=== PATIENT | female | born 1970 | race Caucasian/White ===

== ENCOUNTER 2024-01-13 12:27 | Emergency (ER) | payer OTHER ==
--- OUTSIDE RECORDS SUMMARY | 2024-01-13 12:33 | XMS REPORT | Continuity of Care Document ---
Author Name Unknown Address [address] [facility] [address] [place] [address] [facility] thconnect Address [address] [facility] [place] [address] Care Team Providers Care Splicer Operator Name Role Phone Milad MORALES, [facility] Primary Care Physician + MARIO GUZMAN Attending Clinician Unavailable GIANLUCA COOK Attending Clinician Unavailable Olive Powell Attending Clinician [phone] Armando Toth Attending Clinician [phone] JAX HEIN Attending Clinician Unavailable OLIVE CHOWDHURY Attending Clinician Unavailable Mario Ambriz Attending Clinician KALEN MATTHEWS Attending Clinician Unavail able [place] PIETROMKalen Attending Clinician [phone] Lab, Ang - Db Attending Clinician Unavailable Pavan Lott MD Attending Clinician [phone] PAVAN LOTT Attending Clinician Unavailable Doctor Unassigned, [place] Attending Clinician U ARMANDO Garcia Attending Clinician Unavailable Anthony Shaffer Attending Clinician Unavailab Maureen Cedillo Attending Clinician [phone] [facility], Infectious Attending Clinician [phone] Doctor Unassigned, [place] Attending Clinician U jennysilvio Boyer LMSW, [place] Attending Clinician + [phone] JOSELINE MCRAE Attending Clinician Unavailable Joseline Mcrae MD Attending Clinician [phone] ZACHARIAH GOMEZ Attending Clinician Unavailable Meenu Loyd Attending Clinician [phone] Zachariah Gomez MD Attending Clinician [phone] MAUREEN MCDONALD Attending Clinician Unavailable Tianna Adair MA Attending Clinician Unavaila Ede Singh Attending Clinician Unavailab Willian Sanchez MD Attending Clinician [phone] WILLIAN PATRICIO Attending Clinician Unavailable ELIAN HERRERA Attending Clinician Unavailable ELIAN HERRERA Attending Clinician Unavailable Cyrus Sim MD Attending Clinician [phone] Julia Méndez LCSW Attending Clinician [phone] Pcp, Patient Does Not Have A Attending Clinician UNKNOWN, ATTENDING Attending Clinician Unavailab Constance Cano Attending Clinician Unavailable RADHA EDDY Attending Clinician Unavailable Mark Soto RN Attending Clinician Unavail John Allison MD Attending Clinician [phone] Judie Cardoso MD Attending Clinician [phone] Aurelio Shaw MD Attending Clinician [phone] Giacomo Spaulding MD Attending Clinician [phone] GIACOMO SPAULDING Attending Clinician Unavailable UNDEFINED Admitting Clinician Unavailable JOSELINE MCRAE Admitting Clinician Unavailable MEENU SHIPMAN Admitting Clinician Unavailable Judie Cardoso MD Admitting Clinician [phone] HORNE Admitting Clinician Unavailable Payers Payer Name Policy Type Policy Number Effective Date Expirati on Date Source [employer] HMO SNP [id number] 2023 00:00:00 [employer] D[employer] DSNP Medicare [id number] 2023 00:00:00 Problems Condition Name Condition Details Condition Category Status Onset Date Resolution Date Last Treatment Date Treating Clinician Comments Source Benign hypertensi on Benign hypertensi on Disease Active 2023-02 00:00: 00 [facility] Anxiety and depression Anxiety and depression Disease Active 10-03 00:00: 00 [facility] Bipolar affective disorder, current episode manic, current episode severity unspecifie d Bipolar affective disorder, current episode manic, current episode severity unspecifie d Disease Active 10-03 00:00: 00 [facility] Elevated blood pressure reading in office without diagnosis of hypertensi on Elevated blood pressure reading in office without diagnosis of hypertensi on Disease Active 10-03 00:00: 00 [facility] Encounter to establish care Encounter to establish care Disease Active 10-03 00:00: 00 [facility] acute hospital Encounter to establish care Encounter to establish care Disease Active 10-03 00:00: 00 [facility] HIV disease HIV disease Disease Active 2021-02 00:00: 00 [facility] Bipolar disorder, current episode mixed, moderate Bipolar disorder, current episode mixed, moderate Disease Active 2021-02 00:00: 00 [facility] Lack of family support Lack of family support Disease Active 2021-02 00:00: 00 [facility] Lack of motivation Lack of motivation Disease Active 2021-02 00:00: 00 [facility] Hyperactiv e Hyperactiv e Disease Active 2021-02 00:00: 00 [facility] Methamphet amine abuse Methamphet amine abuse Disease Active 2021-02 00:00: 00 [facility] High risk social situation High risk social situation Disease Active 2021-02 00:00: 00 [facility] Exposure to potential infection Exposure to potential infection Disease Active 2021-02 00:00: 00 [facility] Immunocomp romised patient Immunocomp romised patient Disease Active 2021-02 00:00: 00 [facility] Non-compli ance Non-compli ance Disease Active 2021-02 00:00: 00 [facility] Exposure to potential infection Exposure to potential infection Disease Active 2021-02 00:00: 00 [facility] Acute hepatitis Acute hepatitis Disease Active 2021-02 00:00: 00 [facility] Non-compli ance with treatment Non-compli ance with treatment Disease Active 06-26 00:00: 00 [facility] acute [facility] Intractabl e nausea and vomiting Intractabl e nausea and vomiting Disease Active 06-26 00:00: 00 [facility] 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 Formattin g of this note might be different from the original. 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 Formattin g of this note might be different from the original. IMO Update [facility] acute hospital QT prolongati on QT prolongati on Disease Active 03-01 00:00: 00 [facility] Encephalop athy acute Encephalop athy acute Disease Active 06-21 00:00: 00 [facility] Pneumonia Pneumonia Disease Active 06-21 00:00: 00 [facility] Vitamin D deficiency Vitamin D deficiency Disease Active 2013-02 00:00: 00 [facility] Delirium Delirium Disease Active 2013-02 00:00: 00 [facility] Gait abnormalit y Gait abnormalit y Disease Active 2013-02 00:00: 00 [facility] Alcohol abuse Alcohol abuse Disease Active 2011-02 00:00: 00 [facility] Anxiety state Anxiety state Disease Active 2011-02 00:00: 00 [facility] Bipolar 1 disorder Bipolar 1 disorder Disease Active 2011-02 00:00: 00 [facility] Pyelonephr itis Pyelonephr itis Disease Active 10-13 00:00: 00 [facility] Abdominal pain Abdominal pain Disease Active 10-13 00:00: 00 [facility] LFTs abnormal LFTs abnormal Disease Active 10-13 00:00: 00 [facility] acute hospital Allergies, Adverse Reactions, Alerts Allergy Name Allergy Type Status Severity Reaction(s) Onset Date Inactive Date Treating Clinician Comments Source Sulfa (Sulfona mide Antibiot ics) DA Active ID 10-01 00:00: 00 [facility] Sulfa (Sulfona mide Antibiot ics) DA Active ID HIVES 10-01 00:00: 00 [facility] Sulfur Propensi ty to adverse reaction s Active Swelling 07-12 00:00: 00 [facility] acute hospital SULFUR DRUG INGREDI Active High ITCHING 07-12 00:00: 00 [facility] acute hospital Sulfa (Sulfona mide Antibiot ics) Drug Allergy Active Hives 4-13 00:00: 00 [facility] acute hospital SULFA (SULFONA MIDE ANTIBIOT ICS) Drug Class Active Hives 4-13 00:00: 00 [facility] acute [facility] NO KNOWN ALLERGIE S Drug Class Active [facility] Social History Social Habit Start Date Stop Date Quantity Comments Source History of tobacco use Passive smoker [facility] History SDOH Social Connections Get Together [facility] History SDOH 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 Gender identity Ivan len Carrasquillo [facility] Alcoholic beverage intake 2023-12-13 00:00:00 2023-12-13 00:00:00 Ex-drinker (finding) [facility] History of Social function 2023-03-19 00:00:00 2023-03-19 00:00:00 [facility] Exposure to SARS-CoV-2 (event) 2022-04-07 00:00:00 2022-04-17 21:11:00 Not sure [facility] Tobacco use and exposure 2022-01-28 00:00:00 2022-01-28 00:00:00 Smokeless tobacco non-user [facility] History SDOH Alcohol Frequency 2022-01-28 00:00:00 2022-01-28 00:00:00 1 [facility] History SDOH Alcohol Std Drinks 2022-01-28 00:00:00 2022-01-28 00:00:00 0 [facility] History SDOH Alcohol Binge 2022-01-28 00:00:00 2022-01-28 00:00:00 1 [facility] History SDOH Social Connections Phone 2022-01-28 00:00:00 2022-01-28 00:00:00 5 [facility] History SDOH Social Connections Living 2022-01-28 00:00:00 2022-01-28 00:00:00 5 [facility] History SDOH Physical Activity DPW 2022-01-28 00:00:00 2022-01-28 00:00:00 0 [facility] History SDOH Physical Activity MPS 2022-01-28 00:00:00 2022-01-28 00:00:00 0 [facility] History SDOH Financial 2022-01-28 00:00:00 2022-01-28 00:00:00 5 [facility] History SDOH Food Worry 2022-01-28 00:00:00 2022-01-28 00:00:00 1 [facility] History SDOH Food Scarcity 2022-01-28 00:00:00 2022-01-28 00:00:00 1 [facility] History SDOH Transport Med 2022-01-28 00:00:00 2022-01-28 00:00:00 2 [facility] History SDOH Transport Non-Med 2022-01-28 00:00:00 2022-01-28 00:00:00 2 [facility] Sex assigned at 1970 00:00:00 1970 00:00:00 [facility] Smoking Status Start Date Stop Date Source Tobacco smoking consumption unknown [facility] Never smoked tobacco [facility] Medications Ordered Medication Name Filled Medication Name Start Date Stop Date Current Medication? Ordering Clinician Indication Dosage Frequency Signature (SIG) Comments Components Source QUEtiapine (SEROQUEL) 25 mg tablet 2023-02 00:00: 00 Yes [id number] 25mg Take 1 tablet by mouth at bedtime as needed for Insomnia. [facility] acute [facility] SERTraline (ZOLOFT) 100 mg tablet 2023-02 00:00: 00 Yes [id number] 150mg Take 1.5 tablets by mouth at bedtime. [facility] propranoloL 20 mg tablet 2023-02 00:00: 00 Yes [id number] 20mg Take 1 tablet by mouth in the morning and 1 tablet in the evening. [facility] SERTraline (ZOLOFT) 50 mg tablet 2023-02 0 09:52: 11 12-12 00:00 :00 No 50mg Take 1 tablet by mouth in the morning and 1 tablet in the evening. [facility] risperiDONE 0.5 mg tablet 2023-02 09:51: 58 Yes .5mg Take 1 tablet by mouth in the morning and 1 tablet in the evening. [facility] hydrOXYzine 50 mg tablet 2023-02 09:51: 41 Yes 50mg Take 1 tablet by mouth in the morning and 1 tablet at noon and 1 tablet in the evening. [facility] BIKTARVY 50-200-25 mg tablet 2023-02 00:00: 00 Yes [id number] 1{tbl} Take 1 tablet by mouth in the morning. [facility] methocarbam oL (ROBAXIN) tablet 750 mg 03-29 19:45: 00 03-29 18:46 :00 No 750mg 750 mg, Oral, ONCE NOW, 1 dose, On Wed03/29/23 at 1345, Routine [facility] ciprofloxac in HCl (CIPRO) tablet 500 mg 03-29 19:30: 00 03-29 18:46 :00 No 500mg 500 mg, Oral, ONCE, 1 dose, On Wed03/29/23 at 1330, AZAM
Re ason for Anti-Infec tive: Documented Infection< br>Documen bhupinder Infection Site: Abdominal< br>Duratio n of Therapy: 7 days [facility] iopamidol (ISOVUE 370-500 mL) injection 80 mL 03-29 19:15: 00 03-29 18:14 :00 No [id number] 80mL 80 mL, Intravenou s, ONCE, 1 dose, On Wed03/29/23 at 1315, Routine [facility] NaCl 0.9% (NS) bolus infusion 1,000 mL 03-29 18:15: 00 03-29 18:40 :00 No 1000mL at 999 mL/hr, 1,000 mL, IV Infusion, ONCE, 1 dose, On Wed03/29/23 at 1215, STAT [facility] hospital ketorolac (TORADOL) injection 15 mg 03-29 17:15: 00 03-29 17:27 :00 No 15mg 15 mg, Slow IV Push, ONCE, 1 dose, On Wed03/29/23 at 1115, Routine [facility] ciprofloxac in HCl 500 mg tablet 03-29 00:00: 00 Yes [id number] 500mg Take 1 tablet by mouth in the morning and 1 tablet in the evening. [facility] traMADoL (ULTRAM) 50 mg tablet 03-29 00:00: 00 Yes [id number] 50mg Take 1 tablet by mouth every 6 (six) hours as needed for Pain (scale 7-10) or Pain (scale 4-6). Indication s: acute pain [facility] ketorolac (TORADOL) injection 15 mg 03-26 02:30: 00 03-26 01:51 :00 No 15mg 15 mg, Slow IV Push, ONCE, 1 dose, On Wed03/25/23 at 2030, Routine [facility] FENTanyl PF (SUBLIMAZE (PF)) injection 50 mcg 03-26 02:15: 00 03-26 01:51 :00 No 50ug 50 mcg, Slow IV Push, ONCE, 1 dose, On Wed03/25/23 at 2015, Routine [facility] iopamidol (ISOVUE 370-500 mL) injection 100 mL 03-26 02:00: 00 03-26 02:00 :00 No [id number] 100mL 100 mL, Intravenou s, ONCE, 1 dose, On Wed03/25/23 at 2000, Routine [facility] acute [facility] proMETHazin e (PHENERGAN) 12.5 mg in NaCl 0.9% (NS) 50 mL IV piggyback 03-26 01:45: 00 03-26 02:22 :00 No 12.5mg 12.5 mg, IV Piggyback, at 200 mL/hr Administer over 15 Minutes, ONCE, 1 dose, On [place] 03/25/23 at 1945, AZAM [facility] acute [facility] cefTRIAXone (ROCEPHIN) 1,000 mg in NaCl 0.9% (NS) 100 mL MINI-BAG 03-26 01:00: 00 03-26 00:59 :00 No 1000mg 1,000 mg, IV Piggyback, ONCE, 1 dose, On [place] 03/25/23 at 1900, Administer over 30 Minutes, 100 mL
Reas on for Anti-Infec tive: Documented Infection< br>Documen bhupinder Infection Site: Urine
D uration of Therapy: 7 days [facility] NaCl 0.9% (NS) IV infusion 1,000 mL 03-26 00:00: 00 03-26 02:22 :00 No 1000mL at 999 mL/hr, Intravenou s, ONCE, 1 dose, On [place] 03/25/23 at 1800, Routine [facility] NaCl 0.9% (NS) IV infusion 1,000 mL 03-25 23:45: 00 03-26 01:55 :00 No 1000mL at 999 mL/hr, Intravenou s, ONCE, 1 dose, On [place] 03/25/23 at 1745, Routine [facility] FENTanyl PF (SUBLIMAZE (PF)) injection 25 mcg 03-25 22:45: 00 03-26 00:27 :00 No 25ug 25 mcg, Slow IV Push, ONCE, 1 dose, On [place] 03/25/23 at 1645, STAT [facility] ondansetron (ZOFRAN (PF)) injection 4 mg 03-25 22:45: 00 03-26 00:27 :00 No 4mg 4 mg, Slow IV Push, ONCE, 1 dose, On [place]os[place] 03/25/23 at 1645, AZAM [facility] dicyclomine 20 mg tablet 03-25 00:00: 00 Yes [id number] 20mg Take 1 tablet by mouth 4 (four) times daily as needed for Abdominal pain. [facility] ondansetron 4 mg tablet 03-25 00:00: 00 Yes [id number] 4mg Take 1 tablet by mouth every 8 (eight) hours as needed for Nausea and Vomiting (N/V). [facility] cefdinir 300 mg capsule 03-25 00:00: 00 04-02 05:59 :00 No [id number] 300mg Take 1 capsule by mouth in the morning and 1 capsule in the evening. Do all this for 7 days. [facility] cephALEXin (KEFLEX) capsule 500 mg 03-20 03:15: 00 03-20 03:11 :00 No 500mg 500 mg, Oral, ONCE, 1 dose, On Wed03/19/23 at 2115, AZAM
Re ason for Anti-Infec tive: Documented Infection< br>Documen bhupinder Infection Site: Urine
D uration of Therapy: Other (see Comments) [facility] ketorolac (TORADOL) injection 15 mg 03-20 03:00: 00 03-20 02:08 :00 No 15mg 15 mg, Slow IV Push, ONCE, 1 dose, On Wed03/19/23 at 2100, Routine [facility] iopamidol (ISOVUE 370-500 mL) injection 100 mL 03-19 22:45: 00 03-19 22:45 :00 No [id number] 100mL 100 mL, Intravenou s, ONCE, 1 dose, On Wed03/19/23 at 1645, Routine [facility] pantoprazol e (PROTONIX) injection 40 mg 03-19 22:30: 00 03-20 00:10 :00 No 40mg 40 mg, Slow IV Push, ONCE, 1 dose, On Wed03/19/23 at 1630 [facility] HYDROcodone -acetaminop hen (NORCO 5) 5-325 mg tablet 1 tablet 03-19 21:15: 00 03-19 21:35 :00 No 1{tbl} 1 tablet, Oral, ONCE NOW, 1 dose, On Wed03/19/23 at 1515, AZAM [facility] hospital NaCl 0.9% (NS) bolus infusion 500 mL 03-19 21:15: 03-19 23:00 :00 No 500mL at 999 mL/hr, 500 mL, IV Infusion, ONCE, 1 dose, On Wed03/19/23 at 1515, STAT [facility] cholecalcif kortney, vitamin D3, 25 mcg (1,000 unit) tablet 03-19 13:20: 35 Yes [id number] Take 2 tablets by mouth. [facility] acute hospital Vitamin B-12 500 mcg tablet 03-19 13:20: 35 Yes 1000ug Take 2 tablets by mouth. [facility] ibuprofen 800 mg tablet 03-19 00:00: 00 Yes [id number] 800mg Take 1 tablet by mouth every 6 (six) hours as needed for Pain (scale 1-3) for up to 30 doses. [facility] cephALEXin (KEFLEX) 500 mg capsule 03-19 00:00: 00 03-19 00:00 :00 No [id number] 500mg Take 1 capsule by mouth in the morning and 1 capsule in the evening. Do all this for 5 days. [facility] acute [facility] amLODIPine 5 mg tablet 09-29 00:00: 00 Yes 5mg Take 1 tablet by mouth. [facility] LORazepam (ATIVAN) injection 1 mg 04-18 15:30: 00 04-18 15:46 :00 No 1mg 1 mg, Slow IV Push, ONCE, 1 dose, On 04/18/22 at 0930, STAT [facility] NaCl 0.9% (NS) bolus infusion 1,000 mL 04-18 15:00: 00 04-18 19:23 :00 No 1000mL at 999 mL/hr, 1,000 mL, IV Infusion, ONCE, 1 dose, On 04/18/22 at 0900, AZAM [facility] metroNIDAZO LE (FLAGYL) tablet 2,000 mg 04-18 07:45: 00 04-18 11:41 :00 No 2000mg 2,000 mg, Oral, ONCE, 1 dose, On 04/18/22 at 0145, AZAM
Re ason for Anti-Infec tive: Empiric Therapy for Suspected Infection< br>Empiric Therapy Site: Pelvic
Duration of therapy: 72 hours [facility] cefTRIAXone (ROCEPHIN) 1,000 mg in NaCl 0.9% (NS) 100 mL MINI-BAG 04-18 07:45: 00 04-18 12:10 :00 No 1000mg 1,000 mg, IV Piggyback, ONCE, 1 dose, On 04/18/22 at 0145, Administer over 30 Minutes, 100 mL
Reas on for Anti-Infec tive: Documented Infection< br>Documen bhupinder Infection Site: Urine
D uration of Therapy: Other (see Comments) [facility] doxycycline hyclate 100 mg capsule 04-18 00:00: 00 04-26 04:59 :00 No [id number] 100mg Take 1 capsule by mouth in the morning and 1 capsule in the evening. Do all this for 7 days. [facility] metroNIDAZO LE 500 mg tablet 04-18 00:00: 00 04-26 04:59 :00 No [id number] 500mg Take 1 tablet by mouth in the morning and 1 tablet in the evening. Do all this for 7 days. [facility] cefdinir 300 mg capsule 04-18 00:00: 00 04-26 04:59 :00 No [id number] 300mg Take 1 capsule by mouth every 12 (twelve) hours for 7 days. [facility] SERTraline 100 mg tablet 03-06 14:33: 51 03-06 00:00 :00 No 100mg Take 100 mg by mouth. [facility] risperiDONE 2 mg tablet 03-06 14:33: 48 03-06 00:00 :00 No 2mg Take 2 mg by mouth. [facility] propranoloL 20 mg tablet 03-06 14:33: 45 03-06 00:00 :00 No 20mg Take 20 mg by mouth. [facility] gabapentin 300 mg capsule 03-06 14:33: 36 03-06 00:00 :00 No Take by mouth. [facility] albuterol 90 mcg/actuati on inhaler 03-06 14:33: 29 03-06 00:00 :00 No Inhale. [facility] ARIPiprazol e 20 mg tablet 03-06 14:33: 26 03-06 00:00 :00 No Take by mouth. [facility] busPIRone 10 mg tablet 03-06 14:33: 17 03-06 00:00 :00 No 10mg Take 10 mg by mouth. [facility] carBAMazepi ne 200 mg 12 hr tablet 03-06 14:33: 10 03-06 00:00 :00 No 200mg Take 200 mg by mouth. [facility] ziprasidone 40 mg capsule 03-06 14:29: 46 03-06 00:00 :00 No 1 capsule with food [facility] ondansetron 4 mg tablet 03-06 00:00: 00 Yes [id number] 4mg Take 1 tablet by mouth every 8 (eight) hours as needed for Nausea and Vomiting (N/V). [facility] Nitrofurant oin&Nit. Macrocryst 100 mg capsule 02-21 00:00: 00 Yes TAKE 100 MG BY MOUTH TWICE DAILY UNTIL FINISHED. TAKE WITH FOOD. [facility] LORazepam 1 mg tablet 02-21 00:00: 00 Yes TAKE 1 TABLET BY MOUTH EVERY 8 HOURS NEEDED FOR ANXIETY [facility] proMETHazin e 25 mg tablet 02-21 00:00: 00 03-06 00:00 :00 No TAKE 25 MG BY MOUTH EVERY 6 HOURS NEEDED FOR NAUSEA/VOM ITING [facility] ondansetron 4 mg disintegrat ing tablet 02-21 00:00: 00 03-06 00:00 :00 No DISSOLVE 1 TABLET BY MOUTH EVERY 6 HOURS NEEDED FOR NAUSEA/VOM ITING [facility] ARIPiprazol e 20 mg tablet 2021-02 12:11: 50 Yes Take by mouth. [facility] busPIRone 10 mg tablet 2021-02 12:11: 50 Yes 10mg Take 10 mg by mouth. [facility] carBAMazepi ne 200 mg 12 hr tablet 2021-02 12:11: 50 Yes 200mg Take 200 mg by mouth. [facility] gabapentin 300 mg capsule 2021-02 12:11: 50 Yes Take by mouth. [facility] propranoloL 20 mg tablet 2021-02 12:11: 50 Yes 20mg Take 20 mg by mouth. [facility] risperiDONE 2 mg tablet 2021-02 12:11: 50 Yes 2mg Take 2 mg by mouth. [facility] SERTraline 100 mg tablet 2021-02 12:11: 50 Yes 100mg Take 100 mg by mouth. [facility] ziprasidone 40 mg capsule 2021-02 12:11: 50 Yes 1 capsule with food [facility] albuterol 90 mcg/actuati on inhaler 2021-02 12:11: 49 Yes Inhale. [facility] foLIC acid 1 mg tablet 2021-02 00:00: 00 03-05 05:59 :00 No [id number] 1mg Take 1 tablet by mouth in the morning for 30 days. [facility] thiamine 100 mg tablet 2021-02 00:00: 00 03-05 05:59 :00 No [id number] 100mg Take 1 tablet by mouth in the morning for 30 days. [facility] morpHINE (2 mg/mL) injection 2 mg 2021-02 15:04: 26 Yes 2mg 2 mg, Slow IV Push, Q4HPRN, Starting on Wed01/30/22 at 0904, Until Discontinu ed, Routine, Pain (scale 7-10) [facility] foLIC acid (FOLATE) tablet 1 mg 2021-02 15:00: 00 Yes 1mg 1 mg, Oral, DAILY, First dose on Wed01/29/22 at 0900, Until Discontinu ed, Routine [facility] thiamine (VITAMIN B1) tablet 100 mg 2021-02 15:00: 00 Yes 100mg 100 mg, Oral, DAILY, First dose on Wed01/29/22 at 0900, Until Discontinu ed, Routine [facility] enoxaparin (LOVENOX) injection 40 mg 2021-02 15:00: 00 Yes 40mg 40 mg, Subcutaneo us, DAILY, First dose on Wed01/29/22 at 0900, Until Discontinu ed, Routine [facility] oxazepam (SERAX) capsule 15 mg 2021-02 23:43: 13 Yes 15mg 15 mg, Oral, Q4HPRN, Starting on Wed01/28/22 at 1743, Until Discontinu ed, Routine, Only while awake for DBP equal to or greater than 100, HR equal to or greater than 100. [facility] hydrALAZINE (APRESOLINE ) tablet 10 mg 2021-02 23:42: 05 Yes 10mg 10 mg, Oral, Q6HPRN, Starting on Wed01/28/22 at 1742, Until Discontinu ed, Routine, SBP > 155 [facility] acute hospital sennosides- docusate sodium (SENOKOT-S) 8.6-50 mg per tablet 1 tablet 2021-02 23:42: 01 Yes 1{tbl} 1 tablet, Oral, QDAILYPRN, Starting on Wed01/28/22 at 1742, Until Discontinu ed, Routine, Constipati on [facility] acute hospital melatonin (MELATIN) tablet 3 mg 2021-02 23:41: 59 Yes 3mg 3 mg, Oral, QHSPRN, Starting on Wed01/28/22 at 1741, Until Discontinu ed, Routine, Insomnia [facility] acute hospital ondansetron (ZOFRAN (PF)) injection 4 mg 2021-02 23:41: 54 Yes 4mg 4 mg, Slow IV Push, Q6HPRN, Starting on Wed01/28/22 at 1741, Until Discontinu ed, Routine, Nausea and Vomiting (N/V) [facility] traMADoL (ULTRAM) tablet 50 mg 2021-02 23:41: 48 01-30 23:40 :48 No 50mg 50 mg, Oral, Q6HPRN, Starting on Wed01/28/22 at 1741, Until 01/30/22 at 1740, Routine, Pain (scale 4-6) [facility] morpHINE (2 mg/mL) injection 2 mg 2021-02 23:41: 43 01-29 23:40 :43 No 2mg 2 mg, Slow IV Push, Q6HPRN, Starting on Wed01/28/22 at 1741, Until [place] 01/29/22 at 1740, Routine, Pain (scale 7-10) [facility] ketorolac (TORADOL) injection 30 mg 2021-02 17:30: 00 01-28 16:29 :00 No 30mg 30 mg, Slow IV Push, ONCE, 1 dose, On Wed01/28/22 at 1130, Routine [facility] ondansetron (ZOFRAN (PF)) injection 4 mg 2021-02 15:30: 00 01-28 15:30 :00 No 4mg 4 mg, Slow IV Push, ONCE, 1 dose, On Wed01/28/22 at 0930, [facility] Immunizations Ordered Immunization Name Filled Immunization Name Date Status Comments Source TDAP 2020 00:00:00 Completed TDAP 2020 00:00:00 Completed [facility] TDAP 2020 00:00:00 Completed [facility] TDAP 2020 00:00:00 Completed [facility] TDAP 2020 00:00:00 Completed [facility] TDAP 2020 00:00:00 Completed [facility] TDAP 2020 00:00:00 Completed [facility] TDAP 2020 00:00:00 Completed [facility] TDAP 2020 00:00:00 Completed [facility] TDAP 2020 00:00:00 Completed [facility] TDAP 2020 00:00:00 Completed [facility] TDAP 2020 00:00:00 Completed [facility] TDAP 2020 00:00:00 Completed [facility] TDAP 2020 00:00:00 Completed [facility] TDAP 2020 00:00:00 Completed [facility] TDAP 2020 00:00:00 Completed [facility] TDAP 2020 00:00:00 Completed [facility] TDAP 2020 00:00:00 Completed [facility] TD Pres-Free 2011-07-08 00:00:00 Completed TD Pres-Free 2011-07-08 00:00:00 Completed [facility] TD Pres-Free 2011-07-08 00:00:00 Completed [facility] TD Pres-Free 2011-07-08 00:00:00 Completed [facility] TD Pres-Free 2011-07-08 00:00:00 Completed [facility] TD Pres-Free 2011-07-08 00:00:00 Completed [facility] TD Pres-Free 2011-07-08 00:00:00 Completed [facility] TD Pres-Free 2011-07-08 00:00:00 Completed [facility] TD Pres-Free 2011-07-08 00:00:00 Completed [facility] TD Pres-Free 2011-07-08 00:00:00 Completed [facility] TD Pres-Free 2011-07-08 00:00:00 Completed [facility] TD Pres-Free 2011-07-08 00:00:00 Completed [facility] TD Pres-Free 2011-07-08 00:00:00 Completed [facility] TD Pres-Free 2011-07-08 00:00:00 Completed [facility] TD Pres-Free 2011-07-08 00:00:00 Completed [facility] TD Pres-Free 2011-07-08 00:00:00 Completed [facility] TD Pres-Free 2011-07-08 00:00:00 Completed [facility] TD Pres-Free 2011-07-08 00:00:00 Completed [facility] TDAP Unknown Completed [facility] TD Pres-Free Unknown Completed [facility] TDAP Unknown Completed [facility] TD Pres-Free Unknown Completed [facility] TDAP Unknown Completed [facility] TD Pres-Free Unknown Completed [facility] TDAP Unknown Completed [facility] TD Pres-Free Unknown Completed [facility] TDAP Unknown Completed [facility] TD Pres-Free Unknown Completed [facility] TDAP Unknown Completed [facility] TD Pres-Free Unknown Completed [facility] TDAP Unknown Completed [facility] TD Pres-Free Unknown Completed [facility] TDAP Unknown Completed [facility] TD Pres-Free Unknown Completed [facility] TDAP Unknown Completed [facility] TD Pres-Free Unknown Completed [facility] TDAP Unknown Completed [facility] TD Pres-Free Unknown [facility] TD Pres-Free Unknown Com[facility]pleted [facility] TD Pres[facility]Free Unknown Completed [facility] Unknown [facility]pleted [facility] TD Pres-Free Unknown Completed [facility] TD[facility] Unknown [facility]pleted [facility] TD Pres-Free Unknown Completed [facility] TDAP Unknown Completed [facility] TD Pres-Free Unknown Completed [facility] TDAP Unknown Completed [facility] TD Pres-Free Unknown Completed [facility] TDAP Unknown Completed [facility] TD Pres-Free Unknown Completed [facility] TDAP Unknown Completed [facility] TD Pres-Free Unknown Completed [facility] TDAP Unknown Completed [facility] TD Pres-Free Unknown Completed [facility] TDAP Unknown Completed [facility] TD Pres-Free Unknown Completed [facility] TDAP Unknown Completed [facility] TD Pres-Free Unknown Completed [facility] TDAP Unknown Completed [facility] TD Pres-Free Unknown Completed [facility] TDAP Unknown Completed [facility] TD Pres-Free Unknown Completed [facility] TDAP Unknown Completed [facility] TD Pres-Free Unknown Completed [facility] TDAP Unknown Completed [facility] TD Pres-Free Unknown Completed [facility] TDAP Unknown Completed [facility] TD Pres-Free Unknown Completed [facility] TDAP Unknown Completed [facility] TD Pres-Free Unknown Completed [facility] TDAP Unknown Completed [facility] TD Pres-Free Unknown Com[facility] TD Pres-Free Unknown Completed [facility] TD[facility] Unknown Completed [facility] TD Pres[facility]Free Unknown Completed [facility] Unknown Completed [facility] TD Pres[facility]Free Unknown Completed [facility] TD[facility] Unknown [facility]pleted [facility] TD Pres-Free Unknown Completed [facility] TDAP Unknown Completed [facility] TD Pres-Free Unknown Completed [facility] Unknown [facility]pleted [facility] TD Pres[facility]Free Unknown Completed [facility] TDAP Unknown [facility]pleted [facility] TD Pres[facility]Free Unknown Completed [facility] TDAP Unknown Completed [facility] TD Pres[facility]Free Unknown Completed [facility] TDAP Unknown Completed [facility] TD Pres-Free Unknown Completed [facility] TD[facility] Unknown Completed [facility] TD Pres-Free Unknown Completed [facility] Vital Signs Vital Name Observation Time Observation Value Comments S ource Systolic blood pressure 2023-12-13 19:38:00 145 mm[Hg] [facility] Diastolic blood pressure 2023-12-13 19:38:00 88 mm[Hg] [facility] Heart rate 2023-12-13 19:38:00 99 /min [facility] temperature 2023-12-13 19:38:00 36.83 Rabia [facility] Body height 2023-12-13 19:38:00 165.1 cm [facility] Body weight 2023-12-13 19:38:00 74.163 kg [facility] BMI 2023-12-13 19:38:00 27.21 kg/m2 [facility] Oxygen saturation in Arterial blood by Pulse oximetry 2023-12-13 19:38:00 100 /min [facility] Systolic blood pressure 2023-10-04 18:14:00 150 mm[Hg] [facility] Diastolic blood pressure 2023-10-04 18:14:00 83 mm[Hg] [facility] Heart rate 2023-10-04 18:13:00 112 /min Un[facility] Body temperature 2023-10-04 18:13:00 37.06 Rabia [facility] Respiratory rate 2023-10-04 18:13:00 18 /min [facility] Body height 2023-10-04 18:13:00 165.1 cm [facility] Body weight 2023-10-04 18:13:00 70.081 kg [facility] BMI 2023-10-04 18:13:00 25.71 kg/m2 [facility] Oxygen saturation in Arterial blood by Pulse oximetry 2023-10-04 18:13:00 97 /min [facility] Systolic blood pressure 2023-03-29 18:45:00 135 mm[Hg] [facility] Diastolic blood pressure 2023-03-29 18:45:00 115 mm[Hg] [facility] Heart rate 2023-03-29 18:00:00 91 /min [facility] Respiratory rate 2023-03-29 18:00:00 19 /min [facility] Oxygen saturation in Arterial blood by Pulse oximetry 2023-03-29 18:00:00 97 /min [facility] Body temperature 2023-03-29 17:01:00 36.83 Rabia [facility] Body height 2023-03-29 17:01:00 165.1 cm [facility] Sy[facility] 2023-03-26 02:00:00 149 mm[Hg] [facility] Diastolic blood pressure 2023-03-26 02:00:00 89 mm[Hg] [facility] Heart rate 2023-03-26 02:00:00 112 /min [facility] Body temperature 2023-03-26 01:55:36 37 Rabia [facility] Respiratory rate 2023-03-26 01:55:36 18 /min [facility] Oxygen saturation in Arterial blood by Pulse oximetry 2023-03-26 01:55:36 98 /min [facility] Body weight 2023-03-25 22:32:00 77.111 kg [facility] BMI 2023-03-25 22:32:00 28.29 kg/m2 [facility] Systolic blood pressure 2023-03-20 02:41:00 154 mm[Hg] [facility] Diastolic blood pressure 2023-03-20 02:41:00 102 mm[Hg] [facility] Heart rate 2023-03-20 02:41:00 87 /min [facility] Respiratory rate 2023-03-20 02:41:00 17 /min [facility] Oxygen saturation in Arterial blood by Pulse oximetry 2023-03-20 02:41:00 98 /min [facility] Body temperature 2023-03-20 01:16:00 36.83 Rabia [facility] Body height 2023-03-19 20:48:00 165.1 cm [facility] Body weight 2023-03-19 20:48:00 77.111 kg [facility] BMI 2023-03-19 20:48:00 28.29 kg/m2 [facility] Systolic blood pressure 2023-03-19 20:16:00 148 mm[Hg] [facility] Diastolic blood pressure 2023-03-19 20:16:00 98 mm[Hg] [facility] Heart rate 2023-03-19 20:16:00 112 /min [facility] Body temperature 2023-03-19 19:09:00 36.39 Rabia [facility] Respiratory rate 2023-03-19 19:09:00 18 /min [facility] Body height 2023-03-19 19:09:00 165.1 cm [facility] Body weight 2023-03-19 19:09:00 77.157 kg [facility] BMI 2023-03-19 19:09:00 28.31 kg/m2 [facility] Oxygen saturation in Arterial blood by Pulse oximetry 2023-03-19 19:09:00 100 /min [facility] Systolic blood pressure 2022-04-18 21:19:00 131 mm[Hg] [facility] Diastolic blood pressure 2022-04-18 21:19:00 75 mm[Hg] [facility] Heart rate 2022-04-18 21:19:00 85 /min [facility] Body temperature 2022-04-18 21:19:00 37 Rabia [facility] Respiratory rate 2022-04-18 21:19:00 16 /min [facility] Oxygen saturation in Arterial blood by Pulse oximetry 2022-04-18 21:19:00 98 /min [facility] Body weight 2022-04-18 03:12:00 72.576 kg [facility] BMI 2022-04-18 03:12:00 26.63 kg/m2 [facility] Systolic blood pressure 2022-03-06 20:08:00 138 mm[Hg] [facility] Diastolic blood pressure 2022-03-06 20:08:00 89 mm[Hg] [facility] Heart rate 2022-03-06 20:04:00 134 /min Un[facility] Body temperature 2022-03-06 20:04:00 37.61 Rabia [facility] Respiratory rate 2022-03-06 20:04:00 19 /min [facility] Body height 2022-03-06 20:04:00 165.1 cm [facility] Body weight 2022-03-06 20:04:00 73.347 kg [facility] BMI 2022-03-06 20:04:00 26.91 kg/m2 [facility] Oxygen saturation in Arterial blood by Pulse oximetry 2022-03-06 20:04:00 97 /min [facility] Systolic blood pressure 2022-02-01 13:14:00 130 mm[Hg] [facility] Diastolic blood pressure 2022-02-01 13:14:00 74 mm[Hg] [facility] Heart rate 2022-02-01 13:14:00 82 /min [facility] Body temperature 2022-02-01 13:14:00 36.72 Rabia [facility] Respiratory rate 2022-02-01 13:14:00 16 /min [facility] Oxygen saturation in Arterial blood by Pulse oximetry 2022-02-01 10:03:00 98 /min [facility] Body height 2022-01-28 21:32:00 165.1 cm [facility] Body weight 2022-01-28 21:32:00 71.986 kg [facility] BMI 2022-01-28 21:32:00 26.41 kg/m2 [facility] Procedures Procedure Date / Time Performed Performing Clinician Source CT ABDOMEN PELVIS W CONTRAST 2023-03-29 18:19:02 Joseline Mcrae [facility] COMP. METABOLIC PANEL ([id number]) 2023-03-29 17:27:00 Joseline Mcrae [facility] CBC WITH DIFF 2023-03-29 17:27:00 [facility] URINALYSIS 2023-03-29 17:27[facility] 2023-03-29 17:27:00 Eliot Mcrae [facility] URINE DRUG (IMMUNOASSAY) - COMPREHENSIVE DRUG SCREEN W/O REFLEX 2023-03-29 17:27:00 Joseline Mcrae [facility] CONSENT/REFUSAL FOR DIAGNOSIS AND TREATMENT 2023-03-29 16:57:33 Doctor Unassigned, [place] [facility] EKG-12 LEAD 2023-03-26 02:09:49 Meenu Shipman [facility] CT ABDOMEN PELVIS W CONTRAST 2023-03-26 01:05:15 Meenu Shipman [facility] URINALYSIS 2023-03-25 23:20:00 Meenu Shipman [facility] RAPID INFLUENZA A/B 2023-03-25 23:20:00 Claudia Shipman [facility] URINE DRUG (IMMUNOASSAY) - COMPREHENSIVE DRUG SCREEN W/O REFLEX 2023-03-25 23:20:00 Meenu Shipman [facility] LIPASE 2023-03-25 23:08:00 Meenu Shipman [facility] COMP. METABOLIC PANEL ([id number]) 2023-03-25 23:08:00 Meenu Shipman [facility] CBC WITH DIFF 2023-03-25 23:08:00 Meenu Shipman [facility] COVID-19 (ID NOW RAPID TESTING) 2023-03-25 23:08:00 Meenu Shipman [facility] CONSENT/REFUSAL FOR DIAGNOSIS AND TREATMENT 2023-03-25 22:25:02 Doctor Unassigned, [place] [facility] URINALYSIS 2023-03-20 02:08:00 Joseline Mcrae [facility] URINE DRUG (IMMUNOASSAY) - COMPREHENSIVE DRUG SCREEN W/O REFLEX 2023-03-20 02:08:00 Joseline Mcrae [facility] ASSIGNMENT OF BENEFITS 2023-03-19 23:43:36 Docto r Unassigned, [place] [facility] CT ANGIOGRAM ABDOMEN/PELVIS 2023-03-19 21:49:00 Joseline Mcrae [facility] HB ABO GROUPING 2023-03-19 21:44:00 Joseline Mcrae [facility] PROTHROMBIN TIME / INR 2023-03-19 21:16:00 Lincoln Mcrae [facility] LIPASE 2023-03-19 21:14:00 Joseline Mcrae [facility] TROPONIN I 2023-03-19 21:14:00 Joseline Mcrae [facility] COMP. METABOLIC PANEL ([id number]) 2023-03-19 21:14:00 Joseline Mcrae [facility] ETHANOL 2023-03-19 21:14:00 Joseline Mcare [facility] CBC WITH DIFF 2023-03-19 21:14:00 Joseline Mcrae [facility] CONSENT/REFUSAL FOR DIAGNOSIS AND TREATMENT 2023-03-19 20:38:50 Doctor Unassigned, [place] [facility] AUTHORIZATION FOR RELEASE OF PHI 2022-05-22 05:01:00 Doctor Unassigned, [place] [facility] TEST, SERUM 2022-04-18 05:29:00 Don Sim [facility] TOTAL BETA HCG ASSAY 2022-04-18 05:29:00 Cyrus Sim [facility] ETHANOL 2022-04-18 05:29:00 Cyrus Sim [facility] URINALYSIS 2022-04-18 05:19:00 Cyrus Sim [facility] COVID-19 (ID NOW RAPID TESTING) 2022-04-18 05:19:00 Cyrus Sim [facility] URINE DRUG (IMMUNOASSAY) - COMPREHENSIVE DRUG SCREEN W/O REFLEX 2022-04-18 05:19:00 Cyrus Sim [facility] CONSENT/REFUSAL FOR DIAGNOSIS AND TREATMENT 2022-04-18 03:05:26 Doctor Unassigned, [place] [facility] PATIENT QUESTIONNAIRE 2022-03-06 06:01:00 Doctor Unassigned, [place] [facility] FREE T4 2022-01-31 20:14:00 Chelly [facility] FREE T3 2022-01-31 20:14:00 [facility] HEPATIC FUNCTION PANEL ([id number]) (ALB,T.PRO,BILI T,BU/BC,ALT,AST,ALK PHOS) 2022-01-31 14:41:00 [facility] US ARTERIAL IN OR VENOUS OUT ABDOMEN LIMITED DOPPLER 2022-01-30 21:15:00 John Wilson [facility] RAPID INFLUENZA A/B 2022-01-30 19:54:00 [facility] HEPATITIS B VIRUS (HBV) BY QUANTITATIVE NAAT 2022-01-30 19:54:00 [facility] HUMAN IMMUNODEFICIENCY VIRUS 1 (HIV-1) BY QUANTITATIVE NAAT 2022-01-30 19:54:00 Harjeet Rios [facility] RAPID RSV 2022-01-30 19:54:00 Harjeet Rios [facility] COVID-19 (ID NOW RAPID TESTING) 2022-01-30 19:54:00 Harjeet Rios [facility] COMP. METABOLIC PANEL ([id number]) 2022-01-30 09:44:00 Aurelio Shaw [facility] CBC WITH DIFF 2022-01-30 09:44:00 Aurelio Shaw [facility] PROTHROMBIN TIME / INR 2022-01-30 09:44:00 Julian Shaw tanvi [facility] SMOOTH MUSCLE AB, IGG TITER 2022-01-30 09:44:00 Morgan Gabriel [facility] SMOOTH MUSCLE AB,IGG W/REFLEX 2022-01-30 09:44:00 [facility] 2022-01-30 09:44:00 Morgan Gabreil [facility] ALPHA 1 ANTITRYPSIN 2022-01-30 09:44:00 Josh Gabriel [facility] IMMUNOGLOBULIN G 2022-01-30 09:44:00 Morgan Gabriel [facility] FERRITIN SERUM 2022-01-29 16:32:00 Morgan Gabreil [facility] THYROID STIMULATING HORMONE 2022-01-29 16:32:00 Morgan Gabriel [facility] IRON PANEL 2022-01-29 16:32:00 Morgan Gabriel [facility] EBV VIRAL CAPSID IGM ANTIBODY 2022-01-29 16:32:00 [facility] EBV NUCLEAR ANTIGEN IGG TEST 2022-01-29 16:32:00 [facility] CYTOMEGALOVIRUS ANTIBODY IGM 2022-01-29 16:32:00 [facility] CYTOMEGALOVIRUS ANTIBODY IGG 2022-01-29 16:32:00 [facility] ANTI-NUCLEAR ANTIBODY SCREEN 2022-01-29 16:32:00 Morgan Gabriel [facility] HEPATITIS B SURFACE ANTIBODY 2022-01-29 16:32:00 Harjeet Rios [facility] HEPATITIS B SURFACE ANTIGEN 2022-01-29 16:32:00 [facility] HCV ANTIBODY 2022-01-29 16:32:00 Harjeet Rios [facility] HBC ANTIBODY (IGM & IGG) 2022-01-29 16:32[facility] VIRUS ANTIBODY IGM 2022-01-29 16:32:00 [facility] RPR (QUANTITATIVE) 2022-01-29 16:32:00 [facility] EBV AB TO EARLY(D)AG,IGG 2022-01-29 16:32:00 Opal Rios [facility] HAV ANTIBODY (IGG AND IGM) 2022-01-29 16:32:00 [facility] HEPATITIS C VIRUS (HCV) BY QUANTITATIVE NAAT 2022-01-29 16:32:00 [facility] CMV BY PCR 2022-01-29 16:32:00 Harjeet Rios [facility] HSV 1 AND 2 GLYCOPROTEIN G IGG 2022-01-29 16:32:00 [facility] HIV 1/2 AG-AB WITH REFLEX 2022-01-29 16:32:00 [facility] HIV 1/2 AB SUPPLEMENTAL TESTING 2022-01-29 16:32:00 [facility] GALV ONLY - SYPHILIS IGG/IGM 2022-01-29 16:32:00 [facility] HEPATITIS BE AG 2022-01-29 16:32:00 Harjeet Rios [facility] HEPATITIS BE AB 2022-01-29 16:32:00 Harjeet Rios [facility] COMP. METABOLIC PANEL ([id number]) 2022-01-29 14:08:00 Aurelio Shaw [facility] PROTHROMBIN TIME / INR 2022-01-29 14:08:00 Julian Shaw [facility] BLOOD CULTURE SCREEN 2022-01-29 00:41:00 John Wilson [facility] BLOOD CULTURE SCREEN 2022-01-29 00:40:00 John Wilson [facility] PROTHROMBIN TIME / INR 2022-01-28 21:55:00 Elizabeth Wilson [facility] URINALYSIS 2022-01-28 17:55:00 Umberto Meenu [facility] URINE CULTURE 2022-01-28 17:55:00 Umberto Meenu [facility] URINE DRUG (IMMUNOASSAY) - COMPREHENSIVE DRUG SCREEN W/O REFLEX 2022-01-28 17:55:00 Meenu Shipman [facility] US ABDOMEN LIMITED 2022-01-28 17:18:25 Meenu Shipman [facility] CT ABDOMEN PELVIS WO CONTRAST 2022-01-28 15:59:50 Meenu Shipman [facility] MAGNESIUM 2022-01-28 15:41:00 John Wilson [facility] COMP. METABOLIC PANEL ([id number]) 2022-01-28 15:41:00 Meenu Shipman [facility] ACETAMINOPHEN 2022-01-28 15:41:00 John Wilson [facility] CBC WITH DIFF 2022-01-28 15:41:00 Meenu Shipman [facility] PHOSPHORUS 2022-01-28 15:41:00 John Wilson [facility] CONSENT/REFUSAL FOR DIAGNOSIS AND TREATMENT 2022-01-28 15:06:45 Doctor Unassigned, [place] [facility] Encounters Start Date/Time End Date/Time Encounter Type Admission Type Attending Clinicians Care Facility Care Department Encounter ID Source 2024-01-18 10:00:00 2024-01-18 10:00:00 Outpatient GIANLUCA COY [facility] [id number] General acute hospital 2024-01-11 00:00:00 2024-01-12 08:26:32 [facility] [id number] General acute hospital 2023-11-30 00:00:00 2024-01-01 18:24:51 Patient Secure Msg CookiejessicaArmando [facility] [id number] General acute hospital 2023-12-28 00:00:00 2023-12-28 14:09:41 Letter (Out) [facility] [id number]..[id number] General acute hospital 2023-12-28 09:30:00 2023-12-28 09:30:00 Outpatient R GIANLUCA COOK [facility] [id number] General acute hospital 2023-12-23 09:00:00 2023-12-23 09:00:00 Outpatient R MARIO GUZMAN [facility] [id number] General acute hospital 2023-12-13 13:30:00 2023-12-13 14:39:46 Outpatient R OLIVE CHOWDHURY [facility] [id number] General acute hospital 2023-12-13 13:30:00 2023-12-13 14:39:46 [facility] [id number] General acute hospital 2023-12-06 00:00:00 2023-12-08 10:40:25 Telephone Mario Guzman [facility] [id number] General acute hospital 2023-12-06 00:00:00 2023-12-06 11:46:51 Telephone Armando Preston [facility] MEDICAL OFFICE BUILDING 1.2.840.114 350.1.13.10 4.2.7.2.686 [id number] 044 [id number] General acute hospital 2023-12-06 09:55:00 2023-12-06 10:57:31 Outpatient Elective KALEN MATTHEWSOUT [facility] [id number] MHEOUT 2023-12-06 10:10:00 2023-12-06 10:30:00 Consult Kalen Matthews [facility] 1.2.840.114 350.1.13.70 8.2.7.2.686 [id number] Grace Carrasquillo [facility] 2023-12-02 00:00:00 2023-12-03 10:56:40 Telephone Armando Preston [facility] S[facility] MED[facility] 1.2.840.114 350.1.13.10 4.2.7.2.686 [id number] 044 [id number] General acute hospital 2023-11-30 00:00:00 2023-12-01 08:07:26 Telephone Armando Preston [facility] MED[facility] OFF[facility] BUILDING 1.2.840.114 350.1.13.10 4.2.7.2.686 [id number] [id number] General acute hospital 2023-11-23 09:30:00 2023-11-23 09:45:00 Station Installer And Repairer Visit Lab, Pavan Doran Lab, Freddy Macdonald [facility] BU[facility] 1.2.840.114 350.1.13.10 4.2.7.2.686 [id number] General acute hospital 2023-11-23 09:30:00 2023-11-23 09:30:00 Outpatient PAVAN FONSECA [facility] [id number] General acute hospital 2023-11-22 10:53:03 2023-11-22 11:57:25 Outpatient Elective SELBSTKALEN MHEOUT MHEOUT [id number] EOUT 2023-10-14 00:00:00 2023-11-20 18:25:39 Patient Secure Msg Doctor Unassigned, [place] Doctor Unassigned, [place] [facility] 1.840.114 350.1.13.10 4.2.7.2.686 [id number] 019 [id number] General acute hospital 2023-11-18 09:30:00 2023-11-18 09:30:00 Outpatient R MARIO GUZMAN [facility] [id number] General acute hospital 2023-11-16 11:00:00 2023-11-16 11:00:00 Outpatient R ARMANDO PRESTON [facility] [id number] General acute hospital 2023-11-10 11:59:16 2023-11-10 13:09:05 Outpatient Elective SELBOSTONTKALEN SegunOUT EOUT [id number] EOUT 2023-10-08 00:00:00 2023-10-12 10:33:17 Patient Secure Msg Doctor Unassigned, [place] Doctor Unassigned, [place] [facility] MEDICAL OFFICE BUILDING 1.840.114 350.1.13.10 4.2.7.2.686 [id number] 044 [id number] General acute hospital 2023-10-08 00:00:00 2023-10-08 10:37:01 Telephone Armando Preston [facility] 1..840.114 350.1.13.10 4.2.7.2.686 [id number] [id number] General acute hospital 2023-10-06 00:00:00 2023-10-08 10:35:44 Patient Secure Msg Armando Preston [facility] MEDICAL OFFICE BUILDING 1..840.114 350.1.13.10 4.2.7.2.686 [id number] 044 [id number] General acute hospital 2023-10-06 00:00:00 2023-10-06 10:51:36 Patient Secure Armando Golden [facility] S[facility]YA?[facility] MEDICAL OFFICE BUILDING 1.2840.114 350.1.13.10 4.2.7.2.686 [id number] [id number] General acute hospital 2023-10-05 00:00:00 2023-10-05 14:00:07 Letter (Out) [facility] 1.2840.114 350.1.13.10 4.2.7.2.686 [id number] General acute hospital 2023-10-05 00:00:00 2023-10-05 08:57:59 Telephone Armando Preston [facility] S[facility] MEDICAL OFFICE BUILDING 1.2840.114 350.1.13.10 4.2.7.2.686 [id number] [id number] General acute hospital 2023-10-04 00:00:00 2023-10-05 07:22:40 Patient Secure Armando Golden [facility] MEDICAL OFFICE BUILDING 1.2840.114 350.1.13.10 4.2.7.2.686 [id number] 044 [id number] General acute hospital 2023-10-04 13:00:00 2023-10-04 13:34:03 Outpatient R ARMANDO PRESTON [facility] [id number] General acute hospital 2023-10-04 13:00:00 2023-10-04 13:34:03 Office Visit Armando Preston [facility] S[facility] MEDICAL OFFICE BUILDING 1.2840.114 350.1.13.10 4.2.7.2.686 [id number] [id number] General acute hospital 2023-05-15 21:37:00 2023-05-16 02:11:00 Emergency EM Anthony Shaffer [facility] [id number] [facility] 2023-05-07 00:00:00 2023-05-07 00:00:00 Telephone Maureen Mcdonald [facility] 1.840.114 350.1.13.10 4.2.7.2.686 [id number] General acute hospital 2023-04-29 00:00:00 2023-04-29 00:00:00 Letter (Out) Diseases-Vt mb, Infectious [facility] 1.2.840.114 350.1.13.10 4.2.7.2.686 [id number] General acute hospital 2023-04-26 00:00:00 2023-04-26 00:00:00 Patient Secure Msg Doctor Unassigned, [place] [facility] 1.2.840.114 350.1.13.10 4.2.7.2.686 [id number] [id number] General acute hospital 2023-04-21 00:00:00 2023-04-21 00:00:00 Patient Secure Msg Maureen Mcdonald [facility] 1.840.114 350.1.13.10 4.2.7.2.686 [id number] General acute hospital 2023-04-15 00:00:00 2023-04-15 00:00:00 Patient Secure Msg Maureen Mcdonald [facility] 1.840.114 350.1.13.10 4.2.7.2.686 [id number] General acute hospital 2023-04-13 00:00:00 2023-04-13 00:00:00 Patient Secure Msg Maureen Mcdonald [facility] 1.2.840.114 350.1.13.10 4.2.7.2.686 [id number] General acute hospital 2023-04-13 00:00:00 2023-04-13 00:00:00 Case Management Broderick Maureen Timbo [facility] 1.2.840.114 350.1.13.10 4.2.7.2.686 [id number] General acute hospital 2023-04-13 00:00:00 2023-04-13 00:00:00 Patient Secure Msg Maureen Mcdonald [facility] 1.2.840.114 350.1.13.10 4.2.7.2.686 [id number] General acute hospital 2023-04-12 00:00:00 2023-04-12 00:00:00 Patient Secure Msg Broderick Maureen D [facility] 1.2.840.114 350.1.13.10 4.2.7.2.686 [id number] General acute hospital 2023-04-12 00:00:00 2023-04-12 00:00:00 Telephone Maureen Mcdonald [facility] 1.2.840.114 350.1.13.10 4.2.7.2.686 [id number] General acute hospital 2023-04-09 00:00:00 2023-04-09 00:00:00 Patient Secure Msg Maureen Mcdonald [facility] 1.2.840.114 350.1.13.10 4.2.7.2.686 [id number] General acute hospital 2023-04-09 00:00:00 2023-04-09 00:00:00 Patient Secure Msg Maureen Mcdonald [facility] 1.2.840.114 350.1.13.10 4.2.7.2.686 [id number] General acute hospital 2023-04-09 00:00:00 2023-04-09 00:00:00 Patient Outreach La Boyer Timbo [facility] 1.2.840.114 350.1.13.10 4.2.7.2.686 [id number] General acute hospital 2023-04-08 00:00:00 2023-04-08 00:00:00 Patient Secure Msg Maureen Mcdonald [facility] 1.2.840.114 350.1.13.10 4.2.7.2.686 [id number] General acute hospital 2023-04-08 00:00:00 2023-04-08 00:00:00 Patient Secure Msg Maureen Mcdonald [facility] 1.2.840.114 350.1.13.10 4.2.7.2.686 [id number] General acute hospital 2023-04-08 00:00:00 2023-04-08 00:00:00 Telephone Maureen Mcdonald [facility] 1.2.840.114 350.1.13.10 4.2.7.2.686 [id number] General acute hospital 2023-04-07 00:00:00 2023-04-07 00:00:00 Patient Secure Msg Maureen Mcdonald [facility] 1.2.840.114 350.1.13.10 4.2.7.2.686 [id number] General acute hospital 2023-04-07 00:00:00 2023-04-07 00:00:00 Patient Secure Msg Maureen Mcdonald [facility] 1.2.840.114 350.1.13.10 4.2.7.2.686 [id number] General acute hospital 2023-04-07 00:00:00 2023-04-07 00:00:00 Patient Secure Msg Maureen Mcdonald [facility] 1.2.840.114 350.1.13.10 4.2.7.2.686 [id number] General acute hospital 2023-04-06 00:00:00 2023-04-06 00:00:00 Patient Secure Msg Maureen Mcdonald [facility] 1.2.840.114 350.1.13.10 4.2.7.2.686 [id number] General acute hospital 2023-04-05 00:00:00 2023-04-05 00:00:00 Telephone Maureen Mcdonald [facility] 1.2.840.114 350.1.13.10 4.2.7.2.686 [id number] General acute hospital 2023-04-05 00:00:00 2023-04-05 00:00:00 Patient Secure Msg Maureen Mcdonald [facility] 1.2.840.114 350.1.13.10 4.2.7.2.686 [id number] General acute hospital 2023-03-29 11:01:00 2023-03-29 12:53:00 Emergency X JOSELINE MCRAE [facility] ERT [id number] General acute hospital 2023-03-29 11:01:00 2023-03-29 12:53:00 Emergency Joseline Mcrae [facility] 1.2.840.114 350.1.13.10 4.2.7.2.686 [id number] 014 [id number] General acute hospital 2023-03-29 00:00:00 2023-03-29 00:00:00 Telephone Maureen Mcdonald [facility] 1.20.114 350.1.13.10 4.2.7.2.686 [id number] General acute hospital 2023-03-28 00:00:00 2023-03-28 00:00:00 Patient Secure Msg Maureen Mcdonald [facility] 1.0.114 350.1.13.10 4.2.7.2.686 [id number] General acute hospital 2023-03-26 00:00:00 2023-03-26 00:00:00 Telephone Maureen Mcdonald [facility] 1..114 350.1.13.10 4.2.7.2.686 [id number] General acute hospital 2023-03-25 16:37:00 2023-03-25 20:56:00 Emergency ZACHARIAH LUCIANO [facility] ERT [id number] General acute hospital 2023-03-25 16:37:00 2023-03-25 20:56:00 Emergency Meenu Shipman William B [facility] 1..114 350.1.13.10 4.2.7.2.686 [id number] 014 [id number] General acute hospital 2023-03-19 14:51:00 2023-03-19 21:23:00 ZACHARIAH Pham [facility] ERT [id number] General acute hospital 2023-03-19 14:51:00 2023-03-19 21:23:00 Emergency Joseline Mcrae William B [facility] 1.0.114 350.1.13.10 4.2.7.2.686 [id number] General acute hospital 2023-03-19 13:00:00 2023-03-19 14:36:30 Office Visit Maureen Mcdonald [facility] 1.0.114 350.1.13.10 4.2.7.2.686 [id number] General acute hospital 2023-03-19 13:00:00 2023-03-19 13:00:00 Outpatient R MAUREEN MCDONALD [facility] [id number] General acute hospital 2022-10-14 00:00:00 2022-10-14 00:00:00 Telephone AdairTianna 1.0.114 350.1.13.10 4.2.7.2.686 [id number] General acute hospital 2022-07-23 20:37:00 2022-07-23 21:51:00 Emergency EM Ede Wong [facility] ER [id number] [facility] 2022-06-18 00:00:00 2022-06-18 00:00:00 Telephone Alanna Patriciochuck [facility] 1.0.114 350.1.13.10 4.2.7.2.686 [id number] General acute hospital 2022-06-01 00:00:00 2022-06-01 00:00:00 Telephone [facility] 1.840.114 350.1.13.10 4.2.7.2.686 [id number] General acute hospital 2022-05-22 00:00:00 2022-05-22 00:00:00 Orders Only Doctor Unassigned, [place] [facility] 1.840.114 350.1.13.10 4.2.7.2.686 [id number] General acute hospital 2022-05-15 09:30:00 2022-05-15 09:30:00 Outpatient R SHENG [facility] [id number] General acute hospital 2022-05-09 00:00:00 2022-05-09 00:00:00 Refill Sheng [facility] 1.2.840.114 350.1.13.10 4.2.7.2.686 [id number] General acute hospital 2022-05-04 00:00:00 2022-05-04 00:00:00 [facility] 1.2.840.114 350.1.13.10 4.2.7.2.686 [id number] General acute hospital 2022-04-17 21:14:00 2022-04-18 16:30:00 Emergency X ELIAN HERRERA CHARLES [facility] ERT [id number] General acute hospital 2022-04-17 21:14:00 2022-04-18 16:30:00 Emergency Cyrus Sim [facility] 1.2.840.114 350.1.13.10 4.2.7.2.686 [id number] General acute hospital 2022-03-17 00:00:00 2022-03-17 00:00:00 Patient Outreach La Boyer [facility] 1.2.840.114 350.1.13.10 4.2.7.2.686 [id number] General acute hospital 2022-03-16 00:00:00 2022-03-16 00:00:00 Telephone [facility] 1.2.840.114 350.1.13.10 4.2.7.2.686 [id number] General acute hospital 2022-03-10 00:00:00 2022-03-10 00:00:00 Patient Outreach Julia Méndez [facility] 1.0.114 350.1.13.10 4.2.7.2.686 [id number] 044 [id number] General acute hospital 2022-03-06 13:50:00 2022-03-06 14:40:23 Outpatient R SHENG [facility] [id number] General acute hospital 2022-03-06 13:50:00 2022-03-06 14:40:23 Office Visit Yurytanvi [facility] 1.2840.114 350.1.13.10 4.2.7.2.686 [id number] General acute hospital 2022-03-06 00:00:00 2022-03-06 00:00:00 Orders Only Doctor Unassigned, [place] [facility] 1.2840.114 350.1.13.10 4.2.7.2.686 [id number] General acute hospital 2022-03-03 09:30:00 2022-03-03 09:30:00 Outpatient R SHENG [facility] [id number] General acute hospital 2022-03-03 00:00:00 2022-03-03 00:00:00 Patient Secure Msg Pcp, Patient Does Not Have A [facility] 1.2840.114 350.1.13.10 4.2.7.2.686 [id number] General acute hospital 2022-02-28 10:00:00 2022-02-28 10:00:00 Outpatient R UNKNOWN, ATTENDING [facility] [id number] General acute hospital 2022-02-26 00:00:00 2022-02-26 00:00:00 Patient Secure Msg Doctor Unassigned, [place] [facility] 1.2840.114 350.1.13.10 4.2.7.2.686 [id number] General acute hospital 2022-02-22 00:53:00 2022-02-22 00:53:00 Outpatient Constance Croft HCACL LABO [id number] [facility] 2022-02-21 06:08:00 2022-02-21 11:10:00 Emergency EM Constance Croft HCAMN ANGELITO [id number] [facility] 2022-02-20 14:00:00 2022-02-20 14:00:00 Outpatient R RADHA EDDY [facility] [id number] General acute hospital 2022-02-19 00:00:00 2022-02-19 00:00:00 Patient Secure Msg [facility] .840.114 350.1.13.10 4.2.7.2.686 [id number] General acute hospital 2022-02-17 12:30:00 2022-02-17 12:30:00 Outpatient R SHENG [facility] [id number] General acute hospital 2022-02-13 10:10:00 2022-02-13 10:10:00 Outpatient R SHENG [facility] [id number] General acute hospital 2022-02-03 00:00:00 2022-02-03 00:00:00 Transition of Care Mark Soto .84.114 350.1.13.10 4.2.7.2.686 [id number] General acute hospital 2022-02-02 00:00:00 2022-02-02 00:00:00 Patient Secure Msg Doctor Unassigned, [place] [facility] .840.114 350.1.13.10 4.2.7.2.686 [id number] General acute hospital 2022-02-02 00:00:00 2022-02-02 00:00:00 Telephone John Wilson [facility] 1..840.114 350.1.13.10 4.2.7.2.686 [id number] General acute hospital 2022-01-28 09:11:00 2022-02-01 11:57:00 Emergency Umberto, Meenu Cardoso, Judie Shaw, Giacomo Castrejon [facility] 1..840.114 350.1.13.10 4.2.7.2.686 [id number] General acute hospital 2022-01-28 09:11:00 2022-02-01 11:57:00 Outpatient X [facility] [id number] [facility] Results Test Description Test Time Test Comments Results Resul t Comments Source - CT ABD PELVIS W/CONT 2023-05-16 01:44:00 [place] [facility] : 1970 Sex: F FAX: Anthony Shaffer [place]: [address]: REG Name: HECK,LETITIA [facility] : 1970 Age/S: 52/F [address] [facility] BoxC Unit: [id number] Loc: EHUSSEIN2 [place], [place]: [place] [id number] Acct: [id number] Dis Date: Status: REG ER PHONE #: [phone] Exam Date: 05/16/202346 FAX #: [phone] Reason: BACK PAIN EXAMS: CPT CODE: [id number] CT ABD PELVIS W/CONT 61036 EXAM: - CT ABD PELVIS W/CONT HISTORY: Pain. TECHNIQUE: Axial tomograms through the abdomen and pelvis were obtained after intravenous contrast. Coronal and sagittal reformatted images are provided. This exam was performed according to our departmental dose-optimization program, which includes automated exposure control, adjustment of the mA and/or kV according to patient size and/or use of iterative reconstruction technique. COMPARISON: February 21, 2022. FINDINGS: The visualized lung bases are clear. Bilateral deflated breast implants. Status post cholecystectomy. Dilated common bile duct measuring 14 mm in diameter. The liver, spleen, pancreas, adrenal glands and kidneys demonstrate no significant abnormalities. No nephrolithiasis or hydronephrosis. The appendix is not identified. No evidence of acute inflammatory process. Minimal retained fecal material throughout the colon. There is no adenopathy or free fluid. No free air. The abdominal aorta is normal in size. There is no acute osseous abnormality. Degenerative disc disease lower lumbar spine. IMPRESSION: No significant abnormalities demonstrated. Other findings as above. PAGE 1 Signed Report (CONTINUED) FAX: Anthony Shaffer [place]: St: REG Name: LETITIA ZELAYA [facility] : 1970 Age/S: 52/F [address] [facility] BoxC Unit: [id number] [facility] [place], [place]: [place] [id number] Acct: [id number] Dis Date: Status: REG ER PHONE #: [phone] Exam Date: 05/16/2023 004 FAX #: [phone] Reason: BACK PAIN EXAMS: CPT CODE: [id number] CT ABD PELVIS W/CONT 23049 (Continued) at 0144 Reported and signed by: Arvind Daily M.D. CC: Anthony Shaffer DO Technologist: Carmela Gifford Trnscrd Dt/Tm: 05/16/2023 (143) [id number] Orig Print D/T: S: 05/16/2023 (146 PAGE 2 Signed Report WHAT DRUGS HAVE BEEN TAKEN? unkUA RFLX MICR CULT IF [id number] 23:44:00 * Test Item Value Reference Range Interpretation Comme nts UA COLOR (test code = COLU) DARK YELLOW UA APPEARANCE (test code = APPU) CLEAR UA GLUCOSE DIPSTICK (test code = DGLUU) NORMAL mg/dl NORMAL UA BILIRUBIN DIPSTICK (test code = BILU) NEGATIVE mg/dL NEGATIVE UA KETONE DIPSTICK (test code = KETU) NEGATIVE mg/dl NEGATIVE UA SPECIFIC GRAVITY (test code = SGU) 1.020 1.000-1.030 UA BLOOD DIPSTICK (test code = JHONATAN) NEGATIVE Sammy/micL NEGATIVE UA PH DIPSTICK (test code = SHARI) 6.0 5.0-9.0 UA PROTEIN DIPSTICK (test code = PROU) 15 mg/dl mg/dl NEGATIVE A UA UROBILINIOGEN DIPSTICK (test code = URO) 4.0 mg/dl mg/dl NORMAL A UA NITRITE DIPSTICK (test code = KALEY) NEGATIVE NEGATIVE UA LEUKOCYTE ESTERASE DIPSTICK (test code = LEUU) 25 Juan Francisco/micL Juan Francisco/micL NEGATIVE A UA WBC (test code = WBCU) 0-3 WBC/HPF NONE UA RBC (test code = RBCU) 0-2 RBC/HPF 0-3 UA EPITHELIAL CELLS (test code = EPIU) 0-3 EPI/HPF 0-3 UA BACTERIA (test code = BACU) FEW NONE UA AMORPHOUS SEDIMENT (test code = AMORU) FEW NONE Indication for culture: Suprapubic Pain Flank PainSpecimen Description: CLEAN CATCHUR HCG [id number] 23:44:00* Test Item Value Reference Range Interpretation Comme nts UR HCG QUAL (test code = HCGQLU) NEGATIVE NEGATIVE Indication for culture: Suprapubic Pain Flank PainSpecimen Description: CLEAN CATCHBASIC METABOLIC [id number] 22:41:00* Test Item Value Reference Range Interpretation Comme nts SODIUM (test code = NA) 139 mmol/l 134.0-147.0 N POTASSIUM (test code = K) 4.1 mmol/L 3.6-5.2 N CHLORIDE (test code = CL) 107 mmol/l 98.0-107.0 N CARBON DIOXIDE (test code = CO2) 24.5 mmol/l 21.0-33.0 N ANION GAP (test code = GAP) 11.6 0-20 N GLUCOSE (test code = GLU) 93 mg/dl 70.0-110.0 N BLOOD UREA NITROGEN (test code = BUN) 13 mg/dl 7.0-18.0 N GLOMERULAR FILTRATION RATE (test code = GFR) 89 mL/min The Glomerular Filtration Rate is a calculated parameterbased on serum Creatinine, patient age and sex. GFR valuesless than 60 mL/min/1.73 square meters are indicative ofChronic Kidney Disease. Values less than 15 mL/min/1.73square meters indicate Kidney failure. The calculation forGFR is based on the CKD-EPI (202) calculation. This formulais race indifferent and is the recommended formula for GFRby the National Kidney Foundation for Adults.The GFR will not calculate if the sex is unknown or if thepatient's age is <18 years. CREATININE (test code = CREAT) 0.79 mg/dL 0.60-1.30 N ESTIMATED CREAT CLEARANCE (test code = ECRCL) 74 mL/min >30 CALCIUM (test code = CA) 8.5 mg/dl 8.0-10.5 N HEPATIC FUNCTION PANEL [id number] 22:41:00* Test Item Value Reference Range Interpretation Comme nts TOTAL PROTEIN (test code = PROT) 7.1 GM/DL 6.0-8.1 N ALBUMIN (test code = ALB) 3.3 gm/dL 3.2-4.7 N BILIRUBIN TOTAL (test code = BILT) 0.7 mg/dl 0.0-1.0 N BILIRUBIN DIRECT (test code = BILD) 0.1 mg/dl 0.0-0.3 N SGOT/AST (test code = AST) 61 Units/L 15-37 H SGPT/ALT (test code = ALT) 49 Units/L 12.0-78.0 N ALKALINE PHOSPHATASE TOTAL ( test code = ALKP) 283 Units/L 50.0-136.0 H [id number] 22:41:00* Test Item Value Reference Range Interpretation Comme nts LIPASE (test code = LIP) 29 Units/L 16-77 N CBC W/AUTO [id number] 22:26:00* Test Item Value Reference Range Interpretation Comme nts WHITE BLOOD CELL (test code = WBC) 2.9 K/mm3 4.5-11.0 L RED BLOOD CELL (test code = RBC) 4.89 M/mm3 3.80-5.20 N HEMOGLOBIN (test code = HGB) 13.6 gm/dL 12.0-16.0 N HEMATOCRIT (test code = HCT) 41.5 % 36.0-48.0 N MEAN CELL VOLUME (test code = MCV) 84.9 UM3 82.0-99.0 N MEAN CELL HGB (test code = MCH) 27.8 UUG 25.5-32.5 N MEAN CELL HGB CONCETRATION (test code = MCHC) 32.8 gm/dL 29.0-35.5 N RED CELL DISTRIBUTION WIDTH (test code = RDW) 14.3 % 11.5-15.0 N RED CELL DISTRIBUTION WIDTH SD (test code = RDW-SD) 43.7 fL 34.8-50.2 N PLATELET COUNT (test code = PLT) 142 K/mm3 150-400 L MEAN PLATELET VOLUME (test c ode = MPV) 10.2 fl 7.4-10.4 N NEUTROPHIL % (test code = NT%) 46.9 % 49.0-76.0 L IMMATURE GRANULOCYTE % (test code = IG%) 0.0 % 0.0-0.4 N LYMPHOCYTE % (test code = LY%) 36.0 % 23.0-38.0 N MONOCYTE % (test code = MO%) 7.2 % 1.0-10.0 N EOSINOPHIL % (test code = EO%) 9.2 % 1.0-5.0 H BASOPHIL % (test code = BA%) 0.7 % 0.0-1.0 N NUCLEATED RBC % (test code = NRBC%) 0.0 % 0.0-0.1 N NEUTROPHIL # (test code = NT#) 1.4 K/mm3 2.4-6.3 L IMMATURE GRANULOCYTE # (test code = IG#) 0.00 x10 3/uL 0.00-0.07 N LYMPHOCYTE # (test code = LY#) 1.1 K/mm3 1.2-4.0 L MONOCYTE # (test code = MO#) 0.2 K/mm3 0.0-0.6 N EOSINOPHIL # (test code = EO#) 0.3 K/MM3 0.0-0.7 N BASOPHIL # (test code = BA#) 0.0 K/mm3 0.0-0.2 N NUCLEATED RBC # (test code = NRBC#) 0.00 X10 3uL 0.00-0.[address] ABDOMEN PELVIS W [id number] 18:29:19Exam: CT ABDOMEN PELVIS W CONTRAST Clinical History: Abdominal pain, acute, nonlocalized Comparison: March 25, 2023 Findings: The lung bases show linear atelectasis. There is no evidence of pleural orpericardial effusion. Bilateral breast implants are partially visualized. The liver shows focal fat infiltration along the fissure. No suspiciousfocal lesions or ductal dilatation. Prior cholecystectomy and prominentextra hepatic CBD. The spleen, kidneys, adrenals, and the pancreas areunchanged.No evidence of free fluid, air, or lymphadenopathy is seen in the abdomenand pelvis. No evidence ofdilated bowel loops, diverticulitis, orappendicitis. Uterus shows no definite focal lesions. No evidence ofadnexal masses. Urinary bladder is partially distended and shows muralthickening. Abdominal wall is within normal limits. Vasculature is unremarkable. Thebones show mild degenerative changes and no suspicious focal lesions.[facility]. Metabolic Panel ([id number])2023-03-29 17:49:51* Test Item Value Reference Range Interpretation Comme nts NA (test code = 5974314338) 139 mmol/L 135-145 K (test code = 0155043605) 3.5 mmol/L 3.5-5.0 CL (test code = 5664000036) 105 mmol/L 98-108 CO2 TOTAL (test code = 1037299072) 25 mmol/L 23-31 AGAP (test code = 6000001499) 9 2-16 BUN (test code = 4955899960) 21 mg/dL 7-23 GLUCOSE (test code = 4021787592) 147 mg/dL 70-110 H CREATININE (test code = 2160-0) 0.72 mg/dL 0.50-1.04 TOTAL BILI (test code = 3373244207) 1.5 mg/dL 0.1-1.1 H CALCIUM (test code = 5481941798) 9.5 mg/dL 8.6-10.6 T PROTEIN (test code = 6087647860) 8.2 g/dL 6.3-8.2 ALBUMIN (test code = 5330948403) 4.6 g/dL 3.5-5.0 ALK PHOS (test code = 2315731650) 161 U/L 34-122 H ALTv (test code = 1742-6) 40 U/L 5-35 H AST(SGOT) (test code = 9157332183) 55 U/L 13-40 H eGFR (test code = 49894-8) 100.1 mL/min/1.73m2 CKD-EPI eGFR (2020). Assuming creatinine has been stable day-to-day for at least three months, the eGFR indicates Category G1 (>= 90 mL/min/1.73 m2) Lab Interpretation (test code = 57983-2) Abnormal [facility] with [id number] 17:38:32* Test Item Value Reference Range Interpretation Comme nts WBC (test code = 6690-2) 3.56 4.30-11.10 L RBC (test code = 789-8) 5.69 3.93-5.25 H HGB (test code = 718-7) 15.4 g/dL 11.6-15.0 H HCT (test code = 4544-3) 45.9 % 35.7-45.2 H MCV (test code = 787-2) 80.7 fL 80.6-95.5 MCH (test code = 785-6) 27.1 pg 25.9-32.8 MCHC (test code = 786-4) 33.6 g/dL 31.6-35.1 RDW-SD (test code = 92396-1) 43.6 fL 39.0-49.9 RDW-CV (test code = 788-0) 14.8 % 12.0-15.5 PLT (test code = 777-3) 183 166-358 MPV (test code = 06731-5) 10.2 fL 9.5-12.9 NRBC/100 WBC (test code = 3285190388) 0.0 0.0-10.0 NRBC x10^3 (test code = 1414148344) See_Comment [Automated messa ge] The system which generated this result transmitted reference range: 10*3/?L. The reference range was not used to interpret this result as normal/abnormal. GRAN MAT (NEUT) % (test code = 770-8) 64.3 % IMM GRAN % (test code = 2440706319) 0.30 % LYMPH % (test code = 736-9) 23.0 % MONO % (test code = 5905-5) 5.6 % EOS % (test code = 713-8) 6.5 % BASO % (test code = 706-2) 0.3 % GRAN MAT x10^3(ANC) (test code = 0374910055) 2.29 10*3/uL 1.88-7.09 IMM GRAN x10^3 (test code = 6163093445) 0.00-0.06 LYMPH x10^3 (test code = 731-0) 0.82 10*3/uL 1.32-3.29 L MONO x10^3 (test code = 742-7) 0.20 10*3/uL 0.33-0.92 L EOS x10^3 (test code = 711-2) 0.23 10*3/uL 0.03-0.39 BASO x10^3 (test code = 704-7) 0.01-0.07 Lab Interpretation (test code = 04958-1) Abnormal [facility] Acid Whole [id number] 17:36:39* Test Item Value Reference Range Interpretation Comme nts LACTIC ACID (test code = 2648554429) 1.86 mmol/L 0.50-2.20 Lab Interpretation (test cod e = 42128-8) Normal [facility] [id number] 02:26:06EXAM: CT ABDOMEN/PELVIS WITH CONTRAST HISTORY: ?Abdominal pain, acute, nonlocalized ? COMPARISON: CT abdomen pelvis without contrast 01/28/2022 TECHNIQUE AND FINDINGS: Contiguous axial imaging from the level of the lungbases through the proximal thighs was performed after the administration of of in travenous ?contrast. Coronal and sagittal reconstructions wereobtained. ?Auto mA and/or iterative reconstruction were used to reduceradiation dose. FINDINGS: LOWER THORAX: The lungs bases are clear. No cardiomegaly. LIVER: No focal hepatic lesions. ?Normal contour. GALLBLADDER AND BILIARY TREE: No biliary ductal dilation. Priorcholecystectomy. CBD is dilated at 1 cm, which is unchanged and likelydueto reservoir phenomenon. SPLEEN: No splenomegaly. PANCREAS: No ductal dilation or masses. ADRENAL GLANDS: No adrenal nodules. KIDNEYS: Bilateral symmetrical enhancement. No hydronephrosis, stones,orsolid masses. Subcentimeter bilateral renal cysts, too small tocharacterize. GI TRACT: No dilation or wall thickening. Normal appendix. PELVIS/BLADDER: Urinary bladder is unremarkable. PERITONEUM AND RETROPERITONEUM: No free air or fluid. LYMPH NODES: No lymphadenopathy. VESSELS: Unremarkable. BONES AND SOFT TISSUES: No suspicious lytic or sclerotic bony lesions.Degenerative changes of the lumbar spine.[facility] HospitalLIPASE2024-02-15 23:49:52* Test Item Value Reference Range Interpretation Comme nts LIPASE (test code = 8726356214) 74 U/L 0-220 Lab Interpretation (test cod e = 12383-9) Normal [facility] HospitalCOMP. METABOLIC PANEL ([id number])2023-03-25 23:49:52* Test Item Value Reference Range Interpretation Comme nts NA (test code = 8652080523) 140 mmol/L 135-145 K (test code = 9587352443) 3.7 mmol/L 3.5-5.0 Slight hemolysis CL (test code = 7672911781) 106 mmol/L 98-108 CO2 TOTAL (test code = 3392444393) 21 mmol/L 23-31 L AGAP (test code = 1180048278) 13 2-16 BUN (test code = 4817807604) 14 mg/dL 7-23 Slight hemolysis GLUCOSE (test code = 1563187847) 111 mg/dL 70-110 H CREATININE (test code = 2160-0) 0.59 mg/dL 0.50-1.04 TOTAL BILI (test code = 4719384291) 1.8 mg/dL 0.1-1.1 H CALCIUM (test code = 3537611706) 9.6 mg/dL 8.6-10.6 T PROTEIN (test code = 8405973876) 8.8 g/dL 6.3-8.2 H ALBUMIN (test code = 0681358085) 4.8 g/dL 3.5-5.0 ALK PHOS (test code = 2118138959) 167 U/L 34-122 H Slight hemolysis ALTv (test code = 1742-6) 41 U/L 5-35 H AST(SGOT) (test code = 8283790589) 59 U/L 13-40 H Slight hemolysis eGFR (test code = 58137-3) 107.9 mL/min/1.73m2 CKD-EPI eGFR (2020). Assuming creatinine has been stable day-to-day for at least three months, the eGFR indicates Category G1 (>= 90 mL/min/1.73 m2) Lab Interpretation (test code = 37693-2) Abnormal [facility] WITH [id number] 23:24:49* Test Item Value Reference Range Interpretation Comme nts WBC (test code = 6690-2) 5.74 4.30-11.10 RBC (test code = 789-8) 5.32 3.93-5.25 H HGB (test code = 718-7) 14.4 g/dL 11.6-15.0 HCT (test code = 4544-3) 42.0 % 35.7-45.2 MCV (test code = 787-2) 78.9 fL 80.6-95.5 L MCH (test code = 785-6) 27.1 pg 25.9-32.8 MCHC (test code = 786-4) 34.3 g/dL 31.6-35.1 RDW-SD (test code = 71080-5) 43.4 fL 39.0-49.9 RDW-CV (test code = 788-0) 15.2 % 12.0-15.5 PLT (test code = 777-3) 165 166-358 L MPV (test code = 75032-5) 10.1 fL 9.5-12.9 NRBC/100 WBC (test code = 6787831658) 0.0 0.0-10.0 NRBC x10^3 (test code = 9018805846) See_Comment [Automated Gigturna ge] The system which generated this result transmitted reference range: 10*3/?L. The reference range was not used to interpret this result as normal/abnormal. GRAN MAT (NEUT) % (test code = 770-8) 83.2 % IMM GRAN % (test code = 7959398090) 0.30 % LYMPH % (test code = 736-9) 12.5 % MONO % (test code = 5905-5) 3.8 % EOS % (test code = 713-8) 0.0 % BASO % (test code = 706-2) 0.2 % GRAN MAT x10^3(ANC) (test code = 6303608306) 4.77 10*3/uL 1.88-7.09 IMM GRAN x10^3 (test code = 7898239577) 0.00-0.06 LYMPH x10^3 (test code = 731-0) 0.72 10*3/uL 1.32-3.29 L MONO x10^3 (test code = 742-7) 0.22 10*3/uL 0.33-0.92 L EOS x10^3 (test code = 711-2) 0.03-0.39 L BASO x10^3 (test code = 704-7) 0.01-0.07 Lab Interpretation (test code = 80812-1) Abnormal [facility]/[id number] 22:45:01 ORDERING PHYSICIAN: JOSELINE MCRAE CLINICAL HISTORY: gi bleed protocol TECHNIQUE: CT angiogram abdomen and pelvis was performed before andfollowing administration of intravenous contrast. MIP images weregenerated. CT scan was done according to ALARA (As Low as ReasonablyAchievable). TECHNICAL QUALITY: Diagnostic COMPARISON: 01/28/2022 FINDINGS: The lung bases are clear. The liver is normal in appearance. The gallbladder has been removed. The spleen is normal in appearance. The pancreas is normalin appearance. There is no peripancreaticinflammation. The adrenal glands are normal in appearance.The kidneys are symmetric in size. Bilateral renal calcificationscompatible with nonobstructive stones. The kidneys enhance symmetrically.The kidneys excrete symmetrically. There is no hydronephrosis. The abdominal aorta is atherosclerotic but normal in caliber andenhancement. There is no intra-abdo dipesh free air. The small bowel is normal in caliber. There is no intraluminal contrast inthe smallbowel or large bowel to indicate a source for GI bleed. There issome stool in the colon. The appendix is not identified but there is nosecondary CT evidence for acute appendicitis. The bladder is distended without focal bladder wall thickening and withoutbladder stone. The uterus is present. The ovaries are visualized and normal in size. Thereis no free fluid in the pelvis. There are no enlarged lymph nodes in the abdomen or pelvis. There is no compression fracture. There is disc space narrowing at L4-L5and L5-S1.[facility] HospitalEthanol2024-02-09 22:03:44ALCOHOL<10mg/dL03/19/2023 4:03 PM [facility] Greater than or equal to 80 mg/dL. NOTE: Whole blood values are approximately 10% to 15% lower than serum and plasma.[facility] HospitalTroponin [id number] 21:50:05* Test Item Value Reference Range Interpretation Comme nts TROPONIN I (test code = 7433688370) 0.016 ng/mL <=0.034 MULUGETA (test code = MULUGETA) Reference (Normal) Range (defined by the 99th percentile reference limit): <= 0.034 ng/mL Note: Cardiac troponin begins to rise 3-4 hours after the onset of ischemia. Repeat in 4-6 hours if the sample was drawn within 3-4 hours of the onset of the symptom and found normal. Diagnosis of myocardial injury is made with acute changes in cTn concentrations with at least one serial sample above the 99th percentile upper reference limit (URL), taken together with the patient's clinical presentation. Biotin has been reported to cause a negative bias, interpret results relative to patient's use of biotin. Lab Interpretation (test code = 72772-2) Normal [facility] HospitalType and Screen - ONCE [id number] 21:49:00 * Test Item Value Reference Range Interpretation Comme nts ABO & RH (test code = 20) O POSITIVE IAT (test code = 1185) Negative [facility] HospitalComp. Metabolic Panel ([id number])2023-03-19 21:39:03* Test Item Value Reference Range Interpretation Comme nts NA (test code = 4969101173) 139 mmol/L 135-145 K (test code = 8885305629) 4.4 mmol/L 3.5-5.0 Slight hemolysis CL (test code = 8454716228) 109 mmol/L 98-108 H CO2 TOTAL (test code = 6861409960) 18 mmol/L 23-31 L AGAP (test code = 5426034667) 12 2-16 BUN (test code = 4659754064) 14 mg/dL 7-23 Slight hemolysis GLUCOSE (test code = 3912437981) 105 mg/dL 70-110 CREATININE (test code = 3834916573) 0.72 mg/dL 0.50-1.04 TOTAL BILI (test code = 1529940184) 1.3 mg/dL 0.1-1.1 H CALCIUM (test code = 6233079487) 9.1 mg/dL 8.6-10.6 T PROTEIN (test code = 3751061117) 8.4 g/dL 6.3-8.2 H ALBUMIN (test code = 6427925811) 4.6 g/dL 3.5-5.0 ALK PHOS (test code = 5793711811) 163 U/L 34-122 H Slight hemolysis ALTv (test code = 1742-6) 51 U/L 5-35 H AST(SGOT) (test code = 6660096467) 66 U/L 13-40 H Slight hemolysis eGFR (test code = 96613-8) 100.1 mL/min/1.73m2 CKD-EPI eGFR (2020). Assuming creatinine has been stable day-to-day for at least three months, the eGFR indicates Category G1 (>= 90 mL/min/1.73 m2) Lab Interpretation (test code = 02646-4) Abnormal [facility] HospitalLipase2024-02-09 21:39:03* Test Item Value Reference Range Interpretation Comme nts LIPASE (test code = 1060163384) 120 U/L 0-220 Lab Interpretation (test cod e = 76335-8) Normal [facility] HospitalProthrombin Time / [id number] 21:31:44* Test Item Value Reference Range Interpretation Comme nts PROTIME PATIENT (test code = 5964-2) 10.5 10.1-12.6 INR (test code = 6301-6) 0.9 Normal INR <1.1; Warfarin Therapeutic range 2.0 to 3.0 or 2.5 to 3.5, depending upon the indications. Lab Interpretation (test code = 59719-1) Normal [facility] HospitalCbc with [id number] 21:30:21* Test Item Value Reference Range Interpretation Comme nts WBC (test code = 6690-2) 5.43 4.30-11.10 RBC (test code = 789-8) 5.49 3.93-5.25 H HGB (test code = 718-7) 15.0 g/dL 11.6-15.0 HCT (test code = 4544-3) 44.3 % 35.7-45.2 MCV (test code = 787-2) 80.7 fL 80.6-95.5 MCH (test code = 785-6) 27.3 pg 25.9-32.8 MCHC (test code = 786-4) 33.9 g/dL 31.6-35.1 RDW-SD (test code = 87466-9) 43.2 fL 39.0-49.9 RDW-CV (test code = 788-0) 14.9 % 12.0-15.5 PLT (test code = 777-3) 141 166-358 L MPV (test code = 51336-4) 10.5 fL 9.5-12.9 IPF % (test code = 4473745828) 3.7 % 1.3-7.7 Platelet count measured by fluorescence method. NRBC/100 WBC (test code = 4679385904) 0.0 0.0-10.0 NRBC x10^3 (test code = 4116990596) See_Comment [Automated Gigturna ge] The system which generated this result transmitted reference range: 10*3/?L. The reference range was not used to interpret this result as normal/abnormal. GRAN MAT (NEUT) % (test code = 770-8) 74.8 % IMM GRAN % (test code = 9801455912) 0.20 % LYMPH % (test code = 736-9) 17.9 % MONO % (test code = 5905-5) 4.3 % EOS % (test code = 713-8) 2.6 % BASO % (test code = 706-2) 0.2 % GRAN MAT x10^3(ANC) (test code = 6546063205) 3.81 10*3/uL 1.88-7.09 IMM GRAN x10^3 (test code = 0682511212) 0.00-0.06 LYMPH x10^3 (test code = 731-0) 0.91 10*3/uL 1.32-3.29 L MONO x10^3 (test code = 742-7) 0.22 10*3/uL 0.33-0.92 L EOS x10^3 (test code = 711-2) 0.13 10*3/uL 0.03-0.39 BASO x10^3 (test code = 704-7) 0.01-0.07 Lab Interpretation (test code = 90628-0) Abnormal [facility] [place] [facility] (QUANTITATIVE)2022-04-18 09:54:26* Test Item Value Reference Range Interpretation Comme nts BETA HCG (test code = 7967971209) 7.22 See_Comment [Automated Gigturna ge] The system which generated this result transmitted reference range: Non- female and male patients: <5 mIU/mL. The reference range was not used to interpret this result as normal/abnormal. MULUGETA (test code = MULUGETA) Gestational Age ?Range (mIU/mL) 1-10 ?Weeks ?44-59986025-85 Weeks ?65487-12932506-89 Weeks ?9852-31486185-66 Weeks ?0994-826293 Biotin has been reported to cause a negative bias, interpret results relative to patient's use of biotin. [facility] HospitalPREGNANCY TEST, [id number] 06:42:14* Test Item Value Reference Range Interpretation Comme nts PREG SERUM (test code = 9329646184) Positive MULUGETA (test code = MULUGETA) Positive greater t luke or equal to 10 IU/L hCG. [facility] HospitalETHANOL2023-03-11 06:24:09 ALCOHOL<10mg/dL04/18/2022 12:24 AM [facility] SERVICESToxic Greater than or equal to 80 mg/dL. NOTE: Whole blood values are approximately 10% to 15% lower than serum and plasma.[facility] HospitalTROP-I HIGH [id number] 10:30:00* Test Item Value Reference Range Interpretation Comme nts TROP-I HIGH SENSITIVITY (test code = TROPIHS) 8.1 pg/mL 0.0-51.4 N CAUTION: Units o f the current TROPI-HS test methodology(pg/mL) differ from the prior test methodology (ng/mL) by afactor of 1000. 99th Percentile: Females: 0.0-51.4 pg/mL Males: 0.0-76.2 pg/mLThese results were obtained using Booker TnIHreagent. Results from different methodologies should not becompared to one another as quantitative results may vary bymethod. [id number] 10:29:00* Test Item Value Reference Range Interpretation Comme nts ALCOHOL (test code = ALC) 0.00 gm/dL 0.00-0.00 N ETHYL ALCOHOL VA LUES - INTERPRETATION: 0.050 GM/DL - NOT INTOXICATED 0.100 GM/DL - INTOXICATED 0.350-0.450 GM/DL - SEVERELY INTOXICATED 0.550 GM/DL- FATAL INTOXICATION URINALYSIS [id number] 08:13:00* Test Item Value Reference Range Interpretation Comme nts UA COLOR (test code = COLU) DARK YELLOW UA APPEARANCE (test code = APPU) HAZY UA GLUCOSE DIPSTICK (test code = DGLUU) NORMAL mg/dl NORMAL UA BILIRUBIN DIPSTICK (test code = BILU) NEGATIVE mg/dL NEGATIVE UA KETONE DIPSTICK (test code = KETU) 50 mg/dl mg/dl NEGATIVE A UA SPECIFIC GRAVITY (test code = SGU) 1.020 1.000-1.030 UA BLOOD DIPSTICK (test code = JHONATAN) 10 Sammy/micL Sammy/micL NEGATIVE A UA PH DIPSTICK (test code = SHARI) 6.0 5.0-9.0 UA PROTEIN DIPSTICK (test code = PROU) 30 mg/dl NEGATIVE A UA UROBILINIOGEN DIPSTICK (test code = URO) 4.0 mg/dl mg/dl NORMAL A UA NITRITE DIPSTICK (test code = KALEY) POSITIVE NEGATIVE A UA LEUKOCYTE ESTERASE DIPSTICK (test code = LEUU) 25 Juan Francisco/micL Juan Francisco/micL NEGATIVE A UA WBC (test code = WBCU) 4-9 WBC/HPF NONE A UA RBC (test code = RBCU) 3-5 RBC/HPF 0-3 UA EPITHELIAL CELLS (test code = EPIU) 5-10 EPI/HPF 0-3 A UA BACTERIA (test code = BACU) MANY NONE A Specimen comments: Clean CatchDRUGS OF ABUSE SCREEN [id number] 08:09:00* Test Item Value Reference Range Interpretation Comments URN COCAINE (test code = COCAURN) NEGATIVE NEGATIVE Cocaine cut-off concentration: 300 ng/mL URN CANNABINOIDS (test code = CANNABURN) NEGATIVE NEGATIVE Cannabinoids cut -off concentration: 50 ng/mL URN AMPHETAMINE (test code = AMPHETURN) POSITIVE NEGATIVE A UNCONFIRMED INIT IAL SCREENING ONLY; SUGGEST ADDITIONALCONFIRMATORY TESTING.Amphetamine cut-off concentration: 1000 ng/mL URN BARBITURATE (test code = BARBITURN) NEGATIVE NEGATIVE Barbiturate cut- off concentration: 200 ng/mL URN BENZODIAZEPINE (test code = BENZOURN) NEGATIVE NEGATIVE Benzodiazepine c ut-off concentration: 200 ng/mL URN OPIATES (test code = OPIATURN) NEGATIVE NEGATIVE Opiates cut-off concentration: 2000 ng/mL URN PHENCYCLIDINE (PCP) (test code = PHENCURN) NEGATIVE NEGATIVE Phencyclidine(PC P) cut-off concentration: 25 ng/ml URN METHADONE (test code = METHAURN) NEGATIVE NEGATIVE Methadone cut-o ff concentration: 300 ng/mL - CT ABD PELVIS W/O [id number] 08:08:00 [facility] : 1970 Sex: F FAX: Constance Main MD [phone] [place]: St: REG Name: LETITIA ZELAYA [facility] : 1970 Age/S: 51/F [address] [facility] Unit: [id number] [place]: [place]: [place] [id number] Acct: [id number] Dis Date: Status: REG ER PHONE #: [phone] Exam Date: 02/21/2022736 FAX #: [phone] Reason: RIGHT FLANK PAIN EXAMS: CPT CODE: [id number] CT ABD PELVIS W/O CONT 59417 CLINICAL HISTORY: Right flank pain TECHNIQUE: Axial images of the abdomen and pelvis were obtained from diaphragm to the pubic symphysis without oral or intravenous contrast. CT dose lowering technique utilized,with adjustment of MA/kV according to patient size and automated exposure control. COMPARISON: CT abdomen and pelvis October 01, 2017 DISCUSSION: The lung bases are clear. The heart size is normal. The liver is normal in size and contour, without focal abnormality. The gallbladder is absent. No biliary ductal dilatation. The spleen, pancreas and adrenal glands are unremarkable. Both kidneys are normal in size. No hydronephrosis, nephrolithiasis or perinephric edema. Vascular structures are normal in caliber and appearance. The small and large bowel are unremarkable. The appendix is not visualized. No abdominal, pelvic or retroperitoneal adenopathy or free fluid. The uterus, adnexa and urinary bladder appear unremarkable. Spondylotic changes are noted throughout the lower lumbar spine. Nosuspicious bony lesions. IMPRESSION: Negative noncontrast CT abdomen and pelvis at 0808 Reported and signed by: Trevor Stinson M.D. PAGE 1 Signed Report (CONTINUED) FAX: Constance Croft MD [phone] [place]: St: REG Name: LETITIA ZELAYA [facility] : 1970 Age/S: 51/F [address] [facility] Unit: [id number] Loc: [place], [place]: [place] [address] Acct: [id number] Dis Date: Status: REG ER PHONE #: [phone] Exam Date:02/21/2022 0737 FAX #: [phone] Reason: RIGHT FLANK PAIN EXAMS: CPT CODE: [id number] CT ABD PELVIS W/O CONT 72924 (Continued) CC: Constance Croft MD Technologist: MIRANDA GAXIOLA [facility] Dt/Tm: 02/21/2022 (0853) [email or web address] Orig Print D/T: S: 02/21/2022 (0811 PAGE 2 Signed ReportBASIC METABOLIC [id number] 07:03:00* Test Item Value Reference Range Interpretation Comme nts SODIUM (test code = NA) 137 mmol/l 134.0-147.0 N POTASSIUM (test code = K) 3.7 mmol/L 3.6-5.2 N CHLORIDE (test code = CL) 100 mmol/l 98.0-107.0 N CARBON DIOXIDE (test code = CO2) 25.7 mmol/l 21.0-33.0 N ANION GAP (test code = GAP) 15.0 0-20 N GLUCOSE (test code = GLU) 113 mg/dl 70.0-110.0 H BLOOD UREA NITROGEN (test code = BUN) 26 mg/dl 7.0-18.0 H GLOMERULAR FILTRATION RATE (test code = GFR) 90 mL/min The Glomerular Filtration Rate is a calculated parameterbased on serum Creatinine, patient age and sex. GFR valuesless than 60 mL/min/1.73 square meters are indicative ofChronic Kidney Disease. Values less than 15 mL/min/1.73square meters indicate Kidney failure. The calculation forGFR is based on the CKD-EPI (2020) calculation. This formulais race indifferent and is the recommended formula for GFRby the National Kidney Foundation for Adults.The GFR will not calculate if the sex is unknown or if thepatient's age is <18 years. CREATININE (test code = CREAT) 0.79 mg/dL 0.60-1.30 N ESTIMATED CREAT CLEARANCE (test code = ECRCL) 81 mL/min >30 CALCIUM (test code = CA) 9.3 mg/dl 8.0-10.5 N HEPATIC FUNCTION PANEL [id number] 07:03:00* Test Item Value Reference Range Interpretation Comme nts TOTAL PROTEIN (test code = PROT) 7.9 gm/dL 6.4-8.2 N ALBUMIN (test code = ALB) 3.7 gm/dl 3.2-4.7 N BILIRUBIN TOTAL (test code = BILT) 1.7 mg/dl 0.0-1.0 H BILIRUBIN DIRECT (test code = BILD) 0.2 mg/dl 0.0-0.3 N SGOT/AST (test code = AST) 423 Units/L 15-37 HH SGPT/ALT (test code = ALT) 504 Units/L 12.0-78.0 H ALKALINE PHOSPHATASE TOTAL ( test code = ALKP) 207 Units/L 50.0-136.0 H [id number] 07:03:00* Test Item Value Reference Range Interpretation Comme nts LIPASE (test code = LIP) 117 Units/L 65.0-230.0 N PROTHROMBIN [id number] 06:49:00* Test Item Value Reference Range Interpretation Comme nts PROTHROMBIN TIME PATIENT (test code = PTP) 12.2 SECONDS 9.9-12.8 N INTERNATIONAL NORMAL RATIO (test code = INR) 1.0 0.89-1.14 N THE INR IS TO BE USED ONLY FOR MONITORING ORAL ANTICOAGULANTTHERAPY. THE FOLLOWING ARE SUGGESTED RANGES FROM THEAM[employer]ICAN [employer]LE[employer] OF [employer]ST PH[employer]ICIANS:INDICATION INR VALUEPROPHYLAXIS OF VENOUS THROMBOSIS (ORTHOPEDIC SURGERY) 2.0 - 3.0PROPHYLAXIS OF VENOUS THROMBOSIS (OTHER THAN HIGH-RISK SURGERY) 2.0 - 3.0TREATMENT OF DEEP VEIN THROMBOSIS OR PULMONARY EMBOLISM 2.0 - 3.0PREVENTION OF SYSTEMIC EMBOLISM TISSUE HEART VALVES 2.0 - 3.0 ACUTE MYOCARDIAL INFARCTION (TO PREVENT SYSTEMIC EMBOLISM) 2.0 - 3.0 ACUTE MYOCARDIAL INFARCTION (TO PREVENT RECURRENT INFARCT) 2.5 - 3.0 VALVULAR HEART DISEASE 2.0 - 3.0 ATRIAL FIBRILATION 2.0 - 3.0BILEAFLET MECHANICAL VALVE IN AORTIC POSITION 2.0 - 3.0MECHANICAL PROSTHETIC VALVES (HIGH RISK) 2.5 - 3.5PRESENCE OF LUPUS ANTICOAGULANT OR ANTIPHOSPHOLIPID ANTIBODIES 2.5 - 3.5 THROMBOPLASTIN TIME [id number] 06:49:00* Test Item Value Reference Range Interpretation Comme nts THROMBOPLASTIN TIME PARTIAL (test code = PTT) 30.90 SECONDS 25.86-36.07 [facility] Therapeutic Range - APTT of 55.8-85.4 secondscorrelates with plasma heparin concentration of 0.2-0.4 u/mL CBC W/AUTO [id number] 06:46:00* Test Item Value Reference Range Interpretation Comme nts WHITE BLOOD CELL (test code = WBC) 3.6 K/mm3 4.5-11.0 L RED BLOOD CELL (test code = RBC) 5.36 M/mm3 3.80-5.20 H HEMOGLOBIN (test code = HGB) 14.5 gm/dL 12.0-16.0 N HEMATOCRIT (test code = HCT) 43.2 % 36.0-48.0 N MEAN CELL VOLUME (test code = MCV) 80.6 UM3 82.0-99.0 L MEAN CELL HGB (test code = MCH) 27.1 UUG 25.5-32.5 N MEAN CELL HGB CONCETRATION (test code = MCHC) 33.6 gm/dL 29.0-35.5 N RED CELL DISTRIBUTION WIDTH (test code = RDW) 15.0 % 11.5-15.0 N RED CELL DISTRIBUTION WIDTH SD (test code = RDW-SD) 43.5 fL 34.8-50.2 N PLATELET COUNT (test code = PLT) 293 K/mm3 150-400 N MEAN PLATELET VOLUME (test c ode = MPV) 10.4 fl 7.4-10.4 N NEUTROPHIL % (test code = NT%) 62.7 % 49.0-76.0 N IMMATURE GRANULOCYTE % (test code = IG%) 0.3 % 0.0-0.4 N LYMPHOCYTE % (test code = LY%) 25.9 % 23.0-38.0 N MONOCYTE % (test code = MO%) 8.3 % 1.0-10.0 N EOSINOPHIL % (test code = EO%) 2.2 % 1.0-5.0 N BASOPHIL % (test code = BA%) 0.6 % 0.0-1.0 N NUCLEATED RBC % (test code = NRBC%) 0.0 % 0.0-0.1 N NEUTROPHIL # (test code = NT#) 2.3 K/mm3 2.4-6.3 L IMMATURE GRANULOCYTE # (test code = IG#) 0.01 x10 3/uL 0.00-0.07 N LYMPHOCYTE # (test code = LY#) 0.9 K/mm3 1.2-4.0 L MONOCYTE # (test code = MO#) 0.3 K/mm3 0.0-0.6 N EOSINOPHIL # (test code = EO#) 0.1 K/MM3 0.0-0.7 N BASOPHIL # (test code = BA#) 0.0 K/mm3 0.0-0.2 N NUCLEATED RBC # (test code = NRBC#) 0.00 X10 3uL 0.00-0.01 N HUMAN IMMUNODEFICIENCY VIRUS 1 (HIV-1) BY QUANTITATIVE [id number] 19:06:56* Test Item Value Reference Range Interpretation Comme nts HIV-1 Quantitative NAAT - copies/mL (test code = 27691-7) Not Detected Copies/mL H HIV-1 Quantitative Interpretation (test code = 7417979831) Detected Not Detected A MULUGETA (test code = MULUGETA) The Aptima HIV-1 Q uant assay is an FDA-approved nucleic acid amplification test (NAAT) for the quantitation of human immunodeficiency virus type 1 (HIV-1) RNA in human plasma from HIV-1 infected individuals. ?It is intended for use as an aid in monitoring the effects of antiretroviral treatment. ?It is not approved for use as a donor screening test for HIV-1 or as a diagnostic test to confirm the presence of HIV-1 infection. The quantitative range of this assay is 1.47 - 7.00 log copies/mL or 30 - 10,000,000 copies/mL. An interpretation of "Not Detected" does not rule out the presence of inhibitors in the patient specimen or HIV-1 RNA concentration below the level of detection of the test. ?Care should be taken when interpreting any single viral load determination. Detected, not Quantifiable: HIV-1 RNA detected, but at a level below 30 copies/mL (1.47 log copies/mL). ?HIV-1 RNA concentration is below the lower limit of quantitation of the assay. Indeterminate: Error indicated in the generation of the result. ?Please submit a new specimen for repeat testing if clinically indicated. Lab Interpretation (test code = 96275-2) Abnormal [facility] (HBV) BY QUANTITATIVE NAAT 2022-01-31 18:36:58* Test Item Value Reference Range Interpretation Comme nts HBV Quantitative Interpretation (test code = 90645-9) Not Detected Not Detected MULUGETA (test code = MULUGETA) The Aptima HBV Igor nt assay is an FDA-approved in vitro nucleic acid amplification test for the quantitation of hepatitis B virus (HBV) DNA in human plasma and serum. ?It is intended for use as an aid in the management of patients with chronic HBV infections undergoing HBV antiviral drug therapy. ?It is not approved for use as a screening test for the presence of HBV DNA in blood or blood products or as a diagnostic test to confirm the presence of HBV infection. The quantitative range of this assay is 1.00 - 9.00 log IU/mL or 10 - 1,000,000,000 IU/mL. An interpretation of "Not Detected" does not rule out the presence of inhibitors in the patient specimen or HBV DNA concentration below the level of detection of the test. ?Care should be taken when interpreting any single viral load determination. Detected, not Quantifiable: HBV DNA detected, but at a level below 10 IU/mL (1.0 log IU/mL). ?HBV DNA concentration is below the lower limit of quantitation of the assay. Indeterminate: Error indicated in the generation of the result. ?Please submit a new specimen for repeat testing if clinically indicated. Lab Interpretation (test code = 02691-4) Normal [facility] HospitalCMV BY [id number] 18:55:59* Test Item Value Reference Range Interpretation Comme nts Specimen Tested (test code = 0512860206) Plasma CMV PCR - log IU/mL (test code = 81832-0) See_Comment [Automated message] The system which generated this result transmitted reference range: <2.5 log IU/mL. The reference range was not used to interpret this result as normal/abnormal. CMV PCR - IU/mL (test code = 52138-8) See_Comment [Automated message] The system which generated this result transmitted reference range: <300 IU/mL. The reference range was not used to interpret this result as normal/abnormal. CMV PCR - log copies/mL (test code = 28888-2) See_Comment [Automated message] The system which generated this result transmitted reference range: <2.7 log copies/mL. The reference range was not used to interpret this result as normal/abnormal. CMV PCR - copies/mL (test code = 93076-1) See_Comment [Automated message] The system which generated this result transmitted reference range: <516 copies/mL. The reference range was not used to interpret this result as normal/abnormal. MULUGETA (test code = MULUGETA) Test Information: Cytomegalovirus (CMV) DNA, Quantitation. The quantitative range of this assay is 2.5 - 6.5 log IU/mL (300 - 3,000,000 IU/mL) ?or 2.7 - 6.7 log copies/mL (516 - 5,160,000 copies/mL). ?One IU/mL of CMV DNA is approximately 1.72 copies/mL. ?A negative result (less than 2.5 log IU/mL or less than 300 IU/mL) does not rule out the presence of PCR inhibitors in the patient specimen or CMV DNA concentrations below the level of detection by the assay. Inhibition may also lead to underestimation of viral quantitation. ?The limit of quantification for this DNA assay is 2.5 log IU/mL (300 IU/mL) or 2.7 log copies/mL (516 copies/mL). ?If the assay DID NOT DETECT the virus, the test result will be reported as "<2.5 log IU/mL (<300 IU/mL)" and "<2.7 log copies/mL (<516 copies/mL)." ?If the assay DETECTED the presence of the virus but was not able to accurately quantify the number of copies, the test result will be reported as "Detected, not quantifiable." Indeterminate: ?Unable to generate a valid test result on this specimen. ?Please submit a new specimen for repeat testing if clinically indicated. This is a laboratory-developed test using a recreation specialist labeled ASR (Analyte Specific Reagent) as the reagent providing the specificity of the assay. ?This test was developed and its performance characteristics determined by [facility] Clinical Microbiology Laboratory. It has not been cleared or approved by the U.S. Food and Drug Administration; however, the FDA has determined that such clearance or approval is not necessary. This test is used for clinical purposes. It should not be regarded as investigational or for research. This laboratory is certified under the Clinical Laboratory Improvement Amendments of 1988 (CLIA-88) as qualified to perform high complexity clinical laboratory testing. [facility] - SYPHILIS [id number] 16:01:26* Test Item Value Reference Range Interpretation Comme nts Syphilis IgG/IgM (test code = 33089-9) Non-reactive Non-reactive MULUGETA (test code = MULUGETA) Non-reactive - No serologic evidence of T. pallidum infection. Cannot exclude incubating or early syphilis. Submit a second specimen in 2-4 weeks if syphilis is clinically suspected. Equivocal - Further testing to follow. Reactive - Further testing to follow. Lab Interpretation (test code = 46561-0) Normal [facility] Notes Date/Time Note Provider Source 2023-12-10 14:03:07 Please schedule pt for pre op clearance. Lily Buck MA [facility] 2023-12-10 11:47:13 Surgical clearance apt will be needed. Nell seen pt 1 x and BP was very high. T [facility] 2023-12-09 10:47:35 Patient states is having left bunion surgery once cleared by this Provider is not wanting to schedule a second appt at this time. She said Neonatal Doctor accepted the labs already completed, has also done an EKG, and has been cleared by her Infectious disease doctor. She is only needing an okay by [facility]. Please advise. Elizabeth Robb LVN [facility] 2023-12-06 11:46:07 What type of surgery? Yes need to follow up as last apt was establish care T [facility] 2023-12-06 11:24:46 MALKA 10/04/23, please let me know if you would like pt to be seen in office for clearance Lily Buck MA [facility] 2023-12-06 11:17:42 Letitia Zelaya is a 53 year old female Calling to get clearance for foot surgery from dr Dr. Klaen Matthews [address] [place] [address] Juan Georges [facility] 2023-12-06 10:55:48 Letitia Zelaya is a 53 year old female pt is calling stating that she is having foot surgery and she needs a clearance letter from Dr Guzman. Please send letter to Dr. Kalen Matthews [address] [place] [address] Collette Stubbs [facility]2024-10-28 10:53:36 [facility]xjfjno4168-75-66 10:53:36* Kalen Matthews, [facility] - 12/06/2023 10:10 AM CDT CHIEF COMPLAINT: BUNION, LEFT HISTORY OF PRESENT ILLNESS: Patient returns for discussion of surgical options since no improvements from conservative treatments Patient denies infection, injury, wounds Patient states pain currently rated 6/10 on palpation, left medial 1st metatarsal head --- Patient states history of contralateral bunionectomy ( alternate provider in [place], [place]), approximately 2021 Patient states she recently moved to our area and requesting to have evaluation for surgical procedure on the LEFT bunion Patient states painful bunion deformity for many years. Patient has tried multiple conservative treatments but do not seem to help, including larger shoe gear, toe spacers, and over the counter orthotics. Patient therefore requesting surgical options Patient states pain currently graded 6/10 on palpation, LEFT medial FIRST metatarsophalangeal joint OBJECTIVE: PHYSICAL EXAM OF THE LOWER EXTREMITY VASCULAR: (-) edema (-) ecchymosis (-) erythema Dorsal pedis pulse, graded 2/4; bilateral Posterior tibial pulse, graded 2/4; bilateral Capillary Refill time: within normal limits; bilateral (-) varicosities (+) pedal hair growth NEUROLOGICAL: (+) sensation with 5.07 [place] Letty monofilament examination to the most distal lower extremity (-) tinel's sign (-) clonus present DERMATOLOGICAL: (+) mild scar, right dorsal 1st metatarsophalangeal joint (+) mild scar, LEFT dorsal 5th metatarsal (-) open wounds (-) signs of soft tissue infection (-) ischemic tissue (-) abscess (-) other primary or secondary lesions (+) normal temperature when compared to contralateral limb (+) normal color, tugor, and elasticity MUSCULOSKELETAL: (-) bunion deformity, right (+) bunion deformity, left (+) hammertoe with lateral angular deformity, hallux digit proximal phalanx (+) pain on palpation, medial aspect of the 1st metatarsal head (+) mild crepitation, 1st metatarsophalangeal joint (-) concerns at the left 5th metatarsal previous surgical site (+) hypermobile 1st ray (+) equinus, bilateral (+) flexible pes planus foot type, bilateral 5/5 muscle strength to extrinsic pedal muscle groups (-) evidence of compartment syndrome (-) evidence of deep vein thrombosis X-rays bilateral feet 11/11/2023: (+) Bunionectomy right 1st metatarsophalangeal joint (+) large bunion deformity left (+) hardware well positioned with osteotomy left 5th metatarsal midshaft (+) left 1st intermetatarsal angle 16 degrees (+) left 1st hallux abductus angle 26 degrees (+) multiple osteophytes left 1st metatarsal head ASSESSMENT: Hallux abducto valgus Hammertoe, hallux digit --- HIV Hepatitis-C PLAN: - Extensive visit discussing possible pedal complications associated with bunion and hammertoe deformities - INFECTIOUS DISEASE - PENDING CONSULT DECEMBER 19 - Pain -[id number] as needed - Xrays - reviewed - Options -discussed multiple conservative and surgical options including but not limited to physical therapy, supportive shoe gear, custom orthotics - Bunion -unfortunately has exhausted conservative treatments and is likely going to need surgical planning as a more aggressive treatment - PREOP LABS - reviewed, PENDING CLEARANCE FROM PCP AND INFECTIOUS DISEASE - surgery - Carlos and Oh osteotomies - Return 2 weeks for preop eval AFTER INFECTIOUS DISEASE CONSULT Patient advised to report to my clinic or the emergency room immediately with any questions or concerns.Patient Instructions:Discussion: A detailed discussion was provided to the patient with specific reference to etiology, pathology,alternate treatment options, and prognosis. All risks and complications (including side effects) with each treatment/medication alternative were outlined in detail including but not limited to: Pain, swelling, numbness,loss of function, loss of limb, bleeding, hematoma, scarring, failure to relieve condition, surgery, additional/revisional surgery, reflex sympathetic dystrophy, complex regional pain syndrome, reoccurrence of deformity, joint stiffness, flail toe, bone and/or soft tissue infection, blood clots, pulmonary embolism, possible , delayed or non-healing. X-rays, graphs and drawings were all used to assist with patient comprehension when appropriate. All patients questions were answered and stated they fully understood. No guarantee as to results or outcome of treatment was made. I have discussed with the patient or legally responsible person prior to obtaining consent: the risks, potential benefits and drawbacks, significant alternatives, potential for problems related to recuperation, likelihood of success, and possible results of non-treatment, and the patient or the legally responsible person has agreed to proceed. Renetta [facility] HospitalYexfduy7772-10-48 10:53:36Upcoming Encounters Health Maintenance Due Date Last Done Comments CT Colonography 1969 Colonoscopy 1969 Colorectal Cancer Screening 1969 FIT-DNA 1969 FIT 1969 FOBT 1969 Medicare Annual Wellness (AWV) 1969 Sigmoidoscopy 1969 Meningococcal Vaccine (1 - Risk 2-dose series) 07/22/1971 Pneumococcal Vaccine: Pediatrics (0 to 5 Years) and At-Risk Patients (6 to 64 Years) (1 of 2 - PCV) 07/22/1975 Hepatitis A Vaccines (1 of 2 - Risk 2-dose series) 1988 Hepatitis B Vaccines (1 of 3 - 19+ 3-dose series) 1988 Zoster Vaccines (1 of 2) 1988 Pap Smear 1990 Cervical Cancer Screening 07/22/1999 HPV/Cotest 07/22/1999 Mammogram 2009 Influenza Vaccine (#1) 2023 DTaP/Tdap/Td Vaccines (2 - T d or Tdap) 2030 2020, 07/08/2011 HIB Vaccines Aged Out No longer eligi ble based on patient's age to complete this topic HPV Vaccines Aged Out No longer eligi ble based on patient's age to complete this topic IPV Vaccines Aged Out No longer eligi ble based on patient's age to complete this topic Rotavirus Vaccines Aged Out No longer eligible based on patient's age to complete this topic [facility] HospitalQyjjqtf4834-62-73 10:56:34 Done [facility]307[facility] 16:42:41 Please review, complete, and sign if appropriate. Elizabeth Robb [facility]2024-10-24 15:28:57 Call routed to correct clinic Shiloh Levine [facility]Vmlhnf9638-10-29 15:14:47 Letitia Zelaya is a 53 year old female Pt is calling stating the referral that was sent to an external facility doesn't accept her insurance and will like a new referral for sleep study within [facility] (internal). Pt states she will like a call back from a nurse Please advise Letitia Zelaya is a 53 year old female is requesting a referral to: Dept: SLEEP CLINIC ADULT PULM Reason for Referral: F51.01 (ICD-10-CM) - Primary insomnia Duration of problem: N/A Internal / External referral: Internal Name of provider / location patient requesting: N/A Phone Number: N/A Fax Number: N/A Appt already scheduled?: No If yes, Date of Appt: [facility]2024-10-23 08:07:12 [facility]erral [facility]1380-13-69 08:22:49 Please advise. Malka 10/04/23. Pt also sent my chart message stating psych prescribed Rx's but aren't helping. Lily Buck [place] 862114-10-22 08:16:11 Letitia Zelaya is a 53 year old female is requesting a referral to: Dept: Reason for referral: Insomnia Duration of problem: Internal / External referral: external Name of provider / location patient requesting: [address] [place] [address] Phone number: [phone] Fax number: [phone] Appt already scheduled?: no If yes, date of appt.: Lalito [facility]Kkuazb9281-23-74 09:30:00 Images from the original note were not included. Venipuncture collection performed by clean technique on the left hand. Total of 1 attempts were made. Slight pressure and a bandage/dressing were applied to the site(s). The patient experienced no complications. The following specimens were processed according to instructions and sent to [facility] laboratories per lab order on 11/23/2023 : LT BLUE SST 3 RED LAV 2 PPT 2 DK GREEN (LiHep) 1 DK GREEN (SodH) SINGH DK BLUE (K2) DK BLUE (S) ACD Blood Culture NIPT/NTD Pt sent home with sterile stool collection kit. Nery Ray 11/23/2023 9:30 AM [place] [address]196-09-03 10:32:21 Ok hem referral placed [place] [id number] 10:34:58 Please try The 'BRAT' diet is suggested, then progress to diet as tolerated as symptoms adam. BRAT diet (bananas, rice, applesauce, and toast) - Encouraged to drink plenty of water to keep hydrated, broths or soups are good too. - Avoid taking anti-diarrheals such as imodium and let diarrhea run it's course. - Recommend OTC probiotics for gut healthy during acute phase of gastritis. - Follow up in ER immediately if symptoms worsen or you are unable to tolerate food or fluids, bloody stools, persistent diarrhea, vomiting, fever or abdominal pain, or contractions. [place] [id number] 09:59:41 MALKA: 10/04/23 Caty Schwartz [facility]2024-08-30 09:47:25 Letitia Zelaya is a 53 year old female calling to see if dr can prescribe her something for the upset and diarrhea she has had for a week. Pt say she feels weak and has body aches because of this . [id number] [place], [place] - [address] [facility] [address] [facility] [address] Juan GeorgesSCCI Hospital LimaEuyvul6637-34-74 09:37:51 Images from the original note were not included. Liver enzymes are elevated , avoid and alcohol use and limit Nsaids usage. Diet and exercise. Will repeat LFT in 6 weeks. Thyroid normal A1C normal Written by ATUL Horn on 10/05/2023 8:53 AM CDT Seen by patient Letitia Zelaya on 10/05/2023 9:16 AM Caty Schwartz [facility]2024-08-27 08:53:12 Labs were added r/t elevated LFTs After looking into prior visits at [facility] it shows she also has HCV, I put a GI referral in as well for tx [facility]zaaa1749-16-27 21:40:00 [facility] EMERGENCY PROVIDER REPORT REPORT#:[id number] REPORT STATUS: Signed DATE:05/15/23 TIME: 2139 PATIENT: LETITIA ZELAYA UNIT #: [id number] ROOM/BED: AGE: 52 SEX: F PCP PHYS: No Primary or Family Physician SERVICE AUTHOR: Anthony Shaffer DO * ALL edits or amendments must be made on the electronic/computer document * HPI-Abd Pain F 40 and Over Free Text HPI Notes Free Text HPI Notes 52 years old female with history of bipolar disorder presents to the emergency room by EMS complaining of left flank pain since yesterday morning and inability to urinate for the last 24 hours, as per patient she is taking antibiotic Macrobid for her UTI, patient denies fever or chills, patient denies diarrhea or constipation, no vaginal bleeding vaginal discharge and otherwise no additional complaints. As per patient 10 out of 10 left flank pain radiating to the back, no alleviating or precipitating factors General Initial Greet Date/Time 05/15/232137 Presentation Chief Complaint Abdominal pain, Flank pain L Sudden in Onset? No Risk-Abd Pain F 40 and Over )( Abdominal Aortic Aneurysm Risk factors reviewed Review of Systems ROS Statements All systems rev neg except as marked. Past Medical History - Adult Stated Complaint PT C/O LEFT FLANK PAIN AND UNABLE TO URINATE Allergies Coded Allergies: Sulfa (Sulfonamide Antibiotics) (Mild, HIVES 10/01/17) Home Medications Active Scripts levoFLOXacin (LEVAQUIN) 500 MG PO Q24H levoFLOXacin (LEVAQUIN) 500 MG PO Q24H #10 TAB Prov: 10/08/17 TAMSULOSIN ER (FLOMAX) 0.4 MG PO DAILY TAMSULOSIN ER (FLOMAX) 0.4 MG PO DAILY #10 CAP Prov: 10/08/17 DOXYCYCLINE MONOHYDRATE (MONODOX) 100 MG PO Q12H DOXYCYCLINE MONOHYDRATE (MONODOX) 100 MG PO Q12H #13 CAPS Prov: 07/23/22 NITROFURANTOIN/NITROFURAN MAC (MACROBID) 100 MG PO BID NITROFURANTOIN/NITROFURAN MAC (MACROBID) 100 MG PO BID #14 CAPS Prov: 02/21/22 ONDANSETRON ODT (ZOFRAN ODT) 4 MG PO Q6H PRN PRN NAUSEA/VOMITING ONDANSETRON ODT (ZOFRAN ODT) 4 MG PO Q6H PRN PRN NAUSEA/VOMITING #15 TABS Prov: 02/21/22 PROMETHAZINE (PHENERGAN) 25 MG PO Q6H PRN PRN NAUSEA/VOMITING PROMETHAZINE (PHENERGAN) 25 MG PO Q6H PRN PRN NAUSEA/VOMITING #20 TABS Prov: 02/21/22 LORazepam (ATIVAN) 1 MG PO Q8H PRN PRN ANXIETY LORazepam (ATIVAN) 1 MG PO Q8H PRN PRN ANXIETY #15 TABS Prov: 02/21/22 Reported Medications ARIPiprazole (ABILIFY) 30 MG PO DAILY CEPHALEXIN (KEFLEX) 500 MG PO Q12H carBAMazepine XR (TEGretol XR) 400 MG PO Q12H clonazePAM (KlonoPIN) 1 MG PO DAILY PRN PRN ANXIETY SERTRALINE (ZOLOFT) 150 MG PO DAILY ARIPiprazole (ABILIFY) 30 MG PO DAILY CEPHALEXIN (KEFLEX) 500 MG PO Q12H clonazePAM (KlonoPIN) 1 MG PO DAILY PRN PRN ANXIETY carBAMazepine XR (TEGretol XR) 400 MG PO Q12H SERTRALINE (ZOLOFT) 150 MG PO DAILY Physical Exam Vital Signs Vital Signs First Documented: Result Date Time Pulse Ox 95 05/14 2138 B/P 140/80 05/14 2137 B/P Mean 100 05/14 2137 O2 Delivery Room air 05/14 2137 Temp 98.7 05/14 2137 Pulse 101 05/14 2137 Resp 18 05/14 2137 Last Documented: Result Date Time Pulse Ox 96 05/16 207 B/P 108/77 05/16 207 B/P Mean 87 05/16 207 O2 Delivery Room air 05/16 207 Temp 98.0 05/16 207 Pulse 80 05/16 207 Resp 19 05/16 207 Review of Vital Signs Reviewed Interpretation Diagnostics Lab Results Interpretation Results Laboratory Tests 05/15/232215: [Embedded Image Not Available] Laboratory Tests: 05/15 2215 Chemistry Sodium (134.0 - 147.0 mmol/l) 139 Potassium (3.6 - 5.2 mmol/L) 4.1 Chloride (98.0 - 107.0 mmol/l) 107 Carbon Dioxide (21.0 - 33.0 mmol/l) 24.5 Anion Gap (0 - 20) 11.6 BUN (7.0 - 18.0 mg/dl) 13 Creatinine (0.60 - 1.30 mg/dL) 0.79 Estimated Creat Clear (>30 mL/min) 74 Glomerular Filtr Rate (mL/min) 89 Glucose (70.0 - 110.0 mg/dl) 93 Calcium (8.0 - 10.5 mg/dl) 8.5 Total Bilirubin (0.0 - 1.0 mg/dl) 0.7 Direct Bilirubin (0.0 - 0.3 mg/dl) 0.1 AST (15 - 37 Units/L) 61 H ALT (12.0 - 78.0 Units/L) 49 Total Alk Phosphatase (50.0 - 136.0 Units/L) 283 H Total Protein (6.0 - 8.1 GM/DL) 7.1 Albumin (3.2 - 4.7 gm/dL) 3.3 Lipase (16 - 77 Units/L) 29 Hematology WBC (4.5 - 11.0 K/mm3) 2.9 L RBC (3.80 - 5.20 M/mm3) 4.89 Hgb (12.0 - 16.0 gm/dL) 13.6 Hct (36.0 - 48.0 %) 41.5 MCV (82.0 - 99.0 UM3) 84.9 MCH (25.5 - 32.5 UUG) 27.8 MCHC (29.0 - 35.5 gm/dL) 32.8 RDW (11.5 - 15.0 %) 14.3 Plt Count (150 - 400 K/mm3) 142 L MPV (7.4 - 10.4 fl) 10.2 Neut % (Auto) (49.0 - 76.0 %) 46.9 L Lymph % (Auto) (23.0 - 38.0 %) 36.0 [place] % (Auto) (1.0 - 10.0 %) 7.2 Eos % (Auto) (1.0 - 5.0 %) 9.2 H Baso % (Auto) (0.0 - 1.0 %) 0.7 Neut # (Auto) (2.4 - 6.3 K/mm3) 1.4 L Lymph # (Auto) (1.2 - 4.0 K/mm3) 1.1 L [place] # (Auto) (0.0 - 0.6 K/mm3) 0.2 Eos # (Auto) (0.0 - 0.7 K/MM3) 0.3 Baso # (Auto) (0.0 - 0.2 K/mm3) 0.0 Absolute Nucleated RBC (0.00 - 0.01 X10 3uL) 0.00 Immature Gran % (0.0 - 0.4 %) 0.0 Nucleated RBC % (0.0 - 0.1 %) 0.0 Immature Gran # (0.00 - 0.07 x10 3/uL) 0.00 Toxicology Urine Opiates Screen (NEGATIVE) POSITIVE H Urine Methadone Screen (NEGATIVE) NEGATIVE Urine Barbiturates (NEGATIVE) NEGATIVE Ur Phencyclidine Scrn (NEGATIVE) NEGATIVE Ur Amphetamines Screen (NEGATIVE) NEGATIVE U Benzodiazepines Scrn (NEGATIVE) NEGATIVE Urine Cocaine Screen (NEGATIVE) NEGATIVE Urine Cannabinoids (NEGATIVE) NEGATIVE Urines Urine Color DARK YELLOW Urine Appearance CLEAR Urine pH (5.0 - 9.0) 6.0 Ur Specific [place] (1.000 - 1.030) 1.020 Urine Protein (NEGATIVE mg/dl) 15 mg/dl H Urine Glucose (UA) (NORMAL mg/dl) NORMAL Urine Ketones (NEGATIVE mg/dl) NEGATIVE Urine Blood (NEGATIVE Sammy/micL) NEGATIVE Urine Nitrite (NEGATIVE) NEGATIVE Urine Bilirubin (NEGATIVE mg/dL) NEGATIVE Urine Urobilinogen (NORMAL mg/dl) 4.0 mg/dl H Ur Leukocyte Esterase (NEGATIVE Juan [place]/micL) 25 Juan [place]/micL H Urine RBC (0 - 3 RBC/HPF) 0-2 Urine WBC (NONE WBC/HPF) 0-3 Ur Epithelial Cells (0 - 3 EPI/HPF) 0-3 Amorphous Sediment (NONE) FEW Urine Bacteria (NONE) FEW Urine HCG, Qual (NEGATIVE) NEGATIVE Recent Impressions: CAT SCAN - CT ABD PELVIS W/CONT 05/15 46 Report Impression - Status: SIGNED Entered: 05/16/2023 0147 IMPRESSION: No significant abnormalities demonstrated. Other findings as above. Impression By: Lazaro - Arvind Daily M.D. ECG #1 Interpretation Text/Dict Note Sinus rhythm 84 bpm, normal axis, no segment elevation, QTc 472 Re-Evaluation MDM )( Re-Evaluation/Progress #1 Text/Dict Note Unremarkable labs, drug screen positive for opiates, UA positive leukocyte esterase without white blood cells in urine as per patient she is taking [place] for pain control and she is taking Macrobid for her UTI for the last 4 to 5 days , patient continued to complain of severe back pain. CT abdomen pelvis with IV contrast ordered we will follow results CT abdomen with IV contrast with no acute finding or acute pathology, patient made aware of her workup results and possible differential diagnosis advised continue taking her Macrobid and routine follow-up with PMD, red flags and return instruction discussed with the patient should answer agreed with discharge plan and outpatient follow-up ED Course Medication(s) Ordered Medication(s) Ordered: Central Nervous System Agents Sig/Emil Start time Last Medication Dose Route Stop Time Status Admin Ketorolac 15 MG X1ED STA 05/15 2139 DC 05/14 Tromethamine IV 05/14 2140 2225 Diagnostic Agents Sig/Emil Start time Last Medication Dose Route Stop Time Status Admin Iopamidol 0 .STK-MED ONE 05/15 0039 DC 05/15 IV 0048 Electrolytic, Caloric, And Huyen Sig/Emil Start time Last Medication Dose Route Stop Time Status Admin Sodium Chloride 1,000 ML ONCE ONE 05/14 2144 DC 05/14 IV 05/14 2146 2225 Patient Discharge Departure Vital Signs/Condition Vital Signs First Documented: Result Date Time Pulse Ox 95 05/14 2137 B/P 140/80 05/14 2137 B/P Mean 100 05/14 2137 O2 Delivery Room air 05/14 2137 Temp 98.7 05/14 2137 Pulse 101 05/14 2137 Resp 18 05/14 2137 Last Documented: Result Date Time Pulse Ox 96 05/16 207 B/P 108/77 05/16 207 B/P Mean 87 05/16 207 O2 Delivery Room air 05/16 207 Temp 98.0 05/16 207 Pulse 80 05/16 207 Resp 19 05/16 207 All vital signs available at the time of this entry have been reviewed. Condition Improved Clinical Impression Clinical Impression Primary Impression: UTI (urinary tract infection) Secondary Impressions: Abdominal pain Disposition Decision Discharge )( Discharged to Home Yes )( Time 0150 )( Date 05/16/23 Discharge/Care Plan Counseled Regarding Diagnosis, Lab results, Imaging studies (Auto) Prescriptions Current Visit Scripts DICYCLOMINE (BENTYL) 10 MG PO Q6H PRN PRN ABDOMINAL PAIN/CRAMPING DICYCLOMINE (BENTYL) 10 MG PO Q6H PRN PRN ABDOMINAL PAIN/CRAMPING #30 CAPS Patient Instructions Abdominal Pain Additional Instructions Please continue to take your Macrobid, drink plenty of fluids, follow-up with your primary doctor in 1 to 2 days, come back to the emergency room if you have persistent or worsening symptoms Referrals Provider Referral: Jimbo Oliveros MD Address: [address] [place] [address] Provider Referral: Shawn Patricia MD Address: [address] [place] [address] [id number] [place] [id number] Provider Referral: Guzman Yost Jr, MD Address: [address] [place] [address] [address] [address] Provider Referral: Colette Yost MD Address: [address] [place] [id number] Provider Referral: Tex Onofre MD Address: [address] [place], [place] [id number] Provider Referral: Perfecto Pelaez MD Address: [address] [place] [address] [address] [address] at 0221 RPT #:[id number] END OF REPORTRRJCJ4136-65-15 08:35:07 Social Work Note PRINTING MACHINE OPERATOR TAPE RULES attempted to speak with Raquel at [employer] ([phone]) but had to leave a message for the call to be returned. Please forward the call / message to PRINTING MACHINE OPERATOR TAPE RULES when she calls back. Please consult PRINTING MACHINE OPERATOR TAPE RULES if additional needs arise. La Boyer LMSW, [facility] Ambulatory Park Ranger - Care Management Community Based Clinics / Adult & Pediatrics - [facility] / [facility] [phone] [facility]2024-04-02 16:04:17 La Boyer is working on this patient for chcf needs. Routed to [facility]. Brittany Lott [facility]2024-04-02 15:47:17 No form found regarding this patient or telephone call. Brittany Gaviria LVN has been corresponding with [facility] will put this encounter back in , in basket for Brittany. Everett Corbin [facility]2024-04-02 14:32:09 Letitia Zelaya is a 52 year old female Raqule from the chcf is calling to speak with a nurse. Please contact Raquel. Milena WoodruffSCCI Hospital LimaKpxtzr2710-79-23 08:49:39 Attempted to contact Raquel with [employer] , but had to leave a message to call back. Message sent to FLAKO Escamilla, as she has been assisting with this patient. [facility] LimaRjmgkd0065-33-65 13:39:11 correction Is requesting to speak with a nurse regarding information needed for the nursing facility Esther Lopez [facility]2024-03-05 11:01:22 Raquel has been informed of Maureen's message. She verbalized understanding. 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 First needs evaluation by Neuro psychiatry. I will follow up with Social work regarding this issue. Notify patient she will be contacted by social work with update and to contact social work with further concerns. ONETTE Lott [facility]2024-03-05 10:55:43 Copied from [facility] #[id number]. Topic: Clinical - Medical Advice >> Apr 13, 2023 10:44 AM Patient Marketing Recruiter wrote: Raquel with [facility] and correction called to follow up on the pt's diagnosis for medical necessity. Raquel - [phone] [facility] Please advise. ONETTE VillalbaSCCI Hospital LimaHefydo6680-05-69 10:21:48 La please see most recent response. 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 First needs evaluation by Neuro psychiatry. I will follow up with Social work regarding this issue. Notify patient she will be contacted by social work with update and to contact social work with further concerns. Patient has been informed of this via [employer]. [facility]2024-03-05 08:00:51 This is being addressed in a previous [employer] message dated 04/09/2023. This encounter closed. ONETTE Lott [facility]2024-03-04 16:11:33 Images from the original note were not included. 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 She stated that this would have to be addended to Maureen's last office note on 03/19/2023 in order for her to be admitted. This will have to be faxed to [phone] FLAKO Tovar, is out of office today and will return tomorrow. [place] 120844-03-04 16:02:52 Letitia Zelaya is a 52 year old female Raquel at [facility] home is needing diganosis reports for ( R 41.89 & F 02.4 ) medical neccesity to have the patient admitted into the nursing facility Please advise [phone] ONETTE IrelandSCCI Hospital LimaYlzfhe2745-48-11 13:55:19 Letitia Zelaya is a 52 year old female Raquel with [facility] is calling stating Pt is very anxious about getting admitted today into chcf and has called several times to get the new orders over with the correct dx codes to hospice/ nursing. Please fax orders and contact pt once done.Thank you! Fx: [phone] ONETTE SinghSCCI Hospital LimaLhtedx8393-76-45 13:48:42 Pt is called to check updates regarding her getting admitted to the chcf. Pt states that Raquel with [facility] is waiting on the responds from pcp to go ahead and admitted pt today. Pt states she is needing this to get done azam bc she is wanting to get admitted by this afternoon. ONETTE MenendezKindred Hospital DaytonZpnuol4629-06-34 13:40:22 error ONETTE MenendezKindred Hospital DaytonNutfkg6173-80-89 09:40:28 This has been copied into a previous encounter where the clinical social worker has been assisting with. This encounter closed to avoid multiple messages. ONETTE Lott [facility]2024-03-04 09:38:47 Images from the original note were not included. 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 She stated that this would have to be addended to Maureen's last office note on 03/19/2023 in order for her to be admitted. This will have to be faxed to [phone] FLAKO Tovar, is out of office today and will return tomorrow. April 12, 2023 04/12/23 9:20 AM Letitia Zelaya contacted Ever Caicedo Curtis D 04/12/23 9:23 AM Copied from [facility] #[id number]. Topic: Clinical - Order >> Apr 12, 2023 9:20 AM Patient Marketing Recruiter wrote: Raquel with [facility] correction is requiring a call from the clinic to discuss adding diagnoses to referral regarding her cognitive impermeant. Date/Time Type Contact Phone/Fax 04/12/2023 09:24 AM CARPENTRY TEACHER by Ever Caicedo Incoming Raquel (HOME HEALTH) [phone] ENTRY TEACHER [facility]imaGedyja7240-89-12 09:23:55 Copied from [facility] #[id number]. Topic: Clinical - Order >> Apr 12, 2023 9:20 AM Patient Marketing Recruiter wrote: Raquel with [facility] correction is requiring a call from the clinic to discuss adding diagnoses to referral regarding her cognitive impermeant. ONETTE CaicedoSCCI Hospital LimaGmrzaf5032-90-94 15:48:10 Social Work Note The referral has been faxed over to [facility] as requested. La Boyer, JOSEPH, AC-SW Ambulatory Park Ranger - Care Management Community Based Clinics / Adult & Pediatrics - [facility] / [facility] [phone] office ENTRY TEACHER La Boyer [facility]2024-03-01 15:12:06 Pt called because she wants to lnow if the orders can be faxed over as soon as possible because she said the place can see her by Wednesday. ONETTE GarciaSCCI Hospital LimaOeeryj3434-94-95 08:56:44 Social Work Note JOSEPH is addressing this matter in a pt outreach. La Boyer LMSW, [facility] Ambulatory Park Ranger - Care Management Community [facility] Clinics / Adult & Pediatrics - [facility] / [facility], [facility] [phone] [facility]2024-03-01 08:28:52 Pt has been updated via My True Fit. Pt was working on getting a medical release sent to us. [facility]2024-03-01 08:14:30 Patient is new to this provider Unknown if confirmed hx liver cancer- will need additional records to clarify /verify ER records reviewed-no follow up OV needed Social work referral approved Provider can discuss patient medical case once medical release is singed to speak with Trinidad MORALES per patient and records reviewed by Trinidad MORALES Thank you, Maureen Mcdonald RN, MSN, TORPEDO MAN, DEAL ARCHITECT-C ENTRY TEACHER DEAL ARCHITECT-ADULT HEALTH MIDLEVEL PROVIDERSCCI Hospital LimaVgkpvo0044-55-95 10:48:03 This is being addressed in a call 04/08/2023. This encounter closed to avoid multiple messages. ENTRY TEACHER Brittany Lott [place] [address]-02-29 10:47:35 This is being addressed in a call 04/08/2023. This encounter closed to avoid multiple messages. ENTRY TEACHER Brittany Lott [place] [address]-02-29 10:47:08 This is being addressed in a call 04/08/2023. This encounter closed to avoid multiple messages. [facility]2024-02-29 10:46:45 This is being addressed in a call 04/08/2023. This encounter closed to avoid multiple messages. [facility]2024-02-29 10:46:25 This is being addressed in a call 04/08/2023. This encounter closed to avoid multiple messages. ONETTE [place]vaMichael [place] [address]-02-29 10:45:30 This is being addressed in a call 04/08/2023. This encounter closed to avoid multiple messages. ONETTE [place]va[place] [address]-02-29 10:10:30 Images from the original note were not included. ER 03/29/2023 acute cystitis with hematuria MALKA 03/19/2023 several diagnosis No future appt scheduled Spoke to Nuzhat with [employer],[phone] They are requesting Medical Records, Hospice Order for end of life care. Hospice Order, to eval and admit to hospice if appropriate and primary diagnosis of liver cancer They did a telehealth visit with her yesterday and she told them she is having nausea, recurrent UTI's, pain /, HIV, Hep C positive. Pt told Trinidad that she had liver cancer. I told Nuzhat that we do not have a signed medical release to release information to them. She stated that she would have one faxed to us at [phone]. Physician, Dr. Paulino, with [employer] would like to speak with Maureen, but they would need medical records to review prior to speaking with her, so they can discuss her medical status. Dr. Paulino's phone number [phone] [employer]: Pt is trying to get into a chcf and she said that if Trinidad can get her admitted to Hospice due to HIV, Chronic Hep C, chronic pain, recurrent UTI's that they can assist her with getting into a chcf I asked her if she had liver cancer and she said that [place] diagnosed her with this last year, but she never followed up on it. Pt is staying with some friends and she needs help with her daily care due to all her diagnosis and needs to go into facility for this She called [facility] in [place] [phone] to see if they would admit her and she said that they would have to speak with her PCP in regards to this. I see a note in regards to SW, but do not see a referral from Maureen. Maureen Mcdonald, ANP 04/05/23 3:24 PM Note Social work referral placed to assist patient with starting this process Does patient need a ER follow up with you? [facility]2024-02-29 09:12:18 Letitia Zelaya is a 52 year old female Brandon with [employer] called requesting for medical records and home health orders to be faxed to them. Please advise. Alt fax: [phone] ENTRY TEACHER Caitlyn NiñoSCCI Hospital LimaVidvhu9738-01-16 08:37:58 Info Print Press Operator is requesting to speak to Shiloh Garay. In regards to sending orders for pt and records to TrinidadNasreen Taylor- [phone] ONETTE MedleySCCI Hospital LimaUuspdo6899-19-06 15:26:55 Spoke with patient and notified her that a clinical social worker will be in contact with her to help with the process. ONETTE Virk [facility]2024-02-26 15:24:09 Social work referral placed to assist patient with starting this process ENTRY TEACHER DEAL ARCHITECT-ADULT HEALTH MIDLEVEL [facility]2024-02-26 15:13:20 MALKA 03/19/23 Called and spoke with patient. Per patient she is wanting/ needing to get into a chcf. She states that she has contacted the one in [facility] but was told that she has to sign a medical records release and could take up to 15 days. Per patient is wanting to know if Maureen Mcdonald DEAL ARCHITECT could expedite things. service worker helper referral was placed for patient 03/2022 but nothing came of it. Please advise. [facility]2024-02-26 15:00:29 Letitia Zelaya is a 52 year old female Patient is calling and would like to speak to provider in regards to getting into a chcf as soon as possible. Patient states she does not want to wait 15 days for Medical Records to send records and is asking if process can be expedited. Please advise. [phone] (home) ONETTE CaSCCI Hospital LimaXijqxe8124-29-16 12:53:26 Pt discharged to home, pt given printed and verbal discharge instructions. Patient verbalized understanding and able to teach back discharge instructions Pt verbalized understanding of instructions, pt awake alert oriented x 4, resp reg unlabored, skin w/d, color appropriate for race, moves all ext well. Advised to seek medical attention for new/prolonged/worsening of symptoms, pt ambulated from unit with steady gait, in no apparent distress. ONETTE Melvin Critical access hospitalElkcgm2504-63-74 11:36:47 Letitia Zelaya is a 52 year old female presenting today for Chief Complaint Patient presents with Abdominal Pain UTI Nausea Vomiting - Patient states recently dx and tx for UTI but symptoms are getting worse. States she cannot keep anything down. NAD noted. No past medical history on file. [facility]2024-02-19 11:11:03 Pt ambulates to restroom with steady gait unassisted ONETTE Heaton Critical access hospitalBvzeao4621-33-08 11:00:27 Letitia Zelaya is a 52 year old female presenting today for Chief Complaint Patient presents with Abdominal Pain UTI Nausea Vomiting - Patient states recently dx and tx for UTI but symptoms are getting worse. States she cannot keep anything down. NAD noted. No past medical history on file. ONETTE Harrison Critical access hospitalVhlipq2171-85-30 10:03:31 Spoke to pt via telephone assessment call. Advised her to proceed to ER for evaluation. Maureen Mcdonald, ANP: BINU ONETTE Angel Critical access hospitalTexmcs3481-24-16 09:53:44 See additional telephone encounter 03/26/23 Screen [employer] message 03/27/23 Contacted pt Pt states she did start all of the medications prescribed (cefdinir, dicyclomine, zofran) She has been taking it, it is not helping Pt state she can not keep anything down-she has been vomiting all weekend Pt states when she takes a small sip of water, then vomits it-then dry heaves Now her throat is sore, feels her mouth hurts, hardly can swallow or open her mouth Stomach pain comes and goes Pt states it still nina and hurts when urinating +back pain 11/17 Pt states if she lies down completely still the pain is better If she gets up feels like she will pass out She feels like she is getting worse and is not better She is very tearful Recommendations: Advised pt to proceed to ER for evaluation of symptoms, she states she will try to get someone to take her. Advised pt to call EMS if needed. Advised pt any concerns contact clinic. Pt verbalized understanding and agrees with plan. ONETTE Angel Critical access hospitalAbtqlf7694-32-02 09:42:48 Letitia Zelaya is a 52 year old female calling in requesting another medication to aid in nausea and back pain per patient she was given medication for UTI bit it is not helping.Please advise ONETTE SanchesBrandi [place] 695784-02-16 11:46:07 Contacted pt Gave pt provider's recommendations. Pt verbalized understanding and agrees with plan. ENTRY TEACHER Nida Angel RNBrandi Ville 695784-02-16 11:26:04 Please instruct patient to fruit or nut picker prescription cefdinir and odansetron from pharmacy-take as prescribed Refrain from substance use. 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 Monitor for fever. If fever > 101.4 develops follow up in urgent care and or office next week Thank you, Maureen Mcdonald RN, MSN, TORPEDO MAN, DEAL ARCHITECT-C ENTRY TEACHER DEAL ARCHITECT-ADULT HEALTH MIDLEVEL PROVIDERSCCI Hospital LimaErdcux7915-25-19 08:41:42 MALKA: 03/19/23 seen by ANANT Roman Generalized abdominal pain Comment: acute, worsening over past 4 weeks, high risk for sepsis, acute liver /renal failure Tachycardia, suspect acute urinary retention Plan: CANCELED: Comp. Metabolic Panel (91771), CANCELED: Lipid Panel (60498)(Total Cholesterol, Triglycerides, HDL), CANCELED: Thyroid Stimulating Hormone, CANCELED: N-Terminal Pro-Bnp, CANCELED: Cbc with Diff, CANCELED: Prothrombin Time / INR, CANCELED: Activated Partial Thrmplas James Patient directed to [facility] ER Black tarry stools Sciatica Right side Primary hypertension Asymptomatic HIV infection, with no history of HIV-related illness Immunocompromised patient Chronic hepatitis C without hepatic coma Weight gain Housing instability, currently housed, at risk for homelessness Lack of family support Contacted pt Pt states she went to the ER from office last week (03/19/23) Pt states dx: UTI- gave abx Pt states she has a history of meth use and has not had any since 1.5 years ago Pt states 2 nights she took 2 hits off a pipe- should not have done it, does not know what it was When she got home she drank ice water Pt states she was light headed and dizzy Vomiting all night Pt states she was having horrible pain-stomach was hurting, headache So she went back to [facility] ER yesterday They gave her nausea/pain medication while she was there Pt states she informed the nurse she needs something for pain Pt states she is having dark red with urination, burning with urination Discharged -was told there is nothing else they can do and to follow up with PCP Pt states her pain-stomach "real bad" (could not give a pain scale number) Pt is tearful Pt states if she moves, the nausea is horrible Pt states she is severely dehydrated Recommendations: Asked pt if she has gotten the new medications prescribed. She has not gotten them Advised pt to have someone fruit or nut picker her medications: one is for nausea, one is stomach pain, and one is an antibiotic-they are at [facility] in [place]. Advised pt small sips of fluids. Advised pt to alternate tylenol/motrin for pain. ER warnings given. Advised pt will send to provider for any alternate recommendations. Pt verbalized understanding and agrees with plan. ANANT Roman: please advise for any additional/alternate recommendations. [facility]2024-02-16 08:14:40 Pt is calling back in regards to previous message would like a call back please. [phone]. [place]govern[place] [id number] 06:50:56 Letitia Zelaya is a 52 year old female states she has UTI and was seen in ER last night. Patient states ER didn't give her any medication. Patient states she is needing to speak to nurse. Patient upset that ER provider would not give her any pain medication. Patient declined appointment at this time. [id number] 20[facility]55:00 Pt placed in lobby to wait for family fruit or nut picker. Given ice chips and warm blanket for comfort. [facility] Pam Lerma Critical access [id number] 20:50:57 MD notified of pt continued pain. MD to bedside for pt consult. [place] 13489-02-15 18:45:[address] via stretcher. [place] 13489-02-15 17:20:00 Difficulty with IV access. Awaiting US IV. [place] 13489-02-15 16:32:24 Letitia Zelaya is a 52 year old female that presents to the er with N/V/abdominal pain since midnight last night. Pt reports she used to use meth and hadn't in years and took "two puffs and now I feel like I'm dying, I've never felt like this before; I feel poisoned.". pt a/ox4. Pt tachy in the 140's. Pt going to bed now and EKG to follow [facility] Lise Denis [place] [id number] 16:23:00 Associated Order(s): EKG-12 Lead ROUTINE ONCE Pre-Procedure Diagnose(s): Abdominal pain, unspecified abdominal location; Tachycardia Post-Procedure Diagnose(s): Abdominal pain, unspecified abdominal location; Tachycardia [facility] Emergency Department Note Patient Name: Letitia Zelaya Date of : 1970 52 year old female Treatment Room: Room/bed info not found Primary Care Physician: Maureen Mcdonald Patient Escorted by: Self [9] Mode of Arrival: Personal means [1] EMS Treatment Prior to ED Arrival: DAMPENER OPERATOR treatment: None Travel and Exposure Screening: Symptoms Does patient have any of these symptoms?: (not recorded) Exposure Screening Has patient had contact with someone with a communicable disease in the last month?: (not recorded) Diseases exposed to:: (not recorded) Is Patient ?: (not recorded) Exposure Date: (not recorded) Chief Complaint: Chief Complaint Patient presents with Vomiting Abdominal Pain Nausea Drug Problem Smoked meth History of Present Illness: Letitia Zelaya is a 52 year old female with a past medical history as listed below including previous methamphetamine addiction that presents with nausea, vomiting, abdominal pain. Patient reports she went out last night. Took a couple hits off a pipe, unsure of the drugs she ingested. Subsequently later she woke up in the [place] vomiting. Reports generalized abdominal pain. Denies any diarrhea. No fever. States has been unable to keep anything down all day. Reports previous cholecystectomy, appendectomy, section. 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 No pertinent past medical history. Tetanus received in last 5 years: Unknown Allergies: Allergies Allergen Reactions Sulfur Itching and Swelling Sulfa (Sulfonamide Antibiotics) Hives Past Social History: Tobacco Use Never smoked or used smokeless tobacco. Passive Exposure: Never Past Surgical History: History reviewed. No pertinent surgical history. Review of Systems: Review of Systems Constitutional: Negative. Negative for chills and fever. HENT: Negative. Eyes: Negative. Respiratory: Negative. Breasts: Negative. Cardiovascular: Negative. Gastrointestinal: Positive for abdominal pain, nausea and vomiting. Genitourinary: Negative. Negative for dysuria. Musculoskeletal: Negative. Skin: Negative. Neurological: Negative. Psychiatric/Behavioral: Negative. All other systems reviewed and are negative. Endocrine: Endocrine negative Physical Exam: ED Triage Vitals Weight 03/25/23 1632 77.1 kg (170 lb) Actual or estimated -- Height -- BP 03/25/23 1631 (!) 153/104 Pulse 03/25/23 1631 144 Resp 03/25/23 1631 20 Temp 03/25/23 1631 37 ?C (98.6 ?F) Temp source 03/25/231954 Oral SpO2 03/25/23 1631 91 % Measured on 03/25/231954 Room air Physical Exam Vitals and nursing note reviewed. Constitutional: General: She is not in acute distress. Appearance: She is well-developed, well-groomed and normal weight. She is ill-appearing. She is not toxic-appearing or diaphoretic. HENT: Head: Normocephalic and atraumatic. Right Ear: Hearing and external ear normal. Left Ear: Hearing and external ear normal. Nose: Nose normal. Mouth/Throat: Lips: [place]. Mouth: Mucous membranes are dry. Pharynx: Oropharynx is clear. Comments: Very dry mucous membranes Eyes: General: Lids are normal. Gaze aligned appropriately. Conjunctiva/sclera: Conjunctivae normal. Cardiovascular: Rate and Rhythm: Regular rhythm. Tachycardia present. Pulses: Normal pulses. Heart sounds: Normal heart sounds. No murmur heard. No friction rub. No gallop. Pulmonary: Effort: Pulmonary effort is normal. No respiratory distress. Breath sounds: Normal breath sounds. No decreased breath sounds, wheezing, rhonchi or rales. Chest: Chest wall: No tenderness. Abdominal: General: Abdomen is flat. Bowel sounds are normal. There is no distension. Palpations: Abdomen is soft. Tenderness: There is generalized abdominal tenderness. There is no guarding or rebound. Comments: No generalized peritonitis Skin: General: Skin is warm and dry. Capillary Refill: Capillary refill takes less than 2 seconds. Neurological: Mental Status: She is alert and oriented to person, place, and time. GCS: GCS eye subscore is 4. GCS verbal subscore is 5. GCS motor subscore is 6. Psychiatric: Attention and Perception: Attention and perception normal. Mood and Affect: Affect normal. Mood is anxious. Speech: Speech is rapid and pressured. Behavior: Behavior is hyperactive. Behavior is cooperative. Thought Content: Thought content normal. Cognition and Memory: Cognition and memory normal. Judgment: Judgment normal. Radiology: CT ABDOMEN PELVIS W CONTRAST Final Result EXAM: CT ABDOMEN/PELVIS WITH CONTRAST HISTORY: Abdominal pain, acute, nonlocalized COMPARISON: CT abdomen pelvis without contrast 01/28/2022 TECHNIQUE AND FINDINGS: Contiguous axial imaging from the level of the lung bases through the proximal thighs was performed after the administration of of intravenous contrast. Coronal and sagittal reconstructions were obtained. Auto mA and/or iterative reconstruction were used to reduce radiation dose. FINDINGS: LOWER THORAX: The lungs bases are clear. No cardiomegaly. LIVER: No focal hepatic lesions. Normal contour. GALLBLADDER AND BILIARY TREE: No biliary ductal dilation. Prior cholecystectomy. CBD is dilated at 1 cm, which is unchanged and likely due to reservoir phenomenon. SPLEEN: No splenomegaly. PANCREAS: No ductal dilation or masses. ADRENAL GLANDS: No adrenal nodules. KIDNEYS: Bilateral symmetrical enhancement. No hydronephrosis, stones, or solid masses. Subcentimeter bilateral renal cysts, too small to characterize. GI TRACT: No dilation or wall thickening. Normal appendix. PELVIS/BLADDER: Urinary bladder is unremarkable. PERITONEUM AND RETROPERITONEUM: No free air or fluid. LYMPH NODES: No lymphadenopathy. VESSELS: Unremarkable. BONES AND SOFT TISSUES: No suspicious lytic or sclerotic bony lesions. Degenerative changes of the lumbar spine. IMPRESSION No acute intra-abdominal findings. Preliminary Report Dictated by Resident: Marcella Shoemaker I, Domo Coburn MD., have reviewed this study and agree with the above report. Lab Results: Lab Results CBC WITH DIFF - Abnormal Result Value Ref Range WBC 5.74 4.30 - 11.10 10*3/?L RBC 5.32 (*) 3.93 - 5.25 10*6/?L HGB 14.4 11.6 - 15.0 g/dL HCT 42.0 35.7 - 45.2 % MCV 78.9 (*) 80.6 - 95.5 fL MCH 27.1 25.9 - 32.8 pg MCHC 34.3 31.6 - 35.1 g/dL RDW-SD 43.4 39.0 - 49.9 fL RDW-CV 15.2 12.0 - 15.5 % PLT 165 (*) 166 - 358 10*3/?L MPV 10.1 9.5 - 12.9 fL NRBC/100 WBC 0.0 0.0 - 10.0 /100 WBCs NRBC x103<0.01 10*3/?L GRAN MAT (NEUT) % 83.2 % IMM GRAN % 0.30 % LYMPH % 12.5 % MONO % 3.8 % EOS % 0.0 % BASO % 0.2 % GRAN MAT x103(ANC) 4.77 1.88 - 7.09 10*3/uL IMM GRAN x103<0.03 0.00 - 0.06 10*3/uL LYMPH x1030.72 (*) 1.32 - 3.29 10*3/uL MONO x1030.22 (*) 0.33 - 0.92 10*3/uL EOS x103<0.03 (*) 0.03 - 0.39 10*3/uL BASO x103<0.03 0.01 - 0.07 10*3/uL URINALYSIS - Abnormal APPEARANCE Cloudy (*) Clear COLOR Nydia (*) Yellow PH 5.0 4.8 - 8.0 SP GRAVITY 1.020 1.003 - 1.030 GLU U QUAL Normal Normal BLOOD 2+ (*) Negative KETONES 5 mg/dL (*) Negative PROTEIN 100 mg/dL (*) Negative UROBILIN Normal Normal BILIRUBIN Negative Negative NITRITE Positive (*) Negative LEUK GRETA 500/uL (*) Negative RBC/HPF 21 (*) 0 - 3 HPF WBC/HPF 60 (*) 0 - 5 HPF BACTERIA Few (*) Negative MUCOUS Moderate (*) Negative LPF SQ EPITH 4 (*) <=2 HPF COMP. METABOLIC PANEL (70542) - Abnormal NA 140 135 - 145 mmol/L K 3.7 3.5 - 5.0 mmol/L CL 106 98 - 108 mmol/L CO2 TOTAL 21 (*) 23 - 31 mmol/L AGAP 13 2 - 16 BUN 14 7 - 23 mg/dL GLUCOSE 111 (*) 70 - 110 mg/dL CREATININE 0.59 0.50 - 1.04 mg/dL TOTAL BILI 1.8 (*) 0.1 - 1.1 mg/dL CALCIUM 9.6 8.6 - 10.6 mg/dL T PROTEIN 8.8 (*) 6.3 - 8.2 g/dL ALBUMIN 4.8 3.5 - 5.0 g/dL ALK PHOS 167 (*) 34 - 122 U/L ALTv 41 (*) 5 - 35 U/L AST(SGOT) 59 (*) 13 - 40 U/L eGFR 107.9 mL/min/1.73m2 URINE DRUG (IMMUNOASSAY) - COMPREHENSIVE DRUG SCREEN W/O REFLEX - Abnormal AMPHET Presumptive Positive (*) Negative ANA U Negative Negative BENZO U Negative Negative Cocaine Metabolite Negative Negative METHADONE Negative Negative OPIATES Negative Negative PCP Negative Negative THC Negative Negative LIPASE - Normal LIPASE 74 0 - 220 U/L COVID-19 (ID NOW RAPID TESTING) - Normal SARS-CoV-2 Rapid ID NOW Not Detected Not Detected RAPID INFLUENZA A/B - Normal Rapid Influenza A Negative Negative Rapid Influenza B Negative Negative EKG: If EKG completed, see Procedure Note. Orders and Treatments: Orders Placed This Encounter Procedures CT ABDOMEN PELVIS W CONTRAST CBC WITH DIFF URINALYSIS LIPASE COMP. METABOLIC PANEL (71023) URINE DRUG (IMMUNOASSAY) - COMPREHENSIVE DRUG SCREEN W/O REFLEX COVID-19 (ID NOW TESTING) RAPID INFLUENZA A/B Lab Only COVID Interpretation Orders Placed This Encounter Medications NaCl 0.9% (NS) IV infusion 1,000 mL ondansetron (ZOFRAN (PF)) injection 4 mg FENTanyl PF (SUBLIMAZE (PF)) injection 25 mcg NaCl 0.9% (NS) IV infusion 1,000 mL cefTRIAXone (ROCEPHIN) 1,000 mg in NaCl 0.9% (NS) 100 mL MINI-BAG iopamidol (ISOVUE 370-500 mL) injection 100 mL ketorolac (TORADOL) injection 15 mg FENTanyl PF (SUBLIMAZE (PF)) injection 50 mcg proMETHazine (PHENERGAN) 12.5 mg in NaCl 0.9% (NS) 50 mL IV piggyback cefdinir 300 mg capsule dicyclomine 20 mg tablet ondansetron 4 mg tablet First Provider Eval: ED Events Date/Time Event User Comments 03/25/23 162 Medical Screening Begins MEENU LOYD -- 03/25/23 162 First Provider Evaluation MEENU LOYD -- ED COURSE ED Course as of 03/25/232034 [facility] Mar 25, [id number] CT ABDOMEN PELVIS W CONTRAST IMPRESSION No acute intra-abdominal findings. Preliminary Report Dictated by Resident: Marcella Shoemaker This result has not been signed. Information might be incomplete. [MM] 1934 AMP METH(!): Presumptive Positive [MM] 1806 CREATININE: 0.59 [MM] 1806 TOTAL BILI(!): 1.8 [MM] 1806 MUCOUS(!): Moderate [MM] 1806 BACTERIA(!): Few [MM] 1806 WBC/HPF(!): 60 [MM] 1806 RBC/HPF(!): 21 [MM] 1806 LEUK GRETA(!): 500/uL [MM] 1806 NITRITE(!): Positive [MM] 1806 Rapid Influenza B: Negative [MM] 1806 Rapid Influenza A: Negative [MM] 1745 SARS-CoV-2 Rapid ID NOW: Not Detected [MM] 1730 HGB: 14.4 [MM] 1730 WBC x103: 5.74 [MM] ED Course User Index [MM] Meenu Shipman FNP Diagnosis/Impression as of 03/25/232034 Abdominal pain, unspecified abdominal location Tachycardia Acute UTI Methamphetamine use Dehydration Procedures: EKG-12 Lead ROUTINE ONCE Date/Time: 03/25/2023 4:53 PM Performed by: Meenu Shipman FNP Authorized by: Meenu Shipman FNP ECG interpreted by ED Physician in the absence of a roller embosser: yes Previous ECG: Previous ECG: Compared to current Similarity: No change Interpretation: Interpretation: abnormal Rate: ECG rate: 124 ECG rate assessment: tachycardic Rhythm: Rhythm: sinus tachycardia Ectopy: Ectopy: none QRS: QRS axis: Normal QRS intervals: Normal QRS conduction: normal ST segments: ST segments: Normal T waves: T waves: non-specific MDM: Medical Decision Making 51-year-old female here with generalized abdominal pain and nausea vomiting. Reports smoked meth yesterday. On exam is clinically dehydrated. Has diffuse nonfocal tenderness. Will check CBC, CMP, lipase, UA, UDS, CT abdomen pelvis DDx includes for this patient's pain includes but is not limited to the following: Gastroenteritis/gastritis Peptic ulcer disease Gallbladder pathology UTI Pancreatitis Problems Addressed: Abdominal pain, unspecified abdominal location: acute illness or injury Acute UTI: acute illness or injury Methamphetamine use: acute illness or injury Tachycardia: acute illness or injury Amount and/or Complexity of Data Reviewed Labs: ordered. Decision-making details documented in ED Course. Radiology: ordered. Decision-making details documented in ED Course. Risk Prescription drug management. Parenteral controlled substances. Risk Details: Patient here with generalized abdominal pain and nausea vomiting. Smoked methamphetamines last night. Labs show no leukocytosis or bandemia, hemoglobin is stable at signs of anemia, UA is grossly infected, kidney function stable. CT scan shows no acute process. Patient given 2 L of IV normal saline fluid volume resuscitation. Zofran, fentanyl, Toradol, Phenergan. Discharged with prescription for Omnicef, Zofran, and Bentyl. Patient continuing to get fluid volume resuscitation. Checked out to Dr. Pugh pending discharge. Plan for discharge. Flowsheet Documentation: Scoring Tools: No data recorded Disposition/Condition: ED Disposition ED Disposition Disch - Home Condition Stable Comment -- Discharge Medications: Patient's Medications START taking these medications CEFDINIR 300 MG CAPSULE Take 1 capsule by mouth in the morning and 1 capsule in the evening. Do all this for 7 days. DICYCLOMINE 20 MG TABLET Take 1 tablet by mouth 4 (four) times daily as needed for Abdominal pain. ONDANSETRON 4 MG TABLET Take 1 tablet by mouth every 8 (eight) hours as needed for Nausea and Vomiting (N/V). CONTINUE taking these medications which have NOT CHANGED AMLODIPINE 5 MG TABLET Take 1 tablet by mouth. CHOLECALCIFEROL, VITAMIN D3, 25 MCG (1,000 UNIT) TABLET Take 2 tablets by mouth. IBUPROFEN 800 MG TABLET Take 1 tablet by mouth every 6 (six) hours as needed for Pain (scale 1-3) for up to 30 doses. LORAZEPAM 1 MG TABLET TAKE 1 TABLET BY MOUTH EVERY 8 HOURS NEEDED FOR ANXIETY NITROFURANTOIN&NIT. MACROCRYST 100 MG CAPSULE TAKE 100 MG BY MOUTH TWICE DAILY UNTIL FINISHED. TAKE WITH FOOD. ONDANSETRON 4 MG TABLET Take 1 tablet by mouth every 8 (eight) hours as needed for Nausea and Vomiting (N/V). VITAMIN B-12 500 MCG TABLET Take 2 tablets by mouth. START taking Modified Medications as Prescribed No medications on file STOP taking these medications No medications on file Follow-up: The patient is well appearing, non-toxic, and in no acute distress. Findings, pathophysiology related to disease process, and differential diagnosis discussed with the patient. Strict warning signs and return precautions provided. I discussed plan for discharge and return precautions along with the need for out patient follow up with patient and or family, they are in agreement and verbalized understanding of the plan. The patient/parent appears to have appropriate medical decision making capacity. History, physical exam findings, results of visit, differential diagnosis, medication regimens and plan of future care have been considered. Additional MDM may be found in the ED course. Differential diagnosis considered and final disposition made based on information gathered during evaluation and may not be completely ruled out or specifically listed. Vital signs were rechecked before final disposition and determined to be stable. Reviewed RUBBERIZING MECHANIC if indicated. If pain medicine was prescribed it was for the following reason: Electronically signed by: Meenu Shipman FNP 03/25/232008 Meenu Shipman FNP 03/25/232034 ENTRY TEACHER Associated attestation - Zachariah Gomez MD - 03/25/2023 8:47 PM CARPENTRY TEACHER Addendum I was personally available for consultation in the Emergency Department during this encounter and patient evaluation by Umberto. [id number] 18:12:18 Pt reports that she is unable to provide urine sample. Pt reports that she has attempted twice with no success. Pt reports that she feels pressure like she has to go but can't. Dr. Mcrae has been notified. ENTRY TEACHER Kit Cruz Critical access [id number] 14:47:06 Letitia Zelaya is a 52 year old female presenting today for Chief Complaint Patient presents with Back Pain BLACK TARRY STOOL - Patient was being seen by PCP and was instructed to come to ED for further evaluation of lower back pain, radiating to her front abdomen along with black tarry stools. States the pain started about a month ago and the stools started x1 week ago. NAD noted. EKG done in triage. No past medical history on file. ENTRY TEACHER Kieran Harrison Critical access [id number] 14:38:00 [facility] Emergency Department Note Patient Name: Letitia Zelaya Date of : 1970 52 year old female Treatment Room: [place] [address] Primary Care Physician: Maureen Mcdonald Patient Escorted by: Self [9] Mode of Arrival: Personal means [1] EMS Treatment Prior to ED Arrival: Travel and Exposure Screening: Symptoms Does patient have any of these symptoms?: (not recorded) Exposure Screening Has patient had contact with someone with a communicable disease in the last month?: (not recorded) Diseases exposed to:: (not recorded) Is Patient ?: (not recorded) Exposure Date: (not recorded) Chief Complaint: Chief Complaint Patient presents with Back Pain BLACK TARRY STOOL History of Present Illness: 2-3 weeks of worsening right flank pain radiating into right groin, has been taking ibuprofen and aspirin for it more than normal. 2 days of black tarry stools. Called PCP and told to come to the ER. Hx of kidney failure, kidney stones, HIV. No pepto or blood thinners. Pain 08/17 Past Medical History/Immunizations: No past medical history on file. Allergies: Allergies Allergen Reactions Sulfur Itching and Swelling Sulfa (Sulfonamide Antibiotics) Hives Past Social History: Tobacco Use Never smoked or used smokeless tobacco. Passive Exposure: Never Past Surgical History: No past surgical history on file. Review of Systems: Review of Systems Constitutional: Positive for activity change. Negative for chills and fever. Respiratory: Negative for cough and shortness of breath. Cardiovascular: Negative for chest pain. Gastrointestinal: Positive for abdominal pain. Negative for nausea and vomiting. Genitourinary: Positive for dysuria, flank pain and difficulty urinating. Musculoskeletal: Negative for neck pain and neck stiffness. Skin: Negative for pallor and rash. Neurological: Negative for dizziness. All other systems reviewed and are negative. Physical Exam: ED Triage Vitals Weight 03/19/23 1448 77.1 kg (170 lb) Actual or estimated -- Height 03/19/23 1448 1.651 m (5' 5") BP 03/19/23 1448 (!) 179/131 Pulse 03/19/23 1447 116 Resp 03/19/23 1447 18 Temp 03/19/23 1447 36.7 ?C (98.1 ?F) Temp src -- SpO2 03/19/23 1447 96 % Measured on -- Physical Exam Vitals and nursing note reviewed. Constitutional: General: She is not in acute distress. Appearance: She is well-developed. She is not ill-appearing or toxic-appearing. HENT: Head: Normocephalic and atraumatic. Right Ear: External ear normal. Left Ear: External ear normal. Nose: Nose normal. Eyes: General: No scleral icterus. Neck: Vascular: No JVD. Cardiovascular: Rate and Rhythm: Regular rhythm. Tachycardia present. Pulses: Normal pulses. Pulmonary: Effort: Pulmonary effort is normal. No respiratory distress. Abdominal: General: There is no distension. Palpations: Abdomen is soft. Tenderness: There is abdominal tenderness. There is right CVA tenderness. Musculoskeletal: Cervical back: Normal range of motion and neck supple. Skin: Capillary Refill: Capillary refill takes less than 2 seconds. Findings: No erythema or rash. Neurological: Mental Status: She is alert. Psychiatric: Behavior: Behavior is hyperactive. Thought Content: Thought content normal. Judgment: Judgment normal. Radiology: CT ANGIOGRAM ABDOMEN/PELVIS Final Result ORDERING PHYSICIAN: JOSELINE MCRAE CLINICAL HISTORY: gi bleed protocol TECHNIQUE: CT angiogram abdomen and pelvis was performed before and following administration of intravenous contrast. MIP images were generated. CT scan was done according to ALARA (As Low as Reasonably Achievable). TECHNICAL QUALITY: Diagnostic COMPARISON: 01/28/2022 FINDINGS: The lung bases are clear. The liver is normal in appearance. The gallbladder has been removed. The spleen is normal in appearance. The pancreas is normal in appearance. There is no peripancreatic inflammation. The adrenal glands are normal in appearance. The kidneys are symmetric in size. Bilateral renal calcifications compatible with nonobstructive stones. The kidneys enhance symmetrically. The kidneys excrete symmetrically. There is no hydronephrosis. The abdominal aorta is atherosclerotic but normal in caliber and enhancement. There is no intra-abdominal free air. The small bowel is normal in caliber. There is no intraluminal contrast in the small bowel or large bowel to indicate a source for GI bleed. There is some stool in the colon. The appendix is not identified but there is no secondary CT evidence for acute appendicitis. The bladder is distended without focal bladder wall thickening and without bladder stone. The uterus is present. The ovaries are visualized and normal in size. There is no free fluid in the pelvis. There are no enlarged lymph nodes in the abdomen or pelvis. There is no compression fracture. There is disc space narrowing at L4-L5 and L5-S1. IMPRESSION 1. No intraluminal contrast in the small bowel or large bowel to indicate a source of GI bleed. 2. No secondary CT evidence for acute appendicitis. No bowel obstruction. 3. Atherosclerosis. RL: [id number] End of report Lab Results: Lab Results CBC WITH DIFF - Abnormal Result Value Ref Range WBC 5.43 4.30 - 11.10 10*3/?L RBC 5.49 (*) 3.93 - 5.25 10*6/?L HGB 15.0 11.6 - 15.0 g/dL HCT 44.3 35.7 - 45.2 % MCV 80.7 80.6 - 95.5 fL MCH 27.3 25.9 - 32.8 pg MCHC 33.9 31.6 - 35.1 g/dL RDW-SD 43.2 39.0 - 49.9 fL RDW-CV 14.9 12.0 - 15.5 % PLT 141 (*) 166 - 358 10*3/?L MPV 10.5 9.5 - 12.9 fL IPF % 3.7 1.3 - 7.7 % NRBC/100 WBC 0.0 0.0 - 10.0 /100 WBCs NRBC x103<0.01 10*3/?L GRAN MAT (NEUT) % 74.8 % IMM GRAN % 0.20 % LYMPH % 17.9 % MONO % 4.3 % EOS % 2.6 % BASO % 0.2 % GRAN MAT x103(ANC) 3.81 1.88 - 7.09 10*3/uL IMM GRAN x103<0.03 0.00 - 0.06 10*3/uL LYMPH x1030.91 (*) 1.32 - 3.29 10*3/uL MONO x1030.22 (*) 0.33 - 0.92 10*3/uL EOS x1030.13 0.03 - 0.39 10*3/uL BASO x103<0.03 0.01 - 0.07 10*3/uL COMP. METABOLIC PANEL (82318) - Abnormal NA 139 135 - 145 mmol/L K 4.4 3.5 - 5.0 mmol/L CL 109 (*) 98 - 108 mmol/L CO2 TOTAL 18 (*) 23 - 31 mmol/L AGAP 12 2 - 16 BUN 14 7 - 23 mg/dL GLUCOSE 105 70 - 110 mg/dL CREATININE 0.72 0.50 - 1.04 mg/dL TOTAL BILI 1.3 (*) 0.1 - 1.1 mg/dL CALCIUM 9.1 8.6 - 10.6 mg/dL T PROTEIN 8.4 (*) 6.3 - 8.2 g/dL ALBUMIN 4.6 3.5 - 5.0 g/dL ALK PHOS 163 (*) 34 - 122 U/L ALTv 51 (*) 5 - 35 U/L AST(SGOT) 66 (*) 13 - 40 U/L eGFR 100.1 mL/min/1.73m2 TROPONIN I - Normal TROPONIN I 0.016 <=0.034 ng/mL PROTHROMBIN TIME / INR - Normal PROTIME PATIENT 10.5 10.1 - 12.6 Seconds INR 0.9 LIPASE - Normal LIPASE 120 0 - 220 U/L ETHANOL ALCOHOL <10 mg/dL TYPE AND SCREEN ABO & RH O POSITIVE IAT Negative URINALYSIS URINE DRUG (IMMUNOASSAY) - COMPREHENSIVE DRUG SCREEN W/O REFLEX ABORH CONFIRMATION (LAB ONLY) EKG: If EKG completed, see Procedure Note. Orders and Treatments: Orders Placed This Encounter Procedures CT ANGIOGRAM ABDOMEN/PELVIS Cbc with Diff Comp. Metabolic Panel (73705) Troponin I Prothrombin Time / INR Ethanol Type and Screen - ONCE STAT Lipase Urinalysis Urine Drug (Immunoassay) - Comprehensive Drug Screen w/o Reflex ABORH Confirmation (Lab Only) Orders Placed This Encounter Medications NaCl 0.9% (NS) bolus infusion 500 mL HYDROcodone-acetaminophen (NORCO 5) 5-325 mg tablet 1 tablet DISCONTD: iopamidol (ISOVUE 370-500 mL) injection 80 mL iopamidol (ISOVUE 370-500 mL) injection 100 mL pantoprazole (PROTONIX) injection 40 mg First Provider Eval: ED Events None ED COURSE Diagnosis/Impression as of 03/19/23 2105 Abdominal pain, unspecified abdominal location Urinary tract infection without hematuria, site unspecified Procedures: Procedures MDM: Medical Decision Making Possible GI bleed vs gastritis vs pancreatitis vs UTI vs pyelo vs kidney stone vs acute anemia vs meth abuse. Line, labs, ua, uds, CTAP angio for acute bleed. Cbc unremarkable, no overt bleeding. Labs unremarkable. CT unremarkable. Patient not able to urinate, will cath if needed. Signed out to oncoming physician pending VS recheck, ua Problems Addressed: Abdominal pain, unspecified abdominal location: complicated acute illness or injury Amount and/or Complexity of Data Reviewed Labs: ordered. Decision-making details documented in ED Course. Radiology: ordered. Decision-making details documented in ED Course. Risk Prescription drug management. Flowsheet Documentation: Scoring Tools: No data recorded Disposition/Condition: ED Disposition None Discharge Medications: Patient's Medications START taking these medications No medications on file CONTINUE taking these medications which have NOT CHANGED AMLODIPINE 5 MG TABLET Take 1 tablet by mouth. CHOLECALCIFEROL, VITAMIN D3, 25 MCG (1,000 UNIT) TABLET Take 2 tablets by mouth. LORAZEPAM 1 MG TABLET TAKE 1 TABLET BY MOUTH EVERY 8 HOURS NEEDED FOR ANXIETY NITROFURANTOIN&NIT. MACROCRYST 100 MG CAPSULE TAKE 100 MG BY MOUTH TWICE DAILY UNTIL FINISHED. TAKE WITH FOOD. ONDANSETRON 4 MG TABLET Take 1 tablet by mouth every 8 (eight) hours as needed for Nausea and Vomiting (N/V). VITAMIN B-12 500 MCG TABLET Take 2 tablets by mouth. START taking Modified Medications as Prescribed No medications on file STOP taking these medications No medications on file Follow-up: Electronically signed by: Joseline Mcrae MD 03/19/231826 [id number] 14:38:00 Medical Decision Making Took over patient's care after shift change and dispo pending results. Patient presenting to ED with c/o abd/back pain and black colored stool. Labs and imaging reviewed. CBC unremarkable. CMP CO2 18 and mildly elevated Tbili and LFT's. CT ango abd/pelvis done and unremarkable. UA concerning for infection. Patient DC home with keflex and instructed to follow up with PCP Problems Addressed: Abdominal pain, unspecified abdominal location: acute illness or injury Urinary tract infection without hematuria, site unspecified: acute illness or injury Amount and/or Complexity of Data Reviewed Labs: ordered. Decision-making details documented in ED Course. Radiology: ordered. Decision-making details documented in ED Course. Risk Prescription drug management. Zachariah Gomez MD 03/19/232105 [facility]2023-09-06 09:54:18 10/14/22 Community Wellness and Outreach team contacted patient to assist in completing Health Maintenance topics that are overdue. Letitia Zelaya [id number] Attempt Number: First Health Maintenance topics attempted to address: Health Maintenance Due Topic Date Due Medicare Wellness Visit Never done SARS-CoV-2 (COVID-19) Vaccine (1) Never done PNEUMOCOCCAL 0-64 YEARS COMBINED SERIES (1 - PCV) Never done Depression Screening Never done Cervical Cancer Screening Never done Breast Cancer Screening (MAMMOGRAM) Never done Colorectal Cancer Screening Never done INFLUENZA VACCINE (1) Never done Call outcome: Attempted to contact patient to review overdue health maintenance; Colorectal Cancer Screening, Mammogram and Cervical Cancer Screening. # Disconnected Researched Care Everywhere and [facility] with no new medical information obtained at this time. Patient was sent a Screen Fix Gibson message and to update new number. Natarajan, [facility] and Population [id number] 20:49:00 [facility] ([facility] OR A CAMPUS OF [facility] EMERGENCY PROVIDER REPORT REPORT#:[id number] REPORT STATUS: Signed DATE:07/23/22 TIME: 2048 PATIENT: LETITIA ZELAYA UNIT #: [id number] ROOM/BED: AGE: 52 SEX: F PCP PHYS: Undefined Provider SERVICE AUTHOR: Ede Wong DO * ALL edits or amendments must be made on the electronic/computer document * HPI-Rash/Abscess/Cellulitis General Confirmed Patient Yes Patient Type New patient Initial Greet Date/Time 07/23/222039 Presentation Chief Complaint Red area Hx Obtained From Patient Onset Occurred Days ago (2-3) Symptom Duration Since onset Progression since Onset Gradually worsening Location Abdomen (wall) Pain/Sev: Current Moderate Associated with Reports: Fever. Relieved by Nothing Free Text HPI Notes Free Text HPI Notes 52-year-old female presents with complaint of a red area to abdominal wall. Patient thinks she might have been bitten by an insect. Patient called her primary and was prescribed Bactrim. Patient did not start taking the medication. Patient reports having history of HIV that she is not under treatment, hepatitis C. Patient states that she was concerned given her history of liver and kidney failure that she did not want to start the medication yet. Patient reports having subjective fever. Review of Systems ROS Statements All systems rev neg except as marked. Focused Review of Systems Constitutional Reports: Chills, Fever. Skin Reports: Rash. Past Medical History - Adult Stated Complaint BITE TO STOMACH Allergies Coded Allergies: Sulfa (Sulfonamide Antibiotics) (Mild, HIVES 10/01/17) Home Medications Active Scripts levoFLOXacin (LEVAQUIN) 500 MG PO Q24H levoFLOXacin (LEVAQUIN) 500 MG PO Q24H #10 TAB Prov: 10/08/17 TAMSULOSIN ER (FLOMAX) 0.4 MG PO DAILY TAMSULOSIN ER (FLOMAX) 0.4 MG PO DAILY #10 CAP Prov: 10/08/17 NITROFURANTOIN/NITROFURAN MAC (MACROBID) 100 MG PO BID NITROFURANTOIN/NITROFURAN MAC (MACROBID) 100 MG PO BID #14 CAPS Prov: 02/21/22 ONDANSETRON ODT (ZOFRAN ODT) 4 MG PO Q6H PRN PRN NAUSEA/VOMITING ONDANSETRON ODT (ZOFRAN ODT) 4 MG PO Q6H PRN PRN NAUSEA/VOMITING #15 TABS Prov: 02/21/22 PROMETHAZINE (PHENERGAN) 25 MG PO Q6H PRN PRN NAUSEA/VOMITING PROMETHAZINE (PHENERGAN) 25 MG PO Q6H PRN PRN NAUSEA/VOMITING #20 TABS Prov: 02/21/22 LORazepam (ATIVAN) 1 MG PO Q8H PRN PRN ANXIETY LORazepam (ATIVAN) 1 MG PO Q8H PRN PRN ANXIETY #15 TABS Prov: 02/21/22 Reported Medications ARIPiprazole (ABILIFY) 30 MG PO DAILY CEPHALEXIN (KEFLEX) 500 MG PO Q12H carBAMazepine XR (TEGretol XR) 400 MG PO Q12H clonazePAM (KlonoPIN) 1 MG PO DAILY PRN PRN ANXIETY SERTRALINE (ZOLOFT) 150 MG PO DAILY ARIPiprazole (ABILIFY) 30 MG PO DAILY CEPHALEXIN (KEFLEX) 500 MG PO Q12H clonazePAM (KlonoPIN) 1 MG PO DAILY PRN PRN ANXIETY carBAMazepine XR (TEGretol XR) 400 MG PO Q12H SERTRALINE (ZOLOFT) 150 MG PO DAILY Review of Nursing Notes Rev avail, and agree Past Medical History: Reports: Depression/mood disorder (bi-polar d/o). Additional Medical History HIV Hepatitis C "Liver failure/kidney failure" Past Surgical History: Reports: Appendectomy, Cholecystectomy, . Additional Surgical History Reports none Alcohol Use Denies EtOH use Drug Use Denies recreational drugs Smoking status for patients 13 years old or older: Current every day smoker Physical Exam Vital Signs Vital Signs First Documented: Result Date Time Pulse Ox 99 07/23 2036 B/P 112/76 07/23 2036 B/P Mean 88 07/23 2036 Temp 98.0 07/23 2036 Pulse 76 07/23 2036 Resp 16 07/23 2036 Last Documented: Result Date Time Pulse Ox 99 07/23 2036 B/P 112/76 07/23 2036 B/P Mean 88 07/23 2036 Temp 98.0 07/23 2036 Pulse 76 07/23 2036 Resp 16 07/23 2036 Review of Vital Signs Reviewed Focused PE General/Const General/Const Awake, Alert, No acute distress Ears/Nose/Throat Ears/Nose/Throat Airway patent, Mucous membranes moist Resp/Chest Respiratory/Chest Breath sounds = bilat, No retractions Cardiovascular Cardiovascular Cap refill not delayed, Peripheral circulation NL MS Upper Extrem Upper Extremity/MS Atraumatic, Inspection NL MS Lower Extrem Lower Ext/Pelvis/MS Atraumatic, Inspection NL Skin Text/Dict Notes See below image Neurologic Neurologic Oriented X3, Speech NL, No motor deficits, No sensory deficits, CN II - XII intact, Cerebellar NL, Memory NL, Gait NL Images Abdomen Woman Torso Front [Embedded Image Not Available] 1) Ill-defined blanching erythema with warmth, tenderness, no induration or purulent discharge fluctuance Re-Evaluation MDM ED Course Medication(s) Ordered Medication(s) Ordered: Anti-Infective Agents Sig/Emil Start time Last Medication Dose Route Stop Time Status Admin Doxycycline 100 MG X1ED STA 07/24 2047 DC 07/23 Monohydrate PO 07/23 Central Nervous System Agents Sig/Emli Start time Last Medication Dose Route Stop Time Status Admin Acetaminophen 1,000 MG X1ED STA 07/24 2047 DC 07/23 PO 07/23 Patient Discharge Departure Vital Signs/Condition Vital Signs First Documented: Result Date Time Pulse Ox 99 07/23 2036 B/P 112/76 07/23 2036 B/P Mean 88 07/23 2036 Temp 98.0 07/23 2036 Pulse 76 07/23 2036 Resp 16 07/23 2036 Last Documented: Result Date Time Pulse Ox 99 07/23 2036 B/P 112/76 07/23 2036 B/P Mean 88 07/23 2036 Temp 98.0 07/23 2036 Pulse 76 07/23 2036 Resp 16 07/23 2036 All vital signs available at the time of this entry have been reviewed. Clinical Impression Clinical Impression Primary Impression: Cellulitis of abdominal wall Disposition Decision Discharge )( Discharged to Home Yes )( Time 2052 )( Date 07/23/22 Discharge/Care Plan Counseled Regarding Diagnosis, Prescriptions, Need for follow-up, When to return to ED (Auto) Prescriptions Current Visit Scripts DOXYCYCLINE MONOHYDRATE (MONODOX) 100 MG PO Q12H DOXYCYCLINE MONOHYDRATE (MONODOX) 100 MG PO Q12H #13 CAPS UNTIL FINISHED Prescriptions Reviewed Risks, Benefits, Alternative treatment Patient Instructions ED Cellulitis Discharge Note I have spoken with the patient and/or caregivers. I have explained the patient's condition, diagnoses and treatment plan based on the information available to me at this time. I have answered the patient's and/or caregiver's questions and addressed any concerns. The patient and/or caregivers have as good an understanding of the patient's diagnosis, condition and treatment plan as can be expected at this point. The vital signs have been stable. The patient's condition is stable and appropriate for discharge from the emergency department. The patient will pursue further outpatient evaluation with the primary care physician or other designated or consulting physician as outlined in the discharge instructions. The patient and/or caregivers are agreeable to this plan of care and follow-up instructions have been explained in detail. The patient and/or caregivers have received these instructions in written format and have expressed an understanding of the discharge instructions. The patient and/or caregivers are aware that any significant change in condition or worsening of symptoms should prompt an immediate return to this or the closest emergency department or a call to 911. Quality Measures BP F/U for HTN F/u with PCP/other doc at 0257 RPT #:[id number] END OF [id number] 07:31:00 [facility] ([facility] EMERGENCY PROVIDER REPORT REPORT#:[id number] REPORT STATUS: Signed DATE:02/21/22 TIME: 07 PATIENT: LETITIA ZELAYA UNIT #: [id number] ROOM/BED: AGE: 51 SEX: F PCP PHYS: Undefined Provider SERVICE AUTHOR: Constance Croft MD * ALL edits or amendments must be made on the electronic/computer document * HPI-Abd Pain F 40 and Over General Initial Greet Date/Time 02/21/22 0609 Presentation Chief Complaint Abdominal pain Sudden in Onset? No Free Text HPI Notes Free Text HPI Notes Patient presents with 3 days of abdominal pain nausea vomiting anxiety and right flank pain. Patient states he has a previous history of kidney stones with lithotripsy and renal stent on the right. Patient states that she has a doctor at [facility]. Patient was admitted at [facility] over [place] for same. Patient states that this week pain returned with persistent anxiety nausea vomiting. Patient arrives extremely anxious rolling around on bed unable to sit still tearful crying histrionic. Patient denies diarrhea. Patient denies vaginal bleeding discharge or dysuria hematuria. Patient is a poor historian due to severe anxiety. History obtained from niece at bedside Patient is DNR with documentation at outside facility. Family confirms she is DNR. Patient would like documentation at this facility for DNR status as well. Risk-Abd Pain F 40 and Over )( Abdominal Aortic Aneurysm Risk factors reviewed Coronary Artery Disease Risk factors reviewed Thoracic Aortic Dissection Risk factors reviewed Review of Systems ROS Statements Unable to Obtain ROS Uncooperative Past Medical History - Adult Stated Complaint ABDOMINAL PAIN Allergies Coded Allergies: Sulfa (Sulfonamide Antibiotics) (Mild, HIVES 10/01/17) Home Medications Active Scripts levoFLOXacin (LEVAQUIN) 500 MG PO Q24H levoFLOXacin (LEVAQUIN) 500 MG PO Q24H #10 TAB Prov: 10/08/17 TAMSULOSIN ER (FLOMAX) 0.4 MG PO DAILY TAMSULOSIN ER (FLOMAX) 0.4 MG PO DAILY #10 CAP Prov: 10/08/17 Reported Medications ARIPiprazole (ABILIFY) 30 MG PO DAILY CEPHALEXIN (KEFLEX) 500 MG PO Q12H carBAMazepine XR (TEGretol XR) 400 MG PO Q12H clonazePAM (KlonoPIN) 1 MG PO DAILY PRN PRN ANXIETY SERTRALINE (ZOLOFT) 150 MG PO DAILY ARIPiprazole (ABILIFY) 30 MG PO DAILY CEPHALEXIN (KEFLEX) 500 MG PO Q12H clonazePAM (KlonoPIN) 1 MG PO DAILY PRN PRN ANXIETY carBAMazepine XR (TEGretol XR) 400 MG PO Q12H SERTRALINE (ZOLOFT) 150 MG PO DAILY Past Medical History: Reports: Depression/mood disorder (bi-polar d/o). Denies: Asthma, COPD, Diabetes mellitus, GERD/gastritis, Hypertension, Seizure disorder. Additional Surgical History Reports none Alcohol Use Denies EtOH use Drug Use Denies recreational drugs Smoking status for patients 13 years old or older: Current every day smoker Physical Exam Vital Signs Vital Signs First Documented: Result Date Time Pulse Ox 100 02/21 0609 O2 Delivery Room air 02/21 0609 Temp 37.1 02/21 0609 Pulse 58 02/21 0609 Resp 02/21 0609 Last Documented: Result Date Time Pulse Ox 100 02/21 0609 O2 Delivery Room air 02/21 0609 Temp 37.1 02/21 0609 Pulse 58 02/21 0609 Resp 02/21 0609 Review of Vital Signs Reviewed, Vital signs normal Free Text PE Notes Free Text PE Notes General: Moderate distress, patient anxious tearful crying rolling around on bed unable to sit still, covering face, rocking back and forth, nontoxic Head: atraumatic, normocephalic Eyes: atraumatic,eomi EENT: PERRLA, MMM, airway patent, atraumatic neck: supple, from, no kernigs, no meningismus Respiratory: equal breath sounds, no dyspnea, no respiratory distress CV:normal heart rate, regular rhythm, no pedal edema, no calf tenderness Abdo: No tenderness to palpation, right CVA tenderness Skin: no rash, no petechiae Neuro: A/O x4 normal speech, cranial nerves grossly normal, nonfocal exam Upper Ext: atraumatic, inspection nl Lower Ext: atraumatic, inspection nl Psych: neg si, anxiety Musculoskeletal: atraumatic, nl inspection, positive right cva tenderness Interpretation Diagnostics Lab Results Interpretation Results Laboratory Tests 02/21/22 0035: [Embedded Image Not Available] Laboratory Tests: 02/21 02/21 02/21 1000 0747 0035 Chemistry Sodium (134.0 - 147.0 mmol/l) 137 Potassium (3.6 - 5.2 mmol/L) 3.7 Chloride (98.0 - 107.0 mmol/l) 100 Carbon Dioxide (21.0 - 33.0 mmol/l) 25.7 Anion Gap (0 - 20) 15.0 BUN (7.0 - 18.0 mg/dl) 26 H Creatinine (0.60 - 1.30 mg/dL) 0.79 Estimated Creat Clear (>30 mL/min) 81 Glomerular Filtr Rate (mL/min) 90 Glucose (70.0 - 110.0 mg/dl) 113 H Calcium (8.0 - 10.5 mg/dl) 9.3 Total Bilirubin (0.0 - 1.0 mg/dl) 1.7 H Direct Bilirubin (0.0 - 0.3 mg/dl) 0.2 AST (15 - 37 Units/L) 423 *H ALT (12.0 - 78.0 Units/L) 504 H Total Alk Phosphatase (50.0 - 136.0 Units/L) 207 H Troponin I High Sens (0.0 - 51.4 pg/mL) 8.1 Total Protein (6.4 - 8.2 gm/dL) 7.9 Albumin (3.2 - 4.7 gm/dl) 3.7 Lipase (65.0 - 230.0 Units/L) 117 Coagulation INR (0.89 - 1.14) 1.0 PTT ([place]) (25.86 - 36.07 SECONDS) 30.90 PT Patient/Control Mix (9.9 - 12.8 SECONDS) 12.2 Hematology WBC (4.5 - 11.0 K/mm3) 3.6 L RBC (3.80 - 5.20 M/mm3) 5.36 H Hgb (12.0 - 16.0 gm/dL) 14.5 Hct (36.0 - 48.0 %) 43.2 MCV (82.0 - 99.0 UM3) 80.6 L MCH (25.5 - 32.5 UUG) 27.1 MCHC (29.0 - 35.5 gm/dL) 33.6 RDW (11.5 - 15.0 %) 15.0 Plt Count (150 - 400 K/mm3) 293 MPV (7.4 - 10.4 fl) 10.4 Neut % (Auto) (49.0 - 76.0 %) 62.7 Lymph % (Auto) (23.0 - 38.0 %) 25.9 [place] % (Auto) (1.0 - 10.0 %) 8.3 Eos % (Auto) (1.0 - 5.0 %) 2.2 Baso % (Auto) (0.0 - 1.0 %) 0.6 Neut # (Auto) (2.4 - 6.3 K/mm3) 2.3 L Lymph # (Auto) (1.2 - 4.0 K/mm3) 0.9 L [place] # (Auto) (0.0 - 0.6 K/mm3) 0.3 Eos # (Auto) (0.0 - 0.7 K/MM3) 0.1 Baso # (Auto) (0.0 - 0.2 K/mm3) 0.0 Absolute Nucleated RBC (0.00 - 0.01 X10 3uL) 0.00 Immature Gran % (0.0 - 0.4 %) 0.3 Nucleated RBC % (0.0 - 0.1 %) 0.0 Immature Gran # (0.00 - 0.07 x10 3/uL) 0.01 Toxicology Urine Opiates Screen (NEGATIVE) NEGATIVE Urine Methadone Screen (NEGATIVE) NEGATIVE Urine Barbiturates (NEGATIVE) NEGATIVE Ur Phencyclidine Scrn (NEGATIVE) NEGATIVE Ur Amphetamines Screen (NEGATIVE) POSITIVE H U Benzodiazepines Scrn (NEGATIVE) NEGATIVE Urine Cocaine Screen (NEGATIVE) NEGATIVE Urine Cannabinoids (NEGATIVE) NEGATIVE Ethyl Alcohol (0.00 - 0.00 gm/dL) 0.00 Urines Urine Color DARK YELLOW Urine Appearance HAZY Urine pH (5.0 - 9.0) 6.0 Ur Specific [place] (1.000 - 1.030) 1.020 Urine Protein (NEGATIVE mg/dl) 30 H Urine Glucose (UA) (NORMAL mg/dl) NORMAL Urine Ketones (NEGATIVE mg/dl) 50 mg/dl H Urine Blood (NEGATIVE Sammy/micL) 10 Sammy/micL H Urine Nitrite (NEGATIVE) POSITIVE H Urine Bilirubin (NEGATIVE mg/dL) NEGATIVE Urine Urobilinogen (NORMAL mg/dl) 4.0 mg/dl H Ur Leukocyte Esterase (NEGATIVE [place]/micL) 25 [place]/micL H Urine RBC (0 - 3 RBC/HPF) 3-5 Urine WBC (NONE WBC/HPF) 4-9 H Ur Epithelial Cells (0 - 3 EPI/HPF) 5-10 H Urine Bacteria (NONE) MANY H Microbiology: Date/Time Procedure - Status Source Growth 02/21 746 Urine Culture - RECD URINE Recent Impressions: CAT SCAN - CT ABD PELVIS W/O CONT 02/21 0737 Report Impression - Status: SIGNED Entered: 02/21/2022 0811 IMPRESSION: Negative noncontrast CT abdomen and pelvis Impression By: Seun Stinson M.D. Lab Imaging Statement Laboratory radiographic studies reviewed and considered in the medical decision-making. Point of Care Testing Pulse Oximetry Pulse Ox % 98 On: Room air Interpretation Interpreted by va, Pulse oximetry normal ECG #1 Interpretation Text/Dict Note EKG shows normal sinus rate of 98, time is 6:23 AM, no STEMI, T wave inversion V1 inversion V3, interpreted by EDMD Re-Evaluation MDM )( Re-Evaluation/Progress #1 Text/Dict Note Patient crying because a blood pressure cuff is hurting her Time of Re-Eval 0735 Re-Evaluation/Progress #2 Text/Dict Note Patient while alone in room admitted to using amphetamine/stimulants over [place] and began to feel ill after using it again. Patient advised on methamphetamine cessation. Patient also states she is noncompliant with her medications. Patient no longer on Abilify or any prescribed stimulants Time of Eval 0949 Abd Pain MDM Note F > 40 The patient is resting comfortably and feels better, is alert and in no distress. The repeat examination is unremarkable and benign; in particular, there is no discomfort at McBurney's point and there is no pulsatile mass. The history, exam, diagnostic testing, and current condition do not suggest acute appendicitis, bowel obstruction, acute cholecystitis, bowel perforation, major gastrointestinal bleeding, severe diverticulitis, abdominal aortic aneurysm, mesenteric ischemia, volvulus, sepsis, or other significant pathology to warrant further testing, continued ED treatment, admission, or surgical evaluation at this point. The vital signs have been stable. The patient does not have uncontrollable pain, intractable vomiting, or other significant symptoms. The patient's condition is stable and appropriate for discharge from the emergency department. The patient will pursue further outpatient evaluation with the primary care physician or other designated or consulting physician as indicated in the discharge instructions. Re-Evaluation/Progress #3 Text/Dict Note Unable to disposition patient, troponin still pending Delay in dispo as result Time of Eval 1028 ED Course Medication(s) Ordered Medication(s) Ordered: Anti-Infective Agents Sig/Emil Start time Last Medication Dose Route Stop Time Status Admin Ceftriaxone Sodium 1,000 MG X1ED STA 02/21 0949 DC 02/21 Sodium Chloride 10 ML IV 02/21 0951 1108 Central Nervous System Agents Sig/Emil Start time Last Medication Dose Route Stop Time Status Admin Lorazepam 1 MG X1ED STA 02/21 0717 DC 02/21 PO 02/21 0718 0832 Morphine Sulfate 4 MG X1ED STA 02/21 0717 DC 02/21 IV 02/21 0718 0831 Electrolytic, Caloric, And Huyen Sig/Emil Start time Last Medication Dose Route Stop Time Status Admin Sodium Chloride 1,000 ML X1ED STA 02/21 0717 DC 02/21 IV 02/21 0816 0832 Patient Discharge Departure Vital Signs/Condition Vital Signs First Documented: Result Date Time Pulse Ox 100 02/21 0609 O2 Delivery Room air 02/21 0609 Temp 37.1 02/21 0609 Pulse 58 02/21 0609 Resp 18 02/21 0609 Last Documented: Result Date Time Pulse Ox 100 02/21 0609 O2 Delivery Room air 02/21 0609 Temp 37.1 02/21 0609 Pulse 58 02/21 0609 Resp 18 02/21 0609 All vital signs available at the time of this entry have been reviewed. Clinical Impression Clinical Impression Primary Impression: Acute flank pain Secondary Impressions: Acute anxiety, Acute cystitis, Chronic liver disease, Chronic pain, DNR (do not resuscitate), Elevated BUN, History of kidney stones, Methamphetamine abuse, Transaminitis Disposition Decision Discharge )( Discharged to Home Yes )( Time 1036 )( Date 02/21/22 Discharge/Care Plan Counseled Regarding Diagnosis, Lab results, Imaging studies, Prescriptions, Need for follow-up, When to return to ED (Auto) Prescriptions Current Visit Scripts NITROFURANTOIN/NITROFURAN MAC (MACROBID) 100 MG PO BID NITROFURANTOIN/NITROFURAN MAC (MACROBID) 100 MG PO BID #14 CAPS Until finished. Take with food. ONDANSETRON ODT (ZOFRAN ODT) 4 MG PO Q6H PRN PRN NAUSEA/VOMITING ONDANSETRON ODT (ZOFRAN ODT) 4 MG PO Q6H PRN PRN NAUSEA/VOMITING #15 TABS PROMETHAZINE (PHENERGAN) 25 MG PO Q6H PRN PRN NAUSEA/VOMITING PROMETHAZINE (PHENERGAN) 25 MG PO Q6H PRN PRN NAUSEA/VOMITING #20 TABS LORazepam (ATIVAN) 1 MG PO Q8H PRN PRN ANXIETY LORazepam (ATIVAN) 1 MG PO Q8H PRN PRN ANXIETY #15 TABS Patient Instructions ED Drug Abuse, Urinary Tract Infections in Women Referrals Provider Referral: Richelle Bai MD Address: [address] [place] [address] Provider Referral: Jhoan Ch Address: [address] [place] [address] Provider Referral: Shawn Patricia MD Address: [address] [facility] [address] [place] [id number] Provider Referral: Chen Quintana MD Address: [address] [place] [address] [address] [place] [id number] Provider Referral: Guzman Yost Jr, MD Address: [address] [place] [address] [address] [facility] [address] Provider Group: [facility] Provider Referral: Eliud Winter MD Address: [address] [place] [id number] Provider Referral: Jono Euceda MD Address: [facility] [place] [address] Provider Referral: Jessica Faulkner Address: [address] [place] [address] [address] [place] [address] Discharge Note I have spoken with the patient and/or caregivers. I have explained the patient's condition, diagnoses and treatment plan based on the information available to me at this time. I have answered the patient's and/or caregiver's questions and addressed any concerns. The patient and/or caregivers have as good an understanding of the patient's diagnosis, condition and treatment plan as can be expected at this point. The vital signs have been stable. The patient's condition is stable and appropriate for discharge from the emergency department. The patient will pursue further outpatient evaluation with the primary care physician or other designated or consulting physician as outlined in the discharge instructions. The patient and/or caregivers are agreeable to this plan of care and follow-up instructions have been explained in detail. The patient and/or caregivers have received these instructions in written format and have expressed an understanding of the discharge instructions. The patient and/or caregivers are aware that any significant change in condition or worsening of symptoms should prompt an immediate return to this or the closest emergency department or a call to 911. at 1119 RPT #:[id number] END OF REPORTHCAMN
[2024-01-13 13:24] LABS: Absolute Eosinophils 0.1 K/uL (0-0.5); Absolute Lymphocytes (CBC) 0.7 K/uL (0.7-4.9); Absolute Monocytes 0.2 K/uL (0.1-1.3); Absolute Neutrophil 5.4 K/uL (1.8-8.0); Basophils % 0.6 % (0-1.3); Eosinophils % 1.7 % (0-4.4); Hemoglobin 14.4 g/dL (12.0-15.0); Lymphocytes % 10.9 % (15.3-44.8); MCH 27.7 pg (27.0-35.0); MCHC 32.8 g/dL (32.0-36.0); MCV 84.6 fL (80-100); Monocytes % 2.9 % (3.3-12.3); Neutrophils % 83.9 % (41.7-73.7); Platelets 133 thou/uL (152-406); Red Cell Distribution Width 13.2 % (12.1-15.2)
[2024-01-13 13:30] LABS: PT Prothrombin Time 10.5 SECONDS (9.4-12.5); PTT, Activated Partial Thromb 33.6 SECONDS (24.3-36.9); Protime INR 0.94
[2024-01-13 13:44] LABS: ALT/SGPT 41 U/L (13-56); Albumin 3.3 g/dL (3.4-5.0); Albumin/Globulin Ratio 0.8 (1.1-1.8); Alkaline Phosphatase 201 U/L (45-117); Anion Gap 13.7 mEq/L (5.0-15.0); BUN Blood Urea Nitrogen 9 mg/dL (7-18); Bicarbonate 18 mEq/L (21-32); Bilirubin Direct 0.2 mg/dL (0-0.2); Bilirubin Indirect, Calculated 0.5 mg/dL (0.2-0.8); Bilirubin Total 0.7 mg/dL (0.2-1.0); Globulin 4.3 g/dL (2.3-3.5); Glomerular Filtration Rate 57 ml/min (=/>90); Glucose Level 153 mg/dL (74-106); Protein, Total 7.6 g/dL (6.4-8.2); Sodium Level 138 mEq/L (136-145)
[2024-01-13 13:47] LABS: AST/SGOT 47 U/L (15-37); Potassium 2.7 mEq/L (3.5-5.1)
--- NOTE | 2024-01-13 14:41 | RAD REPORT ---
EXAM: CT Head Brain Wo Cont HISTORY: SEIZURE COMPARISON: None TECHNIQUE: Multiple contiguous axial images were obtained for a CT of the brain without contrast. Sag ittal and coronal reformats were performed. One or more of the following dose reduction techniques were used: Automated exposure control, adjus tment of the mA and kV according to patient size, and iterative reconstruction. Unless otherwise specified, incidental findings do not require dedicated imaging follow-up. FINDINGS: No evidence of hydrocephalus, intracranial hemorrhage, or extra-axial fluid collection. The brain is normal in morphology. The calvarium is intact. The visualized paranasal sinuses and mastoid air cells are essentially clear . Large right occipital hematoma with swelling. IMPRESSION: No evidence of acute intracranial abnormality. Large right occipital hematoma with swelling.
[2024-01-13 15:22] LABS: Barbiturates NEGATIVE (NEGATIVE); Benzodiazepines NEGATIVE (NEGATIVE); Cocaine NEGATIVE (NEGATIVE); METHAMPHETAM NEGATIVE (NEGATIVE); Methadone NEGATIVE (NEGATIVE); Opiates NEGATIVE (NEGATIVE); Phencyclidine NEGATIVE (NEGATIVE); THC Cannibis POSITIVE (NEGATIVE)
--- NOTE | 2024-01-13 15:26 | ER ---
Nurse's Notes [facility] Name: Letitia Velasquez Age: 53 yrs Sex: Female : 1970 Arrival Date: 01/13/2024 Time: 12:27 Bed 4 Private MD: Diagnosis: Possible seizure, THC use, scalp hematoma Presentation: 01/12 12:28 Chief complaint: EMS states: Pt was getting put of her vehicle, fell straight backwards ph and had seizure like activity, witnessed by daughter who was in the car. No hx of seizures, when EMS arrived pt was A\T\O x 1, BP elevated at 190/100, HR 140s, large hematoma to back of head, abrasions to R knee and elbow, pt c/o abdominal pain and nausea, very restless w/ jerking movements noted. Coronavirus screen: Vaccine status: Patient reports being unvaccinated. Ebola Screen: No symptoms or risks identified at this time. Initial Sepsis Screen: Does the patient meet any 2 criteria? No. Patient's initial sepsis screen is negative. Does the patient have a suspected source of infection? No. Patient's initial sepsis screen is negative. Risk Assessment: Do you want to hurt yourself or someone else? Patient reports no desire to harm self or others. Onset of symptoms was January 13, 2024. 12:28 Method Of Arrival: EMS: [facility] 12:28 Acuity: MINNA 2 ph Triage Assessment: 12:33 General: Appears uncomfortable, Behavior is anxious, restless. Pain: Complains of pain ph in abdomen and right knee. Pain: Complains of pain in scalp. Neuro: Level of Consciousness is awake, alert, obeys commands, Oriented to person, place, situation. Cardiovascular: Capillary refill < 3 seconds in bilateral fingers Patient's skin is warm and dry. Respiratory: Airway is patent Respiratory effort is even, unlabored. GI: Abdomen is non-distended, Reports lower abdominal pain, upper abdominal pain, nausea. : No signs and/or symptoms were reported regarding the genitourinary system. Derm: Skin is pink, warm \T\ dry. Musculoskeletal: Circulation, motion, and sensation intact. Range of motion: intact in all extremities. Historical: - Allergies: 12:32 Sulfa (Sulfonamide Antibiotics); ph - Home Meds: 12:32 Biktarvy 30-120-15 mg Oral tablet daily [Active]; ph - PMHx: 12:32 HEP C; HIV positive; Bipolar disorder; ph - Immunization history:: Adult Immunizations unknown. - Infectious Disease History:: Denies. - Social history:: Smoking status: Patient denies any tobacco usage or history of. Patient/guardian denies using alcohol, street drugs. Screenin:[address] [facility] ED Fall Risk Assessment (Adult) History of falling in the last 3 months, ph including since admission Yes- physiologic fall (2 pts) Confusion or Disorientation Yes (5 pts) Intoxicated or Sedated No (0 pts) Impaired Gait No (0 pts) Mobility Assist Device Used No (0 pt) Altered Elimination No (0 pt) Score/Fall Risk Level 3 or more points = High Risk Oriented to surroundings, Maintained a safe environment, Educated pt \T\ family on fall prevention, incl call for assistance when getting out of bed, Assessed \T\ reinforced patient's understanding of fall precautions, Hourly rounding (assess needs \T\ fall precautionary measures) done, Used ambulatory aids as needed (educated on \T\ assisted with). Abuse screen: Denies threats or abuse. Denies injuries from another. Nutritional screening: No deficits noted. Tuberculosis screening: No symptoms or risk factors identified. Assessment: 13:19 General: SEE TRIAGE ASSESSMENT. ph 14:20 Reassessment: Patient appears in no apparent distress at this time. Patient and/or ph family updated on plan of care and expected duration. Pain level reassessed. Patient is alert, oriented x 3, equal unlabored respirations, skin warm/dry/pink. 15:44 Reassessment: Patient appears in no apparent distress at this time. Patient and/or ph family updated on plan of care and expected duration. Pain level reassessed. Patient is alert, oriented x 3, equal unlabored respirations, skin warm/dry/pink. Vital Signs: 12:28 Pulse 123; Resp 20; Temp 97.5; Pulse Ox 100% on R/A; Weight 72.57 kg; Height 5 ft. 5 ph in. ; 12:34 BP 152 / 99; ph 14:19 BP 151 / 85; Pulse 93; Resp 18; Pulse Ox 100% on R/A; ph 15:13 BP 140 / 69; Pulse 89; Pulse Ox 98% on R/A; ap3 15:43 BP 135 / 61; Pulse 87; Resp 18; Temp 97.5; Pulse Ox 99% on R/A; ph 12:28 Body Mass Index 26.63 (72.57 kg, 165.1 cm) ph Gurdeep Coma Score: 12:33 Eye Response: spontaneous(4). Motor Response: obeys commands(6). Verbal Response: ph confused(4). Total: 14. 15:44 Eye Response: spontaneous(4). Motor Response: obeys commands(6). Verbal Response: ph oriented(5). Total: 15. Trauma Score (Adult): 15:44 Eye Response: spontaneous(1); Verbal Response: oriented(1); Motor Response: obeys ph commands(2); Systolic BP: > 89 mm Hg(4); Respiratory Rate: 10 to 29 per min(4); Gurdeep Score: 15; Trauma Score: 12 ED Course: 12:28 Patient arrived in ED. ph 12:28 Olegario Stinson MD is Attending Physician. sp3 12:32 Triage completed. ph 12:34 Arm band placed on Patient placed in an exam room, on a stretcher, on ekg monitor tech, ph on pulse oximetry. 12:47 Radha Gagnon, RN is Primary Nurse. ph 13:18 Acetaminophen Sent. ph 13:18 Basic Metabolic Panel Sent. ph 13:18 CBC with Diff Sent. ph 13:18 ETOH Level Sent. ph 13:18 Hepatic Function Sent. ph 13:18 PT-INR Sent. ph 13:18 Ptt, Activated Sent. ph 13:18 Salicylate Sent. ph 13:19 Initial lab(s) drawn, by me, sent to lab. Maintain EMS IV. Dressing intact. Good blood ph return noted. Site clean \T\ dry. Gauge \T\ site: 22 R hand. Flushed with 10 mL NS. 13:20 Patient has correct armband on for positive identification. Placed in gown. Bed in low ph position. Call light in reach. Side rails up X2. Seizure precautions initiated. child monitor on. Pulse ox on. NIBP on. 13:36 CT Head Brain wo Cont In Process Unspecified. EDMS 13:48 EKG done, reviewed by Olegario Stinson MD. ap3 15:43 No provider procedures requiring assistance completed. IV discontinued, intact, ph bleeding controlled, No redness/swelling at site. Pressure dressing applied. Administered Medications: 15:41 Drug: Potassium PO Effervescent Tablet 50 mEq PO once; dissolve in 4 ounces of water or ph juice Route: PO; 15:44 Follow up: Response: No adverse reaction ph Medication: 13:20 VIS not applicable for this client. ph Outcome: 15:25 Discharge ordered by sp3 15:44 Discharged to home ambulatory, with family, ph 15:44 Condition: good :44 Discharge instructions given to patient, Instructed on discharge instructions, follow up and referral plans. Demonstrated understanding of instructions, follow-up care, 15:45 Patient left the ED. ph Signatures: Dispatcher [employer] EDRadha Zapata RN RN Lise Gaines RN RN ap3 Olegario Stinson MD MD sp3
--- NOTE | 2024-01-13 15:26 | EDPHYS ---
Physician Documentation [facility] Name: Letitia Velasquez Age: 53 yrs Sex: Female : 1970 Arrival Date: 01/13/2024 Time: 12:27 Bed 4 Private MD: ED Physician Olegario Stinson HPI: 01/12 12:59 This 53 yrs old Female presents to ER via EMS with complaints of Probable Seizure, Fall sp3 Injury. 12:59 53-year-old female with history of bipolar disease, HIV, hepatitis C now presents via sp3 EMS for chief complaint probable seizure and altered mental status. Daughter states patient started convulsing and fell and hit her head mildly without significant trauma. Patient is alert and oriented for EMS and was answering questions. Initially had mild hypertension which resolved prior to arrival to the ED. Patient was also tachycardic prehospital. Review of systems negative for headache, fever, chest pain, shortness of breath, abdominal pain, vomiting, diarrhea, rash, bleeding, or any other signs or symptoms on ROS at this time. Patient denies drug use or other substance abuse.. Historical: - Allergies: 12:32 Sulfa (Sulfonamide Antibiotics); ph - Home Meds: 12:32 Biktarvy 30-120-15 mg Oral tablet daily [Active]; ph - PMHx: 12:32 HEP C; HIV positive; Bipolar disorder; ph - Immunization history:: Adult Immunizations unknown. - Infectious Disease History:: Denies. - Social history:: Smoking status: Patient denies any tobacco usage or history of. Patient/guardian denies using alcohol, street drugs. ROS: 13:01 Constitutional: Negative for fever, chills, and weight loss, Eyes: Negative for injury, sp3 pain, redness, and discharge, ENT: Negative for injury, pain, and discharge, Neck: Negative for injury, pain, and swelling, Cardiovascular: Negative for chest pain, palpitations, and edema, Respiratory: Negative for shortness of breath, cough, wheezing, and pleuritic chest pain, Abdomen/GI: Negative for abdominal pain, nausea, vomiting, diarrhea, and constipation, Back: Negative for injury and pain, MS/Extremity: Negative for injury and deformity, Skin: Negative for injury, rash, and discoloration, Allergy/Immunology: Negative for hives, rash, and allergies, Endocrine: Negative for neck swelling, polydipsia, polyuria, polyphagia, and marked weight changes, Hematologic/Lymphatic: Negative for swollen nodes, abnormal bleeding, and unusual bruising, 13:01 All other systems are negative, Exam: 13:03 Constitutional: This is a well developed, well nourished patient who is awake, alert, sp3 and in no acute distress. Head/Face: Normocephalic, atraumatic. Eyes: Pupils equal round and reactive to light, extra-ocular motions intact. Lids and lashes normal. Conjunctiva and sclera are non-icteric and not injected. Cornea within normal limits. Periorbital areas with no swelling, redness, or edema. Neck: Trachea midline, no thyromegaly or masses palpated, and no cervical lymphadenopathy. Supple, full range of motion without nuchal rigidity, or vertebral point tenderness. No Meningismus. Chest/axilla: Normal chest wall appearance and motion. Nontender with no deformity. No lesions are appreciated. Respiratory: Lungs have equal breath sounds bilaterally, clear to auscultation and percussion. No rales, rhonchi or wheezes noted. No increased work of breathing, no retractions or nasal flaring. Abdomen/GI: Soft, non-tender, with normal bowel sounds. No distension or tympany. No guarding or rebound. No evidence of tenderness throughout. Back: No spinal tenderness. No costovertebral tenderness. Full range of motion. Skin: Warm, dry with normal turgor. Normal color with no rashes, no lesions, and no evidence of cellulitis. MS/ Extremity: Pulses equal, no cyanosis. Neurovascular intact. Full, normal range of motion. Psych: Awake, alert, with orientation to person, place and time. Behavior, mood, and affect are within normal limits. 13:03 Cardiovascular: Rate: tachycardic, 13:03 Psych: Patient shaking and twitching but states that this is her baseline and she always does this.. 14:00 ECG was reviewed by the Attending Physician. EKG demonstrates normal sinus rhythm at 92 sp3 bpm with normal intervals except QTc at 482, normal QRS, normal axis, nonspecific diffuse ST/T wave changes without evidence of acute ischemia. Vital Signs: 12:28 Pulse 123; Resp 20; Temp 97.5; Pulse Ox 100% on R/A; Weight 72.57 kg; Height 5 ft. 5 ph in. ; 12:34 BP 152 / 99; ph 14:19 BP 151 / 85; Pulse 93; Resp 18; Pulse Ox 100% on R/A; ph 15:13 BP 140 / 69; Pulse 89; Pulse Ox 98% on R/A; ap3 15:43 BP 135 / 61; Pulse 87; Resp 18; Temp 97.5; Pulse Ox 99% on R/A; ph 12:28 Body Mass Index 26.63 (72.57 kg, 165.1 cm) ph [place] Coma Score: 12:33 Eye Response: spontaneous(4). Motor Response: obeys commands(6). Verbal Response: ph confused(4). Total: 14. 15:44 Eye Response: spontaneous(4). Motor Response: obeys commands(6). Verbal Response: ph oriented(5). Total: 15. Trauma Score (Adult): 15:44 Eye Response: spontaneous(1); Verbal Response: oriented(1); Motor Response: obeys ph commands(2); Systolic BP: > 89 mm Hg(4); Respiratory Rate: 10 to 29 per min(4); Gurdeep Score: 15; Trauma Score: 12 MDM: 12:28 Medical Screening Exam initiated sp3 13:04 Data reviewed: vital signs, nurses notes, lab test result(s), EKG, radiologic studies. sp3 ED course: 53-year-old female with possible seizure, altered mental status and generalized weakness. Differential diagnosis includes seizure, intracranial hemorrhage, electrolyte abnormality, substance abuse, infection, among others. I am not highly suspicious for sepsis or shock or other critical pathology. Will obtain CT scan of the head, general labs, UA, UDS, swabs and general supportive care. Disposition pending workup and patient course.. 15:23 ED course: Patient with no further episodes here in the ED. Episode appears to be sp3 singular at least for today. Urine is positive for THC. Potassium has been replaced. Will discharge patient home with follow-up to neurology and return to the ED for any further symptoms for admission however right now admission is not indicated.. 01/12 12:29 Order name: Acetaminophen; Complete Time: 13:59 sp3 01/12 12:29 Order name: Basic Metabolic Panel; Complete Time: 13:59 sp3 01/12 12:29 Order name: CBC with Diff; Complete Time: 13:59 sp3 01/12 12:29 Order name: ETOH Level; Complete Time: 13:59 sp3 01/12 12:29 Order name: Hepatic Function; Complete Time: 13:59 sp3 01/12 12:29 Order name: PT-INR; Complete Time: 13:59 sp3 01/12 12:29 Order name: Ptt, Activated; Complete Time: 13:59 sp3 01/12 12:29 Order name: Salicylate; Complete Time: 13:59 sp3 01/12 12:29 Order name: Urine Drug Screen; Complete Time: 15:23 sp3 01/12 12:29 Order name: CT Head Brain wo Cont; Complete Time: 14:54 sp3 01/12 12:29 Order name: EKG - Nurse/Tech; Complete Time: 13:48 sp3 01/12 12:29 Order name: IV Saline Lock; Complete Time: 13:18 sp3 01/12 12:29 Order name: Labs collected and sent; Complete Time: 13:18 sp3 Administered Medications: 15:41 Drug: Potassium PO Effervescent Tablet 50 mEq PO once; dissolve in 4 ounces of water or ph juice Route: PO; 15:44 Follow up: Response: No adverse reaction ph Disposition Summary: 01/13/24 15:25 Discharge Ordered Notes: Location: Home sp3 Condition: Stable sp3 Diagnosis - Possible seizure, THC use, scalp hematoma sp3 Followup: sp3 - With: Private Physician - When: Upon discharge from the Emergency Department - Reason: Discharge Instructions: - Discharge Summary Sheet sp3 - Seizure, Adult sp3 - Preventing Marijuana Misuse sp3 Forms: - Medication Reconciliation Form sp3 - Antibiotic Education sp3 - Prescription Opioid Use sp3 - Patient Portal Instructions sp3 - Leadership Thank You Letter sp3 Signatures: Dispatcher [employer] Radha Hester RN RN ph Olegario Stinson MD MD sp3 Corrections: (The following items were deleted from the chart) 12:30 12:30 ACETAMINOPHEN+C.LAB.BRZ ordered. EDMS EDMS 12:30 12:30 BASIC METABOLIC PANEL+C.LAB.BRZ ordered. EDMS EDMS 12:30 12:30 CBC+H.LAB.BRZ ordered. EDMS EDMS 12:30 12:30 ETHANOL+C.LAB.BRZ ordered. EDMS EDMS 12:30 12:30 HEPATIC FUNCTION+C.LAB.BRZ ordered. EDMS EDMS 12:30 12:30 PROTIME (+INR)+COAG.LAB.BRZ ordered. EDMS EDMS 12:30 12:30 PTT, ACTIVATED+COAG.LAB.BRZ ordered. EDMS EDMS 12:30 12:30 SALICYLATE+C.LAB.BRZ ordered. EDMS EDMS 12:30 12:30 URINE DRUG SCREEN+UC.LAB.BRZ ordered. EDMS EDMS 12:30 12:30 Head Brain Wo Cont+CT.RAD.BRZ ordered. EDMS EDMS
[2024-01-13] MEDS ORDERED: POTASSIUM 25 MEQ EFFERV TAB ONE (15:29)
[2024-01-13 21:25] VITALS: TEMP 97.5
[2024-01-13 21:29] VITALS: BP 135/61; O2SAT 99
== END 2024-01-13 15:45 | disposition home or self-care (01) ==
LOC: ER 12:27
DX: F12.90 Cannabis use, unspecified, uncomplicated (principal); S00.03XA Contusion of scalp, initial encounter; W18.30XA Fall on same level, unspecified, initial encounter; F31.9 Bipolar disorder, unspecified; Z21 Asymptomatic human immunodeficiency virus [HIV] infection status
CPT/HCPCS: 36415; 70450; 80048; 80076; 80143; 80179; 80307; 82077; 85025; 85610; 85730; 99284

== ENCOUNTER 2024-05-07 09:07 | Emergency (ER) | payer OTHER ==
--- OUTSIDE RECORDS SUMMARY | 2024-05-07 09:14 | XMS REPORT | Continuity of Care Document ---
Author Name Unknown Address [address] [facility] [address] [place] [address] [facility] [place] Address [address] [facility] [address] [place] [address] Care Team Providers Care Service Center Technician Name Role Phone Milad MORALES, [facility] Primary Care Physician + OLIVE WINTERS Attending Clinician Unavailable Doctor Unassigned, Nellie Attending Clinician U EVAN Lawler Attending Clinician Unavailable Evan Cook MD Attending Clinician [phone] MARIO GUZMAN Attending Clinician Unavailable Armando Toth Attending Clinician [phone] Olive Powell Attending Clinician [phone] JAX HEIN Attending Clinician Unavailable Mario Ambriz Attending Clinician [phone] KALEN MATTHEWS Attending Clinician Unavail able [place] DPM, Kalen Real Attending Clinician + [phone] PAVAN LOTT Attending Clinician Unavailable Lab, Ang - Db Attending Clinician Unavailable Pavan Lott MD Attending Clinician [phone] ARMANDO PRESTON Attending Clinician Unavailable Anthony Shaffer Attending Clinician Unavailab Maureen Cedillo Attending Clinician [phone] [facility], Infectious Attending Clinician [phone] Doctor Unassigned, Nellie Attending Clinician U genia Boyer [facility] [place] Attending Clinician [phone] JOSELINE MCRAE Attending Clinician Unavailable Joseline Mcrae MD Attending Clinician [phone] ZACHARIAH GOMEZ Attending Clinician Unavailable Meenu Loyd Attending Clinician [phone] Zachariah Gomez MD Attending Clinician [phone] MAUREEN MCDONALD Attending Clinician Unavailable Tianna Adair MA Attending Clinician Unavaila Ede Singh Attending Clinician Unavailab Willian Sanchez MD Attending Clinician [phone] WILLIAN PATRICIO Attending Clinician Unavailable JORGE HERRERA Attending Clinician Unavailable JORGE HERRERA Attending Clinician Unavailable Cyrus Smi MD Attending Clinician [phone] Julia Méndez LCSW Attending Clinician [phone] Pcp, Patient Does Not Have A Attending Clinician UNKNOWN, ATTENDING Attending Clinician Unavailab Constance Cano Attending Clinician Unavailable RADHA EDDY Attending Clinician Unavailable Mark Soto RN Attending Clinician Unavail able John Wilson MD Attending Clinician [phone] Judie Bella MD Attending Clinician [phone] Aurelio Shaw MD Attending Clinician [phone] Giacomo Spaulding MD Attending Clinician [phone] GIACOMO SPAULDING Attending Clinician Unavailable UNDEFINED Admitting Clinician Unavailable JOSELINE MCRAE Admitting Clinician Unavailable MEENU SHIPMAN Admitting Clinician Unavailable Judie Bella MD Admitting Clinician JUDIE BELLA Admitting Clinician Unavailable Payers Payer Name Policy Type Policy Number Effective Date Expirati on Date Source [employer] DUAL DSNP Medicare [id number] 2023 00:00:00 Problems Condition Name Condition Details Condition Category Status Onset Date Resolution Date Last Treatment Date Treating Clinician Comments Source Preoperati ve cardiovasc ular examinatio n Preoperati ve cardiovasc ular examinatio n Disease Active 2023-02 00:00: 00 [facility] Tachycardi a Tachycardi a Disease Active 2023-02 00:00: 00 [facility] Sinus tachycardi a Sinus tachycardi a Disease Active 2023-02 00:00: 00 [facility] Syncope and collapse Syncope and collapse Disease Active 2023-02 00:00: 00 [facility] Primary hypertensi on Primary hypertensi on Disease Active 2023-02 00:00: 00 [facility] Benign hypertensi on Benign hypertensi on Disease Active 2023-02 00:00: 00 [facility] Anxiety and depression Anxiety and depression Disease Active 10-03 00:00: 00 [facility] Bipolar affective disorder, current episode manic, current episode severity unspecifie d Bipolar affective disorder, current episode manic, current episode severity unspecifie d Disease Active 10-03 00:00: 00 [facility] Elevated blood pressure reading in office without diagnosis of hypertensi on Elevated blood pressure reading in office without diagnosis of hypertensi on Disease Active 10-03 00:00: 00 [facility] Encounter to establish care Encounter to establish care Disease Active 10-03 00:00: 00 [facility] Encounter to establish care Encounter to establish care Disease Active 10-03 00:00: 00 [facility] HIV disease HIV disease Disease Active 2021-02 00:00: 00 [facility] Bipolar disorder, current episode mixed, moderate Bipolar disorder, current episode mixed, moderate Disease Active 2021-02 00:00: 00 [facility] Lack of family support Lack of family support Disease Active 2021-02 00:00: 00 [facility] Lack of motivation Lack of motivation Disease Active 2021-02 00:00: 00 [facility] Hyperactiv e Hyperactiv e Disease Active 2021-02 00:00: 00 [facility] Methamphet amine abuse Methamphet amine abuse Disease Active 2021-02 00:00: 00 [facility] High risk social situation High risk social situation Disease Active 2021-02 00:00: 00 [facility] Exposure to potential infection Exposure to potential infection Disease Active 2021-02 00:00: 00 [facility] Immunocomp romised patient Immunocomp romised patient Disease Active 2021-02 00:00: 00 [facility] Non-compli ance Non-compli ance Disease Active 2021-02 00:00: 00 [facility] Exposure to potential infection Exposure to potential infection Disease Active 2021-02 00:00: 00 [facility] Acute hepatitis Acute hepatitis Disease Active 2021-02 00:00: 00 [facility] Non-compli ance with treatment Non-compli ance with treatment Disease Active 06-26 00:00: 00 [facility] Intractabl e nausea and vomiting Intractabl e nausea and vomiting Disease Active 19 00:00: 00 [facility] 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 Formattin g of this note might be different from the original. 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 Formattin g of this note might be different from the original. IMO Update [facility] QT prolongati on QT prolongati on Disease Active 03-01 00:00: 00 [facility] Encephalop athy acute Encephalop athy acute Disease Active 06-21 00:00: 00 [facility] Pneumonia Pneumonia Disease Active 06-21 00:00: 00 [facility] Vitamin D deficiency Vitamin D deficiency Disease Active 2013-02 00:00: 00 [facility] Delirium Delirium Disease Active 2013-02 00:00: 00 [facility] Gait abnormalit y Gait abnormalit y Disease Active 2013-02 00:00: 00 [facility] Alcohol abuse Alcohol abuse Disease Active 2011-02 00:00: 00 [facility] Anxiety state Anxiety state Disease Active 2011-02 00:00: 00 [facility] Bipolar 1 disorder Bipolar 1 disorder Disease Active 2011-02 00:00: 00 [facility] Pyelonephr itis Pyelonephr itis Disease Active 10-13 00:00: 00 [facility] Abdominal pain Abdominal pain Disease Active 10-13 00:00: 00 [facility] LFTs abnormal LFTs abnormal Disease Active 10-13 00:00: 00 [facility] Allergies, Adverse Reactions, Alerts Allergy Name Allergy Type Status Severity Reaction(s) Onset Date Inactive Date Treating Clinician Comments Source Sulfa (Sulfona mide Antibiot ics) DA Active [place] 10-01 00:00: 00 [facility] Sulfa (Sulfona mide Antibiot ics) DA Active [place] HIVES 10-01 00:00: 00 [facility] Sulfur Propensi ty to adverse reaction s Active Swelling 07-12 00:00: 00 [facility] SULFUR DRUG INGREDI Active High ITCHING 07-12 00:00: 00 [facility] Sulfa (Sulfona mide Antibiot ics) Drug Allergy Active Hives 05-21 00:00: 00 [facility] SULFA (SULFONA MIDE ANTIBIOT ICS) Drug Class Active Hives 05-21 00:00: 00 [facility] NO KNOWN ALLERGIE S Drug Class Active [facility] Social History Social Habit Start Date Stop Date Quantity Comments Source History of tobacco use Passive smoker [facility] History SDOH Social Connections Get Together [facility] History SDOH Social Connections [facility] History SDOH Social Connections Membership [facility] History SDOH Social Connections Meetings [facility] ASSERTION Possible [facility] Gender identity Ivan [facility] Sexual orientation [facility] Alcoholic beverage intake 2024-01-18 00:00:00 2024-01-18 00:00:00 Ex-drinker (finding) [facility] History of Social function 2023-03-19 00:00:00 2023-03-19 00:00:00 [facility] Exposure to SARS-CoV-2 (event) 2022-04-07 00:00:00 2022-04-17 21:11:00 Not sure [facility] Tobacco use and exposure 2022-01-28 00:00:00 2022-01-28 00:00:00 Smokeless tobacco non-user [facility] History SDOH Alcohol Frequency 2022-01-28 00:00:00 2022-01-28 00:00:00 1 [facility] History SDOH Alcohol Std Drinks 2022-01-28 00:00:00 2022-01-28 00:00:00 0 [facility] History SDOH Alcohol Binge 2022-01-28 00:00:00 2022-01-28 00:00:00 1 [facility] History SDOH Social Connections Phone 2022-01-28 00:00:00 2022-01-28 00:00:00 5 [facility] History SDOH Social Connections Living 2022-01-28 00:00:00 2022-01-28 00:00:00 5 [facility] History SDOH Physical Activity DPW 2022-01-28 00:00:00 2022-01-28 00:00:00 0 [facility] History SDOH Physical Activity MPS 2022-01-28 00:00:00 2022-01-28 00:00:00 0 [facility] History SDOH Financial 2022-01-28 00:00:00 2022-01-28 00:00:00 5 [facility] History SDOH Food Worry 2022-01-28 00:00:00 2022-01-28 00:00:00 1 [facility] History SDOH Food Scarcity 2022-01-28 00:00:00 2022-01-28 00:00:00 1 [facility] History SDOH Transport Med 2022-01-28 00:00:00 2022-01-28 00:00:00 2 [facility] History SDOH Transport Non-Med 2022-01-28 00:00:00 2022-01-28 00:00:00 2 [facility] Sex assigned at 1970 00:00:00 1970 00:00:00 [facility] Smoking Status Start Date Stop Date Source Tobacco smoking consumption unknown [facility] Never smoked tobacco [facility] Medications Ordered Medication Name Filled Medication Name Start Date Stop Date Current Medication? Ordering Clinician Indication Dosage Frequency Signature (SIG) Comments Components Source QUEtiapine (SEROQUEL) 25 mg tablet 2023-02 00:00: 00 Yes [id number] 25mg Take 1 tablet by mouth at bedtime as needed for Insomnia. [facility] SERTraline (ZOLOFT) 100 mg tablet 2023-02 00:00: 00 Yes [id number] 150mg Take 1.5 tablets by mouth at bedtime. [facility] propranoloL 20 mg tablet 2023-02 00:00: 00 Yes [id number] 20mg Take 1 tablet by mouth in the morning and 1 tablet in the evening. [facility] SERTraline (ZOLOFT) 50 mg tablet 2023-02 09:52: 11 12-12 00:00 :00 No 50mg Take 1 tablet by mouth in the morning and 1 tablet in the evening. [facility] risperiDONE 0.5 mg tablet 2023-02 09:51: 58 Yes .5mg Take 1 tablet by mouth in the morning and 1 tablet in the evening. [facility] hydrOXYzine 50 mg tablet 2023-02 09:51: 41 Yes 50mg Take 1 tablet by mouth in the morning and 1 tablet at noon and 1 tablet in the evening. [facility] BIKTARVY 50-200-25 mg tablet 2023-02 00:00: 00 Yes [id number] 1{tbl} Take 1 tablet by mouth in the morning. [facility] methocarbam oL (ROBAXIN) tablet 750 mg 03-29 19:45: 00 03-29 18:46 :00 No 750mg 750 mg, Oral, ONCE NOW, 1 dose, On Wed03/29/23 at 1345, Routine [facility] ciprofloxac in HCl (CIPRO) tablet 500 mg 03-29 19:30: 00 03-29 18:46 :00 No 500mg 500 mg, Oral, ONCE, 1 dose, On Wed03/29/23 at 1330, AZAM
Re ason for Anti-Infec tive: Documented Infection< br>Documen bhupinder Infection Site: Abdominal< br>Duratio n of Therapy: 7 days [facility] iopamidol (ISOVUE 370-500 mL) injection 80 mL 03-29 19:15: 00 03-29 18:14 :00 No [id number] 80mL 80 mL, Intravenou s, ONCE, 1 dose, On Wed03/29/23 at 1315, Routine [facility] NaCl 0.9% (NS) bolus infusion 1,000 mL 03-29 18:15: 00 03-29 18:40 :00 No 1000mL at 999 mL/hr, 1,000 mL, IV Infusion, ONCE, 1 dose, On Wed03/29/23 at 1215, STAT [facility] ketorolac (TORADOL) injection 15 mg 03-29 17:15: 03-29 17:27 :00 No 15mg 15 mg, Slow IV Push, ONCE, 1 dose, On Wed03/29/23 at 1115, Routine [facility] ciprofloxac in HCl 500 mg tablet 03-29 00:00: 00 11-17 00:00 :00 No [id number] 500mg Take 1 tablet by mouth in the morning and 1 tablet in the evening. [facility] traMADoL (ULTRAM) 50 mg tablet 03-29 00:00: 00 11-17 00:00 :00 No [id number] 50mg Take 1 tablet by mouth every 6 (six) hours as needed for Pain (scale 7-10) or Pain (scale 4-6). Indication s: acute pain [facility] ketorolac (TORADOL) injection 15 mg 03-26 02:30: 00 03-26 01:51 :00 No 15mg 15 mg, Slow IV Push, ONCE, 1 dose, On Wed03/25/23 at 2030, Routine [facility] FENTanyl PF (SUBLIMAZE (PF)) injection 50 mcg 03-26 02:15: 00 03-26 01:51 :00 No 50ug 50 mcg, Slow IV Push, ONCE, 1 dose, On [place] 03/25/23 at 2015, Routine [facility] iopamidol (ISOVUE 370-500 mL) injection 100 mL 03-26 02:00: 00 03-26 02:00 :00 No [id number] 100mL 100 mL, Intravenou s, ONCE, 1 dose, On [place] 03/25/23 at 2000, Routine [facility] proMETHazin e (PHENERGAN) 12.5 mg in NaCl 0.9% (NS) 50 mL IV piggyback 03-26 01:45: 00 03-26 02:22 :00 No 12.5mg 12.5 mg, IV Piggyback, at 200 mL/hr Administer over 15 Minutes, ONCE, 1 dose, On [place] 03/25/23 at 1945, AZAM [facility] cefTRIAXone (ROCEPHIN) 1,000 mg in NaCl 0.9% (NS) 100 mL MINI-BAG 03-26 01:00: 00 03-26 00:59 :00 No 1000mg 1,000 mg, IV Piggyback, ONCE, 1 dose, On [place] 03/25/23 at 1900, Administer over 30 Minutes, 100 mL
Reas on for Anti-Infec tive: Documented Infection< br>Documen bhupinder Infection Site: Urine
D uration of Therapy: 7 days [facility] NaCl 0.9% (NS) IV infusion 1,000 mL 03-26 00:00: 00 03-26 02:22 :00 No 1000mL at 999 mL/hr, Intravenou s, ONCE, 1 dose, On Wed03/25/23 at 1800, Routine [facility] NaCl 0.9% (NS) IV infusion 1,000 mL 03-25 23:45: 00 03-26 01:55 :00 No 1000mL at 999 mL/hr, Intravenou s, ONCE, 1 dose, On [place] 03/25/23 at 1745, Routine [facility] FENTanyl PF (SUBLIMAZE (PF)) injection 25 mcg 03-25 22:45: 00 03-26 00:27 :00 No 25ug 25 mcg, Slow IV Push, ONCE, 1 dose, On Wed24 at 1645, STAT [facility] ondansetron (ZOFRAN (PF)) injection 4 mg 03-25 22:45: 00 03-26 00:27 :00 No 4mg 4 mg, Slow IV Push, ONCE, 1 dose, On [place] 03/25/23 at 1645, AZAM [facility] dicyclomine 20 mg tablet 03-25 00:00: 00 11-17 00:00 :00 No [id number] 20mg Take 1 tablet by mouth 4 (four) times daily as needed for Abdominal pain. [facility] ondansetron 4 mg tablet 03-25 00:00: 00 11-17 00:00 :00 No [id number] 4mg Take 1 tablet by mouth every 8 (eight) hours as needed for Nausea and Vomiting (N/V). [facility] cefdinir 300 mg capsule 03-25 00:00: 00 04-02 05:59 :00 No [id number] 300mg Take 1 capsule by mouth in the morning and 1 capsule in the evening. Do all this for 7 days. [facility] cephALEXin (KEFLEX) capsule 500 mg 03-20 03:15: 00 03-20 03:11 :00 No 500mg 500 mg, Oral, ONCE, 1 dose, On Wed03/19/23 at 2115, AZAM
Re ason for Anti-Infec tive: Documented Infection< br>Documen bhupinder Infection Site: Urine
D uration of Therapy: Other (see Comments) [facility] ketorolac (TORADOL) injection 15 mg 10 03:00: 00 03-20 02:08 :00 No 15mg 15 mg, Slow IV Push, ONCE, 1 dose, On Wed03/19/23 at 2100, Routine [facility] iopamidol (ISOVUE 370-500 mL) injection 100 mL 03-19 22:45: 00 03-19 22:45 :00 No [id number] 100mL 100 mL, Intravenou s, ONCE, 1 dose, On Wed03/19/23 at 1645, Routine [facility] pantoprazol e (PROTONIX) injection 40 mg 03-19 22:30: 00 03-20 00:10 :00 No 40mg 40 mg, Slow IV Push, ONCE, 1 dose, On Wed03/19/23 at 1630 [facility] HYDROcodone -acetaminop hen (NORCO 5) 5-325 mg tablet 1 tablet 03-19 21:15: 00 03-19 21:35 :00 No 1{tbl} 1 tablet, Oral, ONCE NOW, 1 dose, On Wed03/19/23 at 1515, AZAM [facility] NaCl 0.9% (NS) bolus infusion 500 mL 03-19 21:15: 00 03-19 23:00 :00 No 500mL at 999 mL/hr, 500 mL, IV Infusion, ONCE, 1 dose, On Wed03/19/23 at 1515, STAT [facility] cholecalcif kortney, vitamin D3, 25 mcg (1,000 unit) tablet 03-19 13:20: 35 11-17 00:00 :00 No [id number] Take 2 tablets by mouth. [facility] Vitamin B-12 500 mcg tablet 03-19 13:20: 35 11-17 00:00 :00 No 1000ug Take 2 tablets by mouth. [facility] ibuprofen 800 mg tablet 03-19 00:00: 00 11-17 00:00 :00 No [id number] 800mg Take 1 tablet by mouth every 6 (six) hours as needed for Pain (scale 1-3) for up to 30 doses. [facility] cephALEXin (KEFLEX) 500 mg capsule 03-19 00:00: 00 03-19 00:00 :00 No [id number] 500mg Take 1 capsule by mouth in the morning and 1 capsule in the evening. Do all this for 5 days. [facility] amLODIPine 5 mg tablet 2023-0 8-22 00:00: 00 11-17 00:00 :00 No 5mg Take 1 tablet by mouth. [facility] LORazepam (ATIVAN) injection 1 mg 04-18 15:30: 00 04-18 15:46 :00 No 1mg 1 mg, Slow IV Push, ONCE, 1 dose, On 04/18/22 at 0930, STAT [facility] NaCl 0.9% (NS) bolus infusion 1,000 mL 04-18 15:00: 00 04-18 19:23 :00 No 1000mL at 999 mL/hr, 1,000 mL, IV Infusion, ONCE, 1 dose, On 04/18/22 at 0900, AZAM [facility] metroNIDAZO LE (FLAGYL) tablet 2,000 mg 04-18 07:45: 00 04-18 11:41 :00 No 2000mg 2,000 mg, Oral, ONCE, 1 dose, On 04/18/22 at 0145, AZAM
Re ason for Anti-Infec tive: Empiric Therapy for Suspected Infection< br>Empiric Therapy Site: Pelvic
Duration of therapy: 72 hours [facility] cefTRIAXone (ROCEPHIN) 1,000 mg in NaCl 0.9% (NS) 100 mL MINI-BAG 04-18 07:45: 00 04-18 12:10 :00 No 1000mg 1,000 mg, IV Piggyback, ONCE, 1 dose, On 04/18/22 at 0145, Administer over 30 Minutes, 100 mL
Reas on for Anti-Infec tive: Documented Infection< br>Documen bhupinder Infection Site: Urine
D uration of Therapy: Other (see Comments) [facility] doxycycline hyclate 100 mg capsule 04-18 00:00: 00 04-26 04:59 :00 No [id number] 100mg Take 1 capsule by mouth in the morning and 1 capsule in the evening. Do all this for 7 days. [facility] metroNIDAZO LE 500 mg tablet 2023-0 3-11 00:00: 00 04-26 04:59 :00 No [id number] 500mg Take 1 tablet by mouth in the morning and 1 tablet in the evening. Do all this for 7 days. [facility] cefdinir 300 mg capsule 3-11 00:00: 00 04-26 04:59 :00 No [id number] 300mg Take 1 capsule by mouth every 12 (twelve) hours for 7 days. [facility] SERTraline 100 mg tablet 03-06 14:33: 51 03-06 00:00 :00 No 100mg Take 100 mg by mouth. [facility] risperiDONE 2 mg tablet 03-06 14:33: 48 03-06 00:00 :00 No 2mg Take 2 mg by mouth. [facility] propranoloL 20 mg tablet 03-06 14:33: 45 03-06 00:00 :00 No 20mg Take 20 mg by mouth. [facility] gabapentin 300 mg capsule 03-06 14:33: 36 03-06 00:00 :00 No Take by mouth. [facility] albuterol 90 mcg/actuati on inhaler 03-06 14:33: 29 03-06 00:00 :00 No Inhale. [facility] ARIPiprazol e 20 mg tablet 03-06 14:33: 26 03-06 00:00 :00 No Take by mouth. [facility] busPIRone 10 mg tablet 03-06 14:33: 17 03-06 00:00 :00 No 10mg Take 10 mg by mouth. [facility] carBAMazepi ne 200 mg 12 hr tablet 03-06 14:33: 10 03-06 00:00 :00 No 200mg Take 200 mg by mouth. [facility] ziprasidone 40 mg capsule 03-06 14:29: 46 03-06 00:00 :00 No 1 capsule with food [facility] ondansetron 4 mg tablet 03-06 00:00: 00 11-17 00:00 :00 No [id number] 4mg Take 1 tablet by mouth every 8 (eight) hours as needed for Nausea and Vomiting (N/V). [facility] Nitrofurant oin&Nit. Macrocryst 100 mg capsule 02-21 00:00: 00 11-17 00:00 :00 No TAKE 100 MG BY MOUTH TWICE DAILY UNTIL FINISHED. TAKE WITH FOOD. [facility] LORazepam 1 mg tablet 02-21 00:00: 00 11-17 00:00 :00 No TAKE 1 TABLET BY MOUTH EVERY 8 HOURS NEEDED FOR ANXIETY [facility] proMETHazin e 25 mg tablet 02-21 00:00: 00 03-06 00:00 :00 No TAKE 25 MG BY MOUTH EVERY 6 HOURS NEEDED FOR NAUSEA/VOM ITING [facility] ondansetron 4 mg disintegrat ing tablet 02-21 00:00: 00 03-06 00:00 :00 No DISSOLVE 1 TABLET BY MOUTH EVERY 6 HOURS NEEDED FOR NAUSEA/VOM ITING [facility] ARIPiprazol e 20 mg tablet 2021-02 12:11: 50 Yes Take by mouth. [facility] busPIRone 10 mg tablet 2021-02 12:11: 50 Yes 10mg Take 10 mg by mouth. [facility] carBAMazepi ne 200 mg 12 hr tablet 2021-02 12:11: 50 Yes 200mg Take 200 mg by mouth. [facility] gabapentin 300 mg capsule 2021-02 12:11: 50 Yes Take by mouth. [facility] propranoloL 20 mg tablet 2021-02 12:11: 50 Yes 20mg Take 20 mg by mouth. [facility] risperiDONE 2 mg tablet 2021-02 12:11: 50 Yes 2mg Take 2 mg by mouth. [facility] SERTraline 100 mg tablet 2021-02 12:11: 50 Yes 100mg Take 100 mg by mouth. [facility] ziprasidone 40 mg capsule 2021-02 12:11: 50 Yes 1 capsule with food [facility] albuterol 90 mcg/actuati on inhaler 2021-02 12:11: 49 Yes Inhale. [facility] foLIC acid 1 mg tablet 2021-02 00:00: 00 03-05 05:59 :00 No [id number] 1mg Take 1 tablet by mouth in the morning for 30 days. [facility] thiamine 100 mg tablet 2021-02 00:00: 00 03-05 05:59 :00 No [id number] 100mg Take 1 tablet by mouth in the morning for 30 days. [facility] morpHINE (2 mg/mL) injection 2 mg 2021-02 15:04: 26 Yes 2mg 2 mg, Slow IV Push, Q4HPRN, Starting on Wed01/30/22 at 0904, Until Discontinu ed, Routine, Pain (scale 7-10) [facility] foLIC acid (FOLATE) tablet 1 mg 2021-02 15:00: 00 Yes 1mg 1 mg, Oral, DAILY, First dose on Wed01/29/22 at 0900, Until Discontinu ed, Routine [facility] thiamine (VITAMIN B1) tablet 100 mg 2021-02 15:00: 00 Yes 100mg 100 mg, Oral, DAILY, First dose on Wed01/29/22 at 0900, Until Discontinu ed, Routine [facility] enoxaparin (LOVENOX) injection 40 mg 2021-02 15:00: 00 Yes 40mg 40 mg, Subcutaneo us, DAILY, First dose on Wed01/29/22 at 0900, Until Discontinu ed, Routine [facility] oxazepam (SERAX) capsule 15 mg 2021-02 23:43: 13 Yes 15mg 15 mg, Oral, Q4HPRN, Starting on Wed01/28/22 at 1743, Until Discontinu ed, Routine, Only while awake for DBP equal to or greater than 100, HR equal to or greater than 100. [facility] hydrALAZINE (APRESOLINE ) tablet 10 mg 2021-02 23:42: 05 Yes 10mg 10 mg, Oral, Q6HPRN, Starting on Wed01/28/22 at 1742, Until Discontinu ed, Routine, SBP > 155 [facility] sennosides- docusate sodium (SENOKOT-S) 8.6-50 mg per tablet 1 tablet 2021-02 23:42: 01 Yes 1{tbl} 1 tablet, Oral, QDAILYPRN, Starting on Wed01/28/22 at 1742, Until Discontinu ed, Routine, Constipati on [facility] melatonin (MELATIN) tablet 3 mg 2021-02 23:41: 59 Yes 3mg 3 mg, Oral, QHSPRN, Starting on Wed01/28/22 at 1741, Until Discontinu ed, Routine, Insomnia [facility] ondansetron (ZOFRAN (PF)) injection 4 mg 2021-02 23:41: 54 Yes 4mg 4 mg, Slow IV Push, Q6HPRN, Starting on Wed01/28/22 at 1741, Until Discontinu ed, Routine, Nausea and Vomiting (N/V) [facility] traMADoL (ULTRAM) tablet 50 mg 2021-02 23:41: 48 01-30 23:40 :48 No 50mg 50 mg, Oral, Q6HPRN, Starting on Wed01/28/22 at 1741, Until Wed01/30/22 at 1740, Routine, Pain (scale 4-6) [facility] morpHINE (2 mg/mL) injection 2 mg 2021-02 23:41: 43 01-29 23:40 :43 No 2mg 2 mg, Slow IV Push, Q6HPRN, Starting on Wed01/28/22 at 1741, Until [place] 01/29/22 at 1740, Routine, Pain (scale 7-10) [facility] ketorolac (TORADOL) injection 30 mg 2021-02 17:30: 00 01-28 16:29 :00 No 30mg 30 mg, Slow IV Push, ONCE, 1 dose, On Wed01/28/22 at 1130, Routine [facility] ondansetron (ZOFRAN (PF)) injection 4 mg 2021-02 15:30: 00 01-28 15:30 :00 No 4mg 4 mg, Slow IV Push, ONCE, 1 dose, On Wed01/28/22 at 0930, [facility] Immunizations Ordered Immunization Name Filled Immunization Name Date Status Comments Source TDAP 2020 00:00:00 Completed TDAP 2020 00:00:00 Completed [facility] TDAP 2020 00:00:00 Completed [facility] TDAP 2020 00:00:00 Completed [facility] TDAP 2020 00:00:00 Completed [facility] TDAP 2020 00:00:00 Completed [facility] TDAP 2020 00:00:00 Completed [facility] TDAP 2020 00:00:00 Completed [facility] TDAP 2020 00:00:00 Completed [facility] TDAP 2020 00:00:00 Completed [facility] TDAP 2020 00:00:00 Completed [facility] TDAP 2020 00:00:00 Completed [facility] TDAP 2020 00:00:00 Completed [facility] TDAP 2020 00:00:00 Completed [facility] TDAP 2020 00:00:00 Completed [facility] TDAP 2020 00:00:00 Completed [facility] TDAP 2020 00:00:00 Completed [facility] TDAP 2020 00:00:00 Completed [facility] TD Pres-Free 2011-07-08 00:00:00 Completed TD Pres-Free 2011-07-08 00:00:00 Completed [facility] TD Pres-Free 2011-07-08 00:00:00 Completed [facility] TD Pres-Free 2011-07-08 00:00:00 Completed [facility] TD Pres-Free 2011-07-08 00:00:00 Completed [facility] TD Pres-Free 2011-07-08 00:00:00 Completed [facility] TD Pres-Free 2011-07-08 00:00:00 Completed [facility] TD Pres-Free 2011-07-08 00:00:00 Completed [facility] TD Pres-Free 2011-07-08 00:00:00 Completed [facility] TD Pres-Free 2011-07-08 00:00:00 Completed [facility] TD Pres-Free 2011-07-08 00:00:00 Completed [facility] TD Pres-Free 2011-07-08 00:00:00 Completed [facility] TD Pres-Free 2011-07-08 00:00:00 Completed [facility] TD Pres-Free 2011-07-08 00:00:00 Completed [facility] TD Pres-Free 2011-07-08 00:00:00 Completed [facility] TD Pres-Free 2011-07-08 00:00:00 Completed [facility] TD Pres-Free 2011-07-08 00:00:00 Completed [facility] TD Pres-Free 2011-07-08 00:00:00 Completed [facility] TDAP Unknown Completed [facility] TD Pres-Free Unknown Completed [facility] TDAP Unknown Completed [facility] TD Pres-Free Unknown Completed [facility] TDAP Unknown Completed [facility] TD Pres-Free Unknown Completed [facility] TDAP Unknown Completed [facility] TD Pres-Free Unknown Completed [facility] TDAP Unknown Completed [facility] TD Pres-Free Unknown Completed [facility] TDAP Unknown Completed [facility] TD Pres-Free Unknown Completed [facility] TDAP Unknown Completed [facility] TD Pres-Free Unknown Completed [facility] TDAP Unknown Completed [facility] TD Pres-Free Unknown Completed [facility] TDAP Unknown Completed [facility] TD Pres-Free Unknown Completed [facility] TDAP Unknown Completed [facility] TD Pres-Free Unknown Completed [facility] TDAP Unknown Completed [facility] TD Pres-Free Unknown Completed [facility] TDAP Unknown Completed [facility] TD Pres-Free Unknown Completed [facility] TDAP Unknown Completed [facility] TD Pres-Free Unknown Completed [facility] TDAP Unknown Completed [facility] TD Pres-Free Unknown Completed [facility] TDAP Unknown Completed [facility] TD Pres-Free Unknown Completed [facility] TDAP Unknown Completed [facility] TD Pres-Free Unknown Completed [facility] TDAP Unknown Completed [facility] TD Pres-Free Unknown Completed [facility] TDAP Unknown Completed [facility] TD Pres-Free Unknown Completed [facility] TDAP Unknown Completed [facility] TD Pres-Free Unknown Completed [facility] TDAP Unknown Completed [facility] TD Pres-Free Unknown Completed [facility] TDAP Unknown Completed [facility] TD Pres-Free Unknown Completed [facility] TDAP Unknown Completed [facility] TD Pres-Free Unknown Completed [facility] TDAP Unknown Completed [facility] TD Pres-Free Unknown Completed [facility] TDAP Unknown Completed [facility] TD Pres-Free Unknown Completed [facility] TDAP Unknown Completed [facility] TD Pres-Free Unknown Completed [facility] TDAP Unknown Completed [facility] TD Pres-Free Unknown Completed [facility] TDAP Unknown Completed [facility] TD Pres-Free Unknown Completed [facility] TDAP Unknown Completed [facility] TD Pres-Free Unknown Completed [facility] TDAP Unknown Completed [facility] TD Pres-Free Unknown Completed [facility] TDAP Unknown Completed [facility] TD Pres-Free Unknown Completed [facility] TDAP Unknown Completed [facility] TD Pres-Free Unknown Completed [facility] TDAP Unknown Completed [facility] TD Pres-Free Unknown Completed [facility] TDAP Unknown Completed [facility] TD Pres-Free Unknown Completed [facility] TDAP Unknown Completed [facility] TD Pres-Free Unknown Completed [facility] TDAP Unknown Completed [facility] TD Pres-Free Unknown Completed [facility] TDAP Unknown Completed [facility] TD Pres-Free Unknown Completed [facility] TDAP Unknown Completed [facility] TD Pres-Free Unknown Completed [facility] TDAP Unknown Completed [facility] TD Pres-Free Unknown Completed [facility] Vital Signs Vital Name Observation Time Observation Value Comments S ource Systolic blood pressure 2024-01-18 16:04:00 138 mm[Hg] [facility] Diastolic blood pressure 2024-01-18 16:04:00 92 mm[Hg] [facility] Heart rate 2024-01-18 16:04:00 126 /min [facility] Body height 2024-01-18 16:02:00 165.1 cm [facility] Body weight 2024-01-18 16:02:00 74.526 kg [facility] BMI 2024-01-18 16:02:00 27.34 kg/m2 [facility] Oxygen saturation in Arterial blood by Pulse oximetry 2024-01-18 16:02:00 97 /min [facility] Systolic blood pressure 2023-12-13 19:38:00 145 mm[Hg] [facility] Diastolic blood pressure 2023-12-13 19:38:00 88 mm[Hg] [facility] Heart rate 2023-12-13 19:38:00 99 /min [facility] Body temperature 2023-12-13 19:38:00 36.83 Rabia [facility] Body height 2023-12-13 19:38:00 165.1 cm [facility] Body weight 2023-12-13 19:38:00 74.163 kg [facility] BMI 2023-12-13 19:38:00 27.21 kg/m2 [facility] Oxygen saturation in Arterial blood by Pulse oximetry 2023-12-13 19:38:00 100 /min [facility] Systolic blood pressure 2023-11-18 14:23:00 188 mm[Hg] [facility] Diastolic blood pressure 2023-11-18 14:23:00 116 mm[Hg] [facility] Heart rate 2023-11-18 14:23:00 116 /min [facility] Body temperature 2023-11-18 14:23:00 35.61 Rabia [facility] Respiratory rate 2023-11-18 14:23:00 18 /min [facility] Body height 2023-11-18 14:23:00 165.1 cm [facility] Body weight 2023-11-18 14:23:00 70.58 kg [facility] BMI 2023-11-18 14:23:00 25.89 kg/m2 [facility] O[facility] in Arterial blood by Pulse oximetry 2023-11-18 14:23:00 96 /min [facility] Systolic blood pressure 2023-10-04 18:14:00 150 mm[Hg] [facility] Diastolic blood pressure 2023-10-04 18:14:00 83 mm[Hg] [facility] Heart rate 2023-10-04 18:13:00 112 /min [facility] Body temperature 2023-10-04 18:13:00 37.06 Rabia [facility] Respiratory rate 2023-10-04 18:13:00 18 /min [facility] Body height 2023-10-04 18:13:00 165.1 cm [facility] Body weight 2023-10-04 18:13:00 70.081 kg [facility] BMI 2023-10-04 18:13:00 25.71 kg/m2 [facility] Oxygen saturation in Arterial blood by Pulse oximetry 2023-10-04 18:13:00 97 /min [facility] Systolic blood pressure 2023-03-29 18:45:00 135 mm[Hg] [facility] Diastolic blood pressure 2023-03-29 18:45:00 115 mm[Hg] [facility] Heart rate 2023-03-29 18:00:00 91 /min [facility] Respiratory rate 2023-03-29 18:00:00 19 /min [facility] Oxygen saturation in Arterial blood by Pulse oximetry 2023-03-29 18:00:00 97 /min [facility] Body temperature 2023-03-29 17:01:00 36.83 Rabia [facility] Body height 2023-03-29 17:01:00 165.1 cm [facility] Systolic blood pressure 2023-03-26 02:00:00 149 mm[Hg] [facility] Diastolic blood pressure 2023-03-26 02:00:00 89 mm[Hg] [facility] Heart rate 2023-03-26 02:00:00 112 /min [facility] Body temperature 2023-03-26 01:55:36 37 Rabia [facility] Respiratory rate 2023-03-26 01:55:36 18 /min [facility] Oxygen saturation in Arterial blood by Pulse oximetry 2023-03-26 01:55:36 98 /min [facility] Body weight 2023-03-25 22:32:00 77.111 kg [facility] BMI 2023-03-25 22:32:00 28.29 kg/m2 [facility] Systolic blood pressure 2023-03-20 02:41:00 154 mm[Hg] [facility] Diastolic blood pressure 2023-03-20 02:41:00 102 mm[Hg] [facility] Heart rate 2023-03-20 02:41:00 87 /min [facility] Respiratory rate 2023-03-20 02:41:00 17 /min [facility] Oxygen saturation in Arterial blood by Pulse oximetry 2023-03-20 02:41:00 98 /min [facility] Body temperature 2023-03-20 01:16:00 36.83 Rabia [facility] Body height 2023-03-19 20:48:00 165.1 cm [facility] Body weight 2023-03-19 20:48:00 77.111 kg [facility] BMI 2023-03-19 20:48:00 28.29 kg/m2 [facility] Systolic blood pressure 2023-03-19 20:16:00 148 mm[Hg] [place] [facility] Diastolic blood pressure 2023-03-19 20:16:00 98 mm[Hg] [place] [facility] Heart rate 2023-03-19 20:16:00 112 /min [facility] Body temperature 2023-03-19 19:09:00 36.39 Rabia [facility] Respiratory rate 2023-03-19 19:09:00 18 /min [facility] Body height 2023-03-19 19:09:00 165.1 cm [facility] Body weight 2023-03-19 19:09:00 77.157 kg [facility] BMI 2023-03-19 19:09:00 28.31 kg/m2 [facility] Oxygen saturation in Arterial blood by Pulse oximetry 2023-03-19 19:09:00 100 /min [facility] Systolic blood pressure 2022-04-18 21:19:00 131 mm[Hg] [facility] Diastolic blood pressure 2022-04-18 21:19:00 75 mm[Hg] [facility] Heart rate 2022-04-18 21:19:00 85 /min [facility] Body temperature 2022-04-18 21:19:00 37 Rabia [facility] Respiratory rate 2022-04-18 21:19:00 16 /min [facility] Oxygen saturation in Arterial blood by Pulse oximetry 2022-04-18 21:19:00 98 /min [facility] Body weight 2022-04-18 03:12:00 72.576 kg [facility] BMI 2022-04-18 03:12:00 26.63 kg/m2 [facility] Systolic blood pressure 2022-03-06 20:08:00 138 mm[Hg] [facility] Diastolic blood pressure 2022-03-06 20:08:00 89 mm[Hg] [facility] Heart rate 2022-03-06 20:04:00 134 /min [facility] Body temperature 2022-03-06 20:04:00 37.61 Rabia [facility] Respiratory rate 2022-03-06 20:04:00 19 /min [facility] Body height 2022-03-06 20:04:00 165.1 cm [facility] Body weight 2022-03-06 20:04:00 73.347 kg [facility] BMI 2022-03-06 20:04:00 26.91 kg/m2 [facility] Oxygen saturation in Arterial blood by Pulse oximetry 2022-03-06 20:04:00 97 /min [facility] Heart rate 2022-02-01 13:14:00 82 /min [facility] Body temperature 2022-02-01 13:14:00 36.72 Rabia [facility] Respiratory rate 2022-02-01 13:14:00 16 /min [facility] Systolic blood pressure 2022-02-01 13:14:00 130 mm[Hg] [facility] Diastolic blood pressure 2022-02-01 13:14:00 74 mm[Hg] [facility] Oxygen saturation in Arterial blood by Pulse oximetry 2022-02-01 10:03:00 98 /min [facility] Body height 2022-01-28 21:32:00 165.1 cm [facility] Body weight 2022-01-28 21:32:00 71.986 kg [facility] BMI 2022-01-28 21:32:00 26.41 kg/m2 [facility] Procedures Procedure Date / Time Performed Performing Clinician Source CT ABDOMEN PELVIS W CONTRAST 2023-03-29 18:19:02 Joseline Mcrae [facility] COMP. METABOLIC PANEL ([id number]) 2023-03-29 17:27:00 Joseline Mcrae [facility] CBC WITH DIFF 2023-03-29 17:27:00 Joseline Mcrae [facility] URINALYSIS 2023-03-29 17:27:00 Joseline Mcrae [facility] LACTIC ACID WHOLE BLOOD 2023-03-29 17:27:00 Eliot Mcrae [facility] URINE DRUG (IMMUNOASSAY) - COMPREHENSIVE DRUG SCREEN W/O REFLEX 2023-03-29 17:27:00 Joseline Mcrae [facility] CONSENT/REFUSAL FOR DIAGNOSIS AND TREATMENT 2023-03-29 16:57:33 Doctor Unassigned, Nellie [facility] EKG-12 LEAD 2023-03-26 02:09:49 Umberto Meenu [facility] CT ABDOMEN PELVIS W CONTRAST 2023-03-26 01:05:15 Umberto Meenu [facility] URINALYSIS 2023-03-25 23:20:00 Meenu Shipman [facility] RAPID INFLUENZA A/B 2023-03-25 23:20:00 Claudia Shipman [facility] URINE DRUG (IMMUNOASSAY) - COMPREHENSIVE DRUG SCREEN W/O REFLEX 2023-03-25 23:20:00 Umberto Meenu [facility] LIPASE 2023-03-25 23:08:00 Meenu Shipman [facility] COMP. METABOLIC PANEL ([id number]) 2023-03-25 23:08:00 Umberto Meenu [facility] CBC WITH DIFF 2023-03-25 23:08:00 Umberto Meenu [facility] COVID-19 (ID NOW RAPID TESTING) 2023-03-25 23:08:00 Umberto Meenu [facility] CONSENT/REFUSAL FOR DIAGNOSIS AND TREATMENT 2023-03-25 22:25:02 Doctor Unassigned, Nellie [facility] URINALYSIS 2023-03-20 02:08:00 Joseline Mcrae [facility] URINE DRUG (IMMUNOASSAY) - COMPREHENSIVE DRUG SCREEN W/O REFLEX 2023-03-20 02:08:00 Joseline Mcrae [facility] ASSIGNMENT OF BENEFITS 2023-03-19 23:43:36 Docto r Unassigned, Nellie [facility] CT ANGIOGRAM ABDOMEN/PELVIS 2023-03-19 21:49:00 Joseline Mcrae [facility] HB ABO GROUPING 2023-03-19 21:44:00 Joseline Mcrae [facility] PROTHROMBIN TIME / INR 2023-03-19 21:16:00 Lincoln Mcrae [facility] LIPASE 2023-03-19 21:14:00 Joseline Mcrae [facility] TROPONIN I 2023-03-19 21:14:00 Joseline Mcrae [facility] COMP. METABOLIC PANEL ([id number]) 2023-03-19 21:14:00 Joseline Mcrae [facility] ETHANOL 2023-03-19 21:14:00 Joseline Mcrae [facility] CBC WITH DIFF 2023-03-19 21:14:00 Joseline Mcrae [facility] CONSENT/REFUSAL FOR DIAGNOSIS AND TREATMENT 2023-03-19 20:38:50 Doctor Unassigned, Nellie [facility] AUTHORIZATION FOR RELEASE OF PHI 2022-05-22 05:01:00 Doctor Unassigned, Nellie [facility] TEST, SERUM 2022-04-18 05:29:00 Don Sim [facility] TOTAL BETA HCG ASSAY 2022-04-18 05:29:00 Cyrus Sim [facility] ETHANOL 2022-04-18 05:29:00 Cyrus Sim [facility] URINALYSIS 2022-04-18 05:19:00 Cyrus Sim [facility] COVID-19 (ID NOW RAPID TESTING) 2022-04-18 05:19:00 Cyrus Sim [facility] URINE DRUG (IMMUNOASSAY) - COMPREHENSIVE DRUG SCREEN W/O REFLEX 2022-04-18 05:19:00 Cyrus Sim [facility] CONSENT/REFUSAL FOR DIAGNOSIS AND TREATMENT 2022-04-18 03:05:26 Doctor Unassigned, Nellie [facility] PATIENT QUESTIONNAIRE 2022-03-06 06:01:00 Doctor Unassigned, Nellie [facility] FREE T4 2022-01-31 20:14:00 Chelly, [facility] FREE T3 2022-01-31 20:14:00 Chelly [facility] HEPATIC FUNCTION PANEL ([id number]) (ALB,T.PRO,BILI T,BU/BC,ALT,AST,ALK PHOS) 2022-01-31 14:41:00 Gabriel [facility] US ARTERIAL IN OR VENOUS OUT ABDOMEN LIMITED DOPPLER 2022-01-30 21:15:00 John Wilson [facility] RAPID INFLUENZA A/B 2022-01-30 19:54:00 Gabriel [facility] HEPATITIS B VIRUS (HBV) BY QUANTITATIVE NAAT 2022-01-30 19:54:00 Gabriel [facility] HUMAN IMMUNODEFICIENCY VIRUS 1 (HIV-1) BY QUANTITATIVE NAAT 2022-01-30 19:54:00 Gabriel [facility] RAPID RSV 2022-01-30 19:54:00 Harjeet Rios [facility] COVID-19 (ID NOW RAPID TESTING) 2022-01-30 19:54:00 Harjeet Rios [facility] CERULOPLASMIN 2022-01-30 09:44:00 Morgan Gabriel [facility] ALPHA 1 ANTITRYPSIN 2022-01-30 09:44:00 Josh Gabriel [facility] IMMUNOGLOBULIN G 2022-01-30 09:44:00 Morgan Gabriel [facility] COMP. METABOLIC PANEL ([id number]) 2022-01-30 09:44:00 Aurelio Shaw [facility] CBC WITH DIFF 2022-01-30 09:44:00 Aurelio Shaw [facility] PROTHROMBIN TIME / INR 2022-01-30 09:44:00 Julian Shaw [facility] SMOOTH MUSCLE AB, IGG TITER 2022-01-30 09:44:00 Morgan Gabriel [facility] SMOOTH MUSCLE AB,IGG W/REFLEX 2022-01-30 09:44:00 Morgan Gabriel [facility] FERRITIN SERUM 2022-01-29 16:32:00 Morgan Gabriel [facility] THYROID STIMULATING HORMONE 2022-01-29 16:32:00 Morgan Gabriel [facility] IRON PANEL 2022-01-29 16:32:00 Morgan Gabriel [facility] EBV VIRAL CAPSID IGM ANTIBODY 2022-01-29 16:32:00 Gabriel [facility] EBV NUCLEAR ANTIGEN IGG TEST 2022-01-29 16:32:00 Gabriel [facility] CYTOMEGALOVIRUS ANTIBODY IGM 2022-01-29 16:32:00 Gabriel [facility] CYTOMEGALOVIRUS ANTIBODY IGG 2022-01-29 16:32:00 Gabriel [facility] ANTI-NUCLEAR ANTIBODY SCREEN 2022-01-29 16:32[facility] 2022-01-29 16:32:00 Gabriel [facility] HEPATITIS B SURFACE ANTIGEN 2022-01-29 16:32:00 Gabriel [facility] HCV ANTIBODY 2022-01-29 16:32:00 Gabriel [facility] HBC ANTIBODY (IGM & IGG) 2022-01-29 16:32:00 Opal Rios [facility] HEPATITIS A VIRUS ANTIBODY IGM 2022-01-29 16:32:00 Gabriel [facility] RPR (QUANTITATIVE) 2022-01-29 16:32:00 Gabriel [facility] EBV AB TO EARLY(D)AG,IGG 2022-01-29 16:32[facility]GM[facility] 2022-01-29 16:32:00 Gabriel [facility] HEPATITIS C VIRUS (HCV) BY QUANTITATIVE NAAT 2022-01-29 16:32:00 Gabriel [facility] CMV BY PCR 2022-01-29 16:32:00 Gabriel [facility] HSV 1 AND 2 GLYCOPROTEIN G IGG 2022-01-29 16:32:00 Gabriel [facility] HIV 1/2 AG-AB WITH REFLEX 2022-01-29 16:32:00 Gabriel [facility] HIV 1/2 AB SUPPLEMENTAL TESTING 2022-01-29 16:32:00 Gabriel [facility] GALV ONLY - SYPHILIS IGG/IGM 2022-01-29 16:32:00 Gabriel [facility] HEPATITIS BE AG 2022-01-29 16:32:00 Gabriel Harjeet [facility] HEPATITIS BE AB 2022-01-29 16:32:00 Harjeet Rios [facility] COMP. METABOLIC PANEL ([id number]) 2022-01-29 14:08:00 Aurelio Shaw [facility] PROTHROMBIN TIME / INR 2022-01-29 14:08:00 Julian Shaw [facility] BLOOD CULTURE SCREEN 2022-01-29 00:41:00 John Wilson [facility] BLOOD CULTURE SCREEN 2022-01-29 00:40:00 Katie John [facility] PROTHROMBIN TIME / INR 2022-01-28 21:55:00 Elizabeth Wilson [facility] URINALYSIS 2022-01-28 17:55:00 Umberto Meenu [facility] URINE CULTURE 2022-01-28 17:55:00 Umberto Meenu [facility] URINE DRUG (IMMUNOASSAY) - COMPREHENSIVE DRUG SCREEN W/O REFLEX 2022-01-28 17:55:00 Meenu Shipman [facility] US ABDOMEN LIMITED 2022-01-28 17:18:25 Umberto Meenu [facility] CT ABDOMEN PELVIS WO CONTRAST 2022-01-28 15:59:50 Umberto Meenu [facility] MAGNESIUM 2022-01-28 15:41:00 John Wilson [facility] COMP. METABOLIC PANEL ([id number]) 2022-01-28 15:41:00 Meenu Shipman [facility] ACETAMINOPHEN 2022-01-28 15:41:00 John Wilson [facility] CBC WITH DIFF 2022-01-28 15:41:00 Meenu Shipman [facility] PHOSPHORUS 2022-01-28 15:41:00 John Wilson [facility] CONSENT/REFUSAL FOR DIAGNOSIS AND TREATMENT 2022-01-28 15:06:45 Doctor Unassigned, Nellie [facility] Encounters Start Date/Time End Date/Time Encounter Type Admission Type Attending [facility] Care Facility Care Department Encounter ID Source 2024-02-21 00:00:00 2024-03-25 18:20:39 Patient Secure Msg Doctor Unassigned, Nellie Doctor Unassigned, Nellie [facility] ([facility]) 1.2.840.114 350.1.13.10 4.2.7.2.686 [id number] [facility] 2024-02-16 00:00:00 2024-02-16 08:09:[address] [facility] BUILD[facility] 1.2.840.114 350.1.13.10 4.2.7.2.686 [id number] [id number] [facility] 2024-02-15 00:00:00 2024-02-15 15:22:[address] [facility] 1.2.840.114 350.1.13.10 4.2.7.2.686 [id number] 059 [id number] [facility] 2024-02-14 00:00:00 2024-02-14 10:00:[address] [facility] BU[facility] 1.2.840.114 350.1.13.10 4.2.7.2.686 [id number] 059 [id number] [facility] 2024-02-04 00:00:00 2024-02-07 10:40:[address] [facility] 1.2.840.114 350.1.13.10 4.2.7.2.686 [id number] 059 [id number] [facility] 2024-01-31 14:38:39 2024-01-31 23:59:00 [facility] 1.2.840.114 350.1.13.10 4.2.7.2.686 [id number] [facility] 2024-01-31 14:38:24 2024-01-31 23:59:00 [id number] 2024-01-31 14:38:24 2024-01-31 23:59:[address] [facility] BUILDING 1.2.840.114 350.1.13.10 4.2.7.2.686 [id number] [facility] 2024-01-31 16:00:00 2024-01-31 16:00:00 Outpatient R JOEY [facility] [id number] [facility] 2024-01-21 09:00:00 2024-01-21 09:00:00 Outpatient R [facility] [id number] [facility] 2024-01-19 00:00:00 2024-01-20 07:33:[address] [facility] 1.2.840.114 350.1.13.10 4.2.7.2.686 [id number] 044 [id number] [facility] 2024-01-18 10:00:00 2024-01-18 10:44:12 Outpatient R JOEY [facility] [id number] [facility] 2024-01-18 10:00:00 2024-01-18 10:44:[address] [facility] BUILDING 1.2.840.114 350.1.13.10 4.2.7.2.686 [id number] [id number] [facility] 2024-01-13 00:00:00 2024-01-13 13:55:35 RefArmando Bautista [facility] SONYA[facility] 1.2.840.114 350.1.13.10 4.2.7.2.686 [id number] 044 [id number] [facility] 2024-01-11 00:00:00 2024-01-12 08:26:32 Patient Secure Olive Barahona [facility] 1.2.840.114 350.1.13.10 4.2.7.2.686 [id number] 044 [id number] [facility] 2023-11-30 00:00:00 2024-01-01 18:24:51 Patient Secure Armando Golden [facility] SONYA?[facility] BU[facility] 1.2.840.114 350.1.13.10 4.2.7.2.686 [id number] 044 [id number] [facility] 2023-12-28 00:00:00 2023-12-28 14:09:41 Letter (Out) [facility] 1.2.840.114 350.1.13.10 4.2.7.2.686 [id number] [facility] 2023-12-28 09:30:00 2023-12-28 09:30:00 Outpatient R EVAN [facility] [id number] [facility] 2023-12-23 09:00:00 2023-12-23 09:00:00 Outpatient R [facility]IO [facility] [id number] [facility] 2023-12-13 13:30:00 2023-12-13 14:39:46 Outpatient R OLIVE [facility] [id number] [facility] 2023-12-13 13:30:00 2023-12-13 14:39:46 Office Visit Luciana Olive [facility] S[facility]YA[facility] 1.2.840.114 350.1.13.10 4.2.7.2.686 [id number] 044 [id number] [facility] 2023-12-06 00:00:00 2023-12-08 10:40:25 Telephone Mario Guzman [facility] ([facility]) 1.2.840.114 350.1.13.10 4.2.7.2.686 [id number] [facility] 2023-12-06 00:00:00 2023-12-06 11:46:51 [facility] 1.2.840.114 350.1.13.10 4.2.7.2.686 [id number] 044 [id number] [facility] 2023-12-06 09:55:00 2023-12-06 10:57:31 Outpatient Elect[id number] 2023-12-06 10:10:00 2023-12-06 10:30:00 Consult Kalen Matthews [facility] Foot And Ankle Professio [facility] 1.2.840.114 350.1.13.70 8.2.7.2.686 [id number] [facility] 2023-12-02 00:00:00 2023-12-03 10:56:40 Telephone Armando Preston [facility] S[facility]YA[facility] 1.2.840.114 350.1.13.10 4.2.7.2.686 [id number] 044 [id number] [facility] 2023-11-30 00:00:00 2023-12-01 08:07:26 Telephone Armando Preston [facility] 1.2.840.114 350.1.13.10 4.2.7.2.686 [id number] 044 [id number] [facility] 2023-11-23 09:30:00 2023-11-23 09:58:51 Outpatient R [facility] [id number] [facility] 2023-11-23 09:30:00 2023-11-23 09:45:00 Attractions Associate Visit Lab, Ang - Db [facility] Lab, Ang - Db [facility] 1.2.840.114 350.1.13.10 4.2.7.2.686 [id number] [facility] 2023-11-22 10:53:03 2023-11-22 11:57:25 Outpatient Elective KALEN MATTHEWS EOUT [id number] EOUT 2023-10-14 00:00:00 2023-11-20 18:25:39 Patient Secure Msg Doctor Unassigned, Nellie Doctor Unassigned, Nellie [facility]) 1.2.840.114 350.1.13.10 4.2.7.2.686 [id number] [id number] [facility] 2023-11-18 09:30:00 2023-11-18 10:30:00 Office Visit Thomas Mario [facility] ([facility]) 1.2.840.114 350.1.13.10 4.2.7.2.686 [id number] [facility] 2023-11-18 09:30:00 2023-11-18 09:30:00 Outpatient R [facility] [id number] [facility] 2023-11-16 11:00:00 2023-11-16 11:00:00 Outpatient R [facility] [id number] [facility] 2023-11-10 11:59:16 2023-11-10 13:09:05 Outpatient Elective KALEN MATTHEWS EOUT [id number] EOUT 2023-10-08 00:00:00 2023-10-12 10:33:17 Patient Secure Msg Doctor Unassigned, Nellie Doctor Unassigned, Nellie [facility] S[facility]YA[facility] 1.2.840.114 350.1.13.10 4.2.7.2.686 [id number] 044 [id number] [facility] 2023-10-08 00:00:00 2023-10-08 10:37:[address] [facility] BUILD[facility] 1.2840.114 350.1.13.10 4.2.7.2.686 [id number] 044 [id number] [facility] 2023-10-06 00:00:00 2023-10-08 10:35:44 Patient Secure Msg Armando Preston [facility] S[facility] 1.2840.114 350.1.13.10 4.2.7.2.686 [id number] [id number] [facility] 2023-10-06 00:00:00 2023-10-06 10:51:36 Patient Secure Msg Armando Preston [facility] S[facility]YA[facility] 1.2840.114 350.1.13.10 4.2.7.2.686 [id number] 044 [id number] [facility] 2023-10-05 00:00:00 2023-10-05 14:00:07 Letter (Out) [facility] 1.2.840.114 350.1.13.10 4.2.7.2.686 [id number] [facility] 2023-10-05 00:00:00 2023-10-05 08:57:59 Telephone Armando Preston [facility] S[facility] 1.2840.114 350.1.13.10 4.2.7.2.686 [id number] 044 [id number] [facility] 2023-10-04 00:00:00 2023-10-05 07:22:40 Patient Secure [facility] 1.114 350.1.13.10 4.2.7.2.686 [id number] 044 [id number] [facility] 2023-10-04 13:00:00 2023-10-04 13:34:03 Outpatient R [facility]O [facility] [id number] [facility] 2023-10-04 13:00:00 2023-10-04 13:34:03 Office Visit Mohan [facility] 1.114 350.1.13.10 4.2.7.2.686 [id number] [id number] [facility] 2023-05-15 21:37:00 2023-05-16 02:11:00 Emergency EM Edmund Anthony [facility] [id number] [facility] 2023-05-07 00:00:00 2023-05-07 00:00:00 Telephone Maureen Mcdonald [facility] F[facility]DS[facility] OD [facility] 1.114 350.1.13.10 4.2.7.2.686 [id number] [facility] 2023-04-29 00:00:00 2023-04-29 00:00:00 Letter (Out) Diseases-Al mb[facility] . 350.1.13.10 4.2.7.2.686 [id number] 089 [id number] [facility] 2023-04-26 00:00:00 2023-04-26 00:00:00 Patient Secure Msg Doctor Unassigned, Nellie [facility] MULTISPEC IALTY [facility] 1.114 350.1.13.10 4.2.7.2.686 [id number] 059 [id number] [facility] 2023-04-21 00:00:00 2023-04-21 00:00:00 Patient Secure Msg Maureen Mcdonald [facility] 1.2.840.114 350.1.13.10 4.2.7.2.686 [id number] [facility] 2023-04-15 00:00:00 2023-04-15 00:00:00 Patient Secure Msg Maureen Mcdonald [facility] 1.2.840.114 350.1.13.10 4.2.7.2.686 [id number] [facility] 2023-04-13 00:00:00 2023-04-13 00:00:00 Patient Secure Msg Maureen Mcdonald [facility] 1.2.840.114 350.1.13.10 4.2.7.2.686 [id number] [facility] 2023-04-13 00:00:00 2023-04-13 00:00:00 Case Management Maureen Mcdonald [facility] 1.2.840.114 350.1.13.10 4.2.7.2.686 [id number] [facility] 2023-04-13 00:00:00 2023-04-13 00:00:00 Patient Secure Msg Maureen Mcdonald [facility] 1.2.840.114 350.1.13.10 4.2.7.2.686 [id number] [facility] 2023-04-12 00:00:00 2023-04-12 00:00:00 Patient Secure Msg Maureen Mcdonald [facility] 1.2.840.114 350.1.13.10 4.2.7.2.686 [id number] [facility] 2023-04-12 00:00:00 2023-04-12 00:00:00 Telephone Maureen Mcdonald Timbo [facility] JAZZYO OD [facility] 1.2.840.114 350.1.13.10 4.2.7.2.686 [id number] [facility] 2023-04-09 00:00:00 2023-04-09 00:00:00 Patient Secure Msg Maureen Mcdonald Timbo [facility] 1.840.114 350.1.13.10 4.2.7.2.686 [id number] [facility] 2023-04-09 00:00:00 2023-04-09 00:00:00 Patient Secure Msg Maureen Mcdonald Timbo [facility] JAZZY OD [facility] 1.2840.114 350.1.13.10 4.2.7.2.686 [id number] [facility] 2023-04-09 00:00:00 2023-04-09 00:00:00 Patient Outreach La Boyer [facility] 1.840.114 350.1.13.10 4.2.7.2.686 [id number] [facility] 2023-04-08 00:00:00 2023-04-08 00:00:00 Patient Secure Msg Broderick Maureen Timbo [facility] JAZZY OD [facility] 1.2840.114 350.1.13.10 4.2.7.2.686 [id number] [facility] 2023-04-08 00:00:00 2023-04-08 00:00:00 Patient Secure Msg Broderick Maureen D [facility] 1.2.840.114 350.1.13.10 4.2.7.2.686 [id number] [facility] 2023-04-08 00:00:00 2023-04-08 00:00:00 Telephone Maureen Mcdonald [facility] 1.2.840.114 350.1.13.10 4.2.7.2.686 [id number] [facility] 2023-04-07 00:00:00 2023-04-07 00:00:00 Patient Secure Msg Maureen Mcdonald [facility] 1.2.840.114 350.1.13.10 4.2.7.2.686 [id number] [facility] 2023-04-07 00:00:00 2023-04-07 00:00:00 Patient Secure Msg Maureen Mcdonald [facility] JAZZY OD [facility] 1.2.840.114 350.1.13.10 4.2.7.2.686 [id number] [facility] 2023-04-07 00:00:00 2023-04-07 00:00:00 Patient Secure Msg Maureen Mcdonald [facility] 1.2.840.114 350.1.13.10 4.2.7.2.686 [id number] [facility] 2023-04-06 00:00:00 2023-04-06 00:00:00 Patient Secure Msg Maureen Mcdonald [facility] 1.2.840.114 350.1.13.10 4.2.7.2.686 [id number] [facility] 2023-04-05 00:00:00 2023-04-05 00:00:00 Telephone Maureen Mcdonald [facility] 1.2.840.114 350.1.13.10 4.2.7.2.686 [id number] [facility] 2023-04-05 00:00:00 2023-04-05 00:00:00 Patient Secure Msg Maureen Mcdonald [facility] 1.2.840.114 350.1.13.10 4.2.7.2.686 [id number] [facility] 2023-03-29 11:01:00 2023-03-29 12:53:00 Emergency X JOSELINE MCRAE [facility] ERT [id number] [facility] 2023-03-29 11:01:00 2023-03-29 12:53:00 Emergency Joseline Mcrae [facility] 1.2.840.114 350.1.13.10 4.2.7.2.686 [id number] [id number] [facility] 2023-03-29 00:00:00 2023-03-29 00:00:00 Telephone Maureen Mcdonald [facility] 1.2.840.114 350.1.13.10 4.2.7.2.686 [id number] [facility] 2023-03-28 00:00:00 2023-03-28 00:00:00 Patient Secure Msg Maureen Mcdonald [facility] 1.2.840.114 350.1.13.10 4.2.7.2.686 [id number] [facility] 2023-03-26 00:00:00 2023-03-26 00:00:00 Telephone Maureen Mcdonald [facility] 1.2.840.114 350.1.13.10 4.2.7.2.686 [id number] [facility] 2023-03-25 16:37:00 2023-03-25 20:56:00 Emergency ZACHARIAH LUCIANO [facility] ERT [id number] [facility] 2023-03-25 16:37:00 2023-03-25 20:56:00 Emergency Meenu Shipman Zachariah Owen [facility] 1.20.114 350.1.13.10 4.2.7.2.686 [id number] [id number] [facility] 2023-03-19 14:51:00 2023-03-19 21:23:00 Emergency ZACHARIAH LUCIANO [facility] ERT [id number] [facility] 2023-03-19 14:51:00 2023-03-19 21:23:00 Emergency Joseline McraeZachariah [facility] 1..114 350.1.13.10 4.2.7.2.686 [id number] [id number] [facility] 2023-03-19 13:00:00 2023-03-19 14:36:30 Office Visit Maureen Mcdonald [facility] 1..114 350.1.13.10 4.2.7.2.686 [id number] [facility] 2023-03-19 13:00:00 2023-03-19 13:00:00 Outpatient R MAUREEN [facility] [id number] [facility] 2022-10-14 00:00:00 2022-10-14 00:00:00 Telephone AdairTianna 1..114 350.1.13.10 4.2.7.2.686 [id number] [id number] [facility] 2022-07-23 20:37:00 2022-07-23 21:51:00 Emergency Ede Aviles [facility] [id number] [facility] 2022-06-18 00:00:00 2022-06-18 00:00:00 Telephone Willian Patricio [facility] 1.2.840.114 350.1.13.10 4.2.7.2.686 [id number] [facility] 2022-06-01 00:00:00 2022-06-01 00:00:00 [facility] 1.2.840.114 350.1.13.10 4.2.7.2.686 [id number] [facility] 2022-05-22 00:00:00 2022-05-22 00:00:00 Orders Only Doctor Unassigned, Nellie [facility] 1.2.840.114 350.1.13.10 4.2.7.2.686 [id number] [facility] 2022-05-15 09:30:00 2022-05-15 09:30:00 Outpatient R SHENG [facility] [id number] [facility] 2022-05-09 00:00:00 2022-05-09 00:00:00 Refill Sheng [facility] 1.2.840.114 350.1.13.10 4.2.7.2.686 [id number] [facility] 2022-05-04 00:00:00 2022-05-04 00:00:00 [facility] 1.2.840.114 350.1.13.10 4.2.7.2.686 [id number] [facility] 2022-04-17 21:14:00 2022-04-18 16:30:00 Emergency X JAVIER, JORGE MEHTA [facility] ERT [id number] [facility] 2022-04-17 21:14:00 2022-04-18 16:30:00 Emergency Cyrus Sim [facility] 1.2.840.114 350.1.13.10 4.2.7.2.686 [id number] [facility] 2022-03-17 00:00:00 2022-03-17 00:00:00 Patient Outreach La Boyer [facility] 1.2.840.114 350.1.13.10 4.2.7.2.686 [id number] [facility] 2022-03-16 00:00:00 2022-03-16 00:00:00 [facility] 1.2.840.114 350.1.13.10 4.2.7.2.686 [id number] [facility] 2022-03-10 00:00:00 2022-03-10 00:00:00 Patient Outreach [facility] 1.2.840.114 350.1.13.10 4.2.7.2.686 [id number] [facility] 2022-03-06 13:50:00 2022-03-06 14:40:23 Outpatient R LAKSHMIEdson [facility] [id number] [facility] 2022-03-06 13:50:00 2022-03-06 14:40:23 Office Visit Alanna Patriciochuck [facility] 1.2.840.114 350.1.13.10 4.2.7.2.686 [id number] [facility] 2022-03-06 00:00:00 2022-03-06 00:00:00 Orders Only Doctor Unassigned, Nellie [facility] 1.2.840.114 350.1.13.10 4.2.7.2.686 [id number] [facility] 2022-03-03 09:30:00 2022-03-03 09:30:00 Outpatient R [facility] [id number] [facility] 2022-03-03 00:00:00 2022-03-03 00:00:00 Patient Secure Msg Pcp, Patient Does Not Have A [facility] 1.2.840.114 350.1.13.10 4.2.7.2.686 [id number] [facility] 2022-02-28 10:00:00 2022-02-28 10:00:00 Outpatient R SUSIE, ATTENDING [facility] [id number] [facility] 2022-02-26 00:00:00 2022-02-26 00:00:00 Patient Secure Msg Doctor Unassigned, Nellie [facility] 1..840.114 350.1.13.10 4.2.7.2.686 [id number] [facility] 2022-02-22 00:53:00 2022-02-22 00:53:00 Outpatient Constance Croft [facility]ACL LABO [id number] [facility] 2022-02-21 06:08:00 2022-02-21 11:10:00 Emergency EM Constance Croft HCAMN ANGELITO [id number] [facility] 2022-02-20 14:00:00 2022-02-20 14:00:00 Outpatient R RADHA [facility] [id number] [facility] 2022-02-19 00:00:00 2022-02-19 00:00:00 Patient Secure Msg Sheng Willian [facility] 1.2.840.114 350.1.13.10 4.2.7.2.686 [id number] [facility] 2022-02-17 12:30:00 2022-02-17 12:30:00 [id number] 2022-02-13 10:10:00 2022-02-13 10:10:00 Outpatient Edson LAKSHMIEdson [facility] [id number] [facility] 2022-02-03 00:00:00 2022-02-03 00:00:00 Transition of Care Mark Soto HITESH 1.840.114 350.1.13.10 4.2.7.2.686 [id number] [facility] 2022-02-02 00:00:00 2022-02-02 00:00:00 Patient Secure Msg Doctor Unassigned, Nellie [facility] 1.840.114 350.1.13.10 4.2.7.2.686 [id number] [facility] 2022-02-02 00:00:00 2022-02-02 00:00:00 Telephone John Wilson [facility] 1.0.114 350.1.13.10 4.2.7.2.686 [id number] [facility] 2022-01-28 09:11:00 2022-02-01 11:57:00 Emergency Meenu Shipman, Judie Shaw, Giacomo Castrejon [facility] 1.0.114 350.1.13.10 4.2.7.2.686 [id number] [facility] 2022-01-28 09:11:00 2022-02-01 11:57:00 Outpatient GIACOMO DAVIS [facility] [id number] [facility] Results Test Description Test Time Test Comments Results Resul t Comments Source - CT ABD PELVIS W/CONT 2023-05-16 01:44:00 [facility] [place] : 1970 Sex: F FAX: Anthony Shaffer [place]: St: REG Name: LETITIA ZELAYA [facility] : 1970 Age/S: 52/F [address] [facility] Unit: [id number] Loc: [address] Phys: [place] [id number] Acct: [id number] Dis Date: Status: REG ER PHONE #: [phone] Exam Date: 05/16/202346 FAX #: [phone] Reason: BACK PAIN EXAMS: CPT CODE: [id number] CT ABD PELVIS W/CONT 88293 EXAM: - CT ABD PELVIS W/CONT HISTORY: [...] 1 Signed Report (CONTINUED) FAX: Anthony Shaffer [place] Station: St: REG Name: LETITIA ZELAYA [facility] : 1970 Age/S: 52/F [address] [facility] Unit: [id number] Loc: [address] Phys: [place] [id number] Acct: [id number] Dis Date: Status: REG ER PHONE #: [phone] Exam Date: 05/16/20237 FAX #: [phone] Reason: BACK PAIN EXAMS: CPT CODE: [id number] CT ABD PELVIS W/CONT 85757 (Continued) at 0144 Reported and signed by: Arvind Daily M.D. CC: Anthony Shaffer DO Technologist: Carmela Gifford Trnscrd Dt/Tm: 05/16/2023 (0144) [id number] Orig Print D/T: S: 05/16/2023 (014 PAGE 2 Signed Report WHAT DRUGS HAVE BEEN TAKEN? unkUA RFLX MICR CULT IF [id number] 23:44:00 * Test Item Value Reference Range [...] Pain Flank PainSpecimen Description: CLEAN CATCHUR HCG [id number] 23:44:00* Test Item Value Reference Range Interpretation Comme nts UR HCG QUAL (test code = HCGQLU) NEGATIVE NEGATIVE Indication for culture: Suprapubic Pain Flank PainSpecimen Description: CLEAN CATCHBASIC METABOLIC [id number] 22:41:00* Test Item Value Reference Range Interpretation [...] 8.5 mg/dl 8.0-10.5 N HEPATIC FUNCTION PANEL [id number] 22:41:00* Test Item Value Reference Range Interpretation [...] code = ALKP) 283 Units/L 50.0-136.0 H [id number] 22:41:00* Test Item Value Reference Range Interpretation Comme nts LIPASE (test code = LIP) 29 Units/L 16-77 N CBC W/AUTO [id number] 22:26:00* Test Item Value Reference Range Interpretation [...] 3uL 0.00-0.[address] ABDOMEN PELVIS W [id number] 18:29:19Exam: CT ABDOMEN PELVIS W CONTRAST Clinical [...] mild degenerative changes and no suspicious focal lesions.[facility]. Metabolic Panel (29069)2023-03-29 17:49:51* Test Item Value Reference Range Interpretation Comme nts NA (test code = 1581826374) 139 mmol/L 135-145 K (test code = 8170008657) 3.5 mmol/L 3.5-5.0 CL (test code = 8440276225) 105 mmol/L 98-108 CO2 TOTAL (test code = 9797611161) 25 mmol/L 23-31 AGAP (test code = 3522415489) 9 2-16 BUN (test code = 1394492433) 21 mg/dL 7-23 GLUCOSE (test code = 0602451791) 147 mg/dL 70-110 H CREATININE (test code = 2160-0) 0.72 mg/dL 0.50-1.04 TOTAL BILI (test code = 2028365578) 1.5 mg/dL 0.1-1.1 H CALCIUM (test code = 4439291864) 9.5 mg/dL 8.6-10.6 T PROTEIN (test code = 8948813325) 8.2 g/dL 6.3-8.2 ALBUMIN (test code = 8483406311) 4.6 g/dL 3.5-5.0 ALK PHOS (test code = 5126826214) 161 U/L 34-122 H ALTv (test code = 1742-6) 40 U/L 5-35 H AST(SGOT) (test code = 9957131341) 55 U/L 13-40 H eGFR (test code = 15557-3) 100.1 mL/min/1.73m2 CKD-EPI eGFR (2020). Assuming creatinine has been stable day-to-day for at least three months, the eGFR indicates Category G1 (>= 90 mL/min/1.73 m2) Lab Interpretation (test code = 84293-4) Abnormal [facility] with [id number] 17:38:32* Test Item Value Reference Range Interpretation [...] 33.6 g/dL 31.6-35.1 RDW-SD (test code = 33845-4) 43.6 fL 39.0-49.9 RDW-CV (test code = 788-0) 14.8 % 12.0-15.5 PLT (test code = 777-3) 183 166-358 MPV (test code = 49849-7) 10.2 fL 9.5-12.9 NRBC/100 WBC (test code = 8400922427) 0.0 0.0-10.0 NRBC x10^3 (test code = 0356127406) See_Comment [Automated PersistIQa ge] The system which generated this result transmitted reference range: 10*3/?L. The reference range was not used to interpret this result as normal/abnormal. GRAN MAT (NEUT) % (test code = 770-8) 64.3 % IMM GRAN % (test code = 0876968956) 0.30 % LYMPH % (test code = 736-9) 23.0 % MONO % (test code = 5905-5) 5.6 % EOS % (test code = 713-8) 6.5 % BASO % (test code = 706-2) 0.3 % GRAN MAT x10^3(ANC) (test code = 3061265140) 2.29 10*3/uL 1.88-7.09 IMM GRAN x10^3 (test code = 6478194044) 0.00-0.06 LYMPH x10^3 (test code = 731-0) 0.82 10*3/uL 1.32-3.29 L MONO x10^3 (test code = 742-7) 0.20 10*3/uL 0.33-0.92 L EOS x10^3 (test code = 711-2) 0.23 10*3/uL 0.03-0.39 BASO x10^3 (test code = 704-7) 0.01-0.07 Lab Interpretation (test code = 83193-4) [facility]normal [facility] Whole [id number] 17:36:39* Test Item Value Reference Range Interpretation Comme nts LACTIC ACID (test code = 7212625233) 1.86 mmol/L 0.50-2.20 Lab Interpretation (test cod e = 98424-0) Normal [facility] W [id number] 02:26:06EXAM: CT ABDOMEN/PELVIS WITH CONTRAST HISTORY: ?Abdominal [...] sclerotic bony lesions.Degenerative changes of the lumbar spine.[facility] HospitalLIPASE2024-02-15 23:49:52* Test Item Value Reference Range Interpretation Comme nts LIPASE (test code = 5810563169) 74 U/L 0-220 Lab Interpretation (test cod e = 59411-3) Normal [facility] HospitalCOMP. METABOLIC PANEL (72909)2023-03-25 23:49:52* Test Item Value Reference Range Interpretation Comme nts NA (test code = 4580973386) 140 mmol/L 135-145 K (test code = 0254960500) 3.7 mmol/L 3.5-5.0 Slight hemolysis CL (test code = 6704292745) 106 mmol/L 98-108 CO2 TOTAL (test code = 7000832776) 21 mmol/L 23-31 L AGAP (test code = 6717135822) 13 2-16 BUN (test code = 6974193039) 14 mg/dL 7-23 Slight hemolysis GLUCOSE (test code = 8067945364) 111 mg/dL 70-110 H CREATININE (test code = 2160-0) 0.59 mg/dL 0.50-1.04 TOTAL BILI (test code = 8681585367) 1.8 mg/dL 0.1-1.1 H CALCIUM (test code = 6672747562) 9.6 mg/dL 8.6-10.6 T PROTEIN (test code = 0529634985) 8.8 g/dL 6.3-8.2 H ALBUMIN (test code = 2558932609) 4.8 g/dL 3.5-5.0 ALK PHOS (test code = 7418185906) 167 U/L 34-122 H Slight hemolysis ALTv (test code = 1742-6) 41 U/L 5-35 H AST(SGOT) (test code = 3720111220) 59 U/L 13-40 H Slight hemolysis eGFR (test code = 25585-1) 107.9 mL/min/1.73m2 CKD-EPI eGFR (2020). Assuming creatinine has been stable day-to-day for at least three months, the eGFR indicates Category G1 (>= 90 mL/min/1.73 m2) Lab Interpretation (test code = 41700-3) Abnormal [facility] WITH [id number] 23:24:49* Test Item Value Reference Range Interpretation [...] 34.3 g/dL 31.6-35.1 RDW-SD (test code = 68241-0) 43.4 fL 39.0-49.9 RDW-CV (test code = 788-0) 15.2 % 12.0-15.5 PLT (test code = 777-3) 165 166-358 L MPV (test code = 00614-5) 10.1 fL 9.5-12.9 NRBC/100 WBC (test code = 2060606424) 0.0 0.0-10.0 NRBC x10^3 (test code = 1429965356) See_Comment [Automated PersistIQa ge] The system which generated this result transmitted reference range: 10*3/?L. The reference range was not used to interpret this result as normal/abnormal. GRAN MAT (NEUT) % (test code = 770-8) 83.2 % IMM GRAN % (test code = 5621030380) 0.30 % LYMPH % (test code = 736-9) 12.5 % MONO % (test code = 5905-5) 3.8 % EOS % (test code = 713-8) 0.0 % BASO % (test code = 706-2) 0.2 % GRAN MAT x10^3(ANC) (test code = 9662159757) 4.77 10*3/uL 1.88-7.09 IMM GRAN x10^3 (test code = 7266682239) 0.00-0.06 LYMPH x10^3 (test code = 731-0) 0.72 10*3/uL 1.32-3.29 L MONO x10^3 (test code = 742-7) 0.22 10*3/uL 0.33-0.92 L EOS x10^3 (test code = 711-2) 0.03-0.39 L BASO x10^3 (test code = 704-7) 0.01-0.07 Lab Interpretation (test code = 15556-5) Abnormal [facility] ABDOMEN/[id number] 22:45:01 ORDERING PHYSICIAN: JOSELINE MCRAE CLINICAL HISTORY: [...] There is disc space narrowing at L4-L5and L5-S1.[facility] HospitalEthanol2024-02-09 22:03:44ALCOHOL<10mg/dL03/19/2023 4:03 PM [facility]ST[facility]oxic Greater than or equal to 80 mg/dL. NOTE: Whole blood values are approximately 10% to 15% lower than serum and plasma.[facility] HospitalTroponin [id number] 21:50:05* Test Item Value Reference Range Interpretation Comme nts TROPONIN I (test code = 3169183268) 0.016 ng/mL <=0.034 MULUGETA (test code = [...] of biotin. Lab Interpretation (test code = 40472-8) Normal [facility] HospitalType and Screen - ONCE [id number] 21:49:00 * Test Item Value Reference Range Interpretation Comme nts ABO & RH (test code = 20) O POSITIVE IAT (test code = 1185) Negative [facility] HospitalComp. Metabolic Panel (75784)2023-03-19 21:39:03* Test Item Value Reference Range Interpretation Comme nts NA (test code = 2033296121) 139 mmol/L 135-145 K (test code = 5365960559) 4.4 mmol/L 3.5-5.0 Slight hemolysis CL (test code = 0598211765) 109 mmol/L 98-108 H CO2 TOTAL (test code = 6355912529) 18 mmol/L 23-31 L AGAP (test code = 5248574647) 12 2-16 BUN (test code = 7977382828) 14 mg/dL 7-23 Slight hemolysis GLUCOSE (test code = 9307816942) 105 mg/dL 70-110 CREATININE (test code = 3649669554) 0.72 mg/dL 0.50-1.04 TOTAL BILI (test code = 6635102660) 1.3 mg/dL 0.1-1.1 H CALCIUM (test code = 1217546037) 9.1 mg/dL 8.6-10.6 T PROTEIN (test code = 9393097707) 8.4 g/dL 6.3-8.2 H ALBUMIN (test code = 8605651688) 4.6 g/dL 3.5-5.0 ALK PHOS (test code = 7241253100) 163 U/L 34-122 H Slight hemolysis ALTv (test code = 1742-6) 51 U/L 5-35 H AST(SGOT) (test code = 4997315440) 66 U/L 13-40 H Slight hemolysis eGFR (test code = 71136-3) 100.1 mL/min/1.73m2 CKD-EPI eGFR (2020). Assuming creatinine has been stable day-to-day for at least three months, the eGFR indicates Category G1 (>= 90 mL/min/1.73 m2) Lab Interpretation (test code = 48841-7) Abnormal [facility] HospitalLipase2024-02-09 21:39:03* Test Item Value Reference Range Interpretation Comme nts LIPASE (test code = 4460026660) 120 U/L 0-220 Lab Interpretation (test cod e = 27167-9) Normal [facility] HospitalProthrombin Time / [id number] 21:31:44* Test Item Value Reference Range Interpretation Comme nts PROTIME PATIENT (test code = 5964-2) 10.5 10.1-12.6 INR (test code = 6301-6) 0.9 Normal INR <1.1; Warfarin Therapeutic range 2.0 to 3.0 or 2.5 to 3.5, depending upon the indications. Lab Interpretation (test code = 10741-7) Normal [facility] HospitalCbc with Bmqq0030-53-81 21:30:21* Test Item Value Reference Range Interpretation [...] 33.9 g/dL 31.6-35.1 RDW-SD (test code = 33526-6) 43.2 fL 39.0-49.9 RDW-CV (test code = 788-0) 14.9 % 12.0-15.5 PLT (test code = 777-3) 141 166-358 L MPV (test code = 17690-9) 10.5 fL 9.5-12.9 IPF % (test code = 0971343062) 3.7 % 1.3-7.7 Platelet count measured by fluorescence method. NRBC/100 WBC (test code = 3633867670) 0.0 0.0-10.0 NRBC x10^3 (test code = 6580556135) See_Comment [Automated PersistIQa ge] The system which generated this result transmitted reference range: 10*3/?L. The reference range was not used to interpret this result as normal/abnormal. GRAN MAT (NEUT) % (test code = 770-8) 74.8 % IMM GRAN % (test code = 3163132296) 0.20 % LYMPH % (test code = 736-9) 17.9 % MONO % (test code = 5905-5) 4.3 % EOS % (test code = 713-8) 2.6 % BASO % (test code = 706-2) 0.2 % GRAN MAT x10^3(ANC) (test code = 5159688534) 3.81 10*3/uL 1.88-7.09 IMM GRAN x10^3 (test code = 5684485781) 0.00-0.06 LYMPH x10^3 (test code = 731-0) 0.91 10*3/uL 1.32-3.29 L MONO x10^3 (test code = 742-7) 0.22 10*3/uL 0.33-0.92 L EOS x10^3 (test code = 711-2) 0.13 10*3/uL 0.03-0.39 BASO x10^3 (test code = 704-7) 0.01-0.07 Lab Interpretation (test code = 25912-1) Abnormal [facility] BHCG (QUANTITATIVE)2022-04-18 09:54:26* Test Item Value Reference Range Interpretation Comme nts BETA HCG (test code = 1520259391) 7.22 See_Comment [Automated PersistIQa ge] The system which generated this result transmitted reference range: Non- female and male patients: <5 mIU/mL. The reference range was not used to interpret this result as normal/abnormal. MULUGETA (test code = MULUGETA) Gestational Age ?Range (mIU/mL) 1-10 ?Weeks ?44-33841852-91 Weeks ?44973-55223393-93 Weeks ?4292-57037334-98 Weeks ?7455-223390 Biotin has been reported to cause a negative bias, interpret results relative to patient's use of biotin. [facility] HospitalPREGNANCY TEST, [id number] 06:42:14* Test Item Value Reference Range Interpretation Comme nts PREG SERUM (test code = 6228154235) Positive MULUGETA (test code = MULUGETA) Positive greater t luke or equal to 10 IU/L hCG. [facility] HospitalETHANOL2023-03-11 06:24:09 ALCOHOL<10mg/dL04/18/2022 12:24 AM CSTUTMB LABORATORY SERVICESToxic Greater than or equal to 80 mg/dL. NOTE: Whole blood values are approximately 10% to 15% lower than serum and plasma.[facility] HospitalTROP-I HIGH [id number] 10:30:00* Test Item Value Reference Range Interpretation Comme nts TROP-I HIGH SENSITIVITY (test code = TROPIHS) 8.1 pg/mL 0.0-51.4 N CAUTION: Units o f the current TROPI-HS test methodology(pg/mL) differ from the prior test methodology (ng/mL) by afactor of 1000. 99th Percentile: Females: 0.0-51.4 pg/mL Males: 0.0-76.2 pg/mLThese results were obtained using [employer] T[employer]brancht. Results from different methodologies should not becompared to one another as quantitative results may vary bymethod. [id number] 10:29:00* Test Item Value Reference Range Interpretation Comme nts ALCOHOL (test code = ALC) 0.00 gm/dL 0.00-0.00 N ETHYL ALCOHOL VA LUES - INTERPRETATION: 0.050 GM/DL - NOT INTOXICATED 0.100 GM/DL - INTOXICATED 0.350-0.450 GM/DL - SEVERELY INTOXICATED 0.550 GM/DL- FATAL INTOXICATION URINALYSIS [id number] 08:13:00* Test Item Value Reference Range Interpretation [...] Specimen comments: Clean CatchDRUGS OF ABUSE SCREEN [id number] 08:09:00* Test Item Value Reference Range Interpretation [...] 300 ng/mL - CT ABD PELVIS W/O [id number] 08:08:00 [facility] [place] [place] : 1970 Sex: F FAX: Constance Main MD [phone] [place]: St: REG Name: LETITIA ZELAYA [facility] : 1970 Age/S: 51/F [address] [facility] Unit: [id number] [place]: [place]: [place] [address] Acct: [id number] Dis Date: Status: REG ER PHONE #: [phone] Exam Date: 02/21/2022736 FAX #: [phone] Reason: RIGHT FLANK PAIN EXAMS: CPT CODE: [id number] CT ABD PELVIS W/O CONT 83716 CLINICAL HISTORY: Right flank pain TECHNIQUE: Axial images of the abdomen and pelvis were obtained from diaphragm to the pubic symphysis without oral or intravenous contrast. CT dose lowering technique utilized, with adjustment of MA/kV according to patient size and automated exposure control. COMPARISON: CT abdomen and pelvis October 01, 2017 DISCUSSION: The lung bases are clear. The heart size is normal. Theliver is normal in size and contour, without focal abnormality. The gallbladder is absent. No biliary ductal dilatation. The spleen, pancreas and adrenal glands are unremarkable. Both kidneys are normal in size. No hydronephrosis, nephrolithiasis or perinephric edema. Vascular structures are normalin caliber and appearance. The small and large bowel are unremarkable. The appendix is not visualized. No abdominal, pelvic or retroperitoneal adenopathy or free fluid. The uterus, adnexa and urinarybladder appear unremarkable. Spondylotic changes are noted throughout the lower lumbar spine. No suspicious bony lesions. IMPRESSION: Negative noncontrast CT abdomen and pelvis at 0808 Reported and signed by: Trevor Stinson M.D. PAGE 1 Signed Report (CONTINUED) FAX: Constance Croft MD [phone] [place]: St: REG Name: LETITIA ZELAYA [facility] : 1970 Age/S: 51/F [address] Unit: [id number] Loc: [place], [place]: [place] [address] Acct: [id number] Dis Date: Status: REG ER PHONE #: [phone] Exam Date: 736 FAX #: [phone] Reason: RIGHT FLANK PAIN EXAMS: CPT CODE: [id number] CT ABD PELVIS W/O CONT 42124 (Continued) CC: Constance Croft MD Technologist: MIRANDA GAXIOLA Trnscrd Dt/Tm: 02/21/2022 (0808) [id number] Orig Print D/T: S: 02/21/2022 (0811 PAGE 2 Signed ReportBASIC METABOLIC [id number] 07:03:00* Test Item Value Reference Range Interpretation [...] 9.3 mg/dl 8.0-10.5 N HEPATIC FUNCTION PANEL [id number] 07:03:00* Test Item Value Reference Range Interpretation [...] code = ALKP) 207 Units/L 50.0-136.0 H [id number] 07:03:00* Test Item Value Reference Range Interpretation Comme nts LIPASE (test code = LIP) 117 Units/L 65.0-230.0 N PROTHROMBIN [id number] 06:49:00* Test Item Value Reference Range Interpretation [...] ANTIPHOSPHOLIPID ANTIBODIES 2.5 - 3.5 THROMBOPLASTIN TIME [id number] 06:49:00* Test Item Value Reference Range Interpretation Comme nts THROMBOPLASTIN TIME PARTIAL (test code = PTT) 30.90 SECONDS 25.86-36.07 [facility] [place] [facility] Therapeutic Range - APTT of 55.8-85.4 secondscorrelates with plasma heparin concentration of 0.2-0.4 u/mL CBC W/AUTO [id number] 06:46:00* Test Item Value Reference Range Interpretation [...] HUMAN IMMUNODEFICIENCY VIRUS 1 (HIV-1) BY QUANTITATIVE [id number] 19:06:56* Test Item Value Reference Range Interpretation Comme nts HIV-1 Quantitative NAAT - copies/mL (test code = 23499-3) Not Detected Copies/mL H HIV-1 Quantitative Interpretation (test code = 7376977642) Detected Not Detected A MULUGETA (test code [...] clinically indicated. Lab Interpretation (test code = 03971-1) Abnormal [facility] HospitalHEPATITIS B VIRUS (HBV) BY QUANTITATIVE NAAT 2022-01-31 18:36:58* Test Item Value Reference Range Interpretation Comme [facility] HBV Quantitative Interpretation (test code = 07395-4) Not Detected Not Detected MULUGETA (test code [...] clinically indicated. Lab Interpretation (test code = 05565-2) Normal [facility] HospitalCMV BY [id number] 18:55:59* Test Item Value Reference Range Interpretation Comme nts Specimen Tested (test code = 7604106593) Plasma CMV PCR - log IU/mL (test code = 28260-7) See_Comment [Automated message] The system which generated this result transmitted reference range: <2.5 log IU/mL. The reference range was not used to interpret this result as normal/abnormal. CMV PCR - IU/mL (test code = 36191-0) See_Comment [Automated message] The system which generated this result transmitted reference range: <300 IU/mL. The reference range was not used to interpret this result as normal/abnormal. CMV PCR - log copies/mL (test code = 18245-8) See_Comment [Automated message] The system which generated this result transmitted reference range: <2.7 log copies/mL. The reference range was not used to interpret this result as normal/abnormal. CMV PCR - copies/mL (test code = 29765-5) See_Comment [Automated message] The system which generated [...] This is a laboratory-developed test using a control officer manager labeled ASR (Analyte Specific Reagent) as the reagent providing the specificity of the assay. ?This test was developed and its performance characteristics determined by [facility] Clinical Microbiology Laboratory. It has not been [...] to perform high complexity clinical laboratory testing. [facility] HospitalGALV ONLY - SYPHILIS IGG/[id number] 16:01:26* Test Item Value Reference Range Interpretation Comme nts Syphilis IgG/IgM (test code = 23085-9) Non-reactive Non-reactive MULUGETA (test code = MULUGETA) Non-reactive - No serologic evidence of T. pallidum infection. Cannot exclude incubating or early syphilis. Submit a second specimen in 2-4 weeks if syphilis is clinically suspected. Equivocal - Further testing to follow. Reactive - Further testing to follow. Lab Interpretation (test code = 99823-4) Normal [facility] Notes Date/Time Note Provider Source 2024-02-16 08:04:50 Letitia Zelaya is a 53 year old female Left patient a voicemail to call back to schedule stress test - Please be advised NCIAL PLANNING CONSULTANT Keri Ca [facility] 2024-02-15 15:22:56 Order placed. NCIAL PLANNING CONSULTANT [facility] 2024-02-15 14:04:36 Discussed with pt importance of stress test prior to cardiac clearance. Pt verbalized understanding. Will forward to Dr. Cook for order to be placed and then will forward to PSS to assist pt with scheduling appt. NCIAL PLANNING CONSULTANT Dyana Shook RN [facility] 2024-02-15 12:04:32 Goal from exercise is to see functional capacity and see if heart rate can increase in a normal way. I prefer to obtain the exercise test before clearing for surgery. Evan Cook MD physics professor. Division of cardiovascular medicine [facility] 2024-02-15 09:36:22 Images from the original note were not included. Patient notified of results. They verbalized understanding of results/recommendations via teach back. No further questions or concerns at this time. Patient feels that she could not walk on a treadmill. She states that she gets short winded easily and doesn't usually walk long distances. She is also trying to have foot surgery. She would like to know if she is cleared to have foot surgery? Evan Cook MD P Cardiology Nurse Holter monitor showed overall slow heart rate (average heart rate is 54 bpm and maximum was 84 bpm). In spite of absence of significant arrhythmias this heart rate is generally to the lower side. Given history of loss of consciousness I recommend obtaining stress EKG to confirm that the heart rate can increase normally with exercise. I want to perform the stress EKG while Ms. Letitia Zelaya is on propranolol. ONETTE Machado RN [facility] 2024-02-14 09:59:12 Spoke with patient, her results have not been finalized yet. Advised her to give a little more time. Encouraged her to call back in 1 week if she has not heard back about results. Patient is waiting for results for clearance to have foot surgery. ONETTE Machado RN [facility] 2024-02-14 09:09:26 Letitia Zelaya is a 53 year old female Pt is calling asking for an update on heart monitor results. Please advise. NCIAL PLANNING CONSULTANT Marybel Rudolph [facility] 2024-02-07 10:39:51 Patient returned device NCIAL PLANNING CONSULTANT Karly Machado RN [facility] 2024-02-04 15:50:47 Tried to call patient regarding heart monitor, @3:15 left a voicemail on [phone]. Patient was put on holter monitor on 01/31/2024, 48 hr monitor. BINU . Please try to call back again. NCIAL PLANNING CONSULTANT Suzi Chen MA [facility] 2023-12-10 14:03:07 Please schedule pt for pre op clearance. Lily Buck MA [facility] 2023-12-10 11:47:13 Surgical clearance apt will be needed. Nell seen pt 1 x and BP was very high. [facility] 2023-12-09 10:47:35 Patient states is having left bunion surgery once cleared by this Provider is not wanting to schedule a second appt at this time. She said [facility] accepted the labs already completed, has also done an EKG, and has been cleared by her Infectious disease doctor. She is only needing an okay by Mrs Preston. Please advise. Elizabeth Robb LVN [facility] 2023-12-06 11:46:07 What type of surgery? Yes need to follow up as last apt was establish care [facility] 2023-12-06 11:24:46 MALKA 10/04/23, please let me know if you would like pt to be seen in office for clearance Lily Buck MA [facility] 2023-12-06 11:17:42 Letitia Zelaya is a 53 year old female Calling to get clearance for foot surgery from dr Dr. Kalen Matthews [address] [place], [place] [address] [phone] [facility] 2023-12-06 10:55:48 Letitia Zelaya is a 53 year old female pt is calling stating that she is having foot surgery and she needs a clearance letter from Dr Guzman. Please send letter to Dr. Kalen Matthews [address] [place] [address] Collette Stubbs [facility]2024-10-28 10:53:36 [facility] CenterIvqtuuv6685-16-16 10:53:36* Kalen Matthews DPM - 12/06/2023 10:10 AM CDT CHIEF COMPLAINT: BUNION, LEFT HISTORY OF PRESENT ILLNESS: Patient returns for discussion of surgical options since no improvements from conservative treatments Patient denies infection, injury, wounds Patient states pain currently rated 6/10 on palpation, left medial 1st metatarsal head --- Patient states history of contralateral bunionectomy ( alternate provider in [place], [place]), approximately 2021 Patient states she [...] hair growth NEUROLOGICAL: (+) sensation with 5.07 [place] monofilament examination to the most distal [...] - PENDING CONSULT DECEMBER 19 - Pain -svnv-lva-yervozi as needed - Xrays - reviewed - [...] legally responsible person has agreed to proceed. N Carrasquillo2024-10-28 10:53:36Upcoming Encounters Health Maintenance Due Date Last [...] on patient's age to complete this topic [facility] CenterKdsnrlu7262-40-63 10:56:[address] [facility] HospitalLzvsff2275-39-88 16:42:41 Please review, complete, and sign if appropriate. Elizabeth Robb [facility]2024-10-24 15:28:57 Call routed to correct clinic Shiloh Levine RNSt. Rita's HospitalNllmnj8393-14-97 15:14:47 Letitia Zelaya is a 53 year old female Pt is calling stating the referral that was sent to an external facility doesn't accept her insurance and will like a new referral for sleep study within [facility] (internal). Pt states she will like a [...] No If yes, Date of Appt: Abram OrtizSt. Rita's HospitalHlxtca4071-44-76 08:07:[address] [facility] HospitalRhejck1678-60-04 08:22:49 Please advise. Malka 10/04/23. Pt also sent my chart message stating psych prescribed Rx's but aren't helping. Lily Buck MASt. Rita's HospitalBnalpb6404-90-84 08:16:11 Letitia Zelaya is a 53 year old female is requesting a referral to: Dept: Reason for referral: Insomnia Duration of problem: Internal / External referral: external Name of provider / location patient requesting: [facility] [address] [place] [address], [facility].[address] [place], [place] [id number] Phone number: [phone] Fax number: [phone] Appt already scheduled?: no If yes, date of appt.: Lalito IrelandSt. Rita's HospitalWbsjhw0354-73-86 09:30:00 Images from the original note were not included. Venipuncture collection performed by clean technique on the left hand. Total of 1 attempts were made. Slight pressure and a bandage/dressing were applied to the site(s). The patient experienced no complications. The following specimens were processed according to instructions and sent to [facility] laboratories per lab order on 11/23/2023 : LT BLUE SST 3 RED LAV 2 PPT 2 DK GREEN (LiHep) 1 DK GREEN (SodH) SINGH DK BLUE (K2) DK BLUE (S) ACD Blood Culture NIPT/NTD Pt sent home with sterile stool collection kit. Nery Ray 11/23/2023 9:30 AM [place] [address]26-09-03 10:32:21 Ok hem referral placed [place] [address]26-08-30 10:34:58 Please try The 'BRAT' diet is [...] vomiting, fever or abdominal pain, or contractions. [facility] HospitalEryrsp8043-37-58 09:59:41 MALKA: 10/04/23 Caty Schwartz [facility]2024-08-30 09:47:25 Letitia Zelaya is a 53 year old female calling to see if can prescribe her something for the upset and diarrhea she has had for a week. Pt say she feels weak and has body aches because of this . [id number] [place], [place] - [address] AT [facility] [address] [place] [address] Juan GeorgesSt. Rita's HospitalQltndl6625-93-13 09:37:51 Images from the original note were not included. Liver enzymes are elevated , avoid and alcohol use and limit Nsaids usage. Diet and exercise. Will repeat LFT in 6 weeks. Thyroid normal A1C normal Written by ATUL Horn on 10/05/2023 8:53 AM CDT Seen by patient Letitia Zelaya on 10/05/2023 9:16 AM Caty Schwartz [facility]2024-08-27 08:53:12 Labs were added r/t elevated LFTs After looking into prior visits at [facility] it shows she also has HCV, I put a GI referral in as well for tx [facility] HospitalOknfva3305-46-14 21:40:00 [facility] ([facility] EMERGENCY PROVIDER REPORT REPORT#:[id number] REPORT STATUS: Signed DATE:05/15/23 TIME: 2139 PATIENT: LETITIA ZELAYA UNIT #: [id number] ROOM/BED: AGE: 52 SEX: F PCP PHYS: [...] Diagnostics Lab Results Interpretation Results Laboratory Tests 05/15/23 2216: [Embedded Image Not Available] Laboratory Tests: 05/15 [...] % (Auto) (23.0 - 38.0 %) 36.0 Gove % (Auto) (1.0 - 10.0 %) 7.2 Eos % (Auto) (1.0 - 5.0 %) 9.2 H Baso % (Auto) (0.0 - 1.0 %) 0.7 Neut # (Auto) (2.4 - 6.3 K/mm3) 1.4 L Lymph # (Auto) (1.2 - 4.0 K/mm3) 1.1 L Gove # (Auto) (0.0 - 0.6 K/mm3) 0.2 [...] pH (5.0 - 9.0) 6.0 Ur Specific [place] (1.000 - 1.030) 1.020 Urine Protein (NEGATIVE [...] 46 Report Impression - Status: SIGNED Entered: 05/16/2023146 IMPRESSION: No significant abnormalities demonstrated. Other findings as above. Impression By: [email or web address] - Arvind Daily M.D. ECG #1 Interpretation Text/Dict Note Sinus rhythm 84 bpm, normal axis, no segment elevation, QTc 472 Re-Evaluation MDM )( Re-Evaluation/Progress #1 Text/Dict Note Unremarkable labs, drug screen positive for opiates, UA positive leukocyte esterase without white blood cells in urine as per patient she is taking [place] for pain control and she is taking [...] 05/15 2139 DC 05/14 Tromethamine IV 05/14 Diagnostic Agents Sig/Emil Start time Last Medication Dose Route Stop Time Status Admin Iopamidol 0 .STK-MED ONE 05/15 0039 DC 05/15 IV 0048 Electrolytic, Caloric, And Huyen Sig/Emil Start time Last Medication Dose Route Stop Time Status Admin Sodium Chloride 1,000 ML ONCE ONE 05/14 2144 DC 05/14 IV 05/14 Patient Discharge Departure Vital Signs/Condition Vital Signs First Documented: Result Date Time Pulse Ox 95 05/14 2137 B/P 140/80 05/14 2137 B/P Mean 100 05/14 2137 O2 Delivery Room air 05/14 2137 Temp 98.7 05/14 2137 Pulse 101 05/14 2137 Resp 18 05/14 2137 Last Documented: Result Date Time Pulse Ox 96 05/15 0208 B/P 108/77 05/158 B/P Mean 87 05/158 O2 Delivery Room air 05/158 Temp 98.0 05/158 Pulse 80 05/15 0208 Resp 19 05/158 All vital signs available at the time [...] Referrals Provider Referral: Jimbo Oliveros MD Address: [address] [place] [address] Provider Referral: Roger Patricia MD Address: [address] [place] [address] Provider Referral: Guzman Yost Jr, MD Address: [address] [place] [address] [address] [facility] [address] Provider Referral: Colette Yost MD Address: [address] [place] [address] [address] [place] [address] Provider Referral: Tex Onofre MD Address: [address] [place] [address] [address] [place] [address] Provider Referral: Perfecto Pelaez MD Address: [address] [address] at [address] RPT #:[id number] END OF REPORTAUJMX2301-91-80 08:35:07 Social Work Note VEGETABLE INSPECTOR attempted to speak with [facility] ) but had to leave a message for the call to be returned. Please forward the call / message to VEGETABLE INSPECTOR when she calls back. Please consult VEGETABLE INSPECTOR if additional needs arise. La Boyer LMSW, [facility]- Ambulatory Director It - Care Management Community Based Clinics / Adult & Pediatrics - [facility] [phone] office La Boyer [facility]2024-04-02 16:04:17 La Boyer is working on this patient for long term needs. Routed to [facility]. Brittany Lott [facility]2024-04-02 15:47:17 No form found regarding this patient or telephone call. Brittany Gaviria LVN has been corresponding with Home Health will put this encounter back in , in basket for Brittany. Everett Corbin [facility]2024-04-02 14:32:09 Letitia Zelaya is a 52 year old female Raquel from the long term is calling to speak with a nurse. Please contact Raquel. Milena WoodruffSt. Rita's HospitalCkdihl8306-19-86 08:49:39 Attempted to contact Raquel with [employer] , but had to leave a message to call back. Message sent to FLAKO Escamilla, as she has been assisting with this patient. [facility] HospitalFyavht2275-05-45 13:39:11 snf Is requesting to speak with a nurse regarding information needed for the nursing facility [facility]2024-03-05 11:01:22 Raquel has been informed of Maureen's message. She verbalized understanding. 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 First needs evaluation by Neuro psychiatry. I will follow up with Social work regarding this issue. Notify patient she will be contacted by social work with update and to contact social work with further concerns. NCIAL PLANNING CONSULTANT Brittany Lott [facility]2024-03-05 10:55:43 Copied from [facility] #[id number]. Topic: Clinical - Medical Advice >> Apr 13, 2023 10:44 AM Patient Chemical Packager wrote: Raquel with [facility] and snf called to follow up on the pt's diagnosis for medical necessity. Raquel - [phone] [facility] Please advise. ONETTE VillalbaSt. Rita's HospitalKiuyhy5534-62-20 10:21:48 La please see most recent response. 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 First needs evaluation by Neuro psychiatry. I will follow up with Social work regarding this issue. Notify patient she will be contacted by social work with update and to contact social work with further concerns. Patient has been informed of this via [address]. [address] [facility] HospitalAumlsr2374-88-25 08:00:51 This is being addressed in a previous [employer] message dated 04/09/2023. This encounter closed. ONETTE Lott [facility]2024-03-04 16:11:33 Images from the original note were not included. 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 She stated that this would have to be addended to Maureen's last office note on 03/19/2023 in order for her to be admitted. This will have to be faxed to [phone] FLAKO Tovar, is out of office today and will return tomorrow. NCIAL PLANNING CONSULTANT [facility] HospitalCoftcw7167-86-56 16:02:52 Letitia Zelaya is a 52 year old female Raquel at [facility] snf is needing diganosis reports for ( R 41.89 & F 02.4 ) medical neccesity to have the patient admitted into the nursing facility Please advise [phone] ONETTE IrelandSt. Rita's HospitalMxwdla8999-97-15 13:55:19 Letitia Zelaya is a 52 year old female Raquel with [facility] nursing is calling stating Pt is very anxious about getting admitted today into long term and has called several times to get the new orders over with the correct dx codes to hospice/ nursing. Please fax orders and contact pt once done.Thank you! Fx: [phone] ONETTE SinghSt. Rita's HospitalSjfzqz0077-44-00 13:48:42 Pt is called to check updates regarding her getting admitted to the long term. Pt states that Raquel with [facility] is waiting on the responds from pcp to go ahead and admitted pt today. Pt states she is needing this to get done azam bc she is wanting to get admitted by this afternoon. ONETTE EscobarSt. Rita's HospitalCqgqob6240-36-08 13:40:22 error ONETTE MenendezKettering Memorial HospitalSeuiej0107-48-11 09:40:28 This has been copied into a previous encounter where the director social service has been assisting with. This encounter closed to avoid multiple messages. ONETTE Lott [facility]2024-03-04 09:38:47 Images from the original note were not included. 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 She stated that this would have to be addended to Maureen's last office note on 03/19/2023 in order for her to be admitted. This will have to be faxed to [phone] FLAKO Tovar, is out of office today and will return tomorrow. April 12, 2023 04/12/23 9:20 AM Letitia Zelaya Curtis D Donihoo, Curtis D 04/12/23 9:23 AM Copied from [facility] #[id number]. Topic: Clinical - Order >> Apr 12, 2023 9:20 AM Patient Chemical Packager wrote: Raquel with [facility] is requiring a call from the clinic to discuss adding diagnoses to referral regarding her cognitive impermeant. Date/Time Type Contact Phone/Fax 04/12/2023 09:24 AM FINANCIAL PLANNING CONSULTANT by Ever Caicedo Incoming Raquel (HOME HEALTH) [phone] [facility] HospitalFidsyn2414-90-02 09:23:55 Copied from [facility] #[id number]. Topic: Clinical - Order >> Apr 12, 2023 9:20 AM Patient Chemical Packager wrote: Raquel with [facility] is requiring a call from the clinic to discuss adding diagnoses to referral regarding her cognitive impermeant. ONETTE CaicedoSt. Rita's HospitalWrjeoy0944-87-39 15:48:10 Social Work Note The referral has been faxed over to [facility] as requested. La Boyer LMSW, VAISHALIFLAKO Ambulatory Director It - Care Management [facility] & Pediatrics [facility] [phone] office ONETTE Boyer [facility]2024-03-01 15:12:06 Pt called because she wants to lnow if the orders can be faxed over as soon as possible because she said the place can see her by Wednesday. ONETTE GarciaSt. Rita's HospitalLlgxfp7442-45-87 08:56:44 Social Work Note JOSEPH is addressing this matter in a pt outreach. La Boyer LMSW, VAISHALIFLAKO Ambulatory Director It - Care Management [facility] / Adult & Pediatrics - [facility] [phone] office ONETTE Boyer [facility]2024-03-01 08:28:52 Pt has been updated via [employer]. Pt was working on getting a medical release sent to us. [facility]2024-03-01 08:14:30 Patient is new to this provider Unknown if confirmed hx liver cancer- will need additional records to clarify /verify ER records reviewed-no follow up OV needed Social work referral approved Provider can discuss patient medical case once medical release is singed to speak with Trinidad MORALES per patient and records reviewed by Trinidad MORALES Thank you, Maureen Mcdonald RN, MSN, MACHINE ENGINEER, GLASS CURVATURE GAUGER-C NCIAL PLANNING CONSULTANT GLASS CURVATURE GAUGER-ADULT HEALTH MIDLEVEL PROVIDERSt. Rita's HospitalLdpvlr6237-28-22 10:48:03 This is being addressed in a call 04/08/2023. This encounter closed to avoid multiple messages. ONETTE Herrera [facility]2024-02-29 10:47:35 This is being addressed in a call 04/08/2023. This encounter closed to avoid multiple messages. ONETTE Herrera [place] 509614-02-29 10:47:08 This is being addressed in a call 04/08/2023. This encounter closed to avoid multiple messages. ONETTE Herrera [place] [address]-02-29 10:46:45 This is being addressed in a call 04/08/2023. This encounter closed to avoid multiple messages. ONETTE Herrera [place] [address]-02-29 10:46:25 This is being addressed in a call 04/08/2023. This encounter closed to avoid multiple messages. ONETTE Herrera Kaylie [facility]2024-02-29 10:45:30 This is being addressed in a call 04/08/2023. This encounter closed to avoid multiple messages. ONETTE Herrera Kaylie [facility]2024-02-29 10:10:30 Images from the original note were not included. ER 03/29/2023 acute cystitis with hematuria MALKA 03/19/2023 several diagnosis No future appt scheduled Spoke to Nuzhat with [facility],[phone] They are requesting Medical Records, Hospice Order for end of life care. Hospice Order, to eval and admit to hospice if appropriate and primary diagnosis of liver cancer They did a telehealth visit with her yesterday and she told them she is having nausea, recurrent UTI's, pain 09/17, HIV, Hep C positive. Pt told Trinidad that she had liver cancer. I told Nuzhat that we do not have a signed medical release to release information to them. She stated that she would have one faxed to us at [phone]. Physician, Dr. Paulino, with [facility] would like to speak with Maureen, but they would need medical records to review prior to speaking with her, so they can discuss her medical status. Dr. Paulino's phone number [phone] [facility]: Pt is trying to get into a long term and she said that if Suellen can get her admitted to Hospice due to HIV, Chronic Hep C, chronic pain, recurrent UTI's that they can assist her with getting into a long term I asked her if she had liver cancer and she said that [place] [facility] diagnosed her with this last year, but she never followed up on it. Pt is staying with some friends and she needs help with her daily care due to all her diagnosis and needs to go into facility for this She called [facility] in [place] [phone] to see if they would admit her [...] need a ER follow up with you? NCIAL PLANNING CONSULTANT [facility] HospitalIageuy3713-99-73 09:12:18 Letitia Zelaya is a 52 year old female Brandon with [facility] called requesting for medical records and home health orders to be faxed to them. Please advise. Alt fax: [phone] ONETTE NiñoSt. Rita's HospitalRbmsmr2046-75-88 08:37:58 Inspection Machine Tender is requesting to speak to Shiloh Garay. In regards to sending orders for pt and records to [facility]. [place]- [phone] ONETTE MedleySt. Rita's HospitalWgxtfv6416-57-24 15:26:55 Spoke with patient and notified her that a director social service will be in contact with her to help with the process. ONETTE Virk [facility]2024-02-26 15:24:09 Social work referral placed to assist patient with starting this process NCIAL PLANNING CONSULTANT GLASS CURVATURE GAUGER-[facility]2024-02-26 15:13:20 MALKA 03/19/23 Called and spoke with patient. Per patient she is wanting/ needing to get into a long term. She states that she has contacted the one in [facility] but was told that she has to sign a medical records release and could take up to 15 days. Per patient is wanting to know if Maureen Mcdonald GLASS CURVATURE GAUGER could expedite things. tire worker referral was placed for patient 03/2022 but nothing came of it. Please advise. [facility]2024-02-26 15:00:29 Letitia Zelaya is a 52 year old female Patient is calling and would like to speak to provider in regards to getting into a long term as soon as possible. Patient states she does not want to wait 15 days for Medical Records to send records and is asking if process can be expedited. Please advise. [phone] (home) ONETTE CaSt. Rita's HospitalIvfpfs5667-60-84 12:53:26 Pt discharged to home, pt given [...] with steady gait, in no apparent distress. NCIAL PLANNING CONSULTANT Ally Melvin RNSt. Rita's HospitalKrwvaf3686-88-94 11:36:47 Letitia Zelaya is a 52 year old female presenting today for Chief Complaint Patient presents with Abdominal Pain UTI Nausea Vomiting - Patient states recently dx and tx for UTI but symptoms are getting worse. States she cannot keep anything down. NAD noted. No past medical history on file. [facility]2024-02-19 11:11:03 Pt ambulates to restroom with steady gait unassisted NCIAL PLANNING CONSULTANT Kalyani Heaton [facility]qczvs2497-95-01 11:00:27 Letitia Zelaya is a 52 year old female presenting today for Chief Complaint Patient presents with Abdominal Pain UTI Nausea Vomiting - Patient states recently dx and tx for UTI but symptoms are getting worse. States she cannot keep anything down. NAD noted. No past medical history on file. ONETTE Harrison [facility]Otbcbk2369-51-78 10:03:31 Spoke to pt via telephone assessment call. Advised her to proceed to ER for evaluation. Maureen Mcdonald, ANP: [facility] Nida Angel [facility]athamTskbms4793-26-90 09:53:44 See additional telephone encounter 03/26/23 [facility] message 03/27/23 Contacted pt Pt states she [...] Pt verbalized understanding and agrees with plan. NCIAL PLANNING CONSULTANT Nida Angel [place] 896264-02-19 09:42:48 Letitia Zelaya is a 52 year old female calling in requesting another medication to aid in nausea and back pain per patient she was given medication for UTI bit it is not helping.Please advise ONETTE SanchesDanielle [place] 104204-02-16 11:46:07 Contacted pt Gave pt provider's recommendations. Pt verbalized understanding and agrees with plan. NCIAL PLANNING CONSULTANT Nida Angel [place] 896264-02-16 11:26:04 Please instruct patient to excelsior picker prescription cefdinir and odansetron from pharmacy-take as prescribed Refrain from substance use. 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 Monitor for fever. If fever > 101.4 develops follow up in urgent care and or office next week Thank you, Maureen Mcdonald RN, MSN, MACHINE ENGINEER, GLASS CURVATURE GAUGER-C NCIAL PLANNING CONSULTANT GLASS CURVATURE GAUGER-ADULT HEALTH MIDLEVEL [place] 107284-02-16 08:41:42 MALKA: 03/19/23 seen by ANANT Roman Generalized abdominal pain Comment: acute, worsening over past 4 weeks, high risk for sepsis, acute liver /renal failure Tachycardia, suspect acute urinary retention Plan: CANCELED: Comp. Metabolic Panel (34243), CANCELED: Lipid Panel (33808)(Total Cholesterol, Triglycerides, HDL), CANCELED: Thyroid Stimulating Hormone, CANCELED: N-Terminal Pro-Bnp, CANCELED: Cbc with Diff, CANCELED: Prothrombin Time / INR, CANCELED: Activated Partial Thrmplas James Patient directed to [facility] Khari Hedrick ER Black tarry stools Sciatica Right side [...] hurting, headache So she went back to [facility] ER yesterday They gave her nausea/pain medication [...] gotten them Advised pt to have someone excelsior picker her medications: one is for nausea, one is stomach pain, and one is an antibiotic-they are at [facility] in [place]. Advised pt small sips of fluids. Advised pt to alternate tylenol/motrin for pain. ER warnings given. Advised pt will send to provider for any alternate recommendations. Pt verbalized understanding and agrees with plan. ANANT Roman: please advise for any additional/alternate recommendations. [facility] - Yysisk2082-02-86 08:14:40 Pt is calling back in regards to previous message would like a call back please. [phone]. [facility] Anne McgovernSt. Rita's HospitalDawvnb4039-23-70 06:50:56 Letitia Zelaya is a 52 year old female states she has UTI and was seen in ER last night. Patient states ER didn't give her any medication. Patient states she is needing to speak to nurse. Patient upset that ER provider would not give her any pain medication. Patient declined appointment at this time. [facility] Sirena BurtonSt. Rita's HospitalYmegwc2264-28-41 20:55:00 Pt placed in lobby to wait for family excelsior picker. Given ice chips and warm blanket for comfort. ONETTE Lerma [facility]Bxxmtc7490-66-31 20:50:57 MD notified of pt continued pain. MD to bedside for pt consult. [facility]2024-02-15 18:45:[address] via stretcher. [place] 225224-02-15 17:20:00 Difficulty with IV access. Awaiting US IV. [place] 225224-02-15 16:32:24 Letitia Zelaya is a 52 year [...] to bed now and EKG to follow ONETTE Denis [facility] - Sazkhn4043-85-96 16:23:00 Associated Order(s): EKG-12 Lead ROUTINE ONCE Pre-Procedure Diagnose(s): Abdominal pain, unspecified abdominal location; Tachycardia Post-Procedure Diagnose(s): Abdominal pain, unspecified abdominal location; Tachycardia [facility] Emergency Department Note Patient Name: Letitia Zelaya Date of : 1970 52 year old female Treatment Room: Room/bed info not found Primary Care Physician: Maureen Mcdonald Patient Escorted by: Self [9] Mode of Arrival: Personal means [1] EMS Treatment Prior to ED Arrival: SYSTEMS TEST ANALYST treatment: None Travel and Exposure Screening: Symptoms [...] cholecystectomy, appendectomy, section. 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 [...] ear normal. Nose: Nose normal. Mouth/Throat: Lips: [place]. Mouth: Mucous membranes are dry. Pharynx: Oropharynx [...] 4 (*) <=2 HPF COMP. METABOLIC PANEL (28655) - Abnormal NA 140 135 - 145 [...] WITH DIFF URINALYSIS LIPASE COMP. METABOLIC PANEL (22007) URINE DRUG (IMMUNOASSAY) - COMPREHENSIVE DRUG SCREEN [...] Eval: ED Events Date/Time Event User Comments 02/1624 Medical Screening Begins MEENU LOYD -- 03/25/231624 First Provider Evaluation MEENU LOYD -- ED COURSE ED Course as of 03/25/232034 [place] Mar 25, 20231933 CT ABDOMEN PELVIS W [...] ED Physician in the absence of a state historical society director: yes Previous ECG: Previous ECG: Compared to [...] disposition and determined to be stable. Reviewed RUBBER TILE FLOOR LAYER if indicated. If pain medicine was prescribed it was for the following reason: Electronically signed by: Meenu Shipman FNP 03/25/232008 Meenu Shipman FNP 03/25/232034 NCIAL PLANNING CONSULTANT Associated attestation - Zachariah Gomez MD - 03/25/2023 8:47 PM FINANCIAL PLANNING CONSULTANT Addendum I was personally available for consultation in the Emergency Department during this encounter and patient evaluation by Umberto. [facility] [id number] 18:12:18 Pt reports that she is unable to provide urine sample. Pt reports that she has attempted twice with no success. Pt reports that she feels pressure like she has to go but can't. Dr. Mcrae has been notified. NCIAL PLANNING CONSULTANT Kit Cruz RNSt. Rita's [id number] 14:47:06 Letitia Zelaya is a 52 year [...] triage. No past medical history on file. ONETTE Harrison RNUT - [id number] 14:38:00 [facility] Emergency Department Note Patient Name: Letitia Zelaya Date of : 1970 52 year old female Treatment Room: [place] [address] Primary Care Physician: Maureen Mcdonald Patient Escorted [...] HIV. No pepto or blood thinners. Pain 7/10 Past Medical History/Immunizations: No past medical history [...] 0.01 - 0.07 10*3/uL COMP. METABOLIC PANEL (86987) - Abnormal NA 139 135 - 145 [...] ABDOMEN/PELVIS Cbc with Diff Comp. Metabolic Panel (49607) Troponin I Prothrombin Time / INR Ethanol [...] Events None ED COURSE Diagnosis/Impression as of 03/19/232104 Abdominal pain, unspecified abdominal location Urinary tract [...] Follow-up: Electronically signed by: Joseline Mcrae MD 03/19/23 1827 [facility] EMERGENCY PHYSICIAN [facility] - [id number] 14:38:00 Medical Decision Making Took over patient's [...] Prescription drug management. Zachariah Gomez MD 03/19/232105 [facility]2023-09-06 09:54:18 10/14/22 [facility] Wellness and Outreach team contacted patient to assist in completing Health Maintenance topics that are overdue. Letitia Zelaya [id number] Attempt Number: First Health Maintenance topics attempted [...] at this time. Patient was sent a [employer] message and to update new number. Natarajan [facility] II [facility] and Population Health Tianna Adair MASt. Rita's [id number] 20:49:00 [facility] ([facility] OR A CAMPUS OF [facility] EMERGENCY PROVIDER REPORT REPORT#:[id number] REPORT STATUS: Signed DATE:07/23/22 TIME: 2048 PATIENT: LETITIA ZELAYA UNIT #: [id number] ROOM/BED: AGE: 52 SEX: F PCP PHYS: [...] Monohydrate PO 07/23 Central Nervous System Agents Sig/Emil Start time [...] F/u with PCP/other doc at 0257 RPT #:[id number] END OF [id number] 07:31:00 [facility] ([facility]) EMERGENCY PROVIDER REPORT REPORT#:[id number] REPORT STATUS: Signed DATE:02/21/22 TIME: 730 PATIENT: LETITIA ZELAYA UNIT #: [id number] ROOM/BED: AGE: 51 SEX: F PCP PHYS: [...] states that she has a doctor at [facility]. Patient was admitted at [facility] over for same. Patient states that this week [...] 02/21 0609 O2 Delivery Room air 02/21 06 Temp 37.1 02/21 0609 Pulse 58 02/21 0609 Resp 02/21 Last Documented: Result Date Time Pulse Ox 100 02/21 0609 O2 Delivery Room air 02/21 06 Temp 37.1 02/21 0609 Pulse 58 02/21 [...] Coagulation INR (0.89 - 1.14) 1.0 PTT ([place]) (25.86 - 36.07 SECONDS) 30.90 PT Patient/Control [...] % (Auto) (23.0 - 38.0 %) 25.9 Gove % (Auto) (1.0 - 10.0 %) 8.3 Eos % (Auto) (1.0 - 5.0 %) 2.2 Baso % (Auto) (0.0 - 1.0 %) 0.6 Neut # (Auto) (2.4 - 6.3 K/mm3) 2.3 L Lymph # (Auto) (1.2 - 4.0 K/mm3) 0.9 L Gove # (Auto) (0.0 - 0.6 K/mm3) 0.3 [...] pH (5.0 - 9.0) 6.0 Ur Specific [place] (1.000 - 1.030) 1.020 Urine Protein (NEGATIVE [...] noncontrast CT abdomen and pelvis Impression By: [id number] - Trevor Stinson M.D. Lab Imaging Statement Laboratory radiographic studies reviewed and considered in the medical decision-making. Point of Care Testing Pulse Oximetry Pulse Ox % 98 On: Room air Interpretation Interpreted by me, Pulse oximetry normal ECG #1 Interpretation Text/Dict [...] in room admitted to using amphetamine/stimulants over [place] and began to feel ill after using it again. Patient advised on methamphetamine cessation. Patient also states she is noncompliant with her medications. Patient no longer on Abilify or any prescribed stimulants Time of Eval 09 Abd Pain MDM Note F > 40 [...] Result Date Time Pulse Ox 100 02/21 06 O2 Delivery Room air 02/21 06 Temp 37.1 02/21 06 Pulse 58 02/21 0609 Resp 18 02/21 0609 Last Documented: Result Date Time Pulse Ox 100 02/22 608 O2 Delivery Room air 02/22 608 Temp 37.1 02/22 608 Pulse 58 02/22 608 Resp 18 02/22 608 All vital signs available at the time [...] Provider Referral: Richelle Bai MD Address: [address] [place] [address] Provider Referral: Jhoan Ch Address: [address] [place] [address] Provider Referral: Roger Patricia MD Address: [address] [place] [address] Provider Referral: Chen Quintana MD Address: [address] [place] [address] [address] [place] [address] Provider Referral: Guzman Yost Jr, MD Address: [address] [facility] [address] [facility] [address] Provider Group: [employer] Provider Referral: Eliud Winter MD Address: [address] [place] [address] Provider Referral: Jono Euceda MD Address: [address] [place] [address] Provider Referral: Jessica aFulkner Address: [address] [place] [address] Discharge Note I have spoken with the [...] a call to 911. at 1119 RPT #:[id number] END OF REPORTHCAMN
[2024-05-07] MEDS ORDERED: NA CHLORIDE 0.9% 1,000 ML ONE (09:36)
[2024-05-07] MEDS ORDERED: MORPHINE 4 MG/ML SYR ONE (09:36)
[2024-05-07] MEDS ORDERED: ONDANSETRON 4 MG/2 ML VIAL ONE (09:36)
[2024-05-07 10:03] LABS: Specific Gravity 1.019 (1.005-1.030)
[2024-05-07 10:08] LABS: Specific Gravity 1.019 (1.005-1.030); Transitional Epithelial <5 /HPF (None Seen); Urine Bacteria 20-50 /HPF (<20); Urine Bilirubin NEGATIVE (Negative); Urine Blood Trace (Negative); Urine Clarity Extremely Turbid (Clear); Urine Color Yellow (Yellow); Urine Culture Reflex Order REFLEXED; Urine Glucose NEGATIVE (Negative); Urine Ketones NEGATIVE (Negative); Urine Microscopic Reflex YN ORDER UMIC; Urine Mucus Slight /HPF (None Seen); Urine Nitrite NEGATIVE (Negative); Urine Protein 1+ (Negative); Urine Urobilinogen Normal (Normal); Urine WBC >50 /HPF (<5)
[2024-05-07 10:26] LABS: Absolute Eosinophils 0.1 K/uL (0-0.5); Absolute Lymphocytes (CBC) 0.7 K/uL (0.7-4.9); Absolute Monocytes 0.2 K/uL (0.1-1.3); Absolute Neutrophil 2.6 K/uL (1.8-8.0); Basophils % 0.5 % (0-1.3); Eosinophils % 2.2 % (0-4.4); Hematocrit 42.9 % (36.0-45.0); Hemoglobin 15.1 g/dL (12.0-15.0); Lymphocytes % 20.4 % (15.3-44.8); MCH 29.2 pg (27.0-35.0); MCHC 35.1 g/dL (32.0-36.0); MPV 8.9 fL (7.6-11.3); Monocytes % 5.1 % (3.3-12.3); Neutrophils % 71.8 % (41.7-73.7); Nucleated Red Blood Cells % 0.2 % (0-0); Platelets 150 thou/uL (152-406); RBC Red Blood Cell Count 5.17 M/uL (3.86-4.86); Red Cell Distribution Width 16.2 % (12.1-15.2)
[2024-05-07 10:36] LABS: PT Prothrombin Time 11.5 SECONDS (10-13.0); PTT, Activated Partial Thromb 30.8 SECONDS (27.2-37.4); Protime INR 1.01
[2024-05-07 10:48] LABS: Albumin/Globulin Ratio 1.1 (1.1-1.8); Anion Gap 12.2 mEq/L (5.0-15.0); Bilirubin Total 1.1 mg/dL (0.2-1.0); Globulin 3.7 g/dL (2.3-3.5); Potassium 3.2 mEq/L (3.5-5.1); Protein, Total 7.7 g/dL (6.4-8.2)
[2024-05-07 11:00] LABS: Influenza A Ag Negative; Influenza B Ag Negative; SARS-CoV-2 Antigen Rapid Res Negative (Negative)
--- NOTE | 2024-05-07 11:26 | RAD REPORT ---
EXAMINATION: Abdomen Pelvis W Contrast CLINICAL INDICATION: Female, 53 years old.Abd pain;Flank pain TECHNIQUE: CT abdomen and pelvis was performed, after the administration of IV contrast, as per [facility] protocol. Axial, sagittal and coronal reconstructions were obtained. One or more of the following dose reduction techniques were used: Automated exposure control, adjustment of the mA and/o r kV according to patient size, and/or iterative reconstruction. Unless otherwise specified, incidental findings do not require dedicated imaging follow-up. [id number]. COMPARISON: 12/28/2023 Limitations: On the retail services professional image, presumably all of the contrast has extravasated into the patient's r ight upper extremity. No appreciable IV contrast is present within the vasculature. FINDINGS: LOWER CHEST: No acute process identified.No significant pericardial effusion. Right breast prosthesis UPPER GI: No significant abnormality. LIVER: Hepatic steatosis, but otherwise unremarkable. GALLBLADDER/BILE DUCTS: Cholecystectomy. Moderate extrahepatic biliary ductal dilatation. This could be secondary to the post-cholecystectomy state. Recommend correlation with LFT's. If abnormal, consider MRCP for further evaluation. ?Common bile duct measures 11 mm PANCREAS: No mass, ductal dilation, or fer-pancreatic fluid. SPLEEN: Unremarkable. ADRENALS: No adrenal masses. KIDNEYS AND URETERS: No hydronephrosis.No suspicious renal mass.Nonobstructing renal calculi. ABDOMINAL AORTA AND OTHER VESSELS: Mild atherosclerotic changes. PERITONEUM: No abnormal free fluid. No free air. LYMPH NODES: No pathologic lymphadenopathy. ABDOMINAL WALL: Unremarkable SMALL BOWEL/COLON: Small bowel has normal course and caliber. No colonic wall thickening or pericolon ic inflammatory changes.Nonvisualized appendix but no secondary signs of acute appendicitis. URINARY BLADDER: Underdistended but grossly unremarkable. REPRODUCTIVE ORGANS: No pathologic process. MUSCULOSKELETAL: Multilevel degenerative changes in the spine. No acute fracture. ADDITIONAL FINDINGS: None. IMPRESSION: No acute findings within the abdomen or pelvis. Biliary ductal dilatation which may be related to the postcholecystectomy state. Correlate with LFTs. If abnormal, could consider MRCP for further evaluation. Note that no contrast is present within the vasculature. On the retail services professional image, there is a large volume of extravasated contrast in the patient's right upper extremity and shoulder region
[2024-05-07] MEDS ORDERED: CEFTRIAXONE 1000 MG/VIAL ONE (11:28)
[2024-05-07] MEDS ORDERED: LORazepam 2 MG/ML VIAL ONE (13:13)
[2024-05-07] MEDS ORDERED: PROMETHAZINE INJ 25 MG/ML AMP ONE (13:14)
--- NOTE | 2024-05-07 13:30 | EDPHYS ---
Physician Documentation [facility] Name: Letitia Velasquez Age: 53 yrs Sex: Female : 1970 Arrival Date: 05/07/2024 Time: 09:07 Bed 20 Private MD: ED Physician Miko Guerra HPI: 05/07 09:34 This 53 yrs old Female presents to ER via Ambulatory with complaints of sb4 Nausea/Vomiting, flank pain, urinary symptoms. 09:35 Patient reports right sided flank pain, lower abdominal cramping, urinary symptoms, sb4 nausea, and vomiting x 4 days. States that she has had kidney stone in the past. Denies any blood in her urine or foul-smelling urine. Denies any fever or chills. Does report a history of kidney stones, has required a ureteral stent in the past. 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 Last tetanus immunization: unknown. - Infectious Disease History:: Denies. - Social history:: Smoking status: Patient denies any tobacco usage or history of. Patient uses alcohol, occasionally. ROS: 09:35 Constitutional: Negative for fever, chills, and weight loss, sb4 09:35 Abdomen/GI: Positive for abdominal pain, nausea and vomiting, 09:35 Back: Positive for flank pain, on the right, 09:35 Skin: Positive for rash, 09:35 All other systems are negative, Exam: 09:36 Head/Face: Normocephalic, atraumatic. Eyes: Extra-ocular motions intact. Periorbital sb4 areas with no swelling, redness, or edema. ENT: Mucous membranes moist. 09:36 Respiratory: No increased work of breathing, no retractions or nasal flaring. 09:36 Constitutional: The patient appears alert, awake, uncomfortable, 09:36 Cardiovascular: Rate: tachycardic, Rhythm: regular, 09:36 Abdomen/GI: Inspection: abdomen appears normal, Palpation: soft, mild abdominal tenderness, in the suprapubic area, 09:36 Back: CVA tenderness, is noted on the right, 13:28 Skin: rash a moderate rash is noted, on the suprapubic area, Intertrigo crease under sb4 stomach, Vital Signs: 09:29 Pulse 144; Resp 20; Temp 99.1; Pulse Ox 100% ; Weight 68.04 kg; Height 5 ft. 5 in. ; ss Pain 10/10; 12:59 BP 131 / 82; Pulse 91; Resp 18; Pulse Ox 100% on R/A; ld1 13:40 BP 146 / 84; Pulse 93; Resp 18; Pulse Ox 100% on R/A; ld1 09:29 Body Mass Index 24.96 (68.04 kg, 165.1 cm) ss 09:29 Pain Scale: Adult ss MDM: 09:11 Medical Screening Exam initiated sb4 10:04 Differential diagnosis: UTI, pyelonephritis, nephrolithiasis, ureterolithiasis. sb4 10:48 Care significantly affected by the following chronic conditions: Hepatitis C, HIV. sb4 13:29 Data reviewed: vital signs, nurses notes, lab test result(s), radiologic studies, and sb4 as a result, I will discharge patient. Counseling: I had a detailed discussion with the patient and/or guardian regarding the historical points, exam findings, and any diagnostic results supporting the discharge/admit diagnosis, lab results, radiology results, the need for outpatient follow up, for definitive care, to return to the emergency department if symptoms worsen or persist or if there are any questions or concerns that arise at home. 05/07 09:34 Order name: CBC with Diff; Complete Time: 10:43 sb4 05/07 09:34 Order name: CMP; Complete Time: 10:51 sb4 05/07 09:34 Order name: Lipase; Complete Time: 10:51 sb4 05/07 09:34 Order name: Urinalysis w/ reflexes; Complete Time: 10:11 sb4 05/07 09:46 Order name: Blood Culture Adult (2) sb4 05/07 09:46 Order name: Lactate w/ 2H reflex if indic.; Complete Time: 10:44 sb4 05/07 09:46 Order name: Protime (+inr); Complete Time: 10:37 sb4 05/07 09:46 Order name: Ptt, Activated; Complete Time: 10:37 sb4 05/07 09:46 Order name: Troponin High Sensitivity; Complete Time: 10:48 sb4 05/07 10:04 Order name: Test, Urine; Complete Time: 10:06 EDMS 05/07 10:12 Order name: Urine Culture EDMS 05/07 10:13 Order name: COVID-19 Ag + Flu A+B Ag; Complete Time: 11:10 ld1 05/07 09:34 Order name: CT Abd/Pelvis - IV Contrast Only; Complete Time: 11:27 sb4 05/07 09:34 Order name: IV Saline Lock; Complete Time: 10:13 sb4 05/07 09:34 Order name: Labs collected and sent; Complete Time: 10:13 sb4 Administered Medications: 10:14 Drug: Ondansetron IVP 4 mg IVP once; over 2 minutes Route: IVP; Site: right upper arm; ld1 10:14 Drug: morphine IVP or IV 4 mg IVP once over 4 mins Route: IVP; Infused Over: 4 mins; ld1 Site: right upper arm; 10:14 Drug: NS 0.9% IV 1000 ml IV at 1 bolus Per protocol; to be given as a bolus over 60 ld1 minutes Route: IV; Rate: 1 bolus; Site: right upper arm; 12:59 Drug: Rocephin IV 1 grams IV at calculated rate once; Given slow IV push per pharmacy ld1 instructions Route: IV; Rate: calculated rate; Site: left forearm; 13:19 Follow up: Response: No adverse reaction; IV Status: Completed infusion ld1 13:18 Drug: Ativan IVP 1 mg IVP once Route: IVP; Site: left forearm; ld1 13:18 Drug: Promethazine IVP 12.5 mg IVP once Route: IVP; Site: left forearm; ld1 Disposition: 14:35 Co-signature as Attending Physician, Miko Guerra MD I reviewed the patient's care rn provided by the Advanced Practice Provider and agree with the diagnosis and treatment plan. Disposition Summary: 05/07/24 13:29 Discharge Ordered Notes: Location: Home sb4 Problem: new sb4 Symptoms: have improved sb4 Condition: Stable sb4 Diagnosis - UTI/ Urinary tract infection, site not specified sb4 - Erythema intertrigo sb4 Followup: sb4 - With: Emergency Department - When: As needed - Reason: Fever > 102 F, Worsening of condition Discharge Instructions: - Discharge Summary Sheet sb4 - Urinary Tract Infection, Adult, Taie-gh-Htfo sb4 - Skin Yeast Infection sb4 Forms: - Antibiotic Education sb4 - Patient Portal Instructions sb4 - Leadership Thank You Letter sb4 Prescriptions: - Nystatin-Triamcinolone 100,000-0.1 unit/g-% Topical cream - apply 1 application TOPICAL route 2 times per day; 1 Applicator; Refills: 0, sb4 Product Selection Permitted - cefpodoxime 100 mg Oral Tablet - take 1 tablet ORAL route every 12 hours for 10 days take with food; 20 tablet; sb4 Refills: 0, Product Selection Permitted - ondansetron 8 mg Oral Tablet,disintegrating - take 1 tablet ORAL route every 8 hours; 10 tablet; Refills: 0, Product sb4 Selection Permitted Signatures: Dispatcher [employer] EDMS Nika Fox Roman, MD MD rn Blanchard, Shelby, RN RN Jessica Hirsch RN RN ld1 Laverne Ch PA-C PA-C sb4 Corrections: (The following items were deleted from the chart) 09:35 09:35 CBC+H.LAB.BRZ ordered. EDMS EDMS 09:35 09:35 COMPREHENSIVE METABOLIC PANEL+C.LAB.BRZ ordered. EDMS EDMS 09:35 09:35 LIPASE+C.LAB.BRZ ordered. EDMS EDMS 09:35 09:35 Urinalysis+U.LAB.BRZ ordered. EDMS EDMS 09:35 09:35 Abdomen Pelvis W Con+CT.RAD.BRZ ordered. EDMS EDMS 09:47 09:47 BLOOD CULTURE*+BA.LAB.BRZ ordered. EDMS EDMS 09:47 09:47 LACTATE+C.LAB.BRZ ordered. EDMS EDMS 09:47 09:47 PROTIME (+INR)+COAG.LAB.BRZ ordered. EDMS EDMS 09:47 09:47 PTT, ACTIVATED+COAG.LAB.BRZ ordered. EDMS EDMS 09:47 09:47 Troponin High Sensitivity+C.LAB.BRZ ordered. EDMS EDMS 09:58 09:58 URINE DRUG SCREEN+UC.LAB.BRZ ordered. EDMS EDMS
--- NOTE | 2024-05-07 13:30 | ER ---
Nurse's Notes [facility] Name: Letitia Velasquez Age: 53 yrs Sex: Female : 1970 Arrival Date: 05/07/2024 Time: 09:07 Bed 20 Private MD: Diagnosis: UTI/ Urinary tract infection, site not specified;Erythema intertrigo Presentation: 05/07 09:29 Chief complaint: Patient states: Pt reports right flank pain, burning with urination, ss abdominal pain, diarrhea, vomiting x4 days. Coronavirus screen: Vaccine status: Patient reports being unvaccinated. Ebola Screen: Patient negative for fever greater than or equal to 101.5 degrees Fahrenheit, and additional compatible Ebola Virus Disease symptoms Patient denies exposure to infectious person. Patient denies travel to an Ebola-affected area in the 21 days before illness onset. Initial Sepsis Screen: Does the patient meet any 2 criteria? HR > 90 bpm. Does the patient have a suspected source of infection? No. Patient's initial sepsis screen is negative. Risk Assessment: Do you want to hurt yourself or someone else? Patient reports no desire to harm self or others. Onset of symptoms was May 03, 2024. 09:29 Method Of Arrival: Ambulatory ss 09: Acuity: MINNA 3 ss Triage Assessment: : General: Appears distressed, uncomfortable, Behavior is agitated, anxious. Pain: ss Complains of pain in back Pain does not radiate. Pain currently is 10 out of 10 on a pain scale. GI: Reports lower abdominal pain, cramping, diarrhea, nausea, vomiting. SHOEBLACK: LMP N/A - Post-menopause, Not ss Historical: - Allergies: Sulfa (Sulfonamide Antibiotics); ss - Home Meds: : Biktarvy 30-120-15 mg Oral tablet daily [Active]; Zoloft Oral [Active]; Risperdal 1 mg ss Oral tablet [Active]; - PMHx: Bipolar disorder; HEP C; HIV positive; ss - Immunization history:: Adult Immunizations unknown, Client reports having NOT received the Covid vaccine. Last tetanus immunization: unknown. - Infectious Disease History:: Denies. - Social history:: Smoking status: Patient denies any tobacco usage or history of. Patient uses alcohol, occasionally. Screenin:08 [facility] ED Fall Risk Assessment (Adult) History of falling in the last 3 months, ld1 including since admission No falls in past 3 months (0 pts) Confusion or Disorientation Yes (5 pts) Intoxicated or Sedated No (0 pts) Impaired Gait No (0 pts) Mobility Assist Device Used No (0 pt) Altered Elimination No (0 pt) Score/Fall Risk Level 3 or more points = High Risk Oriented to surroundings, Maintained a safe environment, Assessed \T\ reinforced patient's understanding of fall precautions, Hourly rounding (assess needs \T\ fall precautionary measures) done, Utilized family, sitter, or virtual doctor of podiatric medicine as indicated. Abuse screen: Denies threats or abuse. Denies injuries from another. Nutritional screening: No deficits noted. Tuberculosis screening: No symptoms or risk factors identified. Assessment: 12:59 General: Appears in no apparent distress. uncomfortable, Behavior is cooperative, ld1 anxious. Pain: Complains of pain in back Pain does not radiate. Pain currently is 8 out of 10 on a pain scale. Quality of pain is described as aching, throbbing, Pain began suddenly, Is continuous. Neuro: Level of Consciousness is awake, alert, obeys commands, Oriented to person, place, time, situation. Cardiovascular: Capillary refill < 3 seconds Patient's skin is warm and dry. Respiratory: Airway is patent Respiratory effort is even, unlabored. GI: Abdomen is flat, non-distended. : No signs and/or symptoms were reported regarding the genitourinary system. EENT: No signs and/or symptoms were reported regarding the EENT system. Derm: No signs and/or symptoms reported regarding the dermatologic system. Musculoskeletal: No signs and/or symptoms reported regarding the musculoskeletal system. 13:25 Reassessment: No changes from previously documented assessment. Pt displaying signs of ld1 anxiety. Notified ERP. See MAR for orders. Patient states symptoms have not improved. 13:50 Reassessment: Sitter requested at bedside. Pt not staying in bed or hooked up to ld1 monitor. Pt displaying worsening signs of anxiety. 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 Vital Signs: 09:29 Pulse 144; Resp 20; Temp 99.1; Pulse Ox 100% ; Weight 68.04 kg; Height 5 ft. 5 in. ; ss Pain 10/10; 12:59 BP 131 / 82; Pulse 91; Resp 18; Pulse Ox 100% on R/A; ld1 13:40 BP 146 / 84; Pulse 93; Resp 18; Pulse Ox 100% on R/A; ld1 09:29 Body Mass Index 24.96 (68.04 kg, 165.1 cm) ss 09:29 Pain Scale: Adult ss ED Course: 09:09 Patient arrived in ED. ts1 09:10 Laverne Ch PA-C is PHCP. sb4 09:10 Miko Guerra MD is Attending Physician. sb4 09:31 Triage completed. ss 09:31 Arm band placed on right wrist. ss 09:47 First set of blood cultures drawn by me. hb 09:50 Jessica Melendez, DELMAR is Primary Nurse. ld1 09:50 Urinalysis w/ reflexes Sent. ld1 10:13 Blood Culture Adult (2) Sent. ld1 10:13 Lactate w/ 2H reflex if indic. Sent. ld1 10:13 Accessed peripheral vein via ultrasound, utilizing dynamic ultrasound technique using hb per hospital protocol. Clean \T\ dry. Dressing intact. Good blood return. Flushes easily. 20G RUE. 10:13 Initial lab(s) drawn, by ks, sent to lab. Second set of blood cultures drawn by me. hb 10:14 UDS Sent. ld1 10:36 COVID-19 Ag + Flu A+B Ag Sent. ld1 11:09 CT Abd/Pelvis - IV Contrast Only In Process Unspecified. EDMS 12:51 Accessed peripheral vein via ultrasound, utilizing dynamic ultrasound technique using 20G Nexia IV catheter ,sterile technique, per hospital protocol. Clean \T\ dry. Dressing intact. Good blood return. Flushes easily. L FA. 12:59 No provider procedures requiring assistance completed. ld1 14:08 Patient has correct armband on for positive identification. Placed in gown. Bed in low ld1 position. Call light in reach. Side rails up X2. color television console monitor on. Pulse ox on. NIBP on. Sitter at bedside. Door closed. Noise minimized. Warm blanket given. 14:10 IV discontinued, intact, bleeding controlled, No redness/swelling at site. ld1 Administered Medications: 10:14 Drug: Ondansetron IVP 4 mg IVP once; over 2 minutes Route: IVP; Site: right upper arm; ld1 10:14 Drug: morphine IVP or IV 4 mg IVP once over 4 mins Route: IVP; Infused Over: 4 mins; ld1 Site: right upper arm; 10:14 Drug: NS 0.9% IV 1000 ml IV at 1 bolus Per protocol; to be given as a bolus over 60 ld1 minutes Route: IV; Rate: 1 bolus; Site: right upper arm; 12:59 Drug: Rocephin IV 1 grams IV at calculated rate once; Given slow IV push per pharmacy ld1 instructions Route: IV; Rate: calculated rate; Site: left forearm; 13:19 Follow up: Response: No adverse reaction; IV Status: Completed infusion ld1 13:18 Drug: Ativan IVP 1 mg IVP once Route: IVP; Site: left forearm; ld1 13:18 Drug: Promethazine IVP 12.5 mg IVP once Route: IVP; Site: left forearm; ld1 Medication: 14:08 VIS not applicable for this client. ld1 Outcome: 13:29 Discharge ordered by . sb4 14:09 Discharged to home ambulatory, via wheelchair, with family, ld1 14:09 Condition: stable 14:09 Discharge instructions given to patient, family, Instructed on discharge instructions, follow up and referral plans. medication usage, Demonstrated understanding of instructions, follow-up care, medications, Prescriptions given X 3, 14:10 Patient left the ED. ld1 Signatures: Dispatcher [employer] EDMS Audra Nicole RN RN Annalisa Garcia RN RN hb Sims, Lauren, RN RN ld1 Laverne Ch PA-C PA-C sb4 Wanda Calloway PAS PAS ts1 Corrections: (The following items were deleted from the chart) 10:22 10:21 Accessed peripheral vein via ultrasound, utilizing dynamic ultrasound technique hb using per hospital protocol. Clean \T\ dry. Dressing intact. Good blood return. Flushes easily. 20G RUE. hb
[2024-05-07 14:14] VITALS: TEMP 99.1; O2SAT 100
[2024-05-07 14:18] VITALS: BP 146/84
== END 2024-05-07 14:10 | disposition home or self-care (01) ==
LOC: ER 09:07
DX: N39.0 Urinary tract infection, site not specified (principal); L30.4 Erythema intertrigo; Z21 Asymptomatic human immunodeficiency virus [HIV] infection status; Z11.52 Encounter for screening for COVID-19
CPT/HCPCS: 87040 ×2; 87088; 85025; 81001; 87086; 36415; 81025; 85610; 83605; 85730; 84484; 83690; 80053; 74177; 87428; Q9967; J2550; J2405; J7030; J0696

== ENCOUNTER 2024-05-28 18:18 | Emergency (ER) | payer OTHER ==
[2024-05-28] MEDS ORDERED: LORazepam 2 MG/ML VIAL ONE (18:33)
[2024-05-28] MEDS ORDERED: WATER FOR INJ,STERILE 10 ML ONE ×2 (18:34→19:07)
[2024-05-28] MEDS ORDERED: ZIPRASIDONE MESYLA 20 MG/VIAL IM ONE ×2 (18:34→19:06)
--- OUTSIDE RECORDS SUMMARY | 2024-05-28 18:37 | XMS REPORT | Continuity of Care Document ---
Author Name Unknown Address [address] [facility] [address] [place] [address] Organization [facility] [place] Address [address] [facility] [address] [place] [address] Care Team Providers Care Skeiner Name Role Phone Milad MORALES, [facility] Primary Care Physician + KEREN VILLALTA Attending Clinician Unavailable OLIVE CHOWDHURY Attending Clinician Unavailable Doctor Unassigned, [place] Attending Clinician U Olive Quintana Attending Clinician [phone] Mario Ambriz Attending Clinician [phone] EVAN COOK Attending Clinician Unavailable Evan Cook MD Attending Clinician [phone] MARIO GUZMAN Attending Clinician Unavailable Armando Toth Attending Clinician [phone] JAX HEIN Attending Clinician Unavailable KALEN MATTHEWS Attending Clinician Unavail able Byron WESTBROOKM, Kalen Noble Attending Clinician + [phone] PAVAN LOTT Attending Clinician Unavailable Lab, Ang - Db Attending Clinician Unavailable Pavan Lott MD Attending Clinician [phone] ARMANDO PRESTON Attending Clinician Unavailable Edmund Anthony A Attending Clinician Unavailab Maureen Cedillo Attending Clinician [phone] [facility], Infectious Attending Clinician [phone] Doctor Unassigned, [place] Attending Clinician U genia Boyer [facility] [place] [place] Attending Clinician +[phone] JOSELINE MCRAE Attending Clinician Unavailable Joseline Mcrae MD Attending Clinician [phone] ZACHARIAH GOMEZ Attending Clinician Unavailable Meenu Loyd Attending Clinician [phone] Zachariah Gomez MD Attending Clinician [phone] MAUREEN MCDONALD Attending Clinician Unavailable Tianna Adair MA Attending Clinician Unavaila Ede Singh Attending Clinician Unavailab Willian Sanchez MD Attending Clinician [phone] WILLIAN PATRICIO Attending Clinician Unavailable ELIAN HERRERA Attending Clinician Unavailable ELIAN HERRERA Attending Clinician Unavailable Cyrus Sim MD Attending Clinician [phone] Julia Méndez LCSW Attending Clinician [phone] Pcp, Patient Does Not Have A Attending Clinician UNKNOWN, ATTENDING Attending Clinician Unavailab Constance Cano Attending Clinician Unavailable RADHA EDDY Attending Clinician Unavailable Mark Soto RN Attending Clinician Unavail able John Wilson MD Attending Clinician [phone] Judie Bella MD Attending Clinician [phone] Aurelio Shaw MD Attending Clinician [phone] Giacomo Spaulding MD Attending Clinician [phone] GIACOMO SPAULDING Attending Clinician Unavailable UNDEFINED Admitting Clinician Unavailable JOSELINE MCRAE Admitting Clinician Unavailable MEENU SHIPMAN Admitting Clinician Unavailable Judie Bella MD Admitting Clinician JUDIE BELLA Admitting Clinician Unavailable Payers Payer Name Policy Type Policy Number Effective Date Expirati on Date Source [employer] H[employer] SNP [id number] 2023 00:00:00 [facility] [id number] 2023 00:00:00 [employer] DUAL DSNP Medicare [id number] 2023 00:00:00 Problems Condition Name Condition Details Condition Category Status Onset Date Resolution Date Last Treatment Date Treating Clinician Comments Source Preoperati ve cardiovasc ular examinatio n Preoperati ve cardiovasc ular examinatio n Disease Active 2023-02 00:00: 00 [facility] Tachycardi a Tachycardi a Disease Active 2023-02 00:00: 00 [facility] Sinus tachycardi a Sinus tachycardi a Disease Active 2023-02 00:00: 00 [facility] Syncope and collapse Syncope and collapse Disease Active 2023-02 00:00: 00 [facility] Primary hypertensi on Primary hypertensi on Disease Active 2023-02 00:00: 00 [facility] Benign hypertensi on Benign hypertensi on Disease Active 2023-02- 00:00: 00 [facility] Anxiety and depression Anxiety and depression Disease Active 10-03 00:00: 00 [facility] Bipolar affective disorder, current episode manic, current episode severity unspecifie d Bipolar affective disorder, current episode manic, current episode severity unspecifie d Disease Active 10-03 00:00: 00 [facility] Elevated blood pressure reading in office without diagnosis of hypertensi on Elevated blood pressure reading in office without diagnosis of hypertensi on Disease Active 10-03 00:00: 00 [facility] Encounter to establish care Encounter to establish care Disease Active 10-03 00:00: 00 [facility] Encounter to establish care Encounter to establish care Disease Active 8- 00:00: 00 [facility] HIV disease HIV disease Disease Active 2021-02 00:00: 00 [facility] Bipolar disorder, current episode mixed, moderate Bipolar disorder, current episode mixed, moderate Disease Active 2021-02 00:00: 00 [facility] Lack of family support Lack of family support Disease Active 2021-02 00:00: 00 [facility] Lack of motivation Lack of motivation Disease Active 2021-02 00:00: 00 [facility] Hyperactiv e Hyperactiv e Disease Active 2021-02 00:00: 00 [facility] Methamphet amine abuse Methamphet amine abuse Disease Active 2021-02 00:00: 00 [facility] High risk social situation High risk social situation Disease Active 2021-02 00:00: 00 [facility] Exposure to potential infection Exposure to potential infection Disease Active 2021-02 00:00: 00 [facility] Immunocomp romised patient Immunocomp romised patient Disease Active 2021-02 00:00: 00 [facility] Non-compli ance Non-compli ance Disease Active 2021-02 00:00: 00 [facility] Exposure to potential infection Exposure to potential infection Disease Active 2021-02 00:00: 00 [facility] Acute hepatitis Acute hepatitis Disease Active 2021-02 00:00: 00 [facility] Non-compli ance with treatment Non-compli ance with treatment Disease Active 06-26 00:00: 00 [facility] Intractabl e nausea and vomiting Intractabl e nausea and vomiting Disease Active 06-26 00:00: 00 [facility] 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 Formattin g of this note might be different from the original. 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 Formattin g of this note might be different from the original. IMO Update [facility] QT prolongati on QT prolongati on Disease Active 03-01 00:00: 00 [facility] Encephalop athy acute Encephalop athy acute Disease Active 06-21 00:00: 00 [facility] Pneumonia Pneumonia Disease Active 06-21 00:00: 00 [facility] Vitamin D deficiency Vitamin D deficiency Disease Active 2013-02 00:00: 00 [facility] Delirium Delirium Disease Active 2013-02 00:00: 00 [facility] Gait abnormalit y Gait abnormalit y Disease Active 2013-02 00:00: 00 [facility] Alcohol abuse Alcohol abuse Disease Active 2011-02 00:00: 00 [facility] Anxiety state Anxiety state Disease Active 2011-02 00:00: 00 [facility] Bipolar 1 disorder Bipolar 1 disorder Disease Active 2011-02 00:00: 00 [facility] Pyelonephr itis Pyelonephr itis Disease Active 10-13 00:00: 00 [facility] Abdominal pain Abdominal pain Disease Active 10-13 00:00: 00 [facility] LFTs abnormal LFTs abnormal Disease Active 10-13 00:00: 00 [facility] Allergies, Adverse Reactions, Alerts Allergy Name Allergy Type Status Severity Reaction(s) Onset Date Inactive Date Treating Clinician Comments Source Sulfa (Sulfona mide Antibiot ics) DA Active [place] 10-01 00:00: 00 [facility] Sulfa (Sulfona mide Antibiot ics) DA Active [place] HIVES 10-01 00:00: 00 [facility] Sulfur Propensi ty to adverse reaction s Active Swelling 07-12 00:00: 00 [facility] SULFUR DRUG INGREDI Active High ITCHING 07-12 00:00: 00 [facility] Sulfa (Sulfona mide Antibiot ics) Drug Allergy Active Hives 05-21 00:00: 00 [facility] SULFA (SULFONA MIDE ANTIBIOT ICS) Drug Class Active Hives 05-21 00:00: 00 [facility] NO KNOWN ALLERGIE S Drug Class Active [facility] Social History Social Habit Start Date Stop Date Quantity Comments Source History of tobacco use Passive smoker [facility] ASSERTION Not [facility] History SDOH Social Connections Get Together [facility] History SDOH Social Connections [facility] History SDOH Social Connections Membership [facility] History SDOH Social Connections Meetings [facility] Gender identity Ivan len Carrasquillo [facility] Sexual orientation [facility] History of Social function 2024-05-23 00:00:00 2024-05-23 00:00:00 [facility] Alcoholic beverage intake 2024-01-18 00:00:00 2024-01-18 00:00:00 Ex-drinker (finding) [facility] Exposure to SARS-CoV-2 (event) 2022-04-07 00:00:00 2022-04-17 21:11:00 Not sure [facility] Tobacco use and exposure 2022-01-28 00:00:00 2022-01-28 00:00:00 Smokeless tobacco non-user [facility] History SDOH Alcohol Frequency 2022-01-28 00:00:00 2022-01-28 00:00:00 1 [facility] History SDOH Alcohol Std Drinks 2022-01-28 00:00:00 2022-01-28 00:00:00 0 [facility] History SDOH Alcohol Binge 2022-01-28 00:00:00 2022-01-28 00:00:00 1 [facility] History SDOH Social Connections Phone 2022-01-28 00:00:00 2022-01-28 00:00:00 5 [facility] History SDOH Social Connections Living 2022-01-28 00:00:00 2022-01-28 00:00:00 5 [facility] History SDOH Physical Activity DPW 2022-01-28 00:00:00 2022-01-28 00:00:00 0 [facility] History SDOH Physical Activity MPS 2022-01-28 00:00:00 2022-01-28 00:00:00 0 [facility] History SDOH Financial 2022-01-28 00:00:00 2022-01-28 00:00:00 5 [facility] History SDOH Food Worry 2022-01-28 00:00:00 2022-01-28 00:00:00 1 [facility] History SDOH Food Scarcity 2022-01-28 00:00:00 2022-01-28 00:00:00 1 [facility] History SDOH Transport Med 2022-01-28 00:00:00 2022-01-28 00:00:00 2 [facility] History SDOH Transport Non-Med 2022-01-28 00:00:00 2022-01-28 00:00:00 2 [facility] Sex assigned at 1970 00:00:00 1970 00:00:00 [facility] Smoking Status Start Date Stop Date Source Tobacco smoking consumption unknown [facility] Never smoked tobacco [facility] Medications Ordered Medication Name Filled Medication Name Start Date Stop Date Current Medication? Ordering Clinician Indication Dosage Frequency Signature (SIG) Comments Components Source gabapentin ER 300 mg tablet, extended release 24 hr 05-23 16:09: 26 Yes 300mg Take 1 tablet by mouth as needed for Pain (scale 1-3) or Pain (scale 7-10). [facility] FLUoxetine 10 mg tablet 05-23 16:06: 55 Yes 10mg Take 1 tablet by mouth in the morning. [facility] lurasidone 20 mg tablet 05-23 16:06: 55 Yes 20mg Take 1 tablet by mouth. [facility] clonidine (CATAPRES) 0.1 mg/mL oral suspension 05-23 16:06: 55 Yes .1mg Take 1 mL by mouth once now. [facility] traZODone 50 mg tablet 05-23 16:06: 55 Yes 50mg Take 1 tablet by mouth at bedtime. [facility] QUEtiapine (SEROQUEL) 25 mg tablet 05-22 00:00: 00 05-23 00:00 :00 No [id number] 25mg Take 1 tablet by mouth at bedtime as needed for Insomnia. [facility] bictegrav-e mtricit-ten ofov ala (BIKTARVY) 50-200-25 mg tablet 05-19 00:00: 00 Yes [id number] 1{tbl} Take 1 tablet by mouth in the morning. [facility] SERTraline (ZOLOFT) 100 mg tablet 2023-02 00:00: 00 05-23 00:00 :00 No [id number] 150mg Take 1.5 tablets by mouth at bedtime. [facility] propranoloL 20 mg tablet 2023-02 00:00: 00 05-23 00:00 :00 No [id number] 20mg Take 1 tablet by mouth in the morning and 1 tablet in the evening. [facility] QUEtiapine (SEROQUEL) 25 mg tablet 2023-02 00:00: 00 05-19 00:00 :00 No [id number] 25mg Take 1 tablet by mouth at bedtime as needed for Insomnia. [facility] SERTraline (ZOLOFT) 50 mg tablet 2023-02 09:52: 11 12-12 00:00 :00 No 50mg Take 1 tablet by mouth in the morning and 1 tablet in the evening. [facility] risperiDONE 0.5 mg tablet 2023-02 09:51: 58 05-23 00:00 :00 No .5mg Take 1 tablet by mouth in the morning and 1 tablet in the evening. [facility] hydrOXYzine 50 mg tablet 2023-02 09:51: 41 05-23 00:00 :00 No 50mg Take 1 tablet by mouth in the morning and 1 tablet at noon and 1 tablet in the evening. [facility] BIKTARVY 50-200-25 mg tablet 2023-02 00:00: 00 05-19 00:00 :00 No [id number] 1{tbl} Take 1 tablet by mouth in the morning. [facility] methocarbam oL (ROBAXIN) tablet 750 mg 03-29 19:45: 00 03-29 18:46 :00 No 750mg 750 mg, Oral, ONCE NOW, 1 dose, On Wed03/29/23 at 1345, Routine [facility] ciprofloxac in HCl (CIPRO) tablet 500 mg 03-29 19:30: 00 03-29 18:46 :00 No 500mg 500 mg, Oral, ONCE, 1 dose, On Wed03/29/23 at 1330, AZAM
Re ason for Anti-Infec tive: Documented Infection< br>Documen bhupinder Infection Site: Abdominal< br>Duratio n of Therapy: 7 days [facility] iopamidol (ISOVUE 370-500 mL) injection 80 mL 03-29 19:15: 00 03-29 18:14 :00 No [id number] 80mL 80 mL, Intravenou s, ONCE, 1 dose, On Wed03/29/23 at 1315, Routine [facility] NaCl 0.9% (NS) bolus infusion 1,000 mL 03-29 18:15: 00 03-29 18:40 :00 No 1000mL at 999 mL/hr, 1,000 mL, IV Infusion, ONCE, 1 dose, On Wed03/29/23 at 1215, STAT [facility] ketorolac (TORADOL) injection 15 mg 03-29 17:15: 00 03-29 17:27 :00 No 15mg 15 mg, Slow IV Push, ONCE, 1 dose, On Wed03/29/23 at 1115, Routine [facility] ciprofloxac in HCl 500 mg tablet 03-29 00:00: 00 11-17 00:00 :00 No [id number] 500mg Take 1 tablet by mouth in the morning and 1 tablet in the evening. [facility] traMADoL (ULTRAM) 50 mg tablet 03-29 00:00: 00 11-17 00:00 :00 No [id number] 50mg Take 1 tablet by mouth every 6 (six) hours as needed for Pain (scale 7-10) or Pain (scale 4-6). Indication s: acute pain [facility] ketorolac (TORADOL) injection 15 mg 03-26 02:30: 00 03-26 01:51 :00 No 15mg 15 mg, Slow IV Push, ONCE, 1 dose, On Wed03/25/23 at 2030, Routine [facility] FENTanyl PF (SUBLIMAZE (PF)) injection 50 mcg 03-26 02:15: 00 03-26 01:51 :00 No 50ug 50 mcg, Slow IV Push, ONCE, 1 dose, On Wed03/25/23 at 2015, Routine [facility] iopamidol (ISOVUE 370-500 mL) injection 100 mL 03-26 02:00: 00 03-26 02:00 :00 No [id number] 100mL 100 mL, Intravenou s, ONCE, 1 dose, On 03/25/24 at 2000, Routine [facility] proMETHazin e (PHENERGAN) 12.5 mg in NaCl 0.9% (NS) 50 mL IV piggyback 03-26 01:45: 00 03-26 02:22 :00 No 12.5mg 12.5 mg, IV Piggyback, at 200 mL/hr Administer over 15 Minutes, ONCE, 1 dose, On [place]os[place] 03/25/23 at 1945, AZAM [facility] cefTRIAXone (ROCEPHIN) 1,000 mg in NaCl 0.9% (NS) 100 mL MINI-BAG 03-26 01:00: 00 03-26 00:59 :00 No 1000mg 1,000 mg, IV Piggyback, ONCE, 1 dose, On [place] 03/25/23 at 1900, Administer over 30 Minutes, 100 mL
Reas on for Anti-Infec tive: Documented Infection< br>Documen bhupinder Infection Site: Urine
D uration of Therapy: 7 days [facility] NaCl 0.9% (NS) IV infusion 1,000 mL 03-26 00:00: 00 03-26 02:22 :00 No 1000mL at 999 mL/hr, Intravenou s, ONCE, 1 dose, On [place] 03/25/23 at 1800, Routine [facility] NaCl 0.9% (NS) IV infusion 1,000 mL 03-25 23:45: 00 03-26 01:55 :00 No 1000mL at 999 mL/hr, Intravenou s, ONCE, 1 dose, On [place] 03/25/23 at 1745, Routine [facility] FENTanyl PF (SUBLIMAZE (PF)) injection 25 mcg 03-25 22:45: 00 03-26 00:27 :00 No 25ug 25 mcg, Slow IV Push, ONCE, 1 dose, On [place] 03/25/23 at 1645, STAT [facility] ondansetron (ZOFRAN (PF)) injection 4 mg 03-25 22:45: 00 03-26 00:27 :00 No 4mg 4 mg, Slow IV Push, ONCE, 1 dose, On [place] 03/25/23 at 1645, AZAM [facility] dicyclomine 20 mg tablet 03-25 00:00: 00 11-17 00:00 :00 No [id number] 20mg Take 1 tablet by mouth 4 (four) times daily as needed for Abdominal pain. [facility] ondansetron 4 mg tablet 03-25 00:00: 11-17 00:00 :00 No [id number] 4mg Take 1 tablet by mouth every 8 (eight) hours as needed for Nausea and Vomiting (N/V). [facility] cefdinir 300 mg capsule 03-25 00:00: 00 04-02 05:59 :00 No [id number] 300mg Take 1 capsule by mouth in the morning and 1 capsule in the evening. Do all this for 7 days. [facility] cephALEXin (KEFLEX) capsule 500 mg 03-20 03:15: 03-20 03:11 :00 No 500mg 500 mg, Oral, ONCE, 1 dose, On Wed03/19/23 at 2115, AZAM
Re ason for Anti-Infec tive: Documented Infection< br>Documen bhupinder Infection Site: Urine
D uration of Therapy: Other (see Comments) [facility] ketorolac (TORADOL) injection 15 mg 03-20 03:00: 00 03-20 02:08 :00 No 15mg 15 mg, Slow IV Push, ONCE, 1 dose, On Wed03/19/23 at 2100, Routine [facility] iopamidol (ISOVUE 370-500 mL) injection 100 mL 03-19 22:45: 00 03-19 22:45 :00 No [id number] 100mL 100 mL, Intravenou s, ONCE, 1 dose, On 03/19/23 at 1645, Routine [facility] pantoprazol e (PROTONIX) injection 40 mg 03-19 22:30: 00 03-20 00:10 :00 No 40mg 40 mg, Slow IV Push, ONCE, 1 dose, On Wed03/19/23 at 1630 [facility] HYDROcodone -acetaminop hen (NORCO 5) 5-325 mg tablet 1 tablet 03-19 21:15: 00 03-19 21:35 :00 No 1{tbl} 1 tablet, Oral, ONCE NOW, 1 dose, On Wed03/19/23 at 1515, AZAM [facility] NaCl 0.9% (NS) bolus infusion 500 mL 03-19 21:15: 00 03-19 23:00 :00 No 500mL at 999 mL/hr, 500 mL, IV Infusion, ONCE, 1 dose, On Wed03/19/23 at 1515, STAT [facility] cholecalcif kortney, vitamin D3, 25 mcg (1,000 unit) tablet 03-19 13:20: 35 11-17 00:00 :00 No [id number] Take 2 tablets by mouth. [facility] Vitamin B-12 500 mcg tablet 03-19 13:20: 35 11-17 00:00 :00 No 1000ug Take 2 tablets by mouth. [facility] ibuprofen 800 mg tablet 03-19 00:00: 00 11-17 00:00 :00 No [id number] 800mg Take 1 tablet by mouth every 6 (six) hours as needed for Pain (scale 1-3) for up to 30 doses. [facility] cephALEXin (KEFLEX) 500 mg capsule 03-19 00:00: 00 03-19 00:00 :00 No [id number] 500mg Take 1 capsule by mouth in the morning and 1 capsule in the evening. Do all this for 5 days. [facility] amLODIPine 5 mg tablet 09-29 00:00: 00 11-17 00:00 :00 No 5mg Take 1 tablet by mouth. [facility] LORazepam (ATIVAN) injection 1 mg 2023-0 3-11 15:30: 00 04-18 15:46 :00 No 1mg 1 mg, Slow IV Push, ONCE, 1 dose, On 04/18/22 at 0930, STAT [facility] NaCl 0.9% (NS) bolus infusion 1,000 mL 04-18 15:00: 00 04-18 19:23 :00 No 1000mL at 999 mL/hr, 1,000 mL, IV Infusion, ONCE, 1 dose, On 04/18/22 at 0900, AZAM [facility] metroNIDAZO LE (FLAGYL) tablet 2,000 mg 04-18 07:45: 00 04-18 11:41 :00 No 2000mg 2,000 mg, Oral, ONCE, 1 dose, On 04/18/22 at 0145, AZAM
Re ason for Anti-Infec tive: Empiric Therapy for Suspected Infection< br>Empiric Therapy Site: Pelvic
Duration of therapy: 72 hours [facility] cefTRIAXone (ROCEPHIN) 1,000 mg in NaCl 0.9% (NS) 100 mL MINI-BAG 04-18 07:45: 00 04-18 12:10 :00 No 1000mg 1,000 mg, IV Piggyback, ONCE, 1 dose, On 04/18/22 at 0145, Administer over 30 Minutes, 100 mL
Reas on for Anti-Infec tive: Documented Infection< br>Documen bhupinder Infection Site: Urine
D uration of Therapy: Other (see Comments) [facility] doxycycline hyclate 100 mg capsule 04-18 00:00: 00 04-26 04:59 :00 No [id number] 100mg Take 1 capsule by mouth in the morning and 1 capsule in the evening. Do all this for 7 days. [facility] metroNIDAZO LE 500 mg tablet 04-18 00:00: 00 04-26 04:59 :00 No [id number] 500mg Take 1 tablet by mouth in the morning and 1 tablet in the evening. Do all this for 7 days. [facility] cefdinir 300 mg capsule 3-11 00:00: 00 04-26 04:59 :00 No [id number] 300mg Take 1 capsule by mouth every 12 (twelve) hours for 7 days. [facility] SERTraline 100 mg tablet 03-06 14:33: 51 03-06 00:00 :00 No 100mg Take 100 mg by mouth. [facility] risperiDONE 2 mg tablet 03-06 14:33: 48 03-06 00:00 :00 No 2mg Take 2 mg by mouth. [facility] propranoloL 20 mg tablet 03-06 14:33: 45 03-06 00:00 :00 No 20mg Take 20 mg by mouth. [facility] gabapentin 300 mg capsule 03-06 14:33: 36 03-06 00:00 :00 No Take by mouth. [facility] albuterol 90 mcg/actuati on inhaler 03-06 14:33: 29 03-06 00:00 :00 No Inhale. [facility] ARIPiprazol e 20 mg tablet 03-06 14:33: 26 03-06 00:00 :00 No Take by mouth. [facility] busPIRone 10 mg tablet 03-06 14:33: 17 03-06 00:00 :00 No 10mg Take 10 mg by mouth. [facility] carBAMazepi ne 200 mg 12 hr tablet 03-06 14:33: 10 03-06 00:00 :00 No 200mg Take 200 mg by mouth. [facility] ziprasidone 40 mg capsule 03-06 14:29: 46 03-06 00:00 :00 No 1 capsule with food [facility] ondansetron 4 mg tablet 03-06 00:00: 00 11-17 00:00 :00 No [id number] 4mg Take 1 tablet by mouth every 8 (eight) hours as needed for Nausea and Vomiting (N/V). [facility] Nitrofurant oin&Nit. Macrocryst 100 mg capsule 02-21 00:00: 00 11-17 00:00 :00 No TAKE 100 MG BY MOUTH TWICE DAILY UNTIL FINISHED. TAKE WITH FOOD. [facility] LORazepam 1 mg tablet 02-21 00:00: 00 11-17 00:00 :00 No TAKE 1 TABLET BY MOUTH EVERY 8 HOURS NEEDED FOR ANXIETY [facility] proMETHazin e 25 mg tablet 02-21 00:00: 00 03-06 00:00 :00 No TAKE 25 MG BY MOUTH EVERY 6 HOURS NEEDED FOR NAUSEA/VOM ITING [facility] ondansetron 4 mg disintegrat ing tablet 02-21 00:00: 00 03-06 00:00 :00 No DISSOLVE 1 TABLET BY MOUTH EVERY 6 HOURS NEEDED FOR NAUSEA/VOM ITING [facility] ARIPiprazol e 20 mg tablet 2021-02 12:11: 50 Yes Take by mouth. [facility] busPIRone 10 mg tablet 2021-02 12:11: 50 Yes 10mg Take 10 mg by mouth. [facility] carBAMazepi ne 200 mg 12 hr tablet 2021-02 12:11: 50 Yes 200mg Take 200 mg by mouth. [facility] gabapentin 300 mg capsule 2021-02 12:11: 50 Yes Take by mouth. [facility] propranoloL 20 mg tablet 2021-02 12:11: 50 Yes 20mg Take 20 mg by mouth. [facility] risperiDONE 2 mg tablet 2021-02 12:11: 50 Yes 2mg Take 2 mg by mouth. [facility] SERTraline 100 mg tablet 2021-02 12:11: 50 Yes 100mg Take 100 mg by mouth. [facility] ziprasidone 40 mg capsule 2021-02 12:11: 50 Yes 1 capsule with food [facility] albuterol 90 mcg/actuati on inhaler 2021-02 12:11: 49 Yes Inhale. [facility] foLIC acid 1 mg tablet 2021-02 00:00: 00 03-05 05:59 :00 No [id number] 1mg Take 1 tablet by mouth in the morning for 30 days. [facility] thiamine 100 mg tablet 2021-02 00:00: 00 03-05 05:59 :00 No [id number] 100mg Take 1 tablet by mouth in the morning for 30 days. [facility] morpHINE (2 mg/mL) injection 2 mg 2021-02 15:04: 26 Yes 2mg 2 mg, Slow IV Push, Q4HPRN, Starting on Wed01/30/22 at 0904, Until Discontinu ed, Routine, Pain (scale 7-10) [facility] foLIC acid (FOLATE) tablet 1 mg 2021-02 15:00: 00 Yes 1mg 1 mg, Oral, DAILY, First dose on Wed01/29/22 at 0900, Until Discontinu ed, Routine [facility] thiamine (VITAMIN B1) tablet 100 mg 2021-02 15:00: 00 Yes 100mg 100 mg, Oral, DAILY, First dose on Wed01/29/22 at 0900, Until Discontinu ed, Routine [facility] enoxaparin (LOVENOX) injection 40 mg 2021-02 15:00: 00 Yes 40mg 40 mg, Subcutaneo us, DAILY, First dose on Wed01/29/22 at 0900, Until Discontinu ed, Routine [facility] oxazepam (SERAX) capsule 15 mg 2021-02 23:43: 13 Yes 15mg 15 mg, Oral, Q4HPRN, Starting on Wed01/28/22 at 1743, Until Discontinu ed, Routine, Only while awake for DBP equal to or greater than 100, HR equal to or greater than 100. [facility] hydrALAZINE (APRESOLINE ) tablet 10 mg 2021-02 23:42: 05 Yes 10mg 10 mg, Oral, Q6HPRN, Starting on Wed01/28/22 at 1742, Until Discontinu ed, Routine, SBP > 155 [facility] sennosides- docusate sodium (SENOKOT-S) 8.6-50 mg per tablet 1 tablet 2021-02 23:42: 01 Yes 1{tbl} 1 tablet, Oral, QDAILYPRN, Starting on Wed01/28/22 at 1742, Until Discontinu ed, Routine, Constipati on [facility] melatonin (MELATIN) tablet 3 mg 2021-02 23:41: 59 Yes 3mg 3 mg, Oral, QHSPRN, Starting on Wed01/28/22 at 1741, Until Discontinu ed, Routine, Insomnia [facility] ondansetron (ZOFRAN (PF)) injection 4 mg 2021-02 23:41: 54 Yes 4mg 4 mg, Slow IV Push, Q6HPRN, Starting on Wed01/28/22 at 1741, Until Discontinu ed, Routine, Nausea and Vomiting (N/V) [facility] traMADoL (ULTRAM) tablet 50 mg 2021-02 23:41: 48 01-30 23:40 :48 No 50mg 50 mg, Oral, Q6HPRN, Starting on Wed01/28/22 at 1741, Until Wed01/30/22 at 1740, Routine, Pain (scale 4-6) [facility] morpHINE (2 mg/mL) injection 2 mg 2021-02 23:41: 43 01-29 23:40 :43 No 2mg 2 mg, Slow IV Push, Q6HPRN, Starting on Wed01/28/22 at 1741, Until [place] 01/29/22 at 1740, Routine, Pain (scale 7-10) [facility] ketorolac (TORADOL) injection 30 mg 2021-02 17:30: 00 01-28 16:29 :00 No 30mg 30 mg, Slow IV Push, ONCE, 1 dose, On Wed01/28/22 at 1130, Routine [facility] ondansetron (ZOFRAN (PF)) injection 4 mg 2021-02 15:30: 00 01-28 15:30 :00 No 4mg 4 mg, Slow IV Push, ONCE, 1 dose, On Wed01/28/22 at 0930, [facility] Ordered Immunization Name Filled Immunization Name Date Status Comments Source TDAP 2020 00:00:00 Completed TDAP 2020 00:00:00 Completed [facility] TDAP 2020 00:00:00 Completed [facility] TDAP 2020 00:00:00 Completed [facility] TDAP 2020 00:00:00 Completed [facility] TDAP 2020 00:00:00 Completed [facility] TDAP 2020 00:00:00 Completed [facility] TDAP 2020 00:00:00 Completed [facility] TDAP 2020 00:00:00 Completed [facility] TDAP 2020 00:00:00 Completed [facility] TDAP 2020 00:00:00 Completed [facility] TDAP 2020 00:00:00 Completed [facility] TDAP 2020 00:00:00 Completed [facility] TDAP 2020 00:00:00 Completed [facility] TDAP 2020 00:00:00 Completed [facility] TDAP 2020 00:00:00 Completed [facility] TDAP 2020 00:00:00 Completed [facility] TDAP 2020 00:00:00 Completed [facility] TD Pres-Free 2011-07-08 00:00:00 Completed TD Pres-Free 2011-07-08 00:00:00 Completed [facility] TD Pres-Free 2011-07-08 00:00:00 Completed [facility] TD Pres-Free 2011-07-08 00:00:00 Completed [facility] TD Pres-Free 2011-07-08 00:00:00 Completed [facility] TD Pres-Free 2011-07-08 00:00:00 Completed [facility] TD Pres-Free 2011-07-08 00:00:00 Completed [facility] TD Pres-Free 2011-07-08 00:00:00 Completed [facility] TD Pres-Free 2011-07-08 00:00:00 Completed [facility] TD Pres-Free 2011-07-08 00:00:00 Completed [facility] TD Pres-Free 2011-07-08 00:00:00 Completed [facility] TD Pres-Free 2011-07-08 00:00:00 Completed [facility] TD Pres-Free 2011-07-08 00:00:00 Completed [facility] TD Pres-Free 2011-07-08 00:00:00 Completed [facility] TD Pres-Free 2011-07-08 00:00:00 Completed [facility] TD Pres-Free 2011-07-08 00:00:00 Completed [facility] TD Pres-Free 2011-07-08 00:00:00 Completed [facility] TD Pres-Free 2011-07-08 00:00:00 Completed [facility] TDAP Unknown Completed [facility] TD Pres-Free Unknown Completed [facility] TDAP Unknown Completed [facility] TD Pres-Free Unknown Completed [facility] TDAP Unknown Completed [facility] TD Pres-Free Unknown Completed [facility] TDAP Unknown Completed [facility] TD Pres-Free Unknown Completed [facility] TDAP Unknown Completed [facility] TD Pres-Free Unknown Completed [facility] TDAP Unknown Completed [facility] TD Pres-Free Unknown Completed [facility] TDAP Unknown Completed [facility] TD Pres-Free Unknown Completed [facility] TDAP Unknown Completed [facility] TD Pres-Free Unknown Completed [facility] TDAP Unknown Completed [facility] TD Pres-Free Unknown Completed [facility] TDAP Unknown Completed [facility] TD Pres-Free Unknown Completed [facility] TDAP Unknown Completed [facility] TD Pres-Free Unknown Completed [facility] TDAP Unknown Completed [facility] TD Pres-Free Unknown Completed [facility] TDAP Unknown Completed [facility] TD Pres-Free Unknown Completed [facility] TDAP Unknown Completed [facility] TD Pres-Free Unknown Completed [facility] TDAP Unknown Completed [facility] TD Pres[facility]Free Unknown Completed [facility] TDAP Unknown Completed [facility] TD Pres-Free Unknown Completed [facility] TDAP Unknown Completed [facility] TD Pres-Free Unknown Completed [facility] TDAP Unknown Completed [facility] TD Pres-Free Unknown Completed [facility] TDAP Unknown Completed [facility] TD Pres-Free Unknown Completed [facility] TDAP Unknown Completed [facility] TD Pres-Free Unknown Completed [facility] TDAP Unknown Completed [facility] TD Pres[facility]Free Unknown Completed [facility] TDAP Unknown Completed [facility] TD Pres-Free Unknown Completed [facility] TDAP Unknown Completed [facility] TD Pres[facility]Free Unknown [facility] TD Pres-Free Unknown [facility] Com[facility] TD Pres-Free Unknown [facility] Completed [facility] TD Pres-Free Unknown Completed [facility] TDAP Unknown Completed [facility] TD Pres-Free Unknown Completed [facility] TDAP Unknown Completed [facility] TD Pres-Free Unknown Completed [facility] TDAP Unknown Completed [facility] TD Pres-Free Unknown Completed [facility] TDAP Unknown Completed [facility] TD Pres-Free Unknown Completed [facility] TDAP Unknown Completed [facility] TD Pres-Free Unknown Completed [facility] TDAP Unknown Completed [facility] TD Pres-Free Unknown Completed [facility] TDAP Unknown Completed [facility] TD Pres-Free Unknown Completed [facility] TDAP Unknown Completed [facility] TD Pres-Free Unknown Completed [facility] TDAP Unknown Completed [facility] TD Pres-Free Unknown Completed [facility] TDAP Unknown Completed [facility] TD Pres-Free Unknown Completed [facility] TDAP Unknown Completed [facility] TD Pres-Free Unknown Completed [facility] TDAP Unknown Completed [facility] TD Pres-Free Unknown Completed [facility] Vital Signs Vital Name Observation Time Observation Value Comments S ource Systolic blood pressure 2024-05-23 21:07:00 103 mm[Hg] [facility] Diastolic blood pressure 2024-05-23 21:07:00 71 mm[Hg] [facility] Heart rate 2024-05-23 21:07:00 105 /min [facility] Body height 2024-05-23 21:07:00 165.1 cm [facility] Body weight 2024-05-23 21:07:00 68.629 kg [facility] BMI 2024-05-23 21:07:00 25.18 kg/m2 [facility] Oxygen saturation in Arterial blood by Pulse oximetry 2024-05-23 21:07:00 98 /min [facility] Systolic blood pressure 2024-01-18 16:04:00 138 mm[Hg] [facility] Diastolic blood pressure 2024-01-18 16:04:00 92 mm[Hg] [facility] Heart rate 2024-01-18 16:04:00 126 /min [facility] Body height 2024-01-18 16:02:00 165.1 cm [facility] Body weight 2024-01-18 16:02:00 74.526 kg [facility] BMI 2024-01-18 16:02:00 27.34 kg/m2 [facility] Oxygen saturation in Arterial blood by Pulse oximetry 2024-01-18 16:02:00 97 /min [facility] Systolic blood pressure 2023-12-13 19:38:00 145 mm[Hg] [facility] Diastolic blood pressure 2023-12-13 19:38:00 88 mm[Hg] [facility] Heart rate 2023-12-13 19:38:00 99 /min [facility] Body temperature 2023-12-13 19:38:00 36.83 Rabia [facility] Body height 2023-12-13 19:38:00 165.1 cm [facility] Body weight 2023-12-13 19:38:00 74.163 kg [facility] BMI 2023-12-13 19:38:00 27.21 kg/m2 [facility] Oxygen saturation in Arterial blood by Pulse oximetry 2023-12-13 19:38:00 100 /min [facility] Systolic blood pressure 2023-11-18 14:23:00 188 mm[Hg] [facility] Diastolic blood pressure 2023-11-18 14:23:00 116 [facility] Heart rate 2023-11-18 14:23:00 116 /min [facility] Body temperature 2023-11-18 14:23:00 35.61 Rabia [facility] Respiratory rate 2023-11-18 14:23:00 18 /min [facility] Body height 2023-11-18 14:23:00 165.1 cm [facility] Body weight 2023-11-18 14:23:00 70.58 kg [facility] BMI 2023-11-18 14:23:00 25.89 kg/m2 [facility] Oxygen saturation in Arterial blood by Pulse oximetry 2023-11-18 14:23:00 96 /min [facility] Diastolic blood pressure 2023-10-04 18:14:00 83 mm[Hg] [facility] Systolic blood pressure 2023-10-04 18:14:00 150 mm[Hg] [facility] Heart rate 2023-10-04 18:13:00 112 /min [facility] Body temperature 2023-10-04 18:13:00 37.06 Rbaia [facility] Respiratory rate 2023-10-04 18:13:00 18 /min [facility] Body height 2023-10-04 18:13:00 165.1 cm [facility] Body weight 2023-10-04 18:13:00 70.081 kg [facility] BMI 2023-10-04 18:13:00 25.71 kg/m2 [facility] Oxygen saturation in Arterial blood by Pulse oximetry 2023-10-04 18:13:00 97 /min [facility] Systolic blood pressure 2023-03-29 18:45:00 135 mm[Hg] [place] [facility] Diastolic blood pressure 2023-03-29 18:45:00 115 mm[Hg] [facility] Heart rate 2023-03-29 18:00:00 91 [facility] Respiratory rate 2023-03-29 18:00:00 19 /min [facility] Oxygen saturation in Arterial blood by Pulse oximetry 2023-03-29 18:00:00 97 /min [facility] Body temperature 2023-03-29 17:01:00 36.83 Rabia [facility] Body height 2023-03-29 17:01:00 165.1 cm [facility] Systolic blood pressure 2023-03-26 02:00:00 149 mm[Hg] [facility] Diastolic blood pressure 2023-03-26 02:00:00 89 mm[Hg] [facility] Heart rate 2023-03-26 02:00:00 112 /min [facility] Body temperature 2023-03-26 01:55:36 37 Rabia [facility] Respiratory rate 2023-03-26 01:55:36 18 /min [facility] Oxygen saturation in Arterial blood by Pulse oximetry 2023-03-26 01:55:36 98 /min [facility] Body weight 2023-03-25 22:32:00 77.111 kg [facility] BMI 2023-03-25 22:32:00 28.29 kg/m2 [facility] Systolic blood pressure 2023-03-20 02:41:00 154 mm[Hg] [facility] Diastolic blood pressure 2023-03-20 02:41:00 102 mm[Hg] [facility] Heart rate 2023-03-20 02:41:00 87 /min [facility] Respiratory rate 2023-03-20 02:41:00 17 /min [facility] Oxygen saturation in Arterial blood by Pulse oximetry 2023-03-20 02:41:00 98 /min [facility] Body temperature 2023-03-20 01:16:00 36.83 Rabia [facility] Body height 2023-03-19 20:48:00 165.1 cm [facility] Body weight 2023-03-19 20:48:00 77.111 kg [facility] BMI 2023-03-19 20:48:00 28.29 kg/m2 [facility] Systolic blood pressure 2023-03-19 20:16:00 148 mm[Hg] [facility] Diastolic blood pressure 2023-03-19 20:16:00 98 mm[Hg] [facility] Heart rate 2023-03-19 20:16:00 112 /min [facility] Body temperature 2023-03-19 19:09:00 36.39 Rabia [facility] Respiratory rate 2023-03-19 19:09:00 18 /min [facility] Body height 2023-03-19 19:09:00 165.1 cm [facility] Body weight 2023-03-19 19:09:00 77.157 kg [facility] BMI 2023-03-19 19:09:00 28.31 kg/m2 [facility] Oxygen saturation in Arterial blood by Pulse oximetry 2023-03-19 19:09:00 100 /min [facility] Systolic blood pressure 2022-04-18 21:19:00 131 mm[Hg] [facility] Diastolic blood pressure 2022-04-18 21:19:00 75 mm[Hg] [facility] Heart rate 2022-04-18 21:19:00 85 /min [facility] Body temperature 2022-04-18 21:19:00 37 Rabia [facility] Respiratory rate 2022-04-18 21:19:00 16 /min [facility] Oxygen saturation in Arterial blood by Pulse oximetry 2022-04-18 21:19:00 98 /min [facility] Body weight 2022-04-18 03:12:00 72.576 kg [facility] BMI 2022-04-18 03:12:00 26.63 kg/m2 [facility] Systolic blood pressure 2022-03-06 20:08:00 138 mm[Hg] [facility] Diastolic blood pressure 2022-03-06 20:08:00 89 mm[Hg] [facility] Heart rate 2022-03-06 20:04:00 134 /min [facility] Body temperature 2022-03-06 20:04:00 37.61 Rabia [facility] Respiratory rate 2022-03-06 20:04:00 19 /min [facility] Body height 2022-03-06 20:04:00 165.1 cm [facility] Body weight 2022-03-06 20:04:00 73.347 kg [facility] BMI 2022-03-06 20:04:00 26.91 kg/m2 [facility] Oxygen saturation in Arterial blood by Pulse oximetry 2022-03-06 20:04:00 97 /min [facility] Systolic blood pressure 2022-02-01 13:14:00 130 mm[Hg] [facility] Diastolic blood pressure 2022-02-01 13:14:00 74 mm[Hg] [facility] Heart rate 2022-02-01 13:14:00 82 /min [facility] Body temperature 2022-02-01 13:14:00 36.72 Rabia [facility] Respiratory rate 2022-02-01 13:14:00 16 /min [facility] Oxygen saturation in Arterial blood by Pulse oximetry 2022-02-01 10:03:00 98 /min [facility] Body height 2022-01-28 21:32:00 165.1 cm [facility] Body weight 2022-01-28 21:32:00 71.986 kg [facility] BMI 2022-01-28 21:32:00 26.41 kg/m2 [facility] Procedures Procedure Date / Time Performed Performing Clinician Source CT ABDOMEN PELVIS W CONTRAST 2023-03-29 18:19:02 Joseline Mcrae [facility] COMP. METABOLIC PANEL ([id number]) 2023-03-29 17:27:00 Joseline Mcrae [facility] CBC WITH DIFF 2023-03-29 17:27:00 Joseline Mcrae [facility] URINALYSIS 2023-03-29 17:27[facility] WHOLE BLO[facility] 2023-03-29 17:27:00 Eliot Mcrae [facility] URINE DRUG (IMMUNOASSAY) - COMPREHENSIVE DRUG SCREEN W/O REFLEX 2023-03-29 17:27:00 Joseline Mcrae [facility] CONSENT/REFUSAL FOR DIAGNOSIS AND TREATMENT 2023-03-29 16:57:33 Doctor Unassigned, [place] [facility] EKG-12 LEAD 2023-03-26 02:09:49 Meenu Shipman [facility] CT ABDOMEN PELVIS W CONTRAST 2023-03-26 01:05:15 Meenu Shipman [facility] URINALYSIS 2023-03-25 23:20:00 [facility] RAPID INFLUENZA A/B 2023-03-25 23:20:00 Clauida Shipman [facility] URINE DRUG (IMMUNOASSAY) - COMPREHENSIVE DRUG SCREEN W/O REFLEX 2023-03-25 23:20:00 Meenu Shipman [facility] LIPASE 2023-03-25 23:08:00 [facility] COMP. METABOLIC PANEL ([id number]) 2023-03-25 23:08:00 Meenu Shipman [facility] CBC WITH DIFF 2023-03-25 23:08:00 Meenu Shipman [facility] COVID-19 (ID NOW RAPID TESTING) 2023-03-25 23:08:00 Meenu Shipman [facility] CONSENT/REFUSAL FOR DIAGNOSIS AND TREATMENT 2023-03-25 22:25:02 Doctor Unassigned, [place] [facility] URINALYSIS 2023-03-20 02:08:00 Joseline Mcrae [facility] URINE DRUG (IMMUNOASSAY) - COMPREHENSIVE DRUG SCREEN W/O REFLEX 2023-03-20 02:08:00 Joseline Mcrae [facility] ASSIGNMENT OF BENEFITS 2023-03-19 23:43:36 Docto r Unassigned, [place] [facility] CT ANGIOGRAM ABDOMEN/PELVIS 2023-03-19 21:49:00 Joseline Mcrae [facility] HB ABO GROUPING 2023-03-19 21:44:00 Joseline Mcrae [facility] PROTHROMBIN TIME / INR 2023-03-19 21:16:00 Lincoln Mcrae [facility] LIPASE 2023-03-19 21:14:00 Joseline Mcrae [facility] TROPONIN I 2023-03-19 21:14:00 Joseline Mcrae [facility] COMP. METABOLIC PANEL ([id number]) 2023-03-19 21:14:00 Joseline Mcrae [facility] ETHANOL 2023-03-19 21:14:00 Joseline Mcrae [facility] CBC WITH DIFF 2023-03-19 21:14:00 Joseline Mcrae [facility] CONSENT/REFUSAL FOR DIAGNOSIS AND TREATMENT 2023-03-19 20:38:50 Doctor Unassigned, [place] [facility] AUTHORIZATION FOR RELEASE OF PHI 2022-05-22 05:01:00 Doctor Unassigned, [place] [facility] TEST, SERUM 2022-04-18 05:29:00 Don Sim [facility] TOTAL BETA HCG ASSAY 2022-04-18 05:29:00 Cyrus Sim [facility] ETHANOL 2022-04-18 05:29:00 Cyrus Sim [facility] URINALYSIS 2022-04-18 05:19:00 Cyrus Sim [facility] COVID-19 (ID NOW RAPID TESTING) 2022-04-18 05:19:00 Cyrus Sim [facility] URINE DRUG (IMMUNOASSAY) - COMPREHENSIVE DRUG SCREEN W/O REFLEX 2022-04-18 05:19:00 Cyrus Sim [facility] CONSENT/REFUSAL FOR DIAGNOSIS AND TREATMENT 2022-04-18 03:05:26 Doctor Unassigned, [place] [facility] PATIENT QUESTIONNAIRE 2022-03-06 06:01:00 Doctor Unassigned, [place] [facility] FREE T4 2022-01-31 20:14:00 Chelly [place] [facility] FREE T3 2022-01-31 20:14:00 [facility] HEPATIC FUNCTION PANEL (20460) (ALB,T.PRO,BILI T,BU/BC,ALT,AST,ALK PHOS) 2022-01-31 14:41:[address] [facility] US ARTERIAL IN OR VENOUS OUT ABDOMEN LIMITED DOPPLER 2022-01-30 21:15:00 John Wilson [facility] RAPID INFLUENZA A/B 2022-01-30 19:54:[address] [facility] HEPATITIS B VIRUS (HBV) BY QUANTITATIVE NAAT 2022-01-30 19:54:[address] [facility] HUMAN IMMUNODEFICIENCY VIRUS 1 (HIV-1) BY QUANTITATIVE NAAT 2022-01-30 19:54:[address] [facility] RAPID RSV 2022-01-30 19:54:00 Harjeet Rios [facility] COVID-19 (ID NOW RAPID TESTING) 2022-01-30 19:54:00 Harjeet Rios [facility] CERULOPLASMIN 2022-01-30 09:44:00 Morgan Gabriel [facility] ALPHA 1 ANTITRYPSIN 2022-01-30 09:44:00 Josh Gabriel [facility] IMMUNOGLOBULIN G 2022-01-30 09:44:00 Morgan Gabriel [facility] COMP. METABOLIC PANEL (84064) 2022-01-30 09:44:00 Aurelio Shaw [facility] CBC WITH DIFF 2022-01-30 09:44:00 [facility] PROTHROMBIN TIME / INR 2022-01-30 09:44:00 Julian Shaw [facility] SMOOTH MUSCLE AB, IGG TITER 2022-01-30 09:44:00 Morgan Gabriel [facility] SMOOTH MUSCLE AB,IGG W/REFLEX 2022-01-30 09:44:00 Morgan Gabriel [facility] FERRITIN SERUM 2022-01-29 16:32:00 Morgan Gabriel [facility] THYROID STIMULATING HORMONE 2022-01-29 16:32:00 Morgan Gabriel [facility] IRON PANEL 2022-01-29 16:32:00 Morgan Gabriel [facility] EBV VIRAL CAPSID IGM ANTIBODY 2022-01-29 16:32:00 Harjeet Rios [facility] EBV NUCLEAR ANTIGEN IGG TEST 2022-01-29 16:32:[address] [facility] CYTOMEGALOVIRUS ANTIBODY IGM 2022-01-29 16:32:[address] [facility] CYTOMEGALOVIRUS ANTIBODY IGG 2022-01-29 16:32:[address] [facility] ANTI-NUCLEAR ANTIBODY SCREEN 2022-01-29 16:32:00 Morgan Gabriel [facility] HEPATITIS B SURFACE ANTIBODY 2022-01-29 16:32:00 Harjeet Rios [facility] HEPATITIS B SURFACE ANTIGEN 2022-01-29 16:32:[address] [facility] HCV ANTIBODY 2022-01-29 16:32:00 Harjeet Rios [facility] HBC ANTIBODY (IGM & IGG) 2022-01-29 16:32[facility]TIBODY IGM 2022-01-29 16:32:[address] [facility] RPR (QUANTITATIVE) 2022-01-29 16:32:00 Harjeet Rios [facility] EBV AB TO EARLY(D)AG,IGG 2022-01-29 16:32:00 [facility]TIBODY (IGG AND IGM) 2022-01-29 16:32:[address] [facility] HEPATITIS C VIRUS (HCV) BY QUANTITATIVE NAAT 2022-01-29 16:32:[address] [facility] CMV BY PCR 2022-01-29 16:32:00 Harjeet Rios [facility] HSV 1 AND 2 GLYCOPROTEIN G IGG 2022-01-29 16:32:[address] [facility] HIV 1/2 AG-AB WITH REFLEX 2022-01-29 16:32:[address] [facility] HIV 1/2 AB SUPPLEMENTAL TESTING 2022-01-29 16:32:[address] [facility] GALV ONLY - SYPHILIS IGG/IGM 2022-01-29 16:32:[address] [facility] HEPATITIS BE AG 2022-01-29 16:32:00 Harjeet Rios [facility] HEPATITIS BE AB 2022-01-29 16:32:00 Harjeet Rios [facility] COMP. METABOLIC PANEL (90770) 2022-01-29 14:08:00 Aurelio Shaw [facility] PROTHROMBIN TIME / INR 2022-01-29 14:08:00 Julian Shaw [facility] BLOOD CULTURE SCREEN 2022-01-29 00:41:00 John Wilson [facility] BLOOD CULTURE SCREEN 2022-01-29 00:40:00 John Wilson [facility] PROTHROMBIN TIME / INR 2022-01-28 21:55:00 Elizabeth Wilson [facility] URINALYSIS 2022-01-28 17:55:00 Meenu Shipman [facility] URINE CULTURE 2022-01-28 17:55:00 Meenu Shipman [facility] URINE DRUG (IMMUNOASSAY) - COMPREHENSIVE DRUG SCREEN W/O REFLEX 2022-01-28 17:55:00 Meenu Shipman [facility] US ABDOMEN LIMITED 2022-01-28 17:18:25 Meenu Shipman [facility] CT ABDOMEN PELVIS WO CONTRAST 2022-01-28 15:59:50 Meenu Shipman [facility] MAGNESIUM 2022-01-28 15:41:00 Katie John [facility] COMP. METABOLIC PANEL ([id number]) 2022-01-28 15:41:00 Meenu Shipman [facility] ACETAMINOPHEN 2022-01-28 15:41:00 Katie John [facility] CBC WITH DIFF 2022-01-28 15:41:00 Meenu Shipman [facility] PHOS[facility]US 2022-01-28 15:41:00 John Wilson [facility] CONSENT/REFUSAL FOR DIAGNOSIS AND TREATMENT 2022-01-28 15:06:45 Doctor Unassigned, [place] [facility] Encounters Start Date/Time End Date/Time Encounter Type Admission Type Attending Clinicians Care Facility Care Department Encounter ID Source 2024-06-20 14:00:00 2024-06-20 14:00:00 Outpatient KEREN SHOOK [facility] [id number] [facility] 2024-04-24 00:00:00 2024-05-27 18:20:41 Patient Secure Msg Doctor Unassigned, [place] Doctor Unassigned, [place] [facility] MEDICAL OFFICE BUILDING 1.2.840.114 350.1.13.10 4.2.7.2.686 [id number] [facility] 2024-05-27 09:19:54 2024-05-27 09:19:54 Outpatient [facility] [id number] Gerald Donaldson Carlos 2024-05-26 00:00:00 2024-05-26 18:51:29 Telephone Oliev Chowdhury [facility] MEDICAL OFFICE BUILDING 1.2.840.114 350.1.13.10 4.2.7.2.686 [id number] [id number] [facility] 2024-05-23 15:30:00 2024-05-23 17:17:00 Outpatient R OLIVE CHOWDHURY [facility] [id number] [facility] 2024-05-23 15:30:00 2024-05-23 17:17:00 Office Visit Anne ChowdhuryCount includes the [facility] SONYA?[facility] 1.2840.114 350.1.13.10 4.2.7.2.686 [id number] 044 [id number] [facility] 2024-05-19 00:00:00 2024-05-22 10:03:32 Refill Anne ChowdhuryCount includes the [facility] SONYA?[facility] 1.2840.114 350.1.13.10 4.2.7.2.686 [id number] 044 [id number] [facility] 2024-05-19 00:00:00 2024-05-19 16:20:48 Refill Mario Guzman [facility] 1.2840.114 350.1.13.10 4.2.7.2.686 [id number] [facility] 2024-05-14 09:18:01 2024-05-14 09:18:01 Outpatient [facility] [id number] Gerald Gonzalez 2024-02-21 00:00:00 2024-03-25 18:20:39 Patient Secure Msg Doctor Unassigned, [place] Doctor Unassigned, [place] [facility] 1.20.114 350.1.13.10 4.2.7.2.686 [id number] [facility] 2024-02-16 00:00:00 2024-02-16 08:09:07 Telephone Joey [facility] 1.20.114 350.1.13.10 4.2.7.2.686 [id number] [facility] 2024-02-15 00:00:00 2024-02-15 15:22:49 Telephone Joey [facility] BUILDING 1.2840.114 350.1.13.10 4.2.7.2.686 [id number] [facility] 2024-02-14 00:00:00 2024-02-14 10:00:15 Telephone Evan Cook [facility] J[facility] PROFESSIO NAL BUILDING 1.2.840.114 350.1.13.10 4.2.7.2.686 [id number] [facility] 2024-02-04 00:00:00 2024-02-07 10:40:00 Telephone Evan [facility] 1.2.840.114 350.1.13.10 4.2.7.2.686 [id number] [facility] 2024-01-31 14:38:39 2024-01-31 23:59:00 Hospital Encounter Evan Cook [facility] PROFESSIO NAL BUILDING 1.2.840.114 350.1.13.10 4.2.7.2.686 [id number] [facility] 2024-01-31 14:38:24 2024-01-31 23:59:00 [facility] [id number] [facility] 2024-01-31 14:38:24 2024-01-31 23:59:00 [facility] 1.2.840.114 350.1.13.10 4.2.7.2.686 [id number] [facility] 2024-01-31 16:00:00 2024-01-31 16:00:00 [facility] [id number] [facility] 2024-01-21 09:00:00 2024-01-21 09:00:00 Outpatient R MARIO GUZMAN [facility] [id number] [facility] 2024-01-19 00:00:00 2024-01-20 07:33:50 Armando Perez [facility] SONYA?[facility] MED[facility] OFF[facility] BUILDING 1.2.840.114 350.1.13.10 4.2.7.2.686 [id number] [facility] 2024-01-18 10:00:00 2024-01-18 10:44:12 Outpatient R JOEY [facility] [id number] [facility] 2024-01-18 10:00:00 2024-01-18 10:44:[address] [facility] NAL BUILDING 1.2.840.114 350.1.13.10 4.2.7.2.686 [id number] [facility] 2024-01-13 00:00:00 2024-01-13 13:55:35 Armando Perez [facility] SONYA?[facility] MED[facility] OFF[facility] BUILD[facility] 1.2.840.114 350.1.13.10 4.2.7.2.686 [id number] [facility] 2024-01-11 00:00:00 2024-01-12 08:26:32 Patient Secure Olive Barahona [facility] SONYA?[facility] MEDICAL OFFICE BUILDING 1.2.840.114 350.1.13.10 4.2.7.2.686 [id number] [facility] 2023-11-30 00:00:00 2024-01-01 18:24:51 Patient Secure Armando Golden [facility] SONYA[facility] MEDICAL OFFICE BUILDING 1.2.840.114 350.1.13.10 4.2.7.2.686 [id number] [facility] 2023-12-28 00:00:00 2023-12-28 14:09:41 Letter (Out) [facility] 1.2.840.114 350.1.13.10 4.2.7.2.686 [id number] [facility] 2023-12-28 09:30:00 2023-12-28 09:30:00 Outpatient R EVAN COOK [facility] [id number] [facility] 2023-12-23 09:00:00 2023-12-23 09:00:00 Outpatient R MARIO GUZMAN [facility] [id number] [facility] 2023-12-13 13:30:00 2023-12-13 14:39:46 Outpatient R JUAN CHOWDHURYA [facility] [id number] [facility] 2023-12-13 13:30:00 2023-12-13 14:39:46 [facility] 1.2.840.114 350.1.13.10 4.2.7.2.686 [id number] [facility] 2023-12-06 00:00:00 2023-12-08 10:40:25 Telephone Mario Guzman [facility] 1.2.840.114 350.1.13.10 4.2.7.2.686 [id number] [facility] 2023-12-06 00:00:00 2023-12-06 11:46:51 Telephone Armando Preston [facility] 1.2.840.114 350.1.13.10 4.2.7.2.686 [id number] [facility] 2023-12-06 09:55:00 2023-12-06 10:57:31 Outpatient Elective KALEN MATTHEWS EOUT [id number] NATASHA 2023-12-06 10:10:00 2023-12-06 10:30:00 Consult Kalen Matthews [facility] 1..114 350.1.13.70 8.2.7.2.686 [id number] Grace Carrasquillo [facility] 2023-12-02 00:00:00 2023-12-03 10:56:40 Telephone Armando Preston [facility] MEDICAL OFFICE BUILDING 1..114 350.1.13.10 4.2.7.2.686 [id number] 044 [id number] [facility] 2023-11-30 00:00:00 2023-12-01 08:07:26 Telephone Armando Preston 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 MEDICAL OFFICE BUILDING 1.84.114 350.1.13.10 4.2.7.2.686 [id number] [facility] 2023-11-22 10:53:03 2023-11-22 11:57:25 Outpatient Elective KALEN MATTHEWS EOUT [id number] ANIKETEOUT 2023-10-14 00:00:00 2023-11-20 18:25:39 Patient Secure Msg Doctor Unassigned, [place] Doctor Unassigned, [place] [facility] 1..114 350.1.13.10 4.2.7.2.686 [id number] [facility] 2023-11-18 09:30:00 2023-11-18 10:30:00 Office Visit Thomas Mario [facility] ([facility]) 1.2.840.114 350.1.13.10 4.2.7.2.686 [id number] [facility] 2023-11-18 09:30:00 2023-11-18 09:30:00 Outpatient R MARIO GUZMAN [facility] [id number] [facility] 2023-11-16 11:00:00 2023-11-16 11:00:00 Outpatient R ARMANDO PRESTON [facility] [id number] [facility] 2023-11-10 11:59:16 2023-11-10 13:09:05 Outpatient Elective KALEN MATTHEWS [facility] [id number] [address] [place] [address] 2023-10-08 00:00:00 2023-10-12 10:33:17 Patient Secure Msg Doctor Unassigned, [place] Doctor Unassigned, [place] [facility] MED[facility] OFFICE BUILDING 1.2.840.114 350.1.13.10 4.2.7.2.686 [id number] [facility] 2023-10-08 00:00:00 2023-10-08 10:37:01 Telephone Armando Preston [facility] BUILDING 1.2.840.114 350.1.13.10 4.2.7.2.686 [id number] [facility] 2023-10-06 00:00:00 2023-10-08 10:35:44 Patient Secure Msg Cookieevon Armando [facility] MEDICAL OFFICE BUILDING 1.2.840.114 350.1.13.10 4.2.7.2.686 [id number] [facility] 2023-10-06 00:00:00 2023-10-06 10:51:36 Patient Secure Msg Armando Preston [facility] SONYA?[facility] MEDICAL OFFICE BUILDING 1.2.840.114 350.1.13.10 4.2.7.2.686 [id number] [facility] 2023-10-05 00:00:00 2023-10-05 14:00:07 Letter (Out) [facility] 1.2.840.114 350.1.13.10 4.2.7.2.686 [id number] [facility] 2023-10-05 00:00:00 2023-10-05 08:57:59 Telephone Armando Preston [facility] SON[facility] MEDICAL OFFICE BUILDING 1.2.840.114 350.1.13.10 4.2.7.2.686 [id number] 044 [id number] [facility] 2023-10-04 00:00:00 2023-10-05 07:22:40 Patient Secure Msg Armando Preston [facility] S[facility] MEDICAL OFFICE BUILDING 1.2.840.114 350.1.13.10 4.2.7.2.686 [id number] 044 [id number] [facility] 2023-10-04 13:00:00 2023-10-04 13:34:03 Outpatient R ARMANDO PRESTON [facility] [id number] [facility] 2023-10-04 13:00:00 2023-10-04 13:34:03 Office Visit Armando Preston [facility] SON[facility] MEDICAL OFFICE BUILDING 1.2.840.114 350.1.13.10 4.2.7.2.686 [id number] [facility] 2023-05-15 21:37:00 2023-05-16 02:11:00 Emergency EM Anthony Shaffer [facility] [id number] [facility] 2023-05-07 00:00:00 2023-05-07 00:00:00 Telephone Maureen Mcdonald [facility] 1.2.840.114 350.1.13.10 4.2.7.2.686 [id number] [facility] 2023-04-29 00:00:00 2023-04-29 00:00:00 Letter (Out) Diseases-Ut mb, Infectious [facility] 1.2.840.114 350.1.13.10 4.2.7.2.686 [id number] [facility] 2023-04-26 00:00:00 2023-04-26 00:00:00 Patient Secure Msg Doctor Unassigned, [place] [facility] 1.2.840.114 350.1.13.10 4.2.7.2.686 [id number] [facility] 2023-04-21 00:00:00 2023-04-21 00:00:00 Patient Secure Msg Maureen Mcdonald [facility] 1.2.840.114 350.1.13.10 4.2.7.2.686 [id number] [facility] 2023-04-15 00:00:00 2023-04-15 00:00:00 Patient Secure Msg Maureen Mcdonald [facility] 1.2.840.114 350.1.13.10 4.2.7.2.686 [id number] [facility] 2023-04-13 00:00:00 2023-04-13 00:00:00 Patient Secure Msg Maureen Mcdonald [facility] 1.2.840.114 350.1.13.10 4.2.7.2.686 [id number] [facility] 2023-04-13 00:00:00 2023-04-13 00:00:00 Case Management Maureen Mcdonald [facility] 1.2.840.114 350.1.13.10 4.2.7.2.686 [id number] [facility] 2023-04-13 00:00:00 2023-04-13 00:00:00 Patient Secure Msg Maureen Mcdonald [facility] 1.2.840.114 350.1.13.10 4.2.7.2.686 [id number] [facility] 2023-04-12 00:00:00 2023-04-12 00:00:00 Patient Secure Msg Maureen Mcdonald [facility] 1.2.840.114 350.1.13.10 4.2.7.2.686 [id number] [facility] 2023-04-12 00:00:00 2023-04-12 00:00:00 Telephone BroderickMaureen bal Timbo [facility] 1.2.840.114 350.1.13.10 4.2.7.2.686 [id number] [facility] 2023-04-09 00:00:00 2023-04-09 00:00:00 Patient Secure Msg Maureen Mcdonald Timbo [facility] 1.2.840.114 350.1.13.10 4.2.7.2.686 [id number] [facility] 2023-04-09 00:00:00 2023-04-09 00:00:00 Patient Secure Msg Broderick, Maureen Timbo [facility] 1.2.840.114 350.1.13.10 4.2.7.2.686 [id number] [facility] 2023-04-09 00:00:00 2023-04-09 00:00:00 Patient Outreach La Boyer Timbo [facility] 1.2.840.114 350.1.13.10 4.2.7.2.686 [id number] [facility] 2023-04-08 00:00:00 2023-04-08 00:00:00 Patient Secure Msg Broderick Maureen Timbo [facility] 1.2.840.114 350.1.13.10 4.2.7.2.686 [id number] [facility] 2023-04-08 00:00:00 2023-04-08 00:00:00 Patient Secure Msg Broderick Maureen D [facility] 1.2.840.114 350.1.13.10 4.2.7.2.686 [id number] [facility] 2023-04-08 00:00:00 2023-04-08 00:00:00 Telephone Broderick Maureen D [facility] 1.2.840.114 350.1.13.10 4.2.7.2.686 [id number] [facility] 2023-04-07 00:00:00 2023-04-07 00:00:00 Patient Secure Msg Broderick Maureen D [facility] 1.2.840.114 350.1.13.10 4.2.7.2.686 [id number] [facility] 2023-04-07 00:00:00 2023-04-07 00:00:00 Patient Secure Msg Broderick Maureen D [facility] 1.2.840.114 350.1.13.10 4.2.7.2.686 [id number] [facility] 2023-04-07 00:00:00 2023-04-07 00:00:00 Patient Secure Msg Broderick Maureen Timbo [facility] 1.2.840.114 350.1.13.10 4.2.7.2.686 [id number] [facility] 2023-04-06 00:00:00 2023-04-06 00:00:00 Patient Secure Msg BroderickMaureen [facility] 1.2.840.114 350.1.13.10 4.2.7.2.686 [id number] [facility] 2023-04-05 00:00:00 2023-04-05 00:00:00 Telephone Maureen Mcdonald [facility] 1.2.840.114 350.1.13.10 4.2.7.2.686 [id number] [facility] 2023-04-05 00:00:00 2023-04-05 00:00:00 Patient Secure Msg BroderickMaureen [facility] 1.2.840.114 350.1.13.10 4.2.7.2.686 [id number] [facility] 2023-03-29 11:01:00 2023-03-29 12:53:00 Emergency X JOSELINE MCRAE [facility] ERT [id number] [facility] 2023-03-29 11:01:00 2023-03-29 12:53:00 Emergency Joseline Mcrae [facility] ([facility]) 1.2.840.114 350.1.13.10 4.2.7.2.686 [id number] [facility] 2023-03-29 00:00:00 2023-03-29 00:00:00 Telephone Maureen Mcdonald [facility] 1.2840.114 350.1.13.10 4.2.7.2.686 [id number] [facility] 2023-03-28 00:00:00 2023-03-28 00:00:00 Patient Secure Msg Maureen Mcdonald [facility] 1.2840.114 350.1.13.10 4.2.7.2.686 [id number] [facility] 2023-03-26 00:00:00 2023-03-26 00:00:00 Telephone Maureen Mcdonald [facility] 1.2840.114 350.1.13.10 4.2.7.2.686 [id number] [facility] 2023-03-25 16:37:00 2023-03-25 20:56:00 Emergency ZACHARIAH LUCIANO [facility] ERT [id number] [facility] 2023-03-25 16:37:00 2023-03-25 20:56:00 Emergency Meenu Shipman William B [facility] ([facility]) 1.840.114 350.1.13.10 4.2.7.2.686 [id number] [facility] 2023-03-19 14:51:00 2023-03-19 21:23:00 Emergency ZACHARIAH LUCIANO [facility] ERT [id number] [facility] [facility] 14:51:00 2023-03-19 21:23:00 Emergency Joseline Mcrae William B [facility] ([facility]) 1.2840.114 350.1.13.10 4.2.7.2.686 [id number] [facility] 2023-03-19 13:00:00 2023-03-19 14:36:30 Office Visit Maureen Mcdonald [facility] 1.0.114 350.1.13.10 4.2.7.2.686 [id number] [facility] 2023-03-19 13:00:00 2023-03-19 13:00:00 Outpatient R MAUREEN MCDONALD [facility] [id number] [facility] 2022-10-14 00:00:00 2022-10-14 00:00:00 Telephone Adair, Tianna BRADFORD [facility] 1.20.114 350.1.13.10 4.2.7.2.686 [id number] [facility] 2022-07-23 20:37:00 2022-07-23 21:51:00 Emergency EM Ede Wong [facility] ER [id number] [facility] 2022-06-18 00:00:00 2022-06-18 00:00:00 [facility] 1.2840.114 350.1.13.10 4.2.7.2.686 [id number] [facility] 2022-06-01 00:00:00 2022-06-01 00:00:00 [facility] 1.2.840.114 350.1.13.10 4.2.7.2.686 [id number] [facility] 2022-05-22 00:00:00 2022-05-22 00:00:00 Orders Only Doctor Unassigned, [place] [facility] 1.2.840.114 350.1.13.10 4.2.7.2.686 [id number] [facility] 2022-05-15 09:30:00 2022-05-15 09:30:[address] [facility] [id number] [facility] 2022-05-09 00:00:00 2022-05-09 00:00:00 [facility] 1.2.840.114 350.1.13.10 4.2.7.2.686 [id number] [facility] 2022-05-04 00:00:00 2022-05-04 00:00:00 [facility] 1.2.840.114 350.1.13.10 4.2.7.2.686 [id number] [facility] 2022-04-17 21:14:00 2022-04-18 16:30:00 Emergency X ELIAN HERRERA [facility] [id number] [facility] 2022-04-17 21:14:00 2022-04-18 16:30:00 Emergency Cyrus Sim [facility] 1.2.840.114 350.1.13.10 4.2.7.2.686 [id number] [facility] 2022-03-17 00:00:00 2022-03-17 00:00:00 Patient Outreach La Boyer [facility] 1.2.840.114 350.1.13.10 4.2.7.2.686 [id number] [facility] 2022-03-16 00:00:00 2022-03-16 00:00:00 Telephone Jhony Patriciochuck [facility] 1.2.840.114 350.1.13.10 4.2.7.2.686 [id number] [facility] 2022-03-10 00:00:00 2022-03-10 00:00:00 Patient Outreach Julia Méndez [facility] 1.2.840.114 350.1.13.10 4.2.7.2.686 [id number] [facility] 2022-03-06 13:50:00 2022-03-06 14:40:23 [facility] [id number] [facility] 2022-03-06 13:50:00 2022-03-06 14:40:23 [facility] 1.2840.114 350.1.13.10 4.2.7.2.686 [id number] [facility] 2022-03-06 00:00:00 2022-03-06 00:00:00 Orders Only Doctor Unassigned, [place] [facility] 1.2840.114 350.1.13.10 4.2.7.2.686 [id number] [facility] 2022-03-03 09:30:00 2022-03-03 09:30:[address] [facility] [id number] [facility] 2022-03-03 00:00:00 2022-03-03 00:00:00 Patient Secure Msg Pcp, Patient Does Not Have A [facility] 1.2840.114 350.1.13.10 4.2.7.2.686 [id number] [facility] 2022-02-28 10:00:00 2022-02-28 10:00:00 Outpatient R UNKNOWN, ATTENDING [facility] [id number] [facility] 2022-02-26 00:00:00 2022-02-26 00:00:00 Patient Secure Msg Doctor Unassigned, [place] [facility] ([facility]) 1.2840.114 350.1.13.10 4.2.7.2.686 [id number] [facility] 2022-02-22 00:53:00 2022-02-22 00:53:00 Outpatient Constance Croft HCACL LABO [id number] [facility] 2022-02-21 06:08:00 2022-02-21 11:10:00 Emergency EM Constance Croft HCAMN ANGELITO [id number] [facility] 2022-02-20 14:00:00 2022-02-20 14:00:00 Outpatient RADHA GALINDO [facility] [id number] [facility] 2022-02-19 00:00:00 2022-02-19 00:00:00 Patient Secure g Sheng [facility] ..114 350.1.13.10 4.2.7.2.686 [id number] [facility] 2022-02-17 12:30:00 2022-02-17 12:30:[address] [facility] [id number] [facility] 2022-02-13 10:10:00 2022-02-13 10:10:[address] [facility] [id number] [facility] 2022-02-03 00:00:00 2022-02-03 00:00:00 Transition of Care Mark Soto ..114 350.1.13.10 4.2.7.2.686 [id number] [facility] 2022-02-02 00:00:00 2022-02-02 00:00:00 Patient Secure Msg Doctor Unassigned, [place] [facility] ..114 350.1.13.10 4.2.7.2.686 [id number] [facility] 2022-02-02 00:00:00 2022-02-02 00:00:00 Telephone John Wilson [facility] ..114 350.1.13.10 4.2.7.2.686 [id number] [facility] 2022-01-28 09:11:00 2022-02-01 11:57:00 Emergency Umberto, Meenu Bella, Judie Shaw, Aurelio Spaulding, Giacomo [facility] ([facility]) 1.2.840.114 350.1.13.10 4.2.7.2.686 [id number] [facility] 2022-01-28 09:11:00 2022-02-01 11:57:00 Outpatient X GIACOMO SPAULDING [facility] [id number] [facility] Results Test Description Test Time Test Comments Results Resul t Comments Source - CT ABD PELVIS W/CONT 2023-05-16 01:44:00 [facility] 1970 Sex: F FAX: Anthony Shaffer [place]: [address]: REG Name: LETITIA ZELAYA [facility] : 1970 Age/S: 52/F [address] [facility] Unit: [id number] Loc: [address] Phys: [place] [address] Acct: [id number] Dis Date: Status: REG ER PHONE #: [phone] Exam Date: 05/16/202346 FAX #: [phone] Reason: BACK PAIN EXAMS: CPT CODE: [id number] CT ABD PELVIS W/CONT 97120 EXAM: - CT ABD PELVIS W/CONT HISTORY: [...] 1 Signed Report (CONTINUED) FAX: Anthony Shaffer [place]: St: REG Name: LETITIA ZELAYA [facility] : 1970 Age/S: 52/F [address] [facility] [id number] Loc: [address] [place], [place]: [place] [address] Acct: [id number] Dis Date: Status: REG ER PHONE #: [phone] Exam Date: 05/16/202346 FAX #: [phone] Reason: BACK PAIN EXAMS: CPT CODE: [id number] CT ABD PELVIS W/CONT 52236 (Continued) at 0144 Reported and signed by: Arvind Daily M.D. CC: Anthony Shaffer DO Technologist: Carmela Gifford Trnscrd Dt/Tm: 05/16/2023 (143) [id number] Orig Print D/T: S: 05/16/2023 (146 PAGE 2 Signed Report WHAT DRUGS HAVE BEEN TAKEN? unkUA RFLX MICR CULT IF [id number] 23:44:00 * Test Item Value Reference Range [...] Pain Flank PainSpecimen Description: CLEAN CATCHUR HCG [id number] 23:44:00* Test Item Value Reference Range Interpretation Comme nts UR HCG QUAL (test code = HCGQLU) NEGATIVE NEGATIVE Indication for culture: Suprapubic Pain Flank PainSpecimen Description: CLEAN CATCHBASIC METABOLIC [id number] 22:41:00* Test Item Value Reference Range Interpretation [...] 8.5 mg/dl 8.0-10.5 N HEPATIC FUNCTION PANEL [id number] 22:41:00* Test Item Value Reference Range Interpretation [...] code = ALKP) 283 Units/L 50.0-136.0 H [id number] 22:41:00* Test Item Value Reference Range Interpretation Comme nts LIPASE (test code = LIP) 29 Units/L 16-77 N CBC W/AUTO [id number] 22:26:00* Test Item Value Reference Range Interpretation [...] 3uL 0.00-0.[address] ABDOMEN PELVIS W [id number] 18:29:19Exam: CT ABDOMEN PELVIS W CONTRAST Clinical [...] mild degenerative changes and no suspicious focal lesions.[facility]. Metabolic Panel (36849)2023-03-29 17:49:51* Test Item Value Reference Range Interpretation Comme nts NA (test code = 8613833916) 139 mmol/L 135-145 K (test code = 0952222681) 3.5 mmol/L 3.5-5.0 CL (test code = 3739727321) 105 mmol/L 98-108 CO2 TOTAL (test code = 7006192461) 25 mmol/L 23-31 AGAP (test code = 9101563688) 9 2-16 BUN (test code = 8344089943) 21 mg/dL 7-23 GLUCOSE (test code = 9366721223) 147 mg/dL 70-110 H CREATININE (test code = 2160-0) 0.72 mg/dL 0.50-1.04 TOTAL BILI (test code = 7004460253) 1.5 mg/dL 0.1-1.1 H CALCIUM (test code = 0697862825) 9.5 mg/dL 8.6-10.6 T PROTEIN (test code = 0858494559) 8.2 g/dL 6.3-8.2 ALBUMIN (test code = 9769359048) 4.6 g/dL 3.5-5.0 ALK PHOS (test code = 7563336326) 161 U/L 34-122 H ALTv (test code = 1742-6) 40 U/L 5-35 H AST(SGOT) (test code = 0623539782) 55 U/L 13-40 H eGFR (test code = 18828-0) 100.1 mL/min/1.73m2 CKD-EPI eGFR (2020). Assuming creatinine has been stable day-to-day for at least three months, the eGFR indicates Category G1 (>= 90 mL/min/1.73 m2) Lab Interpretation (test code = 91520-7) Abnormal [facility] with [id number] 17:38:32* Test Item Value Reference Range Interpretation [...] 33.6 g/dL 31.6-35.1 RDW-SD (test code = 13732-7) 43.6 fL 39.0-49.9 RDW-CV (test code = 788-0) 14.8 % 12.0-15.5 PLT (test code = 777-3) 183 166-358 MPV (test code = 69136-7) 10.2 fL 9.5-12.9 NRBC/100 WBC (test code = 3754800678) 0.0 0.0-10.0 NRBC x10^3 (test code = 6505350381) See_Comment [Automated messa ge] The system which generated this result transmitted reference range: 10*3/?L. The reference range was not used to interpret this result as normal/abnormal. GRAN MAT (NEUT) % (test code = 770-8) 64.3 % IMM GRAN % (test code = 2475011038) 0.30 % LYMPH % (test code = 736-9) 23.0 % MONO % (test code = 5905-5) 5.6 % EOS % (test code = 713-8) 6.5 % BASO % (test code = 706-2) 0.3 % GRAN MAT x10^3(ANC) (test code = 5695831539) 2.29 10*3/uL 1.88-7.09 IMM GRAN x10^3 (test code = 5962333905) 0.00-0.06 LYMPH x10^3 (test code = 731-0) 0.82 10*3/uL 1.32-3.29 L MONO x10^3 (test code = 742-7) 0.20 10*3/uL 0.33-0.92 L EOS x10^3 (test code = 711-2) 0.23 10*3/uL 0.03-0.39 BASO x10^3 (test code = 704-7) 0.01-0.07 Lab Interpretation (test code = 86825-9) Abnormal [facility] CenterLactic Acid Whole [id number] 17:36:39* Test Item Value Reference Range Interpretation Comme nts LACTIC ACID (test code = 9874485019) 1.86 mmol/L 0.50-2.20 Lab Interpretation (test cod e = 31682-3) Normal [facility] CenterCT [facility]BDOMEN PELVIS W [id number] 02:26:06EXAM: CT ABDOMEN/PELVIS WITH CONTRAST HISTORY: ?Abdominal [...] sclerotic bony lesions.Degenerative changes of the lumbar spine.[facility] CenterLIPASE2024-02-15 23:49:52* Test Item Value Reference Range Interpretation Comme nts LIPASE (test code = 9156013528) 74 U/L 0-220 Lab Interpretation (test cod e = 61856-3) Normal [facility] CenterCOMP. METABOLIC PANEL (75430)2023-03-25 23:49:52* Test Item Value Reference Range Interpretation Comme nts NA (test code = 2014302902) 140 mmol/L 135-145 K (test code = 4316050803) 3.7 mmol/L 3.5-5.0 Slight hemolysis CL (test code = 8683500160) 106 mmol/L 98-108 CO2 TOTAL (test code = 9739808963) 21 mmol/L 23-31 L AGAP (test code = 5655358136) 13 2-16 BUN (test code = 5436563956) 14 mg/dL 7-23 Slight hemolysis GLUCOSE (test code = 7206694149) 111 mg/dL 70-110 H CREATININE (test code = 2160-0) 0.59 mg/dL 0.50-1.04 TOTAL BILI (test code = 4132312933) 1.8 mg/dL 0.1-1.1 H CALCIUM (test code = 3745297152) 9.6 mg/dL 8.6-10.6 T PROTEIN (test code = 8838232528) 8.8 g/dL 6.3-8.2 H ALBUMIN (test code = 7305227727) 4.8 g/dL 3.5-5.0 ALK PHOS (test code = 3014819035) 167 U/L 34-122 H Slight hemolysis ALTv (test code = 1742-6) 41 U/L 5-35 H AST(SGOT) (test code = 4012092726) 59 U/L 13-40 H Slight hemolysis eGFR (test code = 96630-9) 107.9 mL/min/1.73m2 CKD-EPI eGFR (2020). Assuming creatinine has been stable day-to-day for at least three months, the eGFR indicates Category G1 (>= 90 mL/min/1.73 m2) Lab Interpretation (test code = 17978-0) Abnormal [facility] WITH [id number] 23:24:49* Test Item Value Reference Range Interpretation [...] 34.3 g/dL 31.6-35.1 RDW-SD (test code = 00257-5) 43.4 fL 39.0-49.9 RDW-CV (test code = 788-0) 15.2 % 12.0-15.5 PLT (test code = 777-3) 165 166-358 L MPV (test code = 92461-9) 10.1 fL 9.5-12.9 NRBC/100 WBC (test code = 1145276041) 0.0 0.0-10.0 NRBC x10^3 (test code = 2285326044) See_Comment [Automated Save On Medicala ge] The system which generated this result transmitted reference range: 10*3/?L. The reference range was not used to interpret this result as normal/abnormal. GRAN MAT (NEUT) % (test code = 770-8) 83.2 % IMM GRAN % (test code = 5566796160) 0.30 % LYMPH % (test code = 736-9) 12.5 % MONO % (test code = 5905-5) 3.8 % EOS % (test code = 713-8) 0.0 % BASO % (test code = 706-2) 0.2 % GRAN MAT x10^3(ANC) (test code = 0529369212) 4.77 10*3/uL 1.88-7.09 IMM GRAN x10^3 (test code = 8267604777) 0.00-0.06 LYMPH x10^3 (test code = 731-0) 0.72 10*3/uL 1.32-3.29 L MONO x10^3 (test code = 742-7) 0.22 10*3/uL 0.33-0.92 L EOS x10^3 (test code = 711-2) 0.03-0.39 L BASO x10^3 (test code = 704-7) 0.01-0.07 Lab Interpretation (test code = 25418-0) Abnormal [facility] CenterCT ANGIOGRAM ABDOMEN/[id number] 22:45:01 ORDERING PHYSICIAN: JOSELINE MCRAE CLINICAL HISTORY: [...] in caliber andenhancement. There is no intra-abdo idpesh free air. The small bowel is normal [...] There is disc space narrowing at L4-L5and L5-S1.[facility] CenterEthanol2024-02-09 22:03:44ALCOHOL<10mg/dL03/19/2023 4:03 PM [facility]ERToxic Greater than or equal to 80 mg/dL. NOTE: Whole blood values are approximately 10% to 15% lower than serum and plasma.[facility] CenterTroponin [id number] 21:50:05* Test Item Value Reference Range Interpretation Comme nts TROPONIN I (test code = 1644656691) 0.016 ng/mL <=0.034 MULUGETA (test code = [...] of biotin. Lab Interpretation (test code = 91001-0) Normal [facility] CenterType and Screen - ONCE [id number] 21:49:00 * Test Item Value Reference Range Interpretation Comme nts ABO & RH (test code = 20) O POSITIVE IAT (test code = 1185) Negative [facility] CenterComp. Metabolic Panel (80020)2023-03-19 21:39:03* Test Item Value Reference Range Interpretation Comme nts NA (test code = 9492607116) 139 mmol/L 135-145 K (test code = 3278961880) 4.4 mmol/L 3.5-5.0 Slight hemolysis CL (test code = 3073207137) 109 mmol/L 98-108 H CO2 TOTAL (test code = 4861234699) 18 mmol/L 23-31 L AGAP (test code = 2813703139) 12 2-16 BUN (test code = 9266447064) 14 mg/dL 7-23 Slight hemolysis GLUCOSE (test code = 9804013413) 105 mg/dL 70-110 CREATININE (test code = 8118639095) 0.72 mg/dL 0.50-1.04 TOTAL BILI (test code = 6934727586) 1.3 mg/dL 0.1-1.1 H CALCIUM (test code = 9796028582) 9.1 mg/dL 8.6-10.6 T PROTEIN (test code = 5531759643) 8.4 g/dL 6.3-8.2 H ALBUMIN (test code = 6920157486) 4.6 g/dL 3.5-5.0 ALK PHOS (test code = 7107235691) 163 U/L 34-122 H Slight hemolysis ALTv (test code = 1742-6) 51 U/L 5-35 H AST(SGOT) (test code = 3240792066) 66 U/L 13-40 H Slight hemolysis eGFR (test code = 85993-6) 100.1 mL/min/1.73m2 CKD-EPI eGFR (2020). Assuming creatinine has been stable day-to-day for at least three months, the eGFR indicates Category G1 (>= 90 mL/min/1.73 m2) Lab Interpretation (test code = 70820-5) Abnormal [facility] CenterLipase2024-02-09 21:39:03* Test Item Value Reference Range Interpretation Comme nts LIPASE (test code = 8300303717) 120 U/L 0-220 Lab Interpretation (test cod e = 16100-8) Normal [facility] CenterProthrombin Time / [id number] 21:31:44* Test Item Value Reference Range Interpretation Comme nts PROTIME PATIENT (test code = 5964-2) 10.5 10.1-12.6 INR (test code = 6301-6) 0.9 Normal INR <1.1; Warfarin Therapeutic range 2.0 to 3.0 or 2.5 to 3.5, depending upon the indications. Lab Interpretation (test code = 62411-4) Normal [facility] CenterCbc with Iysg7707-02-95 21:30:21* Test Item Value Reference Range Interpretation [...] 33.9 g/dL 31.6-35.1 RDW-SD (test code = 15856-3) 43.2 fL 39.0-49.9 RDW-CV (test code = 788-0) 14.9 % 12.0-15.5 PLT (test code = 777-3) 141 166-358 L MPV (test code = 60073-4) 10.5 fL 9.5-12.9 IPF % (test code = 7554953230) 3.7 % 1.3-7.7 Platelet count measured by fluorescence method. NRBC/100 WBC (test code = 4129651993) 0.0 0.0-10.0 NRBC x10^3 (test code = 5635018868) See_Comment [Automated messa ge] The system which generated this result transmitted reference range: 10*3/?L. The reference range was not used to interpret this result as normal/abnormal. GRAN MAT (NEUT) % (test code = 770-8) 74.8 % IMM GRAN % (test code = 0159467357) 0.20 % LYMPH % (test code = 736-9) 17.9 % MONO % (test code = 5905-5) 4.3 % EOS % (test code = 713-8) 2.6 % BASO % (test code = 706-2) 0.2 % GRAN MAT x10^3(ANC) (test code = 9328186983) 3.81 10*3/uL 1.88-7.09 IMM GRAN x10^3 (test code = 6976735555) 0.00-0.06 LYMPH x10^3 (test code = 731-0) 0.91 10*3/uL 1.32-3.29 L MONO x10^3 (test code = 742-7) 0.22 10*3/uL 0.33-0.92 L EOS x10^3 (test code = 711-2) 0.13 10*3/uL 0.03-0.39 BASO x10^3 (test code = 704-7) 0.01-0.07 Lab Interpretation (test code = 67121-7) Abnormal [facility] (QUANTITATIVE)2022-04-18 09:54:26* Test Item Value Reference Range Interpretation Comme nts BETA HCG (test code = 7126487662) 7.22 See_Comment [Automated Save On Medicala ge] The system which generated this result transmitted reference range: Non- female and male patients: <5 mIU/mL. The reference range was not used to interpret this result as normal/abnormal. MULUGETA (test code = MULUGETA) Gestational Age ?Range (mIU/mL) 1-10 ?Weeks ?61-08222129-66 Weeks ?87134-92139182-05 Weeks ?6070-00947255-47 Weeks ?2081-971396 Biotin has been reported to cause a negative bias, interpret results relative to patient's use of biotin. [facility] CenterPREGNANCY TEST, [id number] 06:42:14* Test Item Value Reference Range Interpretation Comme nts PREG SERUM (test code = 3368974041) Positive MULUGETA (test code = MULUGETA) Positive greater t luke or equal to 10 IU/L hCG. [facility] CenterETHANOL2023-03-11 06:24:09 ALCOHOL<10mg/dL04/18/2022 12:24 AM CSTUTMB LABORATORY SERVICESToxic Greater than or equal to 80 mg/dL. NOTE: Whole blood values are approximately 10% to 15% lower than serum and plasma.[facility] CenterTROP-I HIGH [id number] 10:30:00* Test Item Value Reference Range Interpretation Comme nts TROP-I HIGH SENSITIVITY (test code = TROPIHS) 8.1 pg/mL 0.0-51.4 N CAUTION: Units o f the current TROPI-HS test methodology(pg/mL) differ from the prior test methodology (ng/mL) by afactor of 1000. 99th Percentile: Females: 0.0-51.4 pg/mL Males: 0.0-76.2 pg/mLThese results were obtained using [employer] TnIHreagent. Results from different methodologies should not becompared to one another as quantitative results may vary bymethod. [id number] 10:29:00* Test Item Value Reference Range Interpretation Comme nts ALCOHOL (test code = ALC) 0.00 gm/dL 0.00-0.00 N ETHYL ALCOHOL VA LUES - INTERPRETATION: 0.050 GM/DL - NOT INTOXICATED 0.100 GM/DL - INTOXICATED 0.350-0.450 GM/DL - SEVERELY INTOXICATED 0.550 GM/DL- FATAL INTOXICATION URINALYSIS VSXPDCEE8710-28-61 08:13:00* Test Item Value Reference Range Interpretation [...] A UA NITRITE DIPSTICK (test code = KAELY) POSITIVE NEGATIVE A UA LEUKOCYTE ESTERASE DIPSTICK [...] Specimen comments: Clean CatchDRUGS OF ABUSE SCREEN TF2422-17-13 08:09:00* Test Item Value Reference Range Interpretation [...] 300 ng/mL - CT ABD PELVIS W/O [id number] 08:08:00 [facility] : 1970 Sex: F FAX: Constance Cotter MD [phone] [place]: St: REG Name: LETITIA ZELAYA [facility] : 1970 Age/S: 51/F [address] [facility] Unit: [id number] Loc: [place]: [place] [address] Acct:[id number] Dis Date: Status: REG ER PHONE #: [phone] Exam Date: 02/21/2022 99 FAX #: [phone] Reason: RIGHT FLANK PAIN EXAMS: CPT CODE: [id number] CT ABD PELVIS W/O CONT 44047 CLINICAL HISTORY: Right flank pain TECHNIQUE: Axial [...] Signed Report (CONTINUED) FAX: Constance Croft MD [phone] [place]: St: REG Name: LETITIA ZELAYA [facility] : 1970 Age/S: 51/F [address] [facility] Unit: [id number] Loc: [place], [place]: [place] [address] Acct: [id number] Dis Date: Status: REG ER PHONE #: [phone] Exam Date: 02/21/2022 0780 FAX #: [phone] Reason: RIGHT FLANK PAIN EXAMS: CPT CODE: [id number] CT ABD PELVIS W/O CONT 39969 (Continued) CC: Constance Croft MD Technologist: MIRANDA GAXIOLA Trnscrd Dt/Tm: 02/21/2022 (0808) [id number] Orig Print D/T: S: 02/21/2022 (0811 PAGE 2 Signed ReportBASIC METABOLIC [id number] 07:03:00* Test Item Value Reference Range Interpretation [...] 9.3 mg/dl 8.0-10.5 N HEPATIC FUNCTION PANEL [id number] 07:03:00* Test Item Value Reference Range Interpretation [...] code = ALKP) 207 Units/L 50.0-136.0 H [id number] 07:03:00* Test Item Value Reference Range Interpretation Comme [facility] LIPASE (test code = LIP) 117 Units/L 65.0-230.0 N PROTHROMBIN [id number] 06:49:00* Test Item Value Reference Range Interpretation Comme [facility] PROTHROMBIN TIME PATIENT (test code = PTP) [...] ANTIPHOSPHOLIPID ANTIBODIES 2.5 - 3.5 THROMBOPLASTIN TIME [id number] 06:49:00* Test Item Value Reference Range Interpretation [facility] PARTIAL (test code = PTT) 30.90 SECONDS 25.86-36.07 [facility] Therapeutic Range - APTT of 55.8-85.4 secondscorrelates with plasma heparin concentration of 0.2-0.4 u/mL CBC W/AUTO [id number] 06:46:00* Test Item Value Reference Range Interpretation Comme [facility] WHITE BLOOD CELL (test code = WBC) [...] HUMAN IMMUNODEFICIENCY VIRUS 1 (HIV-1) BY QUANTITATIVE [id number] 19:06:56* Test Item Value Reference Range Interpretation Comme nts HIV-1 Quantitative NAAT - copies/mL (test code = 47770-1) Not Detected Copies/mL H HIV-1 Quantitative Interpretation (test code = 9738993837) Detected Not Detected A MULUGETA (test code [...] clinically indicated. Lab Interpretation (test code = 19930-7) [facility] QUANTITATIVE NAAT 2022-01-31 18:36:58* Test Item Value Reference Range Interpretation Comme nts HBV Quantitative Interpretation (test code = 56794-5) Not Detected Not Detected MULUGETA (test code [...] clinically indicated. Lab Interpretation (test code = 66547-4) [facility] [id number] 18:55:59* Test Item Value Reference Range Interpretation Comme nts Specimen Tested (test code = 3205400752) Plasma CMV PCR - log IU/mL (test code = 11635-2) See_Comment [Automated message] The system which generated this result transmitted reference range: <2.5 log IU/mL. The reference range was not used to interpret this result as normal/abnormal. CMV PCR - IU/mL (test code = 45291-3) See_Comment [Automated message] The system which generated this result transmitted reference range: <300 IU/mL. The reference range was not used to interpret this result as normal/abnormal. CMV PCR - log copies/mL (test code = 13629-0) See_Comment [Automated message] The system which generated this result transmitted reference range: <2.7 log copies/mL. The reference range was not used to interpret this result as normal/abnormal. CMV PCR - copies/mL (test code = 86688-0) See_Comment [Automated message] The system which generated [...] This is a laboratory-developed test using a rubber tire and tubes supervisor labeled ASR (Analyte Specific Reagent) as the reagent providing the specificity of the assay. ?This test was developed and its performance characteristics determined by [facility] Clinical Microbiology Laboratory. It has not been [...] to perform high complexity clinical laboratory testing. [facility] SYPHILIS IGG/[id number] 16:01:26* Test Item Value Reference Range Interpretation Comme nts Syphilis IgG/IgM (test code = 79691-5) Non-reactive Non-reactive MULUGETA (test code = MULUGETA) Non-reactive - No serologic evidence of T. pallidum infection. Cannot exclude incubating or early syphilis. Submit a second specimen in 2-4 weeks if syphilis is clinically suspected. Equivocal - Further testing to follow. Reactive - Further testing to follow. Lab Interpretation (test code = 66361-7) Normal [facility] Notes Date/Time Note Provider Source 2024-05-26 14:19:13 Letitia Zelaya is a 53 year old female Pt called because she was seen on 05-23-24 and she was told a referral would be placed for a child welfare social worker. Please advise. Megan Garcia [facility] 2024-05-20 10:13:46 Images from the original note were not included. Last Refilled: Disp Refills Start End JAYLON QUEtiapine (SEROQUEL) 25 mg tablet 45 tablet 0 12/13/2023 -- No Sig: Take 1 tablet by mouth at bedtime as needed for Insomnia. Sent to pharmacy as: QUEtiapine 25 mg tablet (SeroqueL) Class: eRX Route: Oral Order: [id number] Date/Time Signed: 12/13/2023 14:14 E-Prescribing Status: Receipt confirmed by pharmacy (12/13/2023 2:14 PM ASSESSMENT RN) Notes: Please review Anti-psychotic (2nd generation) Jojram7305/19/2024 03:44 PM Protocol Details Prolactin Level (serum) in normal range and within 360 days Glucose (serum) in normal range and within 360 days Triglycerides in normal range and within 360 days LDL in normal range and within 360 days HDL in normal range and within 360 days Total Cholesterol in normal range and within 360 days Valid encounter within last 6 months HBA1C in normal range and within 360 days Recent Visits Date Type Provider Dept 12/13/23 Office Visit Olive Chowdhury FNP [facility] 10/04/23 Office Visit Armando Preston FNP [facility] 03/19/23 Office Visit Maureen Mcdonald, ANP [facility] Family Showing recent visits within past 540 days with a meds authorizing provider and meeting all other requirements Future Appointments Date Type Provider Dept 06/01/24 Appointment Olive Chowdhury FNP [facility] Showing future appointments within next 150 days with a meds authorizing provider and meeting all other requirements Della Rahman RN [facility] 2024-05-19 16:15:13 Received 05/19/24 refill request for: Medication: Requested Prescriptions Pending Prescriptions Disp Refills yazafrufv-bfridbjf-cznzlqz ala (BIKTARVY) 50-200-25 mg tablet 30 tablet 5 Sig: Take 1 tablet by mouth in the morning. Last filled: 11/18/23 Follow up scheduled for : 06/01/24 Last office visit: 11/18/23 Refilled approval sent to: Pharmacy: [facility]/pharmacy #[id number] - [place], [place] - [address] [facility] [address] [facility] [id number] Refilled per ID Guidelines Eliud Mejia RN [facility] 2024-02-16 08:04:50 Letitia Zelaya is a 53 year old female Left patient a voicemail to call back to schedule stress test - Please be advised SSMENT RN Keri Ca [facility] 2024-02-15 15:22:56 Order placed. [facility] 2024-02-15 14:04:36 Discussed with pt importance of stress test prior to cardiac clearance. Pt verbalized understanding. Will forward to Dr. Cook for order to be placed and then will forward to PSS to assist pt with scheduling appt. SSMENT RN Dyana Shook RN [facility] 2024-02-15 12:04:32 Goal from exercise is to see functional capacity and see if heart rate can increase in a normal way. I prefer to obtain the exercise test before clearing for surgery. Evan Cook MD professor of chemistry. Division of cardiovascular medicine [facility] 2024-02-15 09:36:22 Images from the original note [...] Zelaya is on propranolol. ONETTE Machado RN [facility] 2024-02-14 09:59:12 Spoke with patient, her results have not been finalized yet. Advised her to give a little more time. Encouraged her to call back in 1 week if she has not heard back about results. Patient is waiting for results for clearance to have foot surgery. ONETTE Machado RN [facility] 2024-02-14 09:09:26 Letitia Zelaya is a 53 year old female Pt is calling asking for an update on heart monitor results. Please advise. ONETTE Rudolph [facility] 2024-02-07 10:39:51 Patient returned device SSMENT RN Karly Machado RN [facility] 2024-02-04 15:50:47 Tried to call patient regarding heart monitor, @3:15 left a voicemail on [phone]. Patient was put on holter monitor on 01/31/2024, 48 hr monitor. FYLeonarda . Please try to call back again. SSMENT RN Suzi Chen MA [facility] 2023-12-10 14:03:07 Please schedule pt for pre op clearance. Lily Buck MA [facility] 2023-12-10 11:47:13 Surgical clearance apt will be needed. Nell seen pt 1 x and BP was very high. T [facility] 2023-12-09 10:47:35 Patient states is having left bunion surgery once cleared by this Provider is not wanting to schedule a second appt at this time. She said Cook Chef accepted the labs already completed, has also done an EKG, and has been cleared by her Infectious disease doctor. She is only needing an okay by Mrs Preston. Please advise. Elizabeth Robb LVN [facility] 2023-12-06 11:46:07 What type of surgery? Yes need to follow up as last apt was establish care [facility] 2023-12-06 11:24:46 MALKA 10/04/23, please let me know if you would like pt to be seen in office for clearance Lily Buck MA [facility] 2023-12-06 11:17:42 Letitia Zelaya is a 53 year old female Calling to get clearance for foot surgery from dr Dr. Kalen Matthews [address] [place] [address] Juan Georges [facility] 2023-12-06 10:55:48 Letitia Zelaya is a 53 year old female pt is calling stating that she is having foot surgery and she needs a clearance letter from Dr Guzman. Please send letter to Dr. Kalen Matthews [address] [place] [address] Collette Stubbs [facility]2024-10-28 10:53:36 [facility]gn2079-44-36 10:53:36* Kalen Matthews DPM - 12/06/2023 10:10 AM CDT CHIEF COMPLAINT: BUNION, LEFT HISTORY OF PRESENT ILLNESS: Patient returns for discussion of surgical options since no improvements from conservative treatments Patient denies infection, injury, wounds Patient states pain currently rated 6/10 on palpation, left medial 1st metatarsal head --- Patient states history of contralateral bunionectomy ( alternate provider in [place], [place]), approximately 2021 Patient states she recently [...] hair growth NEUROLOGICAL: (+) sensation with 5.07 [place] Letty monofilament examination to the most distal [...] - PENDING CONSULT DECEMBER 19 - Pain -oqnc-zql-peuqdfu as needed - Xrays - reviewed - [...] responsible person has agreed to proceed. Renetta [facility] StationRdthxup3344-80-07 10:53:36Upcoming Encounters Health Maintenance Due Date Last [...] on patient's age to complete this topic [facility] StationOnxgsih6459-27-47 10:56:34 Done [facility]2024-10-24 16:42:41 Please review, complete, and sign if appropriate. Elizabeth Robb [facility]2024-10-24 15:28:57 Call routed to [facility] Shiloh Levine RNOhioHealthFchblz9985-18-08 15:14:47 Letitia Zelaya is a 53 year old female Pt is calling stating the referral that was sent to an external facility doesn't accept her insurance and will like a new referral for sleep study within [facility] (internal). Pt states she will like a [...] No If yes, Date of Appt: Abram OrtizOhioHealthLsswwo7053-83-19 08:07:12 Referral sent [facility]Evbzrb5654-73-51 08:22:49 Please advise. Malka 10/04/23. Pt also sent my chart message stating psych prescribed Rx's but aren't helping. Lily Buck MAOhioHealthNkqtrb5317-53-33 08:16:11 Letitia Zelaya is a 53 year old female is requesting a referral to: Dept: Reason for referral: Insomnia Duration of problem: Internal / External referral: external Name of provider / location patient requesting: [facility] [address] [place] [address] [place] [address] Phone number: [phone] Fax number: [phone] Appt already scheduled?: no If yes, date of appt.: Lalito IrelandOhioHealthJfrzcz4424-51-39 09:30:00 Images from the original note were not included. Venipuncture collection performed by clean technique on the left hand. Total of 1 attempts were made. Slight pressure and a bandage/dressing were applied to the site(s). The patient experienced no complications. The following specimens were processed according to instructions and sent to [facility] laboratories per lab order on 11/23/2023 : LT BLUE SST 3 RED LAV 2 PPT 2 DK GREEN (LiHep) 1 DK GREEN (SodH) SINGH DK BLUE (K2) DK BLUE (S) ACD Blood Culture NIPT/NTD Pt sent home with sterile stool collection kit. Nery Ray 11/23/2023 9:30 AM [place] [address]-09-03 10:32:21 Ok hem referral placed T [place] [address]-08-30 10:34:58 Please try The 'BRAT' diet is [...] vomiting, fever or abdominal pain, or contractions. [facility]2024-08-30 09:59:41 MALKA: 10/04/23 T Caty Schwartz [facility]2024-08-30 09:47:25 Letitia Zelaya is a 53 year old female calling to see if can prescribe her something for the upset and diarrhea she has had for a week. Pt say she feels weak and has body aches because of this . [facility]/pharmacy #[id number] - [place], [place] - [address] AT [facility] [address] [place] [address] [place] [address] Juan GeorgesOhioHealthFzxquc1336-07-29 09:37:51 Images from the original note were not included. Liver enzymes are elevated , avoid and alcohol use and limit Nsaids usage. Diet and exercise. Will repeat LFT in 6 weeks. Thyroid normal A1C normal Written by ATUL Horn on 10/05/2023 8:53 AM CDT Seen by patient Letitia Zelaya on 10/05/2023 9:16 AM Caty Schwartz [facility]2024-08-27 08:53:12 Labs were added r/t elevated LFTs After looking into prior visits at [facility] it shows she also has HCV, I put a GI referral in as well for tx OhioHealthDufvuj5370-10-78 21:40:00 [facility] ([facility] EMERGENCY PROVIDER REPORT REPORT#:[id number] REPORT STATUS: Signed DATE:05/15/23 TIME: 2139 PATIENT: LETITIA ZELAYA UNIT #: [id number] ROOM/BED: AGE: 52 SEX: F PCP PHYS: [...] % (Auto) (23.0 - 38.0 %) 36.0 [place] % (Auto) (1.0 - 10.0 %) 7.2 Eos % (Auto) (1.0 - 5.0 %) 9.2 H Baso % (Auto) (0.0 - 1.0 %) 0.7 Neut # (Auto) (2.4 - 6.3 K/mm3) 1.4 L Lymph # (Auto) (1.2 - 4.0 K/mm3) 1.1 L [place] # (Auto) (0.0 - 0.6 K/mm3) 0.2 [...] pH (5.0 - 9.0) 6.0 Ur Specific [place] (1.000 - 1.030) 1.020 Urine Protein (NEGATIVE [...] 46 Report Impression - Status: SIGNED Entered: 05/16/20237 IMPRESSION: No significant abnormalities demonstrated. Other findings as above. Impression By: Lazaro Daily M.D. ECG #1 Interpretation Text/Dict Note Sinus rhythm 84 bpm, normal axis, no segment elevation, QTc 472 Re-Evaluation MDM )( Re-Evaluation/Progress #1 Text/Dict Note Unremarkable labs, drug screen positive for opiates, UA positive leukocyte esterase without white blood cells in urine as per patient she is taking Monroe for pain control and she is taking [...] 2139 DC 05/14 Tromethamine IV 05/14 2140 222 Diagnostic Agents Sig/Emil Start time Last Medication Dose Route Stop Time Status Admin Iopamidol 0 .STK-MED ONE 05/15 0039 DC 05/15 IV 0048 Electrolytic, Caloric, And Huyen Sig/Emil Start time Last Medication Dose Route Stop Time Status Admin Sodium Chloride 1,000 ML ONCE ONE 05/14 2144 DC / IV 05/14 2145 222 Patient Discharge Departure Vital Signs/Condition Vital Signs First Documented: Result Date Time Pulse Ox 95 05/14 2137 B/P 140/80 05/14 2137 B/P Mean 100 05/14 2137 O2 Delivery Room air 05/14 2137 Temp 98.7 05/14 2137 Pulse 101 05/14 2137 Resp 18 05/14 2137 Last Documented: Result Date Time Pulse Ox 96 05/158 B/P 108/77 05/158 B/P Mean 87 05/158 [...] Referrals Provider Referral: Jimbo Oliveros MD Address: [address] [place] [address] Provider Referral: Roger Patricia MD Address: [address] [facility] [address] [place] [address] Provider Referral: Guzman Yost Jr, MD Address: [address] [facility] [address] [facility] [address] Provider Referral: Colette Yost MD Address: [address] [place] [id number] Provider Referral: Tex Onofre MD Address: [address] [place] [address] [address] [place] [address] Provider Referral: Perfecto Pelaez MD Address: [address] [facility] [address] [place] [id number] at 0221 RPT #:[id number] END OF REPORTXUCXG4641-14-23 08:35:07 Social Work Note INSURANCE CLAIMS EXAMINER attempted to speak with Raquel at [employer] ([phone]) but had to leave a message for the call to be returned. Please forward the call / message to INSURANCE CLAIMS EXAMINER when she calls back. Please consult INSURANCE CLAIMS EXAMINER if additional needs arise. La Boyer LMSW, [facility] Ambulatory [facility] - Care Management [facility]ics / Adult & Pediatrics - [facility] / [facility] [phone] office La Boyer [facility]2024-04-02 16:04:17 La Boyer is working on this patient for long-term needs. Routed to [facility]. Brittany Lott [facility]2024-04-02 15:47:17 No form found regarding this patient or telephone call. Brittany Gaviria LVN has been corresponding with Home Health will put this encounter back in , in basket for Brittany. Everett Corbin [facility]2024-04-02 14:32:09 Letitia Zelaya is a 52 year old female Raquel from the long-term is calling to speak with a nurse. Please contact Raquel. Milena WoodruffOhioHealthGgnfwe0768-01-01 08:49:39 Attempted to contact Raquel with [employer] , but had to leave a message to call back. Message sent to FLAKO Escamilla, as she has been assisting with this patient. [facility]HealthYntwyc1755-68-07 13:39:11 intermediate Is requesting to speak with a nurse regarding information needed for the nursing facility [facility]24-03-05 11:01:22 Raquel has been informed of Maureen's message. She verbalized understanding. 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 First needs evaluation by Neuro psychiatry. I will follow up with Social work regarding this issue. Notify patient she will be contacted by social work with update and to contact social work with further concerns. SSMENT RN Brittany Lott [facility]2024-03-05 10:55:43 Copied from [facility] #[id number]. Topic: Clinical - Medical Advice >> Apr 13, 2023 10:44 AM Patient Wire Repairer wrote: Raquel with [facility] and intermediate called to follow up on the pt's diagnosis for medical necessity. Raquel - [phone] [facility] Please advise. ONETTE VillalbaOhioHealthRgkluh5295-07-81 10:21:48 La please see most recent response. 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 First needs evaluation by Neuro psychiatry. I will follow up with Social work regarding this issue. Notify patient she will be contacted by social work with update and to contact social work with further concerns. Patient has been informed of this via [employer]. [facility]2024-03-05 08:00:51 This is being addressed in a previous [employer] message dated 04/09/2023. This encounter closed. ONETTE Lott [facility]2024-03-04 16:11:33 Images from the original note were not included. 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 She stated that this would have to be addended to Maureen's last office note on 03/19/2023 in order for her to be admitted. This will have to be faxed to [phone] FLAKO Tovar, is out of office today and will return tomorrow. [place] 509264-03-04 16:02:52 Letitia Zelaya is a 52 year old female Raquel at [facility] intermediate is needing diganosis reports for ( R 41.89 & F 02.4 ) medical neccesity to have the patient admitted into the nursing facility Please advise [phone] SSMENT RN Lalito IrelandOhioHealthVkqrcs3095-91-24 13:55:19 Letitia Zelaya is a 52 year old female Raquel with [facility] nursing is calling stating Pt is very anxious about getting admitted today into long-term and has called several times to get the new orders over with the correct dx codes to hospice/ nursing. Please fax orders and contact pt once done.Thank you! Fx: [phone] SSMENT RN Allyssa SinghOhioHealthAgzllh1172-42-42 13:48:42 Pt is called to check updates regarding her getting admitted to the long-term. Pt states that Raquel with [facility] is waiting on the responds from pcp to go ahead and admitted pt today. Pt states she is needing this to get done azam bc she is wanting to get admitted by this afternoon. SSMENT RN Chin Potts [facility] InstitutejovannyOhioHealthJcgpne4789-05-98 13:40:22 error ONETTE Potts [facility] InstitutePepeLutheran HospitalCogwgk3139-51-63 09:40:28 This has been copied into a previous encounter where the child welfare social worker has been assisting with. This encounter closed to avoid multiple messages. ONETTE Lott [facility]2024-03-04 09:38:47 Images from the original note were not included. 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 She stated that this would have to be addended to Maureen's last office note on 03/19/2023 in order for her to be admitted. This will have to be faxed to [phone] LaFLAKO, is out of office today and will return tomorrow. April 12, 2023 04/12/23 9:20 AM Letitia Zelaya contacted Ever Caicedo Curtis D 04/12/23 9:23 AM Copied from [facility] #[id number]. Topic: Clinical - Order >> Apr 12, 2023 9:20 AM Patient Wire Repairer wrote: Raquel with [facility] is requiring a call from the clinic to discuss adding diagnoses to referral regarding her cognitive impermeant. Date/Time Type Contact Phone/Fax 04/12/2023 09:24 AM ASSESSMENT RN by Ever Caicedo Incoming Raquel (HOME HEALTH) [phone] SSMENT RN [facility]Krcktt8390-42-89 09:23:55 Copied from [facility] #[id number]. Topic: Clinical - Order >> Apr 12, 2023 9:20 AM Patient Wire Repairer wrote: Raquel with [facility] is requiring a call from the clinic to discuss adding diagnoses to referral regarding her cognitive impermeant. ONETTE CaicedoOhioHealthHfaqem1205-32-25 15:48:10 Social Work Note The referral has been faxed over to [facility] as requested. La Boyer LMSW, [facility] Amb[facility] - Care Management [facility] & Pediatrics [facility] [phone] office ONETTE Boyer [facility]2024-03-01 15:12:06 Pt called because she wants to lnow if the orders can be faxed over as soon as possible because she said the place can see her by Wednesday. ONETTE GarciaOhioHealthLxqywc5518-46-70 08:56:44 Social Work Note JOSEPH is addressing this matter in a pt outreach. La Boyer LMSW, [facility] - Care [facility] / Adult & Pediatrics - [facility] [phone] office ONETTE Boyer [facility]2024-03-01 08:28:52 Pt has been updated via [employer]. Pt was working on getting a medical release sent to us. [facility]2024-03-01 08:14:30 Patient is new to this provider Unknown if confirmed hx liver cancer- will need additional records to clarify /verify ER records reviewed-no follow up OV needed Social work referral approved Provider can discuss patient medical case once medical release is singed to speak with Trinidad MORALES per patient and records reviewed by Trinidad MORALES Thank you, Maureen Mcdonald RN, MSN, CHILD WELFARE SOCIAL WORKER, BLOCK INSPECTOR-C SSMENT RN BLOCK INSPECTOR-ADULT [facility]ALTH [facility]2024-02-29 10:48:03 This is being addressed in a call 04/08/2023. This encounter closed to avoid multiple messages. SSMENT RN Brittany Herrera [facility]2024-02-29 10:47:35 This is being addressed in a call 04/08/2023. This encounter closed to avoid multiple messages. SSMENT RN Brittany Herrera [facility]2024-02-29 10:47:08 This is being addressed in a call 04/08/2023. This encounter closed to avoid multiple messages. ON[facility]TE [facility]rera [facility]2024-02-29 10:46:45 This is being addressed in a call 04/08/2023. This encounter closed to avoid multiple messages. SSMENT RN Brittany Herrera [place] [address]-02-29 10:46:25 This is being addressed in a call 04/08/2023. This encounter closed to avoid multiple messages. SSMENT RN Brittany Herrera [place] [address]-02-29 10:45:30 This is being addressed in a call 04/08/2023. This encounter closed to avoid multiple messages. ONETTE Lott [facility] - Cscbfn4731-00-71 10:10:30 Images from the original note were not included. ER 03/29/2023 acute cystitis with hematuria MALKA 03/19/2023 several diagnosis No future appt scheduled Spoke to Nuzhat with [facility],[phone] They are requesting Medical Records, Hospice Order [...] would have one faxed to us at [phone]. Physician, Dr. Paulino, with [employer] would like to speak with Maureen, but they would need medical records to review prior to speaking with her, so they can discuss her medical status. Dr. Paulino's phone number [phone] [facility]: Pt is trying to get into a long-term and she said that if Trinidad can get her admitted to Hospice due to HIV, Chronic Hep C, chronic pain, recurrent UTI's that they can assist her with getting into a long-term I asked her if she had liver cancer and she said that [facility] diagnosed her with this last year, but she never followed up on it. Pt is staying with some friends and she needs help with her daily care due to all her diagnosis and needs to go into facility for this She called [facility] in [place] [phone] to see if they would admit her [...] need a ER follow up with you? SSMENT RN [facility]47 09:12:18 Letitia Zelaya is a 52 year old female [facility] called requesting for medical records and home health orders to be faxed to them. Please advise. Alt fax: [phone] SSMENT RN [facility]-29 08:37:58 Director Of Elementary Education is requesting to speak to Shiloh Garay. [facility] Brandon- [phone] ONETTE MedleyOhioHealthFjwltk2765-81-17 15:26:55 Spoke with patient and notified her that a child welfare social worker will be in contact with her to help with the process. ONETTE Virk [facility]2024-02-26 15:24:09 Social work referral placed to assist patient with starting this process SSMENT RN BLOCK INSPECTOR-ADULT HEALTH [facility]2024-02-26 15:13:20 MALKA 03/19/23 Called and spoke with patient. Per patient she is wanting/ needing to get into a long-term. She states that she has contacted the one in [facility] but was told that she has to sign a medical records release and could take up to 15 days. Per patient is wanting to know if Maureen Mcdonald BLOCK INSPECTOR could expedite things. drapery worker referral was placed for patient 03/2022 but nothing came of it. Please advise. [facility]2024-02-26 15:00:29 Letitia Zelaya is a 52 year old female Patient is calling and would like to speak to provider in regards to getting into a long-term as soon as possible. Patient states she does not want to wait 15 days for Medical Records to send records and is asking if process can be expedited. Please advise. [phone] (home) [facility] Keri CaRobert [place] 910034-02-19 12:53:26 Pt discharged to home, pt given [...] with steady gait, in no apparent distress. [facility] Ally Melvin [facility] CenterAolutg3665-27-33 11:36:47 Letitia Zelaya is a 52 year old female presenting today for Chief Complaint Patient presents with Abdominal Pain UTI Nausea Vomiting - Patient states recently dx and tx for UTI but symptoms are getting worse. States she cannot keep anything down. NAD noted. No past medical history on file. [place] 509264-02-19 11:11:03 Pt ambulates to restroom with steady gait unassisted ONETTE Heaton [facility] CenterMzsxzj9951-55-70 11:00:27 Letitia Zelaya is a 52 year old female presenting today for Chief Complaint Patient presents with Abdominal Pain UTI Nausea Vomiting - Patient states recently dx and tx for UTI but symptoms are getting worse. States she cannot keep anything down. NAD noted. No past medical history on file. ONETTE Harrison [facility] CenterWvgzpf3863-77-66 10:03:31 Spoke to pt via telephone assessment call. Advised her to proceed to ER for evaluation. Maureen Mcdonald ANP: BINU ONETTE Angel [facility] CenterNlbdet1606-83-69 09:53:44 See additional telephone encounter 03/26/23 Bernal Filmst message 03/27/23 Contacted pt Pt states she [...] understanding and agrees with plan. ONETTE Angel RNUTMB - Ttuqdx0514-18-07 09:42:48 Letitia Zelaya is a 52 year old female calling in requesting another medication to aid in nausea and back pain per patient she was given medication for UTI bit it is not helping.Please advise ONETTE SanchesRobert [place] 910034-02-16 11:46:07 Contacted pt Gave pt provider's recommendations. Pt verbalized understanding and agrees with plan. SSMENT RN Nida Angel [place] 869954-02-16 11:26:04 Please instruct patient to chicken picker prescription cefdinir and odansetron from pharmacy-take as prescribed Refrain from substance use. 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 Monitor for fever. If fever > 101.4 develops follow up in urgent care and or office next week Thank you, Maureen Mcdonald RN, MSN, CHILD WELFARE SOCIAL WORKER, BLOCK INSPECTOR-C [facility] BLOCK INSPECTOR-ADULT HEALTH [facility] [place] 910034-02-16 08:41:42 MALKA: 03/19/23 seen by ANANT Roman Generalized abdominal pain Comment: acute, worsening over past 4 weeks, high risk for sepsis, acute liver /renal failure Tachycardia, suspect acute urinary retention Plan: CANCELED: Comp. Metabolic Panel (73558), CANCELED: Lipid Panel (51894)(Total Cholesterol, Triglycerides, HDL), CANCELED: Thyroid Stimulating Hormone, CANCELED: N-Terminal Pro-Bnp, CANCELED: Cbc with Diff, CANCELED: Prothrombin Time / INR, CANCELED: Activated Partial Thrmplas James Patient directed to [facility] Black tarry stools Sciatica Right side Primary [...] hurting, headache So she went back to [facility] ER yesterday They gave her nausea/pain medication [...] gotten them Advised pt to have someone chicken picker her medications: one is for nausea, one is stomach pain, and one is an antibiotic-they are at [facility] in [place]. Advised pt small sips of fluids. Advised pt to alternate tylenol/motrin for pain. ER warnings given. Advised pt will send to provider for any alternate recommendations. Pt verbalized understanding and agrees with plan. ANANT Roman: please advise for any additional/alternate recommendations. [facility]2024-02-16 08:14:40 Pt is calling back in regards to previous message would like a call back please. [phone]. [facility] Anne McgovernOhioHealthHcoges6008-71-44 06:50:56 Letitia Zelaya is a 52 year old female states she has UTI and was seen in ER last night. Patient states ER didn't give her any medication. Patient states she is needing to speak to nurse. Patient upset that ER provider would not give her any pain medication. Patient declined appointment at this time. [facility] Sirena BurtonEric [place] [address]-02-15 20:55:00 Pt placed in lobby to wait for family chicken picker. Given ice chips and warm blanket for comfort. [facility] Pam Lerma [place] 869954-02-15 20:50:57 MD notified of pt continued pain. MD to bedside for pt consult. [place] [address]-02-15 18:45:[address] via stretcher. [place] [address]-02-15 17:20:00 Difficulty with IV access. Awaiting US IV. [place] [address]-02-15 16:32:24 Lettiia Annamarie Zelaya is a 52 year old female [...] to bed now and EKG to follow SSMENT RN Lise Denis RNUT - Lrdhxp8489-87-04 16:23:00 Associated Order(s): EKG-12 Lead ROUTINE ONCE Pre-Procedure Diagnose(s): Abdominal pain, unspecified abdominal location; Tachycardia Post-Procedure Diagnose(s): Abdominal pain, unspecified abdominal location; Tachycardia [facility] Emergency Department Note Patient Name: Letitia Zelaya Date of : 1970 52 year old female Treatment Room: Room/bed info not found Primary Care Physician: Maureen Mcdonald Patient Escorted by: Self [9] Mode of Arrival: Personal means [1] EMS Treatment Prior to ED Arrival: PHERESIS NURSE treatment: None Travel and Exposure Screening: Symptoms [...] cholecystectomy, appendectomy, section. History provided by: Patient fisher used: No Past Medical History/Immunizations: History reviewed. [...] ear normal. Nose: Nose normal. Mouth/Throat: Lips: [place]. Mouth: Mucous membranes are dry. Pharynx: Oropharynx [...] 4 (*) <=2 HPF COMP. METABOLIC PANEL (56229) - Abnormal NA 140 135 - 145 [...] WITH DIFF URINALYSIS LIPASE COMP. METABOLIC PANEL (91420) URINE DRUG (IMMUNOASSAY) - COMPREHENSIVE DRUG SCREEN [...] Eval: ED Events Date/Time Event User Comments 03/25/231624 Medical Screening Begins MEENU LOYD -- 03/25/231624 First Provider Evaluation MEENU LOYD -- ED COURSE ED Course as of 03/25/232034 [facility] Mar 25, 20231933 CT ABDOMEN PELVIS [...] ED Physician in the absence of a turbine attendant: yes Previous ECG: Previous ECG: Compared to [...] disposition and determined to be stable. Reviewed CASINO CASHIER MANAGER if indicated. If pain medicine was prescribed it was for the following reason: Electronically signed by: Meenu Shipman FNP 03/25/232008 Meenu Shipman FNP 03/25/232034 SSMENT RN Associated attestation - Zachariah Gomez MD - 03/25/2023 8:47 PM ASSESSMENT RN Addendum I was personally available for consultation in the Emergency Department during this encounter and patient evaluation by Umberto. [facility]Fzajkt5068-11-22 18:12:18 Pt reports that she is unable to provide urine sample. Pt reports that she has attempted twice with no success. Pt reports that she feels pressure like she has to go but can't. Dr. Mcrae has been notified. SSMENT RN Kit Cruz [facility] CenterQysdfm6654-98-73 14:47:06 Letitia Zelaya is a 52 year [...] triage. No past medical history on file. SSMENT RN Kieran Harrison [facility] CenterAgezoy3871-27-84 14:38:00 [facility] Emergency Department Note Patient Name: Letitia Zelaya Date of : 1970 52 year old female Treatment Room: [place] [address] Primary Care Physician: Maureen Mcdonald Patient Escorted [...] Chief Complaint: Chief Complaint Patient presents with • Back Pain • BLACK TARRY STOOL History of Present Illness: [...] history on file. Allergies: Allergies Allergen Reactions • Sulfur Itching and Swelling • Sulfa (Sulfonamide Antibiotics) Hives Past Social History: [...] 0.01 - 0.07 10*3/uL COMP. METABOLIC PANEL (36670) - Abnormal NA 139 135 - 145 [...] and Treatments: Orders Placed This Encounter Procedures • CT ANGIOGRAM ABDOMEN/PELVIS • Cbc with Diff • Comp. Metabolic Panel (53370) • Troponin I • Prothrombin Time / INR • Ethanol • Type and Screen - ONCE STAT • Lipase • Urinalysis • Urine Drug (Immunoassay) - Comprehensive Drug Screen w/o Reflex • ABORH Confirmation (Lab Only) Orders Placed This Encounter Medications • NaCl 0.9% (NS) bolus infusion 500 mL • HYDROcodone-acetaminophen (NORCO 5) 5-325 mg tablet 1 tablet • DISCONTD: iopamidol (ISOVUE 370-500 mL) injection 80 mL • iopamidol (ISOVUE 370-500 mL) injection 100 mL • pantoprazole (PROTONIX) injection 40 mg First Provider [...] signed by: Joseline Mcrae MD 03/19/[address] [facility] EMERGENCY PHYSICIAN [facility] - Jetwqn4358-15-10 14:38:00 Medical Decision Making Took over patient's [...] Prescription drug management. Zachariah Gomez MD 03/19/232105 [facility]2023-09-06 09:54:18 10/14/22 Community Wellness and Outreach team contacted patient to assist in completing Health Maintenance topics that are overdue. Letitia Zelaya [id number] Attempt Number: First Health Maintenance topics attempted [...] at this time. Patient was sent a Oxtox message and to update new number. Natarajan, [facility] Tianna Adair [facility]ralir8134-35-26 20:49:00 [facility] ([facility]) OR A CAMPUS OF [facility] EMERGENCY PROVIDER REPORT REPORT#:[id number] REPORT STATUS: Signed DATE:07/23/22 TIME: 2048 PATIENT: LETITIA ZELAYA UNIT #: [id number] ROOM/BED: AGE: 52 SEX: F PCP PHYS: [...] F/u with PCP/other doc at 0257 RPT #:[id number] END OF REPORTKUWTO5237-12-92 07:31:00 [facility] EMERGENCY PROVIDER REPORT REPORT#:[id number] REPORT STATUS: Signed DATE:02/21/22 TIME: 730 PATIENT: LETITIA ZELAYA UNIT #: [id number] ROOM/BED: AGE: 51 SEX: F PCP PHYS: [...] states that she has a doctor at [facility]. Patient was admitted at [facility] over [place] for same. Patient states that this week [...] 02/21 06 Pulse 58 02/21 0609 Resp 02/21 0609 [...] % (Auto) (23.0 - 38.0 %) 25.9 [place] % (Auto) (1.0 - 10.0 %) 8.3 Eos % (Auto) (1.0 - 5.0 %) 2.2 Baso % (Auto) (0.0 - 1.0 %) 0.6 Neut # (Auto) (2.4 - 6.3 K/mm3) 2.3 L Lymph # (Auto) (1.2 - 4.0 K/mm3) 0.9 L [place] # (Auto) (0.0 - 0.6 K/mm3) 0.3 [...] pH (5.0 - 9.0) 6.0 Ur Specific [place] (1.000 - 1.030) 1.020 Urine Protein (NEGATIVE [...] noncontrast CT abdomen and pelvis Impression By: AbAJMonica Stinson M.D. Lab Imaging Statement Laboratory radiographic studies reviewed and considered in the medical decision-making. Point of Care Testing Pulse Oximetry Pulse Ox % 98 On: Room air Interpretation Interpreted by co, Pulse oximetry normal ECG #1 Interpretation Text/Dict Note EKG shows normal sinus rate of 98, time is 6:23 AM, no STEMI, T wave inversion V1 inversion V3, interpreted by EDMD Re-Evaluation MDM )( Re-Evaluation/Progress #1 Text/Dict Note Patient crying because a blood pressure cuff is hurting her Time of Re-Ev 07 Re-Evaluation/Progress #2 Text/Dict Note Patient while alone in room admitted to using amphetamine/stimulants over [place] and began to feel ill after using [...] 02/21 0951 1108 Central Nervous System Agents Sig/Meil Start time Last Medication Dose Route Stop [...] Pulse 58 02/21 0609 Resp 02/21 0609 All vital signs available at [...] Provider Referral: Richelle Bai MD Address: [address] [place] [address] Provider Referral: Jhoan Ch Address: [address] [place] [address] Provider Referral: Roger Patricia MD Address: [address] [facility] [address] [place] [address] Provider Referral: Chen Quintana MD Address: [address] [place] [address] [address] [place] [address] Provider Referral: Guzman Yost Jr, MD Address: [address] [facility] [address] [facility] [address] Provider Group: [facility] Provider Referral: Eliud Winter MD Address: [address] [place] [address] Provider Referral: Jono Euceda MD Address: [address] [place] [address] Provider Referral: Jessica Faulkner Address: [address] [place] [address] [address] [place] [address] Discharge Note I have spoken with the [...] a call to 911. at 1119 RPT #:[id number] END OF REPORTHCAMN
[2024-05-28 19:52] LABS: Barbiturates NEGATIVE (NEGATIVE); Benzodiazepines NEGATIVE (NEGATIVE); Cocaine NEGATIVE (NEGATIVE); METHAMPHETAM NEGATIVE (NEGATIVE); Methadone NEGATIVE (NEGATIVE); Opiates NEGATIVE (NEGATIVE); Phencyclidine NEGATIVE (NEGATIVE); THC Cannibis POSITIVE (NEGATIVE)
[2024-05-28 20:10] LABS: Absolute Basophils 0.1 K/uL (0-0.5); Absolute Eosinophils 0.1 K/uL (0-0.5); Absolute Lymphocytes (CBC) 0.6 K/uL (0.7-4.9); Absolute Monocytes 0.3 K/uL (0.1-1.3); Absolute Neutrophil 4.3 K/uL (1.8-8.0); Basophils % 1.5 % (0-1.3); Eosinophils % 2.3 % (0-4.4); Hematocrit 40.7 % (36.0-45.0); Hemoglobin 14.2 g/dL (12.0-15.0); Lymphocytes % 10.9 % (15.3-44.8); MCH 29.4 pg (27.0-35.0); MCHC 34.9 g/dL (32.0-36.0); MCV 84.4 fL (80-100); MPV 9.5 fL (7.6-11.3); Neutrophils % 80.3 % (41.7-73.7); Nucleated Red Blood Cells % 0.2 % (0-0); Platelets 150 thou/uL (152-406); RBC Red Blood Cell Count 4.82 M/uL (3.86-4.86); Red Cell Distribution Width 15.2 % (12.1-15.2)
[2024-05-28 20:13] LABS: PT Prothrombin Time 11.5 SECONDS (10-13.0); PTT, Activated Partial Thromb 27.8 SECONDS (27.2-37.4); Protime INR 1.01
[2024-05-28 20:27] LABS: ALT/SGPT 34 U/L (13-56); AST/SGOT 27 U/L (15-37); Albumin 3.5 g/dL (3.4-5.0); Albumin/Globulin Ratio 0.9 (1.1-1.8); Alkaline Phosphatase 187 U/L (45-117); Anion Gap 8.3 mEq/L (5.0-15.0); BUN Blood Urea Nitrogen 9 mg/dL (7-18); Bicarbonate 24 mEq/L (21-32); Bilirubin Direct 0.3 mg/dL (0-0.2); Bilirubin Indirect, Calculated 0.6 mg/dL (0.2-0.8); Bilirubin Total 0.9 mg/dL (0.2-1.0); Globulin 3.8 g/dL (2.3-3.5); Glomerular Filtration Rate 65 ml/min (=/>90); Glucose Level 118 mg/dL (74-106); Potassium 3.3 mEq/L (3.5-5.1); Protein, Total 7.3 g/dL (6.4-8.2); Sodium Level 140 mEq/L (136-145)
[2024-05-28 20:28] LABS: Sqamous Epithelial <5 /HPF (None Seen); Urine Bacteria <20 /HPF (<20); Urine Crystals Unidentified Few /HPF (None Seen); Urine Microscopic Reflex YN ORDER UMIC; Urine RBC <5 /HPF (None Seen); Urine WBC <5 /HPF (<5)
[2024-05-28 20:30] LABS: Specific Gravity < 1.005 (1.005-1.030); Urine Bilirubin NEGATIVE (Negative); Urine Blood Negative (Negative); Urine Clarity Turbid (Clear); Urine Color Colorless (Yellow); Urine Culture Reflex Order NOT NEEDED; Urine Glucose NEGATIVE (Negative); Urine Ketones NEGATIVE (Negative); Urine Nitrite NEGATIVE (Negative); Urine Protein NEGATIVE (Negative); Urine Urobilinogen Normal (Normal); Urine pH 6.5 (5.0-7.0)
[2024-05-28] MEDS ORDERED: NA CHLORIDE 0.9% 1,000 ML ONE (20:35)
[2024-05-29] MEDS ORDERED: LORAZEPAM 1 MG TABLET ONE (07:20)
--- NOTE | 2024-05-29 07:22 | ER ---
Nurse's Notes [facility] Name: Letitia Velasquez Age: 53 yrs Sex: Female : 1970 Arrival Date: 05/28/2024 Time: 18:18 Bed 2 Private MD: Diagnosis: Acute psychosis, acute visual hallucinations, acute auditory hallucinations, history of HIV, history of hepatitis C, chronic schizophrenia with acute exacerbation Presentation: 05/28 18:26 Chief complaint: EMS states: they were toned out by daughter for pt stating she wants [facility] to "sleep forever." upon EMS arrival PD was on scene. pt denies SI or HI but reports auditory hallucinations. Coronavirus screen: At this time, the client does not indicate any symptoms associated with coronavirus-19. Ebola Screen: No symptoms or risks identified at this time. Initial Sepsis Screen: Does the patient meet any 2 criteria? Altered Mental Status. HR > 90 bpm. Does the patient have a suspected source of infection? No. Patient's initial sepsis screen is negative. Risk Assessment: Do you want to hurt yourself or someone else? Patient reports no desire to harm self or others. Onset of symptoms was May 28, 2024. 18:26 Method Of Arrival: EMS: [place] [facility] 18:26 Acuity: MINNA 2 kc Historical: - Allergies: 18:29 Sulfa (Sulfonamide Antibiotics); kc6 - Home Meds: 05/29 07:58 Biktarvy 50-200-25 mg oral tablet daily [Active]; quetiapine 100 mg oral tablet every jl7 day at bedtime [Active]; lurasidone 20 mg oral tablet every evening [Active]; gabapentin 300 mg oral capsule 3 times per day [Active]; clonidine HCl 0.1 mg Oral tablet 1 tab BID, PRN for Anxiety [Active]; fluoxetine 10 mg Oral tablet daily [Active]; - PMHx: 05/28 18:29 HIV positive; HEP C; Bipolar disorder; Schizophrenia; kc6 - PSHx: 18:29 Unable to Obtain; kc6 - Immunization history:: Adult Immunizations up to date. - Infectious Disease History:: Denies. - Social history:: Smoking status: Patient denies any tobacco usage or history of. - Family history:: not pertinent. Screenin:30 [facility] ED Fall Risk Assessment (Adult) History of falling in the last 3 months, kc6 including since admission No falls in past 3 months (0 pts) Confusion or Disorientation Yes (5 pts) Intoxicated or Sedated No (0 pts) Impaired Gait No (0 pts) Mobility Assist Device Used No (0 pt) Altered Elimination No (0 pt) Score/Fall Risk Level 0 - 2 = Low Risk Oriented to surroundings, Maintained a safe environment, Educated pt \\T\\ family on fall prevention, incl call for assistance when getting out of bed. Abuse screen: Denies threats or abuse. Denies injuries from another. Nutritional screening: No deficits noted. Tuberculosis screening: No symptoms or risk factors identified. Assessment: 18:18 General: Appears distressed, uncomfortable, well groomed, well developed, Behavior is kc6 agitated, anxious, crying, restless. Pain: Complains of pain in back, neck. Neuro: Level of Consciousness is awake, alert, obeys commands, confused, Oriented to person, place, situation. Cardiovascular: Capillary refill < 3 seconds. Respiratory: Airway is patent Trachea midline Respiratory effort is even, unlabored, Respiratory pattern is regular, symmetrical. GI: No signs and/or symptoms were reported involving the gastrointestinal system. : No signs and/or symptoms were reported regarding the genitourinary system. EENT: No signs and/or symptoms were reported regarding the EENT system. Derm: No signs and/or symptoms reported regarding the dermatologic system. Skin is intact, is healthy with good turgor, Skin is pink, warm \\T\\ dry. Musculoskeletal: No signs and/or symptoms reported regarding the musculoskeletal system. Circulation, motion, and sensation intact. Range of motion: intact in all extremities. 20:59 General: Pt's agitation improved with medications. Pt is still complaining of restless kd3 legs. Pt placed on continuous monitoring. . 23:46 Reassessment: Patient and/or family updated on plan of care and expected duration. Pain kd3 level reassessed. Patient is alert, oriented x 3, equal unlabored respirations, skin warm/dry/pink. Patient states symptoms have improved. General: Appears in no apparent distress. 05/29 04:12 Reassessment: Patient and/or family updated on plan of care and expected duration. Pain kd3 level reassessed. Patient is alert, oriented x 3, equal unlabored respirations, skin warm/dry/pink. Patient states symptoms have improved. General: Pt is seen resting in the stretcher, eyes closed, respirations are even and unlabored, skin is warm and dry. VSS . 06:38 General: Appears in no apparent distress. Behavior is calm, cooperative, Pt kd3 independently ambulatory to the restroom and back to the room. Pt is alert and oriented x 4. Pt reports improvement of symptoms. . 07:00 Reassessment:. General: Appears in no apparent distress. uncomfortable, Behavior is jl7 cooperative, anxious, crying. General: Pt denies SI \\T\\ HI at this time. Pain: Denies pain. Neuro: Level of Consciousness is awake, alert, obeys commands, Oriented to person, place, time, situation. Cardiovascular: Patient's skin is warm and dry. Respiratory: Airway is patent Respiratory effort is even, unlabored, Respiratory pattern is regular, symmetrical. Derm: Skin is pink, warm \\T\\ dry. 08:00 Reassessment: Patient appears in no apparent distress at this time. Patient and/or jl7 family updated on plan of care and expected duration. Pain level reassessed. Patient is alert, oriented x 3, equal unlabored respirations, skin warm/dry/pink. 08:30 Reassessment: Daughter at bedside, Sharon Russell [phone]. jl7 Psych: 05/28 18:18 [place] Suicide Severity Screening: In the past month, have you wished you were kc6 or wished you could go to sleep and not wake up? Patient responds "yes." Based off the client's responses additional C-SSRS screening is required. "In the past month, have you actually had any thoughts of killing yourself?" Patient responds "yes." Based off the client's response additional [place] suicide severity screening questions to be further documented on paper forms. "In your lifetime, have you ever done anything, started to do anything, or prepared to do anything to end your life?" Patient responds "yes." Patient reports suicidal intent within 3 past months. Subjective: Patient's mood is irritable, Delusions are denied, Hallucinations are auditory, suspected. Objective: Patient is irritable, using poor eye contact, restless, Speech is loud, rambling, rapid, Affect is appropriate. Interventions: Searched person for dangerous items. Safety Checks: Personal items have not been removed. Door is open. No visitors are present at this time. Pt denies substance abuse. 05/29 09:07 Commitment: Patient will be a voluntary commitment. 7 Vital Signs: 05/28 18:26 BP 137 / 80; Pulse 95; Resp 18 S; Temp 98(TE); Pulse Ox 100% on R/A; Weight 73.48 kg kc6 (M); Height 5 ft. 3 in. (R); Pain 0/10; 20:58 BP 118 / 90; Pulse 85; Resp 19; Pulse Ox 97% on R/A; kd3 21:30 BP 114 / 83; Pulse 77; Resp 18; Pulse Ox 96% on R/A; al5 22:00 BP 117 / 71; Pulse 79; Resp 18; Pulse Ox 95% ; al5 22:30 BP 116 / 67; Pulse 72; Resp 19; Pulse Ox 96% on R/A; al5 23:00 BP 117 / 96; Pulse 73; Resp 18; Pulse Ox 96% on R/A; al5 23:45 BP 127 / 62; Pulse 74; Resp 18; Pulse Ox 99% on R/A; kd3 05/29 00:00 BP 117 / 74; Pulse 78; Resp 18; Pulse Ox 98% on R/A; al5 00:30 BP 116 / 69; Pulse 75; Resp 18; Pulse Ox 95% ; al5 01:00 BP 119 / 63; Pulse 69; Resp 18; Pulse Ox 100% ; al5 01:30 BP 112 / 67; Pulse 68; Resp 18; Pulse Ox 97% ; al5 02:30 BP 91 / 61; Pulse 66; Resp 16; Pulse Ox 94% on R/A; al5 04:12 BP 111 / 67; Pulse 64; Resp 16; Pulse Ox 96% on R/A; kd3 05:12 BP 114 / 73; Pulse 57; Resp 16; Pulse Ox 96% on R/A; kd3 06:10 BP 119 / 74; Pulse 60; Resp 18; Pulse Ox 98% on R/A; kd3 08:30 BP 113 / 61; Pulse 82; Resp 15; Pulse Ox 98% ; 7 05/28 18:26 Body Mass Index 28.70 (73.48 kg, 160.02 cm) [facility] 05/28 18:26 Pain Scale: Adult kc6 [place] Coma Score: 05:31 Eye Response: spontaneous(4). Motor Response: obeys commands(6). Verbal Response: sp4 oriented(5). Total: 15. ED Course: 05/28 18:21 Patient arrived in ED. em1 18:29 Triage completed. kc6 18:29 Arm band placed on. kc6 18:29 Patient has correct armband on for positive identification. Bed in low position. Side kc6 rails up X2. Pulse ox on. NIBP on. Sitter at bedside. Door closed. Noise minimized. Visitors limited. Lights dimmed. Moved to private room. Warm blanket given. Pillow given. Verbal reassurance given. 18:29 Patient maintains SpO2 saturation greater than 95% on room air. kc6 18:34 Michele Randle MD is Attending Physician. [facility] 19:11 Attending Physician role handed off by Michele Randle MD sp4 19:11 Benjamin Andrade MD is Attending Physician. sp4 19:11 Report given to Lise Hancock RN \\T\\ Radha Calles RN. kc6 19:21 Andreia Workman RN is Primary Nurse. kd3 19:38 Urinalysis w/ reflexes Sent. kd3 19:38 Urine Drug Screen Sent. kd3 19:58 Acetaminophen Sent. kd3 19:58 Basic Metabolic Panel Sent. kd3 19:58 CBC with Diff Sent. kd3 19:58 ETOH Level Sent. kd3 19:58 Hepatic Function Sent. kd3 19:58 PT-INR Sent. kd3 19:58 Ptt, Activated Sent. kd3 19:58 Salicylate Sent. kd3 19:58 Urinalysis w/ reflexes Sent. kd3 20:00 Inserted saline lock: 22 gauge in right forearm, using aseptic technique. Blood kd3 collected. Flushed with 10 mL NS. 20:09 EKG done, by ED staff, reviewed by Benjamin Andrade MD. oe 05/29 04:13 Provided Education on: monitoring . kd3 07:30 Pt clinical information faxed to [facility], [facility], and [facility] [address] 07:34 Carolyn from [facility] calls for nurse to nurse report. em1 07:40 [facility] accepts this pt as a transfer. em1 09:07 No provider procedures requiring assistance completed. IV discontinued, intact, jl7 bleeding controlled, No redness/swelling at site. Pressure dressing applied. Administered Medications: 05/28 18:41 Drug: LORazepam IM 2 mg IM once Route: IM; Site: left deltoid; kc6 19:12 Follow up: Response: No adverse reaction; Anxiety unchanged; RASS: Restless (+1) kc6 18:42 Drug: Geodon IM 20 mg IM once Route: IM; Site: right deltoid; kc6 19:12 Follow up: Response: No adverse reaction; Anxiety unchanged; RASS: Restless (+1) kc6 19:21 Drug: Geodon IM 20 mg IM once Route: IM; Site: left gluteus; kd3 05/29 09:05 Follow up: Response: No adverse reaction jl7 05/28 20:58 Drug: NS 0.9% IV 500 ml 500 ml IV at 1 bolus once; to be given as a bolus over 30 kd3 minutes Volume: 500 ml; Route: IV; Rate: 1 bolus; Site: right forearm; 21:00 Follow up: IV Status: Completed infusion; IV Intake: 500ml jl7 20:58 Drug: NS 0.9% IV 500 ml 500 ml IV at 125 ml/hr once Volume: 500 ml; Route: IV; Rate: kd3 125 ml/hr; Site: right forearm; 05/29 03:00 Follow up: Response: No adverse reaction; IV Status: Completed infusion; IV Intake: jl7 500ml 07:28 Drug: LORazepam PO 2 mg PO once Route: PO; jl7 08:00 Follow up: Response: No adverse reaction; Anxiety decreased jl7 Medication: 04:13 VIS not applicable for this client. kd3 Intake: 05/28 21:00 IV: 500ml; Total: 500ml. jl7 05/29 03:00 IV: 500ml; Total: 1000ml. jl7 Outcome: 07:22 ER care complete, transfer ordered by spRajeev 09:07 Discharged to home ambulatory, jl7 09:07 Condition: stable 09:07 Discharge instructions given to patient, family, Instructed on the need for transfer, Demonstrated understanding of instructions, 09:07 Patient left the ED. jl7 Signatures: Michele Randle MD MD cha Martinez, Eric em1 Tavo Saunders Jahala, RN RN jl7 Andreia Workman RN RN kd3 Yancy Sheffield RN RN kc6 Benjamin Andrade MD MD sp4 Lise Cota RN RN al5 Corrections: (The following items were deleted from the chart) 05/28 23:51 22:53 BP 116 / 67; Pulse 72bpm; Resp 19bpm; Pulse Ox 96% RA; kd3 al5
--- NOTE | 2024-05-29 07:22 | EDPHYS ---
Physician Documentation [facility] Name: Letitia Velasquez Age: 53 yrs Sex: Female : 1970 Arrival Date: 05/28/2024 Time: 18:18 Bed 2 Private MD: ED Physician Benjamin Andrade HPI: 05/28 19:11 This 53 yrs old Female presents to ER via EMS with complaints of Psych sp4 Problem. 05/29 05:31 Patient presents with auditory hallucinations. EMS was called by patient's family. sp4 Patient reports that she is hearing other people and seeing other people around her. . Historical: - Allergies: 05/28 18:29 Sulfa (Sulfonamide Antibiotics); kc6 - Home Meds: 05/29 07:58 Biktarvy 50-200-25 mg oral tablet daily [Active]; quetiapine 100 mg oral tablet every jl7 day at bedtime [Active]; lurasidone 20 mg oral tablet every evening [Active]; gabapentin 300 mg oral capsule 3 times per day [Active]; clonidine HCl 0.1 mg Oral tablet 1 tab BID, PRN for Anxiety [Active]; fluoxetine 10 mg Oral tablet daily [Active]; - PMHx: 05/28 18:29 HIV positive; HEP C; Bipolar disorder; Schizophrenia; kc6 - PSHx: 18:29 Unable to Obtain; kc6 - Immunization history:: Adult Immunizations up to date. - Infectious Disease History:: Denies. - Social history:: Smoking status: Patient denies any tobacco usage or history of. - Family history:: not pertinent. ROS: 05/29 05:31 Constitutional: Negative for fever, chills, and weight loss, positive for auditory sp4 hallucinations All other systems are negative, Exam: 05:31 Constitutional: This is a well developed, well nourished patient who is awake, alert, sp4 and in no acute distress. Head/Face: Normocephalic, atraumatic. Eyes: Pupils equal round and reactive to light, extra-ocular motions intact. Lids and lashes normal. Conjunctiva and sclera are not injected. Cornea within normal limits. Periorbital areas with no swelling, redness, or edema. ENT: Nares patent. No nasal discharge, no septal abnormalities noted. Tympanic membranes are normal and external auditory canals are clear. Oropharynx with no redness, swelling, or masses, exudates, or evidence of obstruction, uvula midline. Mucous membranes moist. Neck: Trachea midline, no thyromegaly or masses palpated, and no cervical lymphadenopathy. Supple, full range of motion without nuchal rigidity, or vertebral point tenderness. Chest/axilla: Normal chest wall appearance and motion. Nontender with no deformity. No lesions are appreciated. Cardiovascular: Regular rate and rhythm with a normal S1 and S2. No gallops, murmurs, or rubs. Normal PMI, no JVD. No pulse deficits. Respiratory: Lungs have equal breath sounds bilaterally, clear to auscultation and percussion. No rales, rhonchi or wheezes noted. No increased work of breathing, no retractions or nasal flaring. Abdomen/GI: Soft, with normal bowel sounds. No distension or tympany. No guarding or rebound. No evidence of tenderness throughout. Back: No spinal tenderness. No costovertebral tenderness. Skin: Warm, dry with normal turgor. Normal color with no rashes, no lesions, and no evidence of cellulitis. MS/ Extremity: Pulses equal, no cyanosis. Neurovascular intact. Full, normal range of motion. Neuro: Awake and alert, GCS 15, oriented to person, Cranial nerves II-XII grossly intact. Motor strength 5/5 in all extremities. Sensory grossly intact. Psych: Awake, alert, with orientation to person, , mild agitation Vital Signs: 05/28 18:26 BP 137 / 80; Pulse 95; Resp 18 S; Temp 98(TE); Pulse Ox 100% on R/A; Weight 73.48 kg kc6 (M); Height 5 ft. 3 in. (R); Pain 0/10; 20:58 BP 118 / 90; Pulse 85; Resp 19; Pulse Ox 97% on R/A; kd3 21:30 BP 114 / 83; Pulse 77; Resp 18; Pulse Ox 96% on R/A; al5 22:00 BP 117 / 71; Pulse 79; Resp 18; Pulse Ox 95% ; al5 22:30 BP 116 / 67; Pulse 72; Resp 19; Pulse Ox 96% on R/A; al5 23:00 BP 117 / 96; Pulse 73; Resp 18; Pulse Ox 96% on R/A; al5 23:45 BP 127 / 62; Pulse 74; Resp 18; Pulse Ox 99% on R/A; kd3 05/29 00:00 BP 117 / 74; Pulse 78; Resp 18; Pulse Ox 98% on R/A; al5 00:30 BP 116 / 69; Pulse 75; Resp 18; Pulse Ox 95% ; al5 01:00 BP 119 / 63; Pulse 69; Resp 18; Pulse Ox 100% ; al5 01:30 BP 112 / 67; Pulse 68; Resp 18; Pulse Ox 97% ; al5 02:30 BP 91 / 61; Pulse 66; Resp 16; Pulse Ox 94% on R/A; al5 04:12 BP 111 / 67; Pulse 64; Resp 16; Pulse Ox 96% on R/A; kd3 05:12 BP 114 / 73; Pulse 57; Resp 16; Pulse Ox 96% on R/A; kd3 06:10 BP 119 / 74; Pulse 60; Resp 18; Pulse Ox 98% on R/A; kd3 08:30 BP 113 / 61; Pulse 82; Resp 15; Pulse Ox 98% ; jl7 05/28 18:26 Body Mass Index 28.70 (73.48 kg, 160.02 cm) [facility] 05/28 18:26 Pain Scale: Adult kc6 [place] Coma Score: 05:31 Eye Response: spontaneous(4). Motor Response: obeys commands(6). Verbal Response: sp4 oriented(5). Total: 15. MDM: 05/28 18:34 Medical Screening Exam initiated monica 05/29 07:20 Differential diagnosis: drug withdrawal. acute psychotic break, depression, psychosis sp4 secondary to non-compliance. Data reviewed: vital signs, nurses notes, EMS record, lab test result(s). Consideration of Admission/Observation Escalation of care including admission/observation considered. Management of patient was discussed with the following: Patient was discussed extensively with family and family reports patient is not safe at home. She is misusing her medication and her hallucinations are getting worse. We will pursue transfer to psychiatric hospital at this time. Transition of care: After a detail discussion of the patient's case, care is transferred to Himanshu Nelson MD. ED course: Patient is stable for transfer with ground EMS.. 05/28 18:35 Order name: Acetaminophen; Complete Time: 23:54 05/28 18:35 Order name: Basic Metabolic Panel; Complete Time: 23:54 monica 05/28 18:35 Order name: CBC with Diff; Complete Time: 23:54 05/28 18:35 Order name: ETOH Level; Complete Time: 23:54 05/28 18:35 Order name: Hepatic Function; Complete Time: 23:54 05/28 18:35 Order name: PT-INR; Complete Time: 23:54 05/28 18:35 Order name: Ptt, Activated; Complete Time: 23:54 05/28 18:35 Order name: Salicylate; Complete Time: 23:54 05/28 18:35 Order name: Urinalysis w/ reflexes; Complete Time: 23:54 05/28 18:35 Order name: Urine Drug Screen; Complete Time: 23:54 05/28 18:35 Order name: EKG; Complete Time: 18:36 05/28 18:35 Order name: EKG - Nurse/Tech; Complete Time: 20:11 05/28 18:35 Order name: IV Saline Lock; Complete Time: 19:58 monica 05/28 18:35 Order name: Labs collected and sent; Complete Time: 19:58 05/28 18:35 Order name: Suicide Screening ([place]); Complete Time: 18:59 monica 05/28 18:36 Order name: Seizure Precautions; Complete Time: 20:28 monica Administered Medications: 05/28 18:41 Drug: LORazepam IM 2 mg IM once Route: IM; Site: left deltoid; kc6 19:12 Follow up: Response: No adverse reaction; Anxiety unchanged; RASS: Restless (+1) kc6 18:42 Drug: Geodon IM 20 mg IM once Route: IM; Site: right deltoid; kc6 19:12 Follow up: Response: No adverse reaction; Anxiety unchanged; RASS: Restless (+1) kc6 19:21 Drug: Geodon IM 20 mg IM once Route: IM; Site: left gluteus; kd3 05/29 09:05 Follow up: Response: No adverse reaction jl7 05/28 20:58 Drug: NS 0.9% IV 500 ml 500 ml IV at 1 bolus once; to be given as a bolus over 30 kd3 minutes Volume: 500 ml; Route: IV; Rate: 1 bolus; Site: right forearm; 21:00 Follow up: IV Status: Completed infusion; IV Intake: 500ml jl7 20:58 Drug: NS 0.9% IV 500 ml 500 ml IV at 125 ml/hr once Volume: 500 ml; Route: IV; Rate: kd3 125 ml/hr; Site: right forearm; 05/29 03:00 Follow up: Response: No adverse reaction; IV Status: Completed infusion; IV Intake: jl7 500ml 07:28 Drug: LORazepam PO 2 mg PO once Route: PO; jl7 08:00 Follow up: Response: No adverse reaction; Anxiety decreased jl7 Disposition Summary: 05/29/24 07:22 Transfer Ordered Notes: Transfer Location: Psych Facility sp4 Reason: Higher level of care sp4 Condition: Stable sp4 Problem: new sp4 Symptoms: have improved sp4 Accepting Physician: Accepting psychiatrist(05/29/24 09:07) jl7 Diagnosis - Acute psychosis, acute visual hallucinations, acute auditory hallucinations, sp4 history of HIV, history of hepatitis C, chronic schizophrenia with acute exacerbation Forms: - Medication Reconciliation Form sp4 - SBAR form sp4 Addendum: 05/30/2024 21:52 Addendum: EKG 05/28/2024 EKG time 2006, normal sinus rhythm rate 88, no ST elevation or s p4 depression, no ectopy, normal intervals, overall normal EKG. . Signatures: Dispatcher [employer] EDMichele Scott MD MD cha Leal, Jahala RN RN jl7 Andreia Workman RN RN kd3 Yancy Sheffield RN RN kc6 Benjamin Andrade MD MD sp4 Corrections: (The following items were deleted from the chart) 05/28 18:36 18:36 ACETAMINOPHEN+C.LAB.BRZ ordered. EDMS EDMS 18:36 18:36 BASIC METABOLIC PANEL+C.LAB.BRZ ordered. EDMS EDMS 18:36 18:36 CBC+H.LAB.BRZ ordered. EDMS EDMS 18:36 18:36 ETHANOL+C.LAB.BRZ ordered. EDMS EDMS 18:36 18:36 HEPATIC FUNCTION+C.LAB.BRZ ordered. EDMS EDMS 18:36 18:36 PROTIME (+INR)+COAG.LAB.BRZ ordered. EDMS EDMS 18:36 18:36 PTT, ACTIVATED+COAG.LAB.BRZ ordered. EDMS EDMS 18:36 18:36 SALICYLATE+C.LAB.BRZ ordered. EDMS EDMS 18:36 18:36 Urinalysis+U.LAB.BRZ ordered. EDMS EDMS 18:36 18:36 URINE DRUG SCREEN+UC.LAB.BRZ ordered. EDMS EDMS 05/29 09:07 07:22 Accepting psychiatrist sp4 jl7
[2024-05-29 09:12] VITALS: TEMP 98
[2024-05-29 09:35] VITALS: O2SAT 98
[2024-05-29 09:37] VITALS: BP 113/61
--- NOTE | 2024-05-31 12:46 | EKG ---
Test Date: 2024-05-28 Test Time: 20:07:00 Energy Conservation Specialist: MICHAEL MEASUREMENT RESULTS: Intervals: Rate: 88 WI: 140 QRSD: 88 QT: 380 QTc: 459 [place]: P: 66 WI: 140 QRS: 78 T: 72 INTERPRETIVE STATEMENTS: Normal sinus rhythm Normal ECG Compared to ECG 01/13/2024 13:46:15 Right-axis deviation no longer present Incomplete right bundle-branch block no longer present T-wave abnormality no longer present Prolonged QT interval no longer present Electronically Signed On 05-31-24 12:40:24 CDT by Shawn Rogers
== END 2024-05-29 09:07 ==
LOC: ER 18:18
DX: F20.9 Schizophrenia, unspecified (principal); B19.20 Unspecified viral hepatitis C without hepatic coma; Z21 Asymptomatic human immunodeficiency virus [HIV] infection status
CPT/HCPCS: 96361; 93005; 85025; 81001; 80048; 36415; 85610; 80076; 85730; 80307; 96360; 96372; 99285; 80143; 80179; 82077; J3486 ×2; J7030